=== PATIENT | female | born 1940 | race Caucasian/White ===

== ENCOUNTER 2017-03-05 14:01 | Emergency (ER) | payer MEDICARE, OTHER ==
[2017-03-05] MEDS ORDERED: KETOROLAC TROMETHAMINE 60 MG/2 ML VIAL IM ONE ×2 (14:25→14:33)
[2017-03-05 14:45] LABS: Hematocrit 36.8 % (37.0-47.0); Hemoglobin 12.1 gm/dL (12.5-16.0); Mean Cell Volume 92.9 fl (78-100); Mean Corpuscular Hemoglobin 30.6 pg (27-31); Mean Corpuscular Hgb Conc 32.9 g/dl (32-36); Mean Platelet Volume 10.5 fl (6.0-9.5); Neutrophil % 77.3 % (42-75.0); Platelet Count 223 K/mm3 (150-450); Red Blood Count 3.96 M/mm3 (4.2-5.4); Red Cell Distribution Width 14.1 % (11.5-14.0); White Blood Count 7.7 K/mm3 (4.0-10.5)
--- OUTSIDE RECORDS SUMMARY | 2017-03-05 14:58 | XMS REPORT | Continuity of Care Document ---
:1940 Author Organization [facility] ([facility]) Address [address] [place] [address] Phone [phone] Care Team Providers Name Role Phone Susie Mustafa Primary Care Provider [phone] Source Comments This disclosure is being made pursuant to the Care Everywhere program, applicable federal and state laws, and may not contain all informaitonavailable regarding this patient.[facility] ([facility]) Active Allergies and Adverse Reactions Allergen Noted Date Severity Reactions Comments Ciprofloxacin 05/24/2013 Rash Codeine 05/24/2013 Agitation Levofloxacin 05/24/2013 Rash Sulfa (Sulfonamide Antibiotics) 09/10/2010 Urticaria (Hives) Current Medications Prescription Sig. Disp. Refills Start Date End Date Status SERTraline (ZOLOFT) 50 mg Take 50 mg by Active tablet mouth daily. glimepiride (AMARYL) 4 mg Take 4 mg by mouth Active tablet Every morning. amLODIPine (NORVASC) 10 mg Take 10 mg by Active tablet mouth daily. enalapril (VASOTEC) 5 mg Take 5 mg by mouth Active tablet daily. metoPROLol (TOPROL XL) 50 Take 50 mg by Active mg XL tablet mouth daily. metFORMIN 1,000 mg tablet Take 1,000 mg by Active mouth 2 times daily with meals. BUSPIRONE HCL (BUSPAR PO) Take by mouth 2 Active times daily. Active Problems Problem Noted Date Nephrolithiasis 05/03/2013 HTN (hypertension) 05/03/2013 CAD (coronary artery disease) 05/03/2013 Overview: Reports IN in early 1999, angiogram was negative Diabetes mellitus 05/03/2013 Age related macular degeneration 09/10/2010 Overview: Formatting of this note may be different from the original. RIGHT EYE LEFT EYE Date Diagnosis Procedure Comments Diagnosis Procedure Comments 01/2010 CE CE Other Ocular Diagnoses: 1. 2. Ocular Procedures OD: 1. 2. Ocular Procedures OS: 1. 2. Non-Ocular Medical History: 1. DM 2. HTN Diabetes mellitus type II 09/10/2010 Social History Tobacco Use Types Packs/Day Years Used Date Never Smoker Smokeless Tobacco: Never Used Alcohol Use Drinks/Week oz/Week Comments No Last Filed Vital Signs Vital Sign Reading Time Taken Blood Pressure 147/104 07/19/2013 1:14 PM CDT Pulse 90 07/19/2013 1:14 PM CDT Temperature 36.4 C (97.5 F) 07/19/2013 1:14 PM CDT Respiratory Rate 16 07/19/2013 1:14 PM CDT Height 1.676 m (5' 5.98") 05/24/2013 2:27 PM CDT Weight 129.003 kg (284 lb 6.4 oz) 07/19/2013 1:14 PM CDT Body Mass Index 45.93 07/19/2013 1:14 PM CDT Oxygen Saturation - - Plan of Care Health Maintenance Due Date Last Done Comments Hepatitis B Vaccine (1 of 3 - Primary Series) 1940 Tdap Vaccine 1951 DIABETIC: Cholesterol 1958 Diabetic: Hdl 1958 DIABETIC: Hemoglobin A1C 1958 Diabetic: Ldl 1958 DIABETIC: Microalbumin 1958 DIABETIC: Triglycerides 1958 Td Vaccine 1958 Mammogram 1980 Colonoscopy 1990 Zoster Vaccine 2000 Osteoporosis Screening (DXA Bone Density) 2005 Pneumococcal Vaccine (1 of 2 - PCV13) 2005 DIABETIC: Foot Exam 03/03/2011 DIABETIC: Retinal Eye Exam 03/03/2011 Influenza Vaccine: Seasonal (#1) 04/20/2016 Results from Last 3 Months Not on file
[2017-03-05 15:00] LABS: Albumin * 3.2 gm/dl (3.4-5.0); Anion Gap 12.3 mmol/L (6.8-13.8); BUN/Creatinine Ratio 16.1 (9.0-21.6); Bilirubin, Total 0.3 mg/dL (0.0-1.1); Ca. Corrected For Albumin 8.4 mg/dL (8.4-10.2); Calcium * 8.1 mg/dL (7.9-10.9); Carbon Dioxide 28.2 mmol/L (24-32.6); Potassium 4.5 mmol/L (3.4-4.6); Total Protein 7.2 gm/dL (6.2-8.2)
[2017-03-05 16:27] LABS: Urine Appearance Slightly Cloudy; Urine Color Dark Yellow
[2017-03-05 16:28] LABS: Urine Bilirubin Negative (NEGATIVE); Urine Blood 250 /ul (NEGATIVE); Urine Ketone Negative (NEGATIVE); Urine Nitrite Negative (NEGATIVE); Urine Protein Negative (NEGATIVE); Urine Specific Gravity 1.025 SP.GR. (1.005-1.010); Urine Urobilinogen Normal (NORMAL)
[2017-03-05 16:29] LABS: Urine Bacteria 4+; Urine WBC >50 /hpf (0-5)
--- NOTE | 2017-03-05 16:46 | ERNOTE ---
Back Pain ER HPI Date of Service: 03/05/17 Presenting Symptoms: injury/pain to back Time Seen by Provider: 03/05/17 14:19 Source: patient Exam Limitations: no limitations Immunizations: IMMUNIZATION HX Immunizations Up to Date Yes History of Influenza Vaccine No Hx Pneumococcal Vaccination No Allergies/Adverse Reactions: Allergies red dye Allergy (Mild, Verified 03/05/17 14:07) Hives strawberry Allergy (Mild, Verified 03/05/17 14:07) Hives ciprofloxacin [From Cipro] Adverse Reaction (Mild, Verified 03/05/17 14:07) Hives codeine Adverse Reaction (Mild, Verified 03/05/17 14:07) anxious nitrofurantoin [From Macrobid] Adverse Reaction (Mild, Verified 03/05/17 14:07) Hives Sulfa (Sulfonamide Antibiotics) [Sulfa(Sulfonamide Antibiotics)] Adverse Reaction (Mild, Verified 03/05/17 14:07) Hives Home Medications: HOME MEDICATIONS Enalapril Maleate [Vasotec] 5 mg PO DAILY 08/03/12 [Last Taken Unknown] Metoprolol Tartrate 50 mg PO BID 08/03/12 [Last Taken Unknown] Calcium Carbonate/Vitamin D3 [Calcium 600 + Vit D 400 Tablet] 1 each PO BID [Last Taken Unknown] Glimepiride [Amaryl] 4 mg PO BID 06/06/13 [Last Taken Unknown] Beta-Carotene(A) W-C , E/Min [Ocuvite] 2 tab PO BID 10/06/14 [Last Taken Unknown ] Loratadine [Claritin] 10 mg PO DAILY 12/23/14 [Last Taken Unknown] Escitalopram Oxalate [Lexapro] 20 mg PO DAILY 09/09/15 [Last Taken Unknown] Nystatin [Mycostatin Powder] 1 appl TP BID #1 btl 09/11/15 [Last Taken Unknown] Cholestyramine (with Sugar) [Questran Powder] 4 gm PO DAILY 03/05/17 [Last Taken Unknown] Insulin Glargine,Hum.rec.anlog [Lantus Solostar] 34 unit SQ HS 03/05/17 [Last Taken Unknown] Sulfamethoxazole/Trimethoprim [Bactrim Ds] 1 tab PO BID #20 tab 03/05/17 [Last Taken Unknown] Tramadol HCl/Acetaminophen [Tramadol-Acetaminophn 37.5-325] 1 each PO TID #30 tablet 03/05/17 [Last Taken Unknown] metFORMIN HCL [Glumetza] 500 mg PO HS 03/05/17 [Last Taken Unknown] Narrative: patient has had back pain for last several days, no known injury,hx of arthritis Timing: Reports: getting worse Quality/Severity: Reports: moderate, aching, throbbing Location of pain: Reports: lower back Activities at Onset: Reports: activity Recent Injury?: Reports: no Modifying Factors - (Improves): Reports: nothing Modifying Factors - (Worsens): Reports: movement to right, movement to left, movement flexion Associated Symptoms: Reports: fever/chills Review of Systems - Narrative Narrative: painn hasa progressed to point of decresed ability to walk - Review of Systems Constitutional: Present: weakness, fatigue, malaise EYE: Present: no symptoms reported ENT: Present: no symptoms reported Respiratory: Present: no symptoms reported Cardiology: Present: no symptoms reported Gastrointestinal/Abdominal: Present: no symptoms reported Genitourinary: Present: frequency, pain, dysuria Musculoskeletal: Present: back pain, muscle pain, muscle stiffness, joint pain Skin: Present: no symptoms reported Neurological: Present: no symptoms reported Endocrine: Present: no symptoms reported Hematologic/Lymphatic: Present: no symptoms reported Psych: Present: no symptoms reported All Other Systems: All systems neg except as marked - Patient's Past Medical History Patient History - Medical: Diabetes Type 2, Kidney stone, Obesity, UTI'S Patient History - Cardiac/Respiratory: Hypertension Patient History - Cancer: No Hx of Cancer Patient History - Surgical Procedures: Appendectomy, Cholecystectomy, Colonoscopy Patient History - Other: None LMP (females 10-50): Menopausal - Family History Father Family History - Medical: , Renal Disease, Renal Failure, Other Family History - Cardiac/Respiratory: No pertinent hx Mother Family History - Medical: , Renal Disease, UTI'S Family History - Cardiac/Respiratory: Hypertension, Myocardial Infarction - Social History Living Situations: alone Abuse History: No History of abuse Psych History: No pertinent hx Smoking Status: Never smoker Have you smoked in the past 12 months: No Do you dip or chew tobacco: No Patient requests Smoking Cessation Consult: No Initiate information on Smoking Cessation: No Alcohol Use: none Drug Use: none - Immunizations Immunizations Up to Date: Yes Hx Pneumococcal Vaccination: No History of Influenza Vaccine: No Physical Exam - Physical Exam General Appearance: Present: alert, moderate distress, attentive for age Eye Exam: Normal inspection: bilateral, PERRL: bilateral, EOMI: bilateral Ears, Nose, Throat: Present: normal ENT inspection Neck: Present: normal inspection, nontender Respiratory: Present: no respiratory distress, normal breath sounds, no accessory muscle use, chest nontender, lungs clear Cardiovascular/Chest: Present: regular rate, rhythm, no murmur, normal peripheral pulses Peripheral Pulses: N=norm/S=strong/W=weak/B=bound/A=absent: Carotid (R): Normal , Carotid (L): Normal, Radial (R): Normal, Radial (L): Normal, Femoral (R): Normal, Femoral (L): Normal, Dorsalis-pedis (R): Normal, Dorsalis-pedis (L): Normal Gastrointestinal/Abdominal: Present: normal bowel sounds, nontender, nondistended, soft, no organomegaly Back Exam: Present: vertebral tenderness, decreased range of motion, muscle spasm Extremity Exam: Present: normal inspection, normal range of motion, no edema Neurological Exam: Present: alert, oriented, normal mood/affect, no motor/ sensory deficits DTR: N=norm/NB=norm/brisk/A=abs/DD=dull/dimin/HC=hyperactive: Bicep (R): Normal , Bicep (L): Normal, Tricep (R): Normal, Tricep (L): Normal, Knee (R): Normal, Knee (L): Normal, Ankle (R): Normal, Ankle (L): Normal Skin Exam: Present: normal color, warm/dry Lymphatic Exam: Present: no adenopathy ED Progress - Results and Orders Patient's Lab Results:: I have reviewed the patient's lab results. - Vital Signs Patient's Vital Signs:: I have reviewed the patient's vital signs. Vital Signs: Vital Signs 03/05/17 03/05/17 03/05/17 14:03 14:16 14:37 Temperature 36.5 C Pulse Rate 97 97 104 H Respiratory 18 16 16 Rate Blood Pressure 181/103 183/75 156/79 O2 Sat by Pulse 92 92 90 Oximetry 03/05/17 03/05/17 15:24 16:17 Temperature 37.1 C 36.5 C Pulse Rate 101 H 100 Respiratory 15 16 Rate Blood Pressure 192/102 159/73 O2 Sat by Pulse 92 92 Oximetry - X-Ray X-Ray #1 X-Ray: lumbosacral - report of degenerative joint disease Interpretation: Discd w/ radiologist - Progress/Reassessment Chief Complaint: Back Pain Progress:: Improved - Transfer of Care Expected Disposition: Discharge Departure Clinical Impression: UTI (urinary tract infection), Osteoarthritis - Departure Disposition: Home self-care Condition: Fair Instructions: Urinary Tract Infection, Adult, [id number], Osteoarthritis Prescriptions: Sulfamethoxazole/Trimethoprim [Bactrim Ds] 1 tab PO BID #20 tab Tramadol HCl/Acetaminophen [Tramadol-Acetaminophn 37.5-325] 1 each PO TID #30 tablet
[2017-03-05 16:57] VITALS: BP 160/74
== END 2017-03-05 17:04 | disposition home or self-care (01) ==
LOC: ER 14:01
DX: N39.0 Urinary tract infection, site not specified (principal); M19.90 Unspecified osteoarthritis, unspecified site; E11.9 Type 2 diabetes mellitus without complications; I10 Essential (primary) hypertension; Z87.440 Personal history of urinary (tract) infections; Z87.442 Personal history of urinary calculi

== ENCOUNTER 2017-03-10 13:36 | Inpatient (IN) | payer MEDICARE, OTHER ==
--- NOTE | 2017-03-10 15:07 | ERNOTE ---
Trauma/Assault HPI - General Stated Complaint: UNKNOWN Time Seen by Provider: 03/10/17 13:42 Source: patient Exam Limitations: no limitations - Immun/Allergies/Home Medications Immunizations: IMMUNIZATION HX Immunizations Up to Date Yes History of Influenza Vaccine Yes Hx Pneumococcal Vaccination Yes Allergies/Adverse Reactions: Allergies red dye Allergy (Mild, Verified 03/10/17 13:46) Hives strawberry Allergy (Mild, Verified 03/10/17 13:46) Hives ciprofloxacin [From Cipro] Adverse Reaction (Mild, Verified 03/10/17 13:46) Hives codeine Adverse Reaction (Mild, Verified 03/10/17 13:46) anxious nitrofurantoin [From Macrobid] Adverse Reaction (Mild, Verified 03/10/17 13:46) Hives Sulfa (Sulfonamide Antibiotics) [Sulfa(Sulfonamide Antibiotics)] Adverse Reaction (Mild, Verified 03/10/17 13:46) Hives Home Medications: HOME MEDICATIONS Enalapril Maleate [Vasotec] 5 mg PO DAILY 08/03/12 [Last Taken Unknown] Metoprolol Tartrate 50 mg PO BID 08/03/12 [Last Taken Unknown] Calcium Carbonate/Vitamin D3 [Calcium 600 + Vit D 400 Tablet] 1 each PO BID [Last Taken Unknown] Glimepiride [Amaryl] 4 mg PO BID 06/06/13 [Last Taken Unknown] Beta-Carotene(A) W-C , E/Min [Ocuvite] 2 tab PO BID 10/06/14 [Last Taken Unknown ] Loratadine [Claritin] 10 mg PO DAILY 12/23/14 [Last Taken Unknown] Escitalopram Oxalate [Lexapro] 20 mg PO DAILY 09/09/15 [Last Taken Unknown] Nystatin [Mycostatin Powder] 1 appl TP BID #1 btl 09/11/15 [Last Taken Unknown] Cholestyramine (with Sugar) [Questran Powder] 4 gm PO DAILY 03/05/17 [Last Taken Unknown] Insulin Glargine,Hum.rec.anlog [Lantus Solostar] 34 unit SQ HS 03/05/17 [Last Taken Unknown] Tramadol HCl/Acetaminophen [Tramadol-Acetaminophn 37.5-325] 1 each PO TID #30 tablet 03/05/17 [Last Taken Unknown] metFORMIN HCL [Glumetza] 500 mg PO HS 03/05/17 [Last Taken Unknown] - History of Present Illness Narrative: Patient presents after another fall. Patient has a long-standing history of left leg pain and frequent falls and she fell again this time her got caught on the edge of something at the house and she landed on her left hip and against the left side of her chest. Patient is chronically weak and struggles to get around and is prone to frequent falls. Location Occurred: Reports: home Pain Location: Reports: chest, pelvis Method of Injury: Reports: fall Severity: moderate Loss of Consciousness: Reports: no loss of consciousness Associated Symptoms - Trauma: Reports: denies symptoms Review of Systems - Review of Systems Constitutional: Present: See HPI EYE: Present: no symptoms reported ENT: Present: no symptoms reported Respiratory: Present: no symptoms reported Cardiology: Present: chest pain - chest wall Gastrointestinal/Abdominal: Present: no symptoms reported Genitourinary: Present: no symptoms reported Musculoskeletal: Present: See HPI Skin: Present: no symptoms reported Neurological: Present: no symptoms reported Endocrine: Present: no symptoms reported Hematologic/Lymphatic: Present: no symptoms reported Psych: Present: no symptoms reported - Patient's Past Medical History Patient History - Medical: Diabetes Type 2, Kidney stone, Obesity, UTI'S Patient History - Cardiac/Respiratory: Hypertension Patient History - Cancer: No Hx of Cancer Patient History - Surgical Procedures: Appendectomy, Cholecystectomy, Colonoscopy Patient History - Other: None LMP (females 10-50): Menopausal - Family History Father Family History - Medical: , Renal Disease, Renal Failure, Other Family History - Cardiac/Respiratory: No pertinent hx Mother Family History - Medical: , Renal Disease, UTI'S Family History - Cardiac/Respiratory: Hypertension, Myocardial Infarction - Social History Living Situations: home Abuse History: No History of abuse Psych History: No pertinent hx Smoking Status: Never smoker Alcohol Use: none Drug Use: none - Immunizations Immunizations Up to Date: Yes Hx Pneumococcal Vaccination: Yes History of Influenza Vaccine: Yes Physical Exam - Physical Exam General Appearance: Present: wd/wn, alert, moderate distress Eye Exam: Normal inspection: bilateral, PERRL: bilateral Ears, Nose, Throat: Present: normal ENT inspection, H, normal pharynx Neck: Present: normal inspection, nontender Respiratory: Present: no respiratory distress, normal breath sounds, no accessory muscle use, lungs clear, chest tenderness Cardiovascular/Chest: Present: regular rate, rhythm, no murmur, normal peripheral pulses Gastrointestinal/Abdominal: Present: normal bowel sounds, nontender, nondistended, soft, no organomegaly Rectal Exam: Present: deferred Back Exam: Present: normal inspection, normal range of motion Extremity Exam: Present: normal range of motion, no edema, bony tenderness - tenderness along the left IT Band Neurological Exam: Present: alert, oriented, normal mood/affect Skin Exam: Present: normal color, warm/dry Lymphatic Exam: Present: no adenopathy ED Progress - Results and Orders Patient's Lab Results:: I have reviewed the patient's lab results. - Vital Signs Patient's Vital Signs:: I have reviewed the patient's vital signs. Vital Signs: Vital Signs 03/10/17 03/10/17 03/10/17 13:39 14:09 14:45 Temperature 36.2 C L 36.4 C L 36.0 C L Pulse Rate 72 71 69 Respiratory 16 16 16 Rate Blood Pressure 139/62 151/70 148/72 O2 Sat by Pulse 92 92 93 Oximetry - X-Ray X-Ray #1 X-Ray: chest Interpretation: Reviewed by me X-Ray #2 X-Ray: ankle Interpretation: Reviewed by me - Progress/Reassessment Chief Complaint: Fall Progress:: Unchanged Plan - Plan Plan: Patient appears to be in a severely debilitated decompensated state. She is unable to bear weight on her left side due to severe pain along the left IT band , is unable at this point even to use her walker and today when she tried using her walker she fell. We are given have to bring the patient into the hospital for pain management, PT OT evaluation and further training on walker and being ambulatory. I discussed case with Dr. Bravo and he agrees to admit and assess her ability to function in the home setting if at all. Departure Clinical Impression: Falls frequently, Ambulatory dysfunction - Departure Disposition: [facility] Condition: Fair
[2017-03-10] MEDS ORDERED: MORPHINE SULFATE 4 MG/ML SYRG SC ONE (16:01)
[2017-03-10 16:22] LABS: Hematocrit 38.4 % (37.0-47.0); Hemoglobin 12.6 gm/dL (12.5-16.0); Mean Cell Volume 92.5 fl (78-100); Mean Corpuscular Hemoglobin 30.4 pg (27-31); Mean Corpuscular Hgb Conc 32.8 g/dl (32-36); Mean Platelet Volume 10.3 fl (6.0-9.5); Neutrophil # 8.9 K/mm3 (1.3-6.0); Platelet Count 290 K/mm3 (150-450); Red Blood Count 4.15 M/mm3 (4.2-5.4); Red Cell Distribution Width 14.5 % (11.5-14.0); White Blood Count 11.3 K/mm3 (4.0-10.5)
[2017-03-10] MEDS ORDERED: MORPHINE SULFATE 4 MG/ML SYRG ONE ×2 (16:25→16:29)
[2017-03-10 16:32] LABS: Albumin * 3.4 gm/dl (3.4-5.0); Anion Gap 11.8 mmol/L (6.8-13.8); BUN/Creatinine Ratio 29.2 (9.0-21.6); Bilirubin, Total 0.3 mg/dL (0.0-1.1); Ca. Corrected For Albumin 10.1 mg/dL (8.4-10.2); Calcium * 9.9 mg/dL (7.9-10.9); Carbon Dioxide 30.5 mmol/L (24-32.6); Magnesium 1.7 mg/dL (1.2-2.8); Potassium 4.3 mmol/L (3.4-4.6); Total Protein 7.6 gm/dL (6.2-8.2)
[2017-03-10 17:54] LABS: Urine Bilirubin Negative (NEGATIVE); Urine Blood 50 /ul (NEGATIVE); Urine Ketone Negative (NEGATIVE); Urine Nitrite Negative (NEGATIVE); Urine Protein 30 mg/dL (NEGATIVE); Urine Specific Gravity 1.025 SP.GR. (1.005-1.010); Urine Urobilinogen Normal (NORMAL); Urine pH 5.5 pH (5.0-7.0)
[2017-03-10 18:03] LABS: Urine Appearance Slightly Cloudy; Urine Color Yellow
[2017-03-10 18:04] LABS: Urine Amorphous Sediment Many - 3+ (NONE-FEW); Urine Bacteria 2+; Urine RBC 0-5 /hpf (0-5)
[2017-03-10] MEDS ORDERED: NORMAL SALINE 1,000 ML IV PRN (21:15)
--- NOTE | 2017-03-10 21:28 | HP ---
Chief Complaint - Chief Complaint Date of Service: 03/10/17 Time of Service: 21:17 Chief Complaint: weakness, UTI, unable to do ADLs at home History of Present Illness: Jessa is a 76 year old female patient of Dr. Bravo with a PMH of DM, recurrent UTIs, HTN, and HLD who presented to the ER after a fall at home. denies LOC. states she landed on left side, against left hip and left side of chest. c/o left shoulder pain with movement. history of frequent falls and weakness. patient states that weakness is getting progressively worse to the point she is unable to get around her home and take care of self or do ADLs at home. patient currently being treated outpatient with levaquin po. will admit for weakness, fall, UTI and case management consult for NH placement. - Patient's Past Medical History Patient History - Medical: Diabetes Type 2, Kidney stone, Obesity, UTI'S Patient History - Cardiac/Respiratory: Deep Vein Thrombosis, Hypertension, Myocardial Infarction, Home O2 Use Patient History - Cancer: No Hx of Cancer Patient History - Surgical Procedures: Appendectomy, Cholecystectomy, Colonoscopy, Hernia Repair Patient History - Other: None LMP (females 10-50): Menopausal - Family History Father Family History - Medical: , Renal Disease, Renal Failure, Other Family History - Cardiac/Respiratory: No pertinent hx Mother Family History - Medical: , Renal Disease, UTI'S Family History - Cardiac/Respiratory: Hypertension, Myocardial Infarction - Social History Living Situations: alone Abuse History: No History of abuse Psych History: No pertinent hx Smoking Status: Never smoker Have you smoked in the past 12 months: No Alcohol Use: none Drug Use: none - Immunizations Immunizations Up to Date: Yes Hx Pneumococcal Vaccination: Yes History of Influenza Vaccine: Yes Review Of Systems (GEN) - Review of Systems Generalized/Overall Review: Present: Fatigue, Weight loss. Absent: Chills, Fever EENTM: Present: No Symptoms Reported Respiratory: Present: No Symptoms Reported Cardiac: Present: No Symptoms Reported Abdominal: Present: No Symptoms Reported Genitourinary: Present: Frequency Musculoskeletal: Present: Back Pain, Muscle Pain, Other - left shoulder pain Neurological: Present: Weakness - generalized Skin: Present: No Symptoms Reported Endocrine: Present: No Symptoms Reported Misc: All systems neg except as marked Allergies/Adverse Reactions: Allergies Allergy/AdvReac Type Severity Reaction Status Date / Time red dye Allergy Mild Hives Verified 03/10/17 13:46 strawberry Allergy Mild Hives Verified 03/10/17 13:46 ciprofloxacin [From Cipro] AdvReac Mild Hives Verified 03/10/17 13:46 codeine AdvReac Mild anxious Verified 03/10/17 13:46 nitrofurantoin AdvReac Mild Hives Verified 03/10/17 13:46 [From Macrobid] Sulfa (Sulfonamide AdvReac Mild Hives Verified 03/10/17 13:46 Antibiotics) [Sulfa(Sulfonamide Antibiotics)] Home Medications: HOME MEDICATIONS Enalapril Maleate [Vasotec] 5 mg PO DAILY 08/03/12 [Last Taken Unknown] Metoprolol Tartrate 50 mg PO BID 08/03/12 [Last Taken Unknown] Calcium Carbonate/Vitamin D3 [Calcium 600 + Vit D 400 Tablet] 1 each PO BID [Last Taken Unknown] Glimepiride [Amaryl] 4 mg PO BID 06/06/13 [Last Taken Unknown] Beta-Carotene(A) W-C , E/Min [Ocuvite] 2 tab PO BID 10/06/14 [Last Taken Unknown ] Loratadine [Claritin] 10 mg PO DAILY 12/23/14 [Last Taken Unknown] Escitalopram Oxalate [Lexapro] 20 mg PO DAILY 09/09/15 [Last Taken Unknown] Cholestyramine (with Sugar) [Questran Powder] 4 gm PO DAILY 03/05/17 [Last Taken Unknown] Insulin Glargine,Hum.rec.anlog [Lantus Solostar] 34 unit SQ HS 03/05/17 [Last Taken Unknown] Tramadol HCl/Acetaminophen [Tramadol-Acetaminophn 37.5-325] 1 each PO TID #30 tablet 03/05/17 [Last Taken Unknown] metFORMIN HCL [Glumetza] 500 mg PO BID 03/05/17 [Last Taken Unknown] Levofloxacin [Levaquin] 500 mg PO DAILY 03/10/17 [Last Taken 03/05/17] Nystatin [Nystop] 1 appl TP BID 03/10/17 [Last Taken Unknown] Exam - Exam Vital Signs: Vital Signs - Last Taken Temp 36.8 C 03/10/17 18:35 Pulse 71 06/21/17 18:35 Resp 18 03/10/17 18:35 BP 151/75 03/10/17 18:35 Pulse Ox 90 03/10/17 18:35 Constitutional: Present: Alert, Cooperative, No distress, Elderly, Morbidly obese ENT Exam: Present: hearing grossly normal Eye Exam: bilateral eye: normal inspection Neck: Present: supple Back Exam: Present: no vertebral tenderness Breasts: Present: Exam deferred Respiratory: Present: lungs clear, normal breath sounds, no respiratory distress Cardiovascular/Chest: Present: regular rate, rhythm Peripheral Pulses: dorsalis-pedis (R): 2+, dorsalis-pedis (L): 2+, radial (R): 2 +, radial (L): 2+ Abdomen: Present: Normal bowel sounds, soft, nontender, nondistended, obese /Rectal: Present: Exam deferred Extremity: Present: no pedal edema, no calf tenderness, leg pain - left, other - diffuse left shoulder tenderness to palpation. Skin Exam: Present: warm/dry, no cyanosis, other - large bruise noticed on left lateral hip. Diagnostic Studies: Abnormal Lab Results 03/10/17 Range/Units 17:27 Urine Protein 30 H (NEGATIVE) mg/dL Urine Blood 50 H (NEGATIVE) /ul Ur Leukocyte Esterase 75 H (NEGATIVE) /ul Urine WBC 5-10 H (0-5) /hpf Ur Epithelial Cells 5-10 H (0-5) /hpf Amorphous Sediment Many - 3+ H (NONE-FEW) Urine Bacteria 2+ H (NONE) Laboratory Results WBC 11.3 K/mm3 (4.0-10.5) H 03/10/17 16:15 RBC 4.15 M/mm3 (4.2-5.4) L 03/10/17 16:15 Hgb 12.6 gm/dL (12.5-16.0) 03/10/17 16:15 Hct 38.4 % (37.0-47.0) 03/10/17 16:15 MCV 92.5 fl (78-100) 03/10/17 16:15 MCH 30.4 pg (27-31) 03/10/17 16:15 MCHC 32.8 g/dl (32-36) 03/10/17 16:15 RDW 14.5 % (11.5-14.0) H 03/10/17 16:15 Plt Count 290 K/mm3 (150-450) 03/10/17 16:15 MPV 10.3 fl (6.0-9.5) H 03/10/17 16:15 Immature Gran % (Auto) 0.40 % (0.001-0.429) 03/10/17 16:15 Immature Gran # (Auto) 0.05 K/mm3 (0.000-0.0310) H 03/10/17 16:15 Neutrophils % 79.0 % (42-75.0) H 03/10/17 16:15 Lymphocytes % 10.9 % (20-51) L 03/10/17 16:15 Monocytes % 8.0 % (0.0-9) 03/10/17 16:15 Eosinophils % 1.4 % (0.0-3.0) 03/10/17 16:15 Basophils % 0.3 % (0.0-1.0) 03/10/17 16:15 Nucleated RBC % 0.0 k/mm3 (0-1) 03/10/17 16:15 Neutrophils # 8.9 K/mm3 (1.3-6.0) H 03/10/17 16:15 Lymphocytes # 1.2 k/mm3 (1.5-3.5) L 03/10/17 16:15 Monocytes # 0.9 k/mm3 (0.0-1.0) 03/10/17 16:15 Eosinophils # 0.2 k/mm3 (0.0-0.7) 03/10/17 16:15 Absolute Basophils 0.0 k/mm3 (0.0-0.1) 03/10/17 16:15 Sodium 142 mmol/L (132-142) 03/10/17 16:15 Plasma Sodium 143 mmol/L (130-142) H 03/10/17 16:15 Potassium 4.3 mmol/L (3.4-4.6) 03/10/17 16:15 Chloride 104 mmol/L (97-106) 03/10/17 16:15 Carbon Dioxide 30.5 mmol/L (24-32.6) 03/10/17 16:15 Anion Gap 11.8 mmol/L (6.8-13.8) 03/10/17 16:15 BUN 31 mg/dL (3-23) H D 03/10/17 16:15 Creatinine 1.06 mg/dL (0.4-1.4) 03/10/17 16:15 Est GFR (Non-Af Amer) 54 mL/min (60-130) L 03/10/17 16:15 BUN/Creatinine Ratio 29.2 (9.0-21.6) H 03/10/17 16:15 Random Glucose 150 mg/dL (70-110) H 03/10/17 16:15 Calcium 9.9 mg/dL (7.9-10.9) 03/10/17 16:15 Calcium Adj for Albumin 10.1 mg/dL (8.4-10.2) 03/10/17 16:15 Magnesium 1.7 mg/dL (1.2-2.8) 03/10/17 16:15 Total Bilirubin 0.3 mg/dL (0.0-1.1) 03/10/17 16:15 AST 24 U/L (0-48) 03/10/17 16:15 ALT 34 U/L (19-67) 03/10/17 16:15 Alkaline Phosphatase 70 U/L (50-170) 03/10/17 16:15 Total Protein 7.6 gm/dL (6.2-8.2) 03/10/17 16:15 Albumin 3.4 gm/dl (3.4-5.0) 03/10/17 16:15 Urine Color Yellow 03/10/17 17:27 Urine Appearance Slightly cloudy 03/10/17 17:27 Urine pH 5.5 pH (5.0-7.0) 03/10/17 17:27 Ur Specific [place] 1.025 SP.GR. (1.005-1.010) 03/10/17 17:27 Urine Protein 30 mg/dL (NEGATIVE) H 03/10/17 17:27 Urine Glucose (UA) Negative mg/dL (NEGATIVE) 03/10/17 17:27 Urine Ketones Negative mg/dL (NEGATIVE) 03/10/17 17:27 Urine Blood 50 /ul (NEGATIVE) H 03/10/17 17:27 Urine Nitrate Negative (NEGATIVE) 03/10/17 17:27 Urine Bilirubin Negative mg/dl (NEGATIVE) 03/10/17 17:27 Prot Sulfosalicylic Acd 1+ mg/dL (0) 03/10/17 17:27 Urine Urobilinogen Normal EU/dl (NORMAL) 03/10/17 17:27 Ur Leukocyte Esterase 75 /ul (NEGATIVE) H 03/10/17 17:27 Urine RBC 0-5 /hpf (0-5) 03/10/17 17:27 Urine WBC 5-10 /hpf (0-5) H 03/10/17 17:27 Ur Epithelial Cells 5-10 /hpf (0-5) H 03/10/17 17:27 Amorphous Sediment Many - 3+ (NONE-FEW) H 03/10/17 17:27 Urine Bacteria 2+ (NONE) H 03/10/17 17:27 Urine Culture Comments Culture to follow 03/10/17 17:27 Assessment/Plan - Narrative Narrative: Sepsis - Source of Infection: UTI - Additional Criteria: - hypothermia - temp 36.0 - lactic acidosis - lactic acid 3.3 - failure of outpatient treatment (levaquin po) - Sepsis bolus started at 30 ml/kg - NS at 130 ml/hr x 4086 ml. - Antibiotic - Rocephin 1 gm iv daily - Day #1 - will need minimum stay of 3 midnights to await urine culture results before discharge given outpatient treatment failure and development of sepsis. - Blood cultures x2 pending - await urine culture generalized weakness - long-term deconditioned - consult PT/OT - will likely need NH placement - aggrevated greatly by UTI and sepsis Frequent Fall - see above plan UTI - start Rocephin 1 gm IV daily - Day #1 - await urine culture - see Sepsis plan of care. Left Shoulder Strain - c/o pain with movement - check xray given fall, pt states she landed on her left side. HTN - vital signs q 4 hours Code status: Full code VTE: lovenox GI Proph: protonix po. - Assessment/Plan (1) Generalized weakness Problem: Acute (2) Left shoulder strain Problem: Acute Qualifiers: Encounter type: initial encounter Qualified Code(s): S46.912A - Strain of unspecified muscle, fascia and tendon at shoulder and upper arm level, left arm , initial encounter (3) HTN (hypertension) Problem: Chronic Qualifiers: Hypertension type: essential hypertension Qualified Code(s): I10 - Essential (primary) hypertension (4) HLD (hyperlipidemia) Problem: Chronic Qualifiers: Hyperlipidemia type: unspecified Qualified Code(s): E78.5 - Hyperlipidemia , unspecified (5) Lactic acidosis Problem: Acute (6) Falls frequently Problem: Chronic (7) Discharge planning issues Problem: Acute (8) Low back pain Problem: Chronic Qualifiers: Chronicity: unspecified Back pain laterality: unspecified Sciatica presence: unspecified whether sciatica present Qualified Code(s): M54.5 - Low back pain (9) UTI (urinary tract infection) Problem: Acute Qualifiers: Urinary tract infection type: acute cystitis Hematuria presence: with hematuria Qualified Code(s): N30.01 - Acute cystitis with hematuria (10) Coronary artery disease Problem: Chronic Qualifiers: Coronary Disease-Associated Artery/Lesion type: [place] artery [place] vs. transplanted heart: [place] heart Associated angina: without angina Qualified Code(s): I25.10 - Atherosclerotic heart disease of [place] coronary artery without angina pectoris (11) Diabetes mellitus Problem: Chronic Qualifiers: Diabetes mellitus type: type 2 Diabetes mellitus complication status: without complication (12) Morbid obesity Problem: Chronic Qualifiers: Obesity type: due to excess calories Qualified Code(s): E66.01 - Morbid ( severe) obesity due to excess calories
[2017-03-10] MEDS: METOPROLOL TARTRATE 50 MG TABLET PO SCH (21:56)
[2017-03-10] MEDS: ENOXAPARIN SODIUM 40 MG/0.4 ML SYRG SC SCH (21:56)
[2017-03-10] MEDS: NYSTATIN 15 APPL BTL TP SCH (21:57)
[2017-03-10] MEDS ORDERED: INSULIN GLARGINE,HUM.REC.ANLOG 100 UNITS/ML VIAL SC ONE (22:07)
[2017-03-10] MEDS: INSULIN GLARGINE,HUM.REC.ANLOG 100 UNITS/ML VIAL SC SCH (22:08)
[2017-03-10] MEDS: NORMAL SALINE 1,000 ML IV PRN (22:13)
[2017-03-10] MEDS ORDERED: KETOROLAC TROMETHAMINE 15 MG/ML VIAL IV PRN (22:29)
[2017-03-10] MEDS: traMADol HCL 50 MG TABLET PO PRN (23:05)
[2017-03-11] MEDS: NORMAL SALINE 1,000 ML IV PRN ×3 (06:23→22:50)
[2017-03-11 06:53] LABS: Hematocrit 33.5 % (37.0-47.0); Hemoglobin 10.8 gm/dL (12.5-16.0); Mean Cell Volume 93.6 fl (78-100); Mean Corpuscular Hemoglobin 30.2 pg (27-31); Mean Corpuscular Hgb Conc 32.2 g/dl (32-36); Mean Platelet Volume 9.7 fl (6.0-9.5); Neutrophil # 5.3 K/mm3 (1.3-6.0); Neutrophil % 65.9 % (42-75.0); Platelet Count 216 K/mm3 (150-450); Red Blood Count 3.58 M/mm3 (4.2-5.4); Red Cell Distribution Width 14.6 % (11.5-14.0); White Blood Count 8.1 K/mm3 (4.0-10.5)
[2017-03-11 07:00] LABS: Anion Gap 11.9 mmol/L (6.8-13.8); BUN/Creatinine Ratio 25.5 (9.0-21.6); Calcium * 8.5 mg/dL (7.9-10.9); Carbon Dioxide 27.2 mmol/L (24-32.6); Estimated Creat Clear 42.2; Potassium 4.1 mmol/L (3.4-4.6)
[2017-03-11] MEDS ORDERED: METFORMIN HCL 500 MG PO SCH (07:00)
[2017-03-11] MEDS: INSULIN LISPRO 100 UNITS/ML VIAL SC SCH ×4 (07:09→20:14)
[2017-03-11] MEDS: traMADol HCL 50 MG TABLET PO PRN (07:27)
[2017-03-11] MEDS: GLIMEPIRIDE 4 MG TABLET PO SCH ×2 (07:27→17:22)
[2017-03-11] MEDS: CHOLESTYRAMINE/SUCROSE 4 GM PACKET PO SCH (08:57)
[2017-03-11] MEDS: PANTOPRAZOLE SODIUM 40 MG TABLET.EC PO SCH (08:57)
[2017-03-11] MEDS: NYSTATIN 15 APPL BTL TP SCH ×2 (08:58→20:09)
[2017-03-11] MEDS: ENALAPRIL MALEATE 5 MG TABLET PO SCH (08:58)
[2017-03-11] MEDS: ESCITALOPRAM OXALATE 10 MG TAB PO SCH (08:58)
[2017-03-11] MEDS: LORATADINE 10 MG TABLET PO SCH (08:58)
[2017-03-11] MEDS: BETA-CAROTENE(A) W-C , E/MIN 1 TAB TABLET PO SCH ×2 (08:58→20:08)
[2017-03-11] MEDS: METOPROLOL TARTRATE 50 MG TABLET PO SCH ×2 (08:58→20:10)
[2017-03-11] MEDS: CALCIUM CARBONATE/VITAMIN D3 1 TAB TABLET PO SCH ×2 (08:58→20:10)
[2017-03-11] MEDS: ACETAMINOPHEN 325 MG TABLET PO PRN (10:53)
[2017-03-11] MEDS: GABAPENTIN 300 MG CAPSULE PO SCH ×2 (15:02→23:39)
[2017-03-11] MEDS: INSULIN GLARGINE,HUM.REC.ANLOG 100 UNITS/ML VIAL SC SCH (20:14)
[2017-03-11] MEDS: ENOXAPARIN SODIUM 40 MG/0.4 ML SYRG SC SCH (20:19)
--- NOTE | 2017-03-11 23:51 | PN ---
Subjective - Date and Time Seen Date: 03/11/17 Time: 12:45 Subjective Narrative: Reports bilateral toe pain. Reports this is making it difficult to walk. Still has weakness. No n/v/f/c. Objective - Vitals Vitals: Last Vital Signs Temp 36.4 C L 03/11/17 21:00 Pulse 88 03/11/17 21:00 Resp 16 03/11/17 21:00 BP 151/89 03/11/17 21:00 Pulse Ox 91 03/11/17 21:00 - Exam Constitutional: Present: Alert, Oriented x3, Cooperative ENT Exam: Present: hearing grossly normal Respiratory: Present: lungs clear, normal breath sounds Cardiovascular/Chest: Present: regular rate, rhythm, no edema Abdomen: Present: Normal bowel sounds, soft, nontender, nondistended Skin Exam: Present: normal color, warm/dry, no cyanosis Assessment/Plan - Problems/Diagnosis (1) UTI (urinary tract infection) Problem: Acute Qualifiers: Urinary tract infection type: acute cystitis Hematuria presence: with hematuria Qualified Code(s): N30.01 - Acute cystitis with hematuria Narrative: Suspect weakness from UTI. Continue antibiotics. Strength and mentation appear improving. Difficulty walking due to toe pain. Suspect diabetic neuropathy. Started gabapentin, will monitor. (2) Diabetic neuropathy Problem: Acute (3) Frequent falls Problem: Acute (4) Generalized weakness Problem: Acute
[2017-03-12] MEDS: traMADol HCL 50 MG TABLET PO PRN ×2 (03:27→13:28)
[2017-03-12] MEDS: NORMAL SALINE 1,000 ML IV PRN (06:40)
[2017-03-12] MEDS: GABAPENTIN 300 MG CAPSULE PO SCH ×3 (06:47→22:08)
[2017-03-12] MEDS: GLIMEPIRIDE 4 MG TABLET PO SCH ×2 (06:49→16:27)
[2017-03-12] MEDS: PANTOPRAZOLE SODIUM 40 MG TABLET.EC PO SCH (06:49)
[2017-03-12] MEDS: INSULIN LISPRO 100 UNITS/ML VIAL SC SCH ×4 (06:52→20:48)
[2017-03-12] MEDS: METOPROLOL TARTRATE 50 MG TABLET PO SCH ×2 (08:46→20:49)
[2017-03-12] MEDS: ENALAPRIL MALEATE 5 MG TABLET PO SCH (08:47)
[2017-03-12] MEDS: ESCITALOPRAM OXALATE 10 MG TAB PO SCH (08:47)
[2017-03-12] MEDS: CALCIUM CARBONATE/VITAMIN D3 1 TAB TABLET PO SCH ×2 (08:47→20:48)
[2017-03-12] MEDS: LORATADINE 10 MG TABLET PO SCH (08:47)
[2017-03-12] MEDS: BETA-CAROTENE(A) W-C , E/MIN 1 TAB TABLET PO SCH ×2 (08:47→20:50)
[2017-03-12] MEDS: NYSTATIN 15 APPL BTL TP SCH ×2 (08:48→20:52)
[2017-03-12] MEDS: CHOLESTYRAMINE/SUCROSE 4 GM PACKET PO SCH (08:48)
[2017-03-12 10:17] LABS: Hematocrit 32.1 % (37.0-47.0); Hemoglobin 10.4 gm/dL (12.5-16.0); Mean Cell Volume 93.3 fl (78-100); Mean Corpuscular Hemoglobin 30.2 pg (27-31); Mean Corpuscular Hgb Conc 32.4 g/dl (32-36); Mean Platelet Volume 10.1 fl (6.0-9.5); Neutrophil % 65.7 % (42-75.0); Platelet Count 205 K/mm3 (150-450); Red Blood Count 3.44 M/mm3 (4.2-5.4); Red Cell Distribution Width 14.7 % (11.5-14.0); White Blood Count 7.6 K/mm3 (4.0-10.5)
[2017-03-12 10:28] LABS: Albumin * 2.8 gm/dl (3.4-5.0); Anion Gap 10.7 mmol/L (6.8-13.8); Bilirubin, Total 0.3 mg/dL (0.0-1.1); Ca. Corrected For Albumin 8.8 mg/dL (8.4-10.2); Calcium * 8.2 mg/dL (7.9-10.9); Carbon Dioxide 27.4 mmol/L (24-32.6); Potassium 4.1 mmol/L (3.4-4.6); Total Protein 6.5 gm/dL (6.2-8.2)
--- NOTE | 2017-03-12 13:59 | PN ---
Subjective - Date and Time Seen Date: 03/12/17 Time: 13:52 Subjective Narrative: Continues to have pain in right toes. Sharp, worse with walking. Strength improving. No fever, chills, n/v. Eating better. Objective - Vitals Vitals: Last Vital Signs Temp 36.6 C 03/12/17 09:52 Pulse 74 03/12/17 09:52 Resp 16 03/12/17 09:52 BP 143/60 03/12/17 09:52 Pulse Ox 93 03/12/17 09:52 - Abnormal Lab Findings Abnormal Lab Findings: Abnormal Lab Results 03/12/17 03/12/17 Range/Units 10:12 10:12 RBC 3.44 L (4.2-5.4) M/mm3 Hgb 10.4 L (12.5-16.0) gm/dL Hct 32.1 L (37.0-47.0) % RDW 14.7 H (11.5-14.0) % MPV 10.1 H (6.0-9.5) fl Immature Gran % (Auto) 0.50 H (0.001-0.429) % Immature Gran # (Auto) 0.04 H (0.000-0.0310) K/mm3 Lymphocytes % 19.7 L (20-51) % Monocytes % 11.2 H (0.0-9) % Random Glucose 170 H (70-110) mg/dL Albumin 2.8 L (3.4-5.0) gm/dl - Exam Constitutional: Present: Alert, Oriented x3, Cooperative ENT Exam: Present: hearing grossly normal Respiratory: Present: lungs clear, normal breath sounds Cardiovascular/Chest: Present: regular rate, rhythm, no murmur Abdomen: Present: Normal bowel sounds, soft, nontender, nondistended Skin Exam: Present: normal color, warm/dry, no cyanosis Assessment/Plan - Problems/Diagnosis (1) UTI (urinary tract infection) Problem: Acute Qualifiers: Urinary tract infection type: acute cystitis Hematuria presence: with hematuria Qualified Code(s): N30.01 - Acute cystitis with hematuria Narrative: Based on UA, increased weakness, and falls suspect failed outpatient treatment of UTI. Continue rocephin. Urine culture negative to date, however patient improving with treatment. Still weak. Continue to monitor culture. (2) Generalized weakness Problem: Acute Narrative: PT/OT continue. Suspect she will need skilled care. Will continue acute treatment, if unable to improve to a safety level that she can return home will plan to discharge to [facility] on Wednesday. (3) Falls frequently Problem: Chronic (4) Toe pain, right Problem: Acute Narrative: Suspect diabetic neuropathy. This is a big reason for her difficulty walking in addition to weakness. Will check uric acid. Started Gabapentin yesterday. This has not helped significantly yet. May consider increasing dose in the future.
[2017-03-12] MEDS: INSULIN GLARGINE,HUM.REC.ANLOG 100 UNITS/ML VIAL SC SCH (20:49)
[2017-03-12] MEDS: ENOXAPARIN SODIUM 40 MG/0.4 ML SYRG SC SCH (20:50)
[2017-03-13] MEDS: traMADol HCL 50 MG TABLET PO PRN ×3 (00:38→17:18)
[2017-03-13] MEDS: PANTOPRAZOLE SODIUM 40 MG TABLET.EC PO SCH (06:35)
[2017-03-13] MEDS: GLIMEPIRIDE 4 MG TABLET PO SCH ×2 (06:35→17:18)
[2017-03-13] MEDS: GABAPENTIN 300 MG CAPSULE PO SCH ×3 (06:35→22:34)
[2017-03-13] MEDS: INSULIN LISPRO 100 UNITS/ML VIAL SC SCH ×4 (06:37→20:13)
[2017-03-13] MEDS: predniSONE 20 MG TABLET PO SCH ×2 (08:02)
[2017-03-13] MEDS: CALCIUM CARBONATE/VITAMIN D3 1 TAB TABLET PO SCH ×2 (08:02→20:13)
[2017-03-13] MEDS: LORATADINE 10 MG TABLET PO SCH (08:03)
[2017-03-13] MEDS: BETA-CAROTENE(A) W-C , E/MIN 1 TAB TABLET PO SCH ×2 (08:03→20:17)
[2017-03-13] MEDS: NYSTATIN 15 APPL BTL TP SCH ×2 (08:03→20:16)
[2017-03-13] MEDS: CHOLESTYRAMINE/SUCROSE 4 GM PACKET PO SCH (08:04)
[2017-03-13] MEDS: ESCITALOPRAM OXALATE 10 MG TAB PO SCH (08:04)
[2017-03-13] MEDS: ENALAPRIL MALEATE 5 MG TABLET PO SCH (08:05)
[2017-03-13] MEDS: METOPROLOL TARTRATE 50 MG TABLET PO SCH ×2 (08:05→20:16)
[2017-03-13] MEDS: ACETAMINOPHEN 325 MG TABLET PO PRN ×2 (11:14→20:18)
--- NOTE | 2017-03-13 14:26 | PN ---
Subjective - Date and Time Seen Date: 03/13/17 Time: 14:23 Subjective Narrative: feels ' better', ambulating with walker. Feels occasionally unsteady. Objective - Review of Systems Generalized/Overall Review: Reports: Weakness. Denies: Chills, Fever Respiratory: Denies: Cough Cardiac: Denies: Chest Pain, Edema - Vitals Vitals: Vital Signs Temp 36.6 C 03/13/17 14:18 Pulse 68 03/13/17 14:18 Resp 16 03/13/17 14:18 BP 134/58 03/13/17 14:18 Pulse Ox 91 03/13/17 14:18 - Exam Constitutional: Present: Elderly - Morbidly obese, in NAD, ambulates with walker. ENT Exam: Present: hearing grossly normal, moist mucous membranes Respiratory: Present: lungs clear, normal breath sounds. Absent: no accessory muscle use Cardiovascular/Chest: Present: regular rate, rhythm. Absent: tachycardia Abdomen: Present: Normal bowel sounds, soft, nontender, obese Skin Exam: Present: warm/dry, pallor Neurologic: Present: alert, oriented x 3 - normal mood and affect. Assessment/Plan Plan Narrative: 1. Neuropathy: Check B12 level. 2. Morbid obesity with falls and weakness: BMI- 50.0. Continue PT/OT. No evidence of UTI. Consider vitamin D supplementation. 3. Chronic problems: HTN, T2 DM, OA, depression reviewed and stable.
[2017-03-13] MEDS: INSULIN GLARGINE,HUM.REC.ANLOG 100 UNITS/ML VIAL SC SCH (20:14)
[2017-03-13] MEDS: ENOXAPARIN SODIUM 40 MG/0.4 ML SYRG SC SCH (20:17)
[2017-03-14] MEDS: GABAPENTIN 300 MG CAPSULE PO SCH ×3 (06:56→22:29)
[2017-03-14] MEDS: PANTOPRAZOLE SODIUM 40 MG TABLET.EC PO SCH (06:56)
[2017-03-14] MEDS: GLIMEPIRIDE 4 MG TABLET PO SCH ×2 (06:56→16:58)
[2017-03-14] MEDS: traMADol HCL 50 MG TABLET PO PRN ×2 (07:01→17:00)
[2017-03-14] MEDS: INSULIN LISPRO 100 UNITS/ML VIAL SC SCH ×4 (07:28→20:23)
[2017-03-14] MEDS: METOPROLOL TARTRATE 50 MG TABLET PO SCH ×2 (10:06→20:13)
[2017-03-14] MEDS: CHOLESTYRAMINE/SUCROSE 4 GM PACKET PO SCH (10:07)
[2017-03-14] MEDS: ENALAPRIL MALEATE 5 MG TABLET PO SCH (10:07)
[2017-03-14] MEDS: CALCIUM CARBONATE/VITAMIN D3 1 TAB TABLET PO SCH ×2 (10:07→20:13)
[2017-03-14] MEDS: BETA-CAROTENE(A) W-C , E/MIN 1 TAB TABLET PO SCH ×2 (10:08→20:14)
[2017-03-14] MEDS: ESCITALOPRAM OXALATE 10 MG TAB PO SCH (10:08)
[2017-03-14] MEDS: predniSONE 20 MG TABLET PO SCH (10:09)
[2017-03-14] MEDS: LORATADINE 10 MG TABLET PO SCH (10:09)
[2017-03-14] MEDS: NYSTATIN 15 APPL BTL TP SCH ×2 (10:09→20:14)
--- NOTE | 2017-03-14 10:35 | PN ---
Subjective - Date and Time Seen Date: 03/14/17 Time: 10:34 Subjective Narrative: Overall condition unchanged, ambulating with walker.C/O weakness and tingling in feet. Objective - Review of Systems Generalized/Overall Review: Reports: Weakness Cardiac: Denies: Chest Pain, Edema Neurological: Reports: Numbness - Toes and feet., Tingling - Vitals Vitals: Vital Signs Temp 36.6 C 03/14/17 07:00 Pulse 66 03/14/17 10:07 Resp 18 03/14/17 07:00 BP 168/74 03/14/17 10:07 Pulse Ox 98 03/14/17 07:00 - Exam Constitutional: Present: Elderly, Morbidly obese - alert and oriented 3, NAD Neck: Present: normal inspection, trachea midline Breasts: Present: Exam deferred Respiratory: Present: lungs clear, no accessory muscle use Cardiovascular/Chest: Present: regular rate, rhythm. Absent: tachycardia Abdomen: Present: Normal bowel sounds, soft, nontender - morbidly obese Extremity: Present: normal inspection. Absent: lower extremity edema Assessment/Plan Plan Narrative: 1. Low B12 levels: B12 level at 212 pg/ mL. Start B12 1 mg PO daily. B12 deficiency explained to patient. 2. Generalized weakness with falls Continue with OT and PT. May consider vitamin D3 daily. No evidence of UTI. 3. Chronic conditions: Morbid obesity[BMI 50.0] HTN, T2DM, osteoarthritis, depression reviewed and stable.
[2017-03-14] MEDS: CYANOCOBALAMIN 1,000 MCG TABLET PO SCH (12:16)
[2017-03-14] MEDS: CHOLECALCIFEROL 5,000 UNIT TABLET PO SCH (12:16)
[2017-03-14] MEDS: ACETAMINOPHEN 325 MG TABLET PO PRN (19:47)
[2017-03-14] MEDS: ENOXAPARIN SODIUM 40 MG/0.4 ML SYRG SC SCH (20:14)
[2017-03-14] MEDS: INSULIN GLARGINE,HUM.REC.ANLOG 100 UNITS/ML VIAL SC SCH (20:22)
[2017-03-15] MEDS: traMADol HCL 50 MG TABLET PO PRN ×2 (00:13→07:07)
[2017-03-15] MEDS: GABAPENTIN 300 MG CAPSULE PO SCH (06:24)
[2017-03-15] MEDS: GLIMEPIRIDE 4 MG TABLET PO SCH (06:24)
[2017-03-15] MEDS: PANTOPRAZOLE SODIUM 40 MG TABLET.EC PO SCH (06:25)
[2017-03-15] MEDS: INSULIN LISPRO 100 UNITS/ML VIAL SC SCH ×2 (06:29→11:28)
[2017-03-15] MEDS: CALCIUM CARBONATE/VITAMIN D3 1 TAB TABLET PO SCH (08:01)
[2017-03-15] MEDS: LORATADINE 10 MG TABLET PO SCH (08:01)
[2017-03-15] MEDS: ESCITALOPRAM OXALATE 10 MG TAB PO SCH (08:01)
[2017-03-15] MEDS: BETA-CAROTENE(A) W-C , E/MIN 1 TAB TABLET PO SCH (08:02)
[2017-03-15] MEDS: NYSTATIN 15 APPL BTL TP SCH (08:02)
[2017-03-15] MEDS: METOPROLOL TARTRATE 50 MG TABLET PO SCH (08:02)
[2017-03-15] MEDS: CYANOCOBALAMIN 1,000 MCG TABLET PO SCH (08:03)
[2017-03-15] MEDS: ENALAPRIL MALEATE 5 MG TABLET PO SCH (08:03)
[2017-03-15] MEDS: predniSONE 20 MG TABLET PO SCH (08:08)
[2017-03-15] MEDS: CHOLESTYRAMINE/SUCROSE 4 GM PACKET PO SCH (08:08)
[2017-03-15 10:11] VITALS: BP 159/71
[2017-03-15] MEDS: CHOLECALCIFEROL 5,000 UNIT TABLET PO SCH (11:28)
--- NOTE | 2017-03-15 11:50 | DS ---
(1) UTI (urinary tract infection) Diagnosis(s): Jessa was admitted with worsening weakness, altered mentation, and urine that showed evidence of UTI. She had previously been treated for UTI as outpatient. With failed outpatient treatment she was admitted to acute inpatient status and placed on IV rocephin. Mentation improved and strength improved. She worked with PT. He strength was still too weak to discharge to home and she was set up for skilled care at nursing facility. She had difficulty walking due to toe pain suspected to be diabetic neuropathy. She was started on gabapentin and dose was increased at discharge as it had been ineffective at improving her pain. She will continue therapy at [facility]. Problem: Acute Qualifiers: Urinary tract infection type: acute cystitis Hematuria presence: with hematuria Qualified Code(s): N30.01 - Acute cystitis with hematuria (2) Generalized weakness Problem: Acute (3) Falls frequently Problem: Chronic (4) Toe pain, right Problem: Acute Procedures Performed: none Discharge Disposition: [facility] Disposition: [facility] Condition: Fair Discharge Activity: Activity as tolerated Discharge Diet: Consistent carbs Discharge Level of Care:: SNF - Snf Snf Therapy: Physicial Therapy, Occupation Therapy Referrals: Juan Francisco Bravo DO [Primary Care Provider] - Two Weeks Problem Oriented Discharge Instructions to Patient/Family: Urinary Tract Infection, Adult, [id number], Diabetic Neuropathy Additional Patient Instructions (free text): [facility] Skilled at discharge for PT and OT. Follow up with Dr. Bravo 03/29 at 2:00. Prescriptions (Any new or edited meds): Acetaminophen [Tylenol] 650 mg PO QID PRN #120 tablet PRN Reason: mild pain or fever Cyanocobalamin [Vitamin B-12] 1,000 mcg PO DAILY #30 tablet Gabapentin 600 mg PO TID #180 capsule traMADol HCL [Ultram] 50 mg PO Q6H PRN #120 tablet PRN Reason: Moderate Pain Complete Home Medications List: Complete Home Medication List: Enalapril Maleate [Vasotec] 5 mg PO DAILY 08/03/12 Metoprolol Tartrate 50 mg PO BID 08/03/12 Calcium Carbonate/Vitamin D3 [Calcium 600 + Vit D 400 Tablet] 1 each PO BID Glimepiride [Amaryl] 4 mg PO BID 06/06/13 Beta-Carotene(A) W-C , E/Min [Ocuvite] 2 tab PO BID 10/06/14 Loratadine [Claritin] 10 mg PO DAILY 12/23/14 Escitalopram Oxalate [Lexapro] 20 mg PO DAILY 09/09/15 Cholestyramine (with Sugar) [Questran Powder] 4 gm PO DAILY 03/05/17 Insulin Glargine,Hum.rec.anlog [Lantus Solostar] 34 unit SQ HS 03/05/17 Tramadol HCl/Acetaminophen [Tramadol-Acetaminophn 37.5-325] 1 each PO TID #30 tablet 03/05/17 metFORMIN HCL [Glumetza] 500 mg PO BID 03/05/17 Levofloxacin [Levaquin] 500 mg PO DAILY 03/10/17 Nystatin [Nystop] 1 appl TP BID 03/10/17 Acetaminophen [Tylenol] 650 mg PO QID PRN #120 tablet 03/15/17 Cyanocobalamin [Vitamin B-12] 1,000 mcg PO DAILY #30 tablet 03/15/17 Gabapentin 600 mg PO TID #180 capsule 03/15/17 traMADol HCL [Ultram] 50 mg PO Q6H PRN #120 tablet 03/15/17
== END 2017-03-15 14:30 | DRG 690 ==
LOC: ER 13:36 → MS 16:48 → UNDOADMOB 16:48 → OBSVTOIN 03-11 08:10
PROVIDERS: ADMIT Family Medicine; ATTEND Family Medicine
DX: N30.01 Acute cystitis with hematuria (principal); Z68.43 Body mass index [BMI] 50.0-59.9, adult; S46.912A Strain of unspecified muscle, fascia and tendon at shoulder and upper arm level, left arm, initial encounter; E11.40 Type 2 diabetes mellitus with diabetic neuropathy, unspecified; R53.1 Weakness; W01.0XXA Fall on same level from slipping, tripping and stumbling without subsequent striking against object, initial encounter; Y92.009 Unspecified place in unspecified non-institutional (private) residence as the place of occurrence of the external cause; I25.10 Atherosclerotic heart disease of native coronary artery without angina pectoris; E66.01 Morbid (severe) obesity due to excess calories; Z91.81 History of falling; I10 Essential (primary) hypertension; E78.5 Hyperlipidemia, unspecified; Z99.81 Dependence on supplemental oxygen; Z86.718 Personal history of other venous thrombosis and embolism; I25.2 Old myocardial infarction; Z79.4 Long term (current) use of insulin
CPT/HCPCS: 36415; 71010; 73030; 73502; 73610; 80048; 80053; 81001; 82607; 83605; 83735; 84145; 84443; 84550; 85025; 87040; 87086; 96372; 97110; 97116; 97162; 97165; 97530; 97533; 97535; 99284; G0378; G8978; G8979; G8980; G8987; G8988; G8989

== ENCOUNTER 2017-09-16 16:36 | Inpatient (IN) | payer MEDICARE, MEDICAID ==
--- NOTE | 2017-09-16 17:27 | ERNOTE ---
ER Female HPI Date of Service: 09/16/17 Stated Complaint: KIDNEY PAIN Presenting Symptoms: other - dysuria Time Seen by Provider: 09/16/17 17:20 Source: patient Immunizations: IMMUNIZATION HX Immunizations Up to Date Yes History of Influenza Vaccine Yes Hx Pneumococcal Vaccination Yes Allergies/Adverse Reactions: Allergies red dye Allergy (Mild, Verified 09/16/17 17:05) Hives ciprofloxacin [From Cipro] Adverse Reaction (Mild, Verified 09/16/17 17:05) Hives codeine Adverse Reaction (Mild, Verified 09/16/17 17:05) anxious nitrofurantoin [From Macrobid] Adverse Reaction (Mild, Verified 09/16/17 17:05) Hives Sulfa (Sulfonamide Antibiotics) [Sulfa(Sulfonamide Antibiotics)] Adverse Reaction (Mild, Verified 09/16/17 17:05) Hives Home Medications: HOME MEDICATIONS ALPRAZolam [Xanax] 0.5 mg PO BID PRN 09/16/17 [Last Taken Unknown] Beta-Carotene(A) W-C , E/Min [Ocuvite] 1 tab PO BID 09/16/17 [Last Taken Unknown ] Calcium Carbonate/Vitamin D3 [Calcium 600 + D3 Softgel] 1 each PO BID 09/16/17 [ Last Taken Unknown] Cholestyramine (with Sugar) [Questran Powder] 1 tbs PO DAILY 09/16/17 [Last Taken Unknown] Cyanocobalamin (Vitamin B-12) [Vitamin B12] 1,000 mcg PO DAILY 09/16/17 [Last Taken Unknown] Duloxetine HCl [Cymbalta] 60 mg PO DAILY 09/16/17 [Last Taken Unknown] Enalapril Maleate [Vasotec] 5 mg PO DAILY 09/16/17 [Last Taken Unknown] Glimepiride [Amaryl] 4 mg PO BID 09/16/17 [Last Taken Unknown] Loratadine [Claritin] 10 mg PO DAILY 09/16/17 [Last Taken Unknown] Metoprolol Tartrate [Lopressor] 50 mg PO BID 09/16/17 [Last Taken Unknown] Oxybutynin Chloride [Ditropan] 5 mg PO DAILY 09/16/17 [Last Taken Unknown] metFORMIN HCL [Metformin HCl ER] 500 mg PO BID 09/16/17 [Last Taken Unknown] - History of Present Illness Narrative: patient with flank pain on the left side, patient states onset is this afternoon Date (Duration): 09/16/17 Time (Timing): 16:00 Timing: Present: constant, getting worse Quality: Present: severe Onset Location: Present: left flank Radiation: Present: other - pain radiates anteriorly Activities at Onset: Present: rest Prior Abdominal Problems: Present: other - patient presented with 1 days history of diarrhea. Sexual [place] History: Present: not active Modifying Factors - (Improves): Present: other - known diabeteic with poor oral intake the prior 24 hrs Associated Symptoms: Present: diaphoresis, nausea, abdominal pain. Absent: fever/chills, vomiting Prior Treatment: Absent: recently hospitalized, currently on antibiotics Review of Systems - Narrative Narrative: abrupt onset of pain this pm - Review of Systems Constitutional: Absent: no symptoms reported EYE: Present: no symptoms reported ENT: Present: no symptoms reported Respiratory: Present: no symptoms reported Cardiology: Present: no symptoms reported Gastrointestinal/Abdominal: Present: nausea, diarrhea, eating less, drinking less Genitourinary: Present: dysuria, decreased urinary output Musculoskeletal: Present: back pain, joint pain Skin: Present: rash, dryness Neurological: Present: weakness, pre-existing deficit - 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 Absent: increased thirst, increased urine Hematologic/Lymphatic: Present: no symptoms reported Psych: Present: no symptoms reported All Other Systems: All systems neg except as marked - Narrative Narrative: Reviewed pmh, psh, sh, medications and allergies - Patient's Past Medical History Patient History - Medical: Diabetes Type 2, Kidney stone, Obesity, UTI'S Patient History - Cardiac/Respiratory: Deep Vein Thrombosis, Hypertension, Myocardial Infarction, Home O2 Use Patient History - Cancer: No Hx of Cancer Patient History - Surgical Procedures: Appendectomy, Cholecystectomy, Colonoscopy, Hernia Repair Patient History - Other: None - Family History Father Family History - Medical: , Renal Disease, Renal Failure, Other Family History - Cardiac/Respiratory: No pertinent hx Mother Family History - Medical: , Renal Disease, UTI'S Family History - Cardiac/Respiratory: Hypertension, Myocardial Infarction - Social History Abuse History: No History of abuse Psych History: No pertinent hx Smoking Status: Never smoker Have you smoked in the past 12 months: No Do you dip or chew tobacco: No Alcohol Use: none Drug Use: none - Immunizations Immunizations Up to Date: Yes Hx Pneumococcal Vaccination: Yes History of Influenza Vaccine: Yes Physical Exam - Physical Exam General Appearance: Present: wd/wn, alert, mild distress, obese Head Exam: Present: normal inspection, no evidence of injury Eye Exam: Normal inspection: bilateral, PERRL: bilateral, EOMI: bilateral Ears, Nose, Throat: Present: normal ENT inspection, dry mucous membranes Neck: Present: normal inspection, nontender Respiratory: Present: no respiratory distress, normal breath sounds, no accessory muscle use, chest nontender, lungs clear, stridor Cardiovascular/Chest: Present: regular rate, rhythm, no murmur Peripheral Pulses: N=norm/S=strong/W=weak/B=bound/A=absent: Carotid (R): Normal , Carotid (L): Normal, Radial (R): Normal, Radial (L): Normal, Dorsalis-pedis (R ): Normal Gastrointestinal/Abdominal: Present: normal bowel sounds Rectal Exam: Present: nontender, deferred Pelvic Exam: Absent: active bleeding, discharge, lesions Back Exam: Present: CVA tenderness (L) Extremity Exam: Present: normal inspection, non-tender, normal range of motion, no edema DTR: N=norm/NB=norm/brisk/A=abs/DD=dull/dimin/HC=hyperactive: Bicep (R): Normal , Bicep (L): Normal, Tricep (R): Normal, Tricep (L): Normal, Knee (R): Normal, Knee (L): Normal, Ankle (R): Normal, Ankle (L): Normal Skin Exam: Present: normal color, warm/dry ED Progress - Date and Time Seen: Date and Time: 09/16/17 1750, patient examined and treated with morphine 4mg IVfor pain control , orders for CAT of abdomen & pelvis - Results and Orders Patient's Lab Results:: I have reviewed the patient's lab results. - Vital Signs Patient's Vital Signs:: I have reviewed the patient's vital signs. Vital Signs: Vital Signs 09/16/17 17:01 Temperature 36.5 C Pulse Rate 68 Respiratory 16 Rate Blood Pressure 175/101 O2 Sat by Pulse 95 Oximetry - EKG EKG: NSR, atrial fibrillation, other - with no acute ischemia - CT/Ultrasound CT/Ultrasound Narrative: ct of abdomen and pelvis reviewed. [facility] PATIENT RADIOLOGY STUDY REPORT Patient Patient Name:KIRSTY NAVARRETE Date: 1940 Sex: F Order Number: [id number] Unique Exam ID: [id number] Exam Requested: [id number] - CT Abdomen/Pelvis W/O Date Scheduled: 09-16-2017 06:04 PM Study Priority: Requesting Service: Requesting Physician: Kim Ford Reason for Exam: renal stone protocol Radiological Report : [place] [address] NAME: KIRSTY NAVARRETE : 1940 MR #: [id number] CC: Kim Ford DO LOC: [facility] DATE: X-RAY REPORT [id number] CT/CT Abdomen/Pelvis W/O Exam Date: 09/16/2017 18:04 Ordering Physician: Kim Ford Indication: Left-sided flank pain for 2 to 3 hours. History of left -sided stones. Rule out stone. Technique: Contiguous axial noncontrast CT images through the abdomen and pelvis with coronal reformatted images utilizing the standard CT stone protocol. Individualized dose optimization technique was used for the performed procedure including automated exposure control, adjustment of the mA and/or kV according to patient size and/or the iterative reconstruction technique. Comparison: Prior CT scan dated November 22, 2015. Findings: There is moderate left hydronephrosis and proximal hydroureter. There is a 3 mm x 6 mm stone in the left proximal ureter/UPJ. There is perinephric stranding identified on the left. No right-sided nephrolithiasis. The right ureter is normal caliber and course. The bladder is well distended and grossly normal without contrast. No bladder calculi. The renal parenchyma cannot otherwise be evaluated without contrast. The liver is diffusely enlarged and mildly fatty infiltrated but otherwise cannot be adequately evaluated without contrast. The gallbladder is surgically absent. The spleen, pancreas and adrenal glands are normal size and shape and grossly normal given the limitations without contrast. The unopacified bowel loops are normal caliber without evidence for obstruction. Uterus and ovaries are normal. The aorta shows diffuse atherosclerosis but no aneurysm. The osseous structures show extensive degenerative changes spine, SI joints and bilateral hips. IMPRESSION: 1. ACUTE OBSTRUCTING LEFT UPJ/PROXIMAL URETERAL STONE MEASURING 3 MM X 6 MM. 2. FATTY HEPATOMEGALY. 3. CHOLECYSTECTOMY. 4. FATTY HEPATOMEGALY. 5. REMAINDER OF EXAM IS LIMITED WITHOUT CONTRAST. Electronically signed by Kristofer Wiseman D.O.. Kristofer Wiseman DO Dict: 09/16/171910 Typed: 09/16/171910/ 09/16/17191609/16/171920 Approved by: KRISTOFER WISEMAN Approval Date: 09-16-2017 Approval Time: 07:11 PM THIS REPORT WAS RECEIVED FROM THE [employer] SYSTEM - Progress/Reassessment Chief Complaint: Genitourinary Problem Progress:: Improved - Transfer of Care Pending Results: CT/MRI results Expected Disposition: Admit Plan - Plan Plan: patient results disscussed with hospitalist for admission, pateint accepted. see admission orders. Departure Clinical Impression: Renal calculus Urinary tract infection Qualifiers: Urinary tract infection type: acute cystitis Hematuria presence: with hematuria Qualified Code(s): N30.01 - Acute cystitis with hematuria - Departure Disposition: [facility] Condition: Good
[2017-09-16 17:46] LABS: Hemoglobin 12.8 gm/dL (12.5-16.0); Mean Cell Volume 91.8 fl (78-100); Mean Corpuscular Hemoglobin 30.1 pg (27-31); Mean Corpuscular Hgb Conc 32.8 g/dl (32-36); Mean Platelet Volume 10.3 fl (6.0-9.5); Neutrophil # 6.7 K/mm3 (1.3-6.0); Neutrophil % 76.9 % (42-75.0); Platelet Count 267 K/mm3 (150-450); Red Blood Count 4.25 M/mm3 (4.2-5.4); Red Cell Distribution Width 14.5 % (11.5-14.0); White Blood Count 8.7 K/mm3 (4.0-10.5)
[2017-09-16] MEDS ORDERED: MORPHINE SULFATE 4 MG/ML SYRG IV ONE ×3 (17:59→20:30)
[2017-09-16 18:00] LABS: Anion Gap 13.7 mmol/L (6.8-13.8); BUN/Creatinine Ratio 25.7 (9.0-21.6); Calcium * 8.8 mg/dL (7.9-10.9); Carbon Dioxide 26.8 mmol/L (24-32.6); Estimated Creat Clear 36.6; Potassium 4.5 mmol/L (3.4-4.6)
[2017-09-16] MEDS ORDERED: ONDANSETRON HCL/PF 2 MG/ML VIAL IV ONE (18:00)
[2017-09-16 18:19] LABS: Urine Bilirubin Negative (NEGATIVE); Urine Ketone Negative (NEGATIVE); Urine Nitrite Negative (NEGATIVE); Urine Protein 15 mg/dL (NEGATIVE); Urine Urobilinogen Normal (NORMAL); Urine pH 5.5 pH (5.0-7.0)
[2017-09-16] MEDS: NORMAL SALINE 1,000 ML IV PRN (18:24)
[2017-09-16] MEDS ORDERED: MORPHINE SULFATE 4 MG/ML SYRG ONE ×2 (18:26→20:17)
[2017-09-16] MEDS ORDERED: ONDANSETRON HCL/PF 2 MG/ML VIAL ONE (18:26)
[2017-09-16 18:33] LABS: Urine Appearance Slightly Cloudy; Urine Bacteria 3+; Urine Blood 5 /ul (NEGATIVE); Urine Color Yellow; Urine RBC TRACE /hpf (0-5)
[2017-09-16 18:34] LABS: Urine Amorphous Sediment Moderate - 2+ (NONE-FEW)
[2017-09-16] MEDS ORDERED: MORPHINE SULFATE 4 MG/ML SYRG IM ONE ×2 (20:05→20:28)
[2017-09-16] MEDS: NORMAL SALINE 1,000 ML IV ONE (20:26)
--- NOTE | 2017-09-16 21:52 | HP ---
Chief Complaint - Chief Complaint Date of Service: 09/16/17 Time of Service: 21:50 Chief Complaint: "Abdominal Pain, Back Pain'' History of Present Illness: Mrs. Swann is a 76-yr-old [place] pt of Dr. Juan Francisco Bravo with a PMH of: Chronic Respiratory Failure, Depression, DM II, HTN, HLD, Kidney Stones, Macular degeneration, Splenic Artery Aneurysm & Nocturnal Hypoxia. Pt states that this afternoon, she developed abdominal pain that was radiating to the LT lower back. She has had prior kidney stones and the symptoms were similar and therefore chose to come to the ED. She denies the associated symptoms of fevers , chills, nausea & vomiting. At the ED laboratory studies showed WBC -->8700 with a LT shift, BUN/CR-->29/1.13, Lactic acid--> 1.8, UA--> 3+ bacteria with WBC- 5-10. The abdominal CT revealed: moderate LT hydronephrosis and Acute obstructive stone measuring 3mm x 6mm on the Lt proximal ureter. Of-note, pt had LT UPJ stone in 04/2013 and she underwent cystoscopy with stent placement at the [facility] by Dr. Meraz. Pt will be admitted under observation status for: Nephrolithiasis, UTI and Urology will be consulted in a.m on her case. - Patient's Past Medical History Patient History - Medical: Diabetes Type 2, Kidney stone, Obesity, UTI'S, Other Patient History - Cardiac/Respiratory: Deep Vein Thrombosis, Hypertension, Hyperlipidemia - Macular degeneration. , Myocardial Infarction, Home O2 Use Patient History - Cancer: No Hx of Cancer Patient History - Surgical Procedures: Appendectomy, Cholecystectomy, Colonoscopy, Hernia Repair Patient History - Other: None - Family History Father Family History - Medical: , Renal Disease, Renal Failure, Other Family History - Cardiac/Respiratory: No pertinent hx Mother Family History - Medical: , Renal Disease, UTI'S Family History - Cardiac/Respiratory: Hypertension, Myocardial Infarction - Social History Abuse History: No History of abuse Psych History: No pertinent hx Smoking Status: Never smoker Have you smoked in the past 12 months: No Do you dip or chew tobacco: No Alcohol Use: none Drug Use: none - Immunizations Immunizations Up to Date: Yes Hx Pneumococcal Vaccination: Yes History of Influenza Vaccine: Yes Review Of Systems (GEN) - Review of Systems Generalized/Overall Review: Absent: Weakness, Chills, Fever, Malaise, Diaphoresis, Fatigue EENTM: Absent: Eye Pain, Blurred Vision, Nose Congestion Respiratory: Absent: Cough, Shortness of Breath, Orthopnea Cardiac: Absent: Chest Pain, Edema, Palpitations Abdominal: Absent: Nausea, Vomiting, Hematemesis Genitourinary: Absent: Burning, Itching, Urgency, Hesitancy, Hematuria Musculoskeletal: Absent: Joint Pain, Back Pain, Joint Swelling Neurological: Absent: Headache, Anxiety, Depressed, Emotional Problems, Weakness Skin: Absent: Dryness, Lesions, Lumps, Bruising Endocrine: Present: Intolerance to Heat Misc: All systems neg except as marked Immunizations: IMMUNIZATION HX Immunizations Up to Date Yes History of Influenza Vaccine Yes Hx Pneumococcal Vaccination Yes Allergies/Adverse Reactions: Allergies Allergy/AdvReac Type Severity Reaction Status Date / Time red dye Allergy Mild Hives Verified 09/16/17 17:05 ciprofloxacin [From Cipro] AdvReac Mild Hives Verified 09/16/17 17:05 codeine AdvReac Mild anxious Verified 09/16/17 17:05 nitrofurantoin AdvReac Mild Hives Verified 09/16/17 17:05 [From Macrobid] Sulfa (Sulfonamide AdvReac Mild Hives Verified 09/16/17 17:05 Antibiotics) [Sulfa(Sulfonamide Antibiotics)] Home Medications: HOME MEDICATIONS ALPRAZolam [Xanax] 0.5 mg PO BID PRN 09/16/17 [Last Taken Unknown] Beta-Carotene(A) W-C , E/Min [Ocuvite] 1 tab PO BID 09/16/17 [Last Taken Unknown ] Calcium Carbonate/Vitamin D3 [Calcium 600 + D3 Softgel] 1 each PO BID 09/16/17 [ Last Taken Unknown] Cholestyramine (with Sugar) [Questran Powder] 1 tbs PO DAILY 09/16/17 [Last Taken Unknown] Cyanocobalamin (Vitamin B-12) [Vitamin B12] 1,000 mcg PO DAILY 09/16/17 [Last Taken Unknown] Duloxetine HCl [Cymbalta] 30 mg PO HS 09/16/17 [Last Taken Unknown] Duloxetine HCl [Cymbalta] 60 mg PO DAILY 09/16/17 [Last Taken Unknown] Enalapril Maleate [Vasotec] 5 mg PO DAILY 09/16/17 [Last Taken Unknown] Glimepiride [Amaryl] 4 mg PO BID 09/16/17 [Last Taken Unknown] Insulin Glargine,Hum.rec.anlog [Lantus] 34 units SC HS 09/16/17 [Last Taken Unknown] Loratadine [Claritin] 10 mg PO DAILY 09/16/17 [Last Taken Unknown] Metoprolol Tartrate [Lopressor] 50 mg PO BID 09/16/17 [Last Taken Unknown] Nystatin 1 each MC BID 09/16/17 [Last Taken Unknown] Nystatin/Triamcin [Nystatin-Triamcinolone Cream] 100,000 gm TP BID 09/16/17 [ Last Taken Unknown] Oxybutynin Chloride [Ditropan] 5 mg PO DAILY 09/16/17 [Last Taken Unknown] metFORMIN HCL [Metformin HCl ER] 500 mg PO BID 09/16/17 [Last Taken Unknown] traMADol HCL [Tramadol HCl] 50 mg PO QID PRN 09/16/17 [Last Taken Unknown] Exam - Exam Vital Signs: Vital Signs - Last Taken Temp 37.0 C 09/16/17 20:30 Pulse 75 09/16/17 20:30 Resp 18 09/16/17 20:30 BP 147/68 09/16/17 20:30 Pulse Ox 94 09/16/17 20:30 Constitutional: Present: Alert, Oriented x3, Cooperative ENT Exam: Present: normal ENT inspection, hearing grossly normal Eye Exam: bilateral eye: normal inspection, PERRL Neck: Present: non-tender, full range of motion, supple Back Exam: Present: CVA tenderness (L) Respiratory: Present: chest non-tender, No rales, No wheezing Cardiovascular/Chest: Present: normal peripheral pulses, regular rate, rhythm, no chest tenderness, no edema Abdomen: Present: Normal bowel sounds, soft, nontender, obese /Rectal: Present: Exam deferred Extremity: Present: normal range of motion, non-tender, normal inspection Skin Exam: Present: warm/dry, no cyanosis Lymphatic: Present: no adenopathy Neurologic: Present: alert, normal mood/affect, oriented x 3 Appearance: Present: appropriate appearance, appropriate insight Eye contact: Present: cooperative, good eye contact, normal speech Thoughts: Present: normal thought pattern, no apparent hallucination Diagnostic Studies: Laboratory Results WBC 8.7 K/mm3 (4.0-10.5) 09/16/17 17:43 RBC 4.25 M/mm3 (4.2-5.4) 09/16/17 17:43 Hgb 12.8 gm/dL (12.5-16.0) 09/16/17 17:43 Hct 39.0 % (37.0-47.0) 09/16/17 17:43 MCV 91.8 fl (78-100) 09/16/17 17:43 MCH 30.1 pg (27-31) 09/16/17 17:43 MCHC 32.8 g/dl (32-36) 09/16/17 17:43 RDW 14.5 % (11.5-14.0) H 09/16/17 17:43 Plt Count 267 K/mm3 (150-450) 09/16/17 17:43 MPV 10.3 fl (6.0-9.5) H 09/16/17 17:43 Immature Gran % (Auto) 0.30 % (0.001-0.429) 09/16/17 17:43 Immature Gran # (Auto) 0.03 K/mm3 (0.000-0.0310) 09/16/17 17:43 Neutrophils % 76.9 % (42-75.0) H 09/16/17 17:43 Lymphocytes % 12.0 % (20-51) L 09/16/17 17:43 Monocytes % 8.4 % (0.0-9) 09/16/17 17:43 Eosinophils % 2.2 % (0.0-3.0) 09/16/17 17:43 Basophils % 0.2 % (0.0-1.0) 09/16/17 17:43 Nucleated RBC % 0.0 k/mm3 (0-1) 09/16/17 17:43 Neutrophils # 6.7 K/mm3 (1.3-6.0) H 09/16/17 17:43 Lymphocytes # 1.0 k/mm3 (1.5-3.5) L 09/16/17 17:43 Monocytes # 0.7 k/mm3 (0.0-1.0) 09/16/17 17:43 Eosinophils # 0.2 k/mm3 (0.0-0.7) 09/16/17 17:43 Absolute Basophils 0.0 k/mm3 (0.0-0.1) 09/16/17 17:43 Sodium 140 mmol/L (132-142) 09/16/17 17:43 Plasma Sodium 142 mmol/L (130-142) 09/16/17 17:43 Potassium 4.5 mmol/L (3.4-4.6) 09/16/17 17:43 Chloride 104 mmol/L (97-106) 09/16/17 17:43 Carbon Dioxide 26.8 mmol/L (24-32.6) 09/16/17 17:43 Anion Gap 13.7 mmol/L (6.8-13.8) 09/16/17 17:43 BUN 29 mg/dL (3-23) H 09/16/17 17:43 Creatinine 1.13 mg/dL (0.4-1.4) 09/16/17 17:43 Est GFR (Non-Af Amer) 50 mL/min (60-130) L D 09/16/17 17:43 BUN/Creatinine Ratio 25.7 (9.0-21.6) H 09/16/17 17:43 Random Glucose 195 mg/dL (70-110) H 09/16/17 17:43 Lactic Acid, Venous 1.8 mmol/L (0.4-1.9) 09/16/17 20:43 Calcium 8.8 mg/dL (7.9-10.9) 09/16/17 17:43 Urine Color Yellow 09/16/17 18:01 Urine Appearance Slightly cloudy 09/16/17 18:01 Urine pH 5.5 pH (5.0-7.0) 09/16/17 18:01 Ur Specific Diana 1.020 SP.GR. (1.005-1.010) 09/16/17 18:01 Urine Protein 15 mg/dL (NEGATIVE) H 09/16/17 18:01 Urine Glucose (UA) Negative mg/dL (NEGATIVE) 09/16/17 18:01 Urine Ketones Negative mg/dL (NEGATIVE) 09/16/17 18:01 Urine Blood 5 /ul (NEGATIVE) H 09/16/17 18:01 Urine Nitrate Negative (NEGATIVE) 09/16/17 18:01 Urine Bilirubin Negative mg/dl (NEGATIVE) 09/16/17 18:01 Prot Sulfosalicylic Acd 1+ mg/dL (0) 09/16/17 18:01 Urine Urobilinogen Normal EU/dl (NORMAL) 09/16/17 18:01 Ur Leukocyte Esterase 25 /ul (NEGATIVE) H 09/16/17 18:01 Urine RBC Trace /hpf (0-5) 09/16/17 18:01 Urine WBC 5-10 /hpf (0-5) H 09/16/17 18:01 Ur Epithelial Cells None seen /hpf (0-5) 09/16/17 18:01 Amorphous Sediment Moderate - 2+ (NONE-FEW) H 09/16/17 18:01 Urine Bacteria 3+ (NONE) H 09/16/17 18:01 Urine Culture Comments Culture to follow 09/16/17 18:01 Assessment/Plan - Assessment/Plan (1) Nephrolithiasis Assessment: Pt is a 76 yr female pt who presented with Acute onset of LT flank pain which begun this afternoon. The CT of the abdomen revealed: moderate LT hydronephrosis and Acute obstructive stone measuring 3mm x 6mm on the Lt proximal ureter. WBC in NR but there is LT shift, Lactic acid -->1.8. There is no RIAN associated with this. However she has a UTI. Will provide supportive cares with: Aggressive IVF hydration, IV antibiotics for UTI, Pain mgt, and antiemetics, Nursing will strain strain urine. Will start her on Flomax. Consult urology in am. Problem: Acute (2) UTI (urinary tract infection) Assessment: Received Rocephin at the ED, however at 2330, nursing reported acute urticaria. Do not suspect that rocephine is the causative agent as she had received treatment with this in the past, at least 3-4 hospitalizations. Therefore do not see the need to discontinue this antibiotic at this time. Will switch when urine culture results. Laboratory Tests 09/16/17 18:01 Ur Leukocyte Esterase 25 H Urine RBC Trace Urine WBC 5-10 H Urine Bacteria 3+ H Urine Culture Comments Culture to follow Problem: Acute (3) Acute urticaria Assessment: At approximately 2330, nursing reported confusion, rigors and urticaria prior to the administration of second dose of Morphine. Suspect the causative agents are likely Morphine or Zofran. Pt received Rocephin at the ED and but has been treated with this in the previous 3-4 hospitalizations for UTI and do not suspect its this drug. Will discontinue Morphine and Zofran. No signs of wheezing, cough and plumonary tract was intact. Given treatment with Loratadine, prednisone and Pepcid. Will continue with loratadine and Prednisone x 5 days. Benadryl avoided due to its anticholinergic effects on the elderly. Problem: Acute (4) HTN (hypertension) Assessment: Stable - Continue Problem: Chronic Qualifiers: Hypertension type: essential hypertension Qualified Code(s): I10 - Essential (primary) hypertension (5) Diabetes Assessment: Accu checks Q 6 hrs while NPO, Hold metformin, Lantus insulin and Amaryl while NPO. Problem: Chronic (6) Nocturnal hypoxemia Assessment: Chronically on Oxygen 4 LNC at night. Problem: Chronic (7) Macular degeneration Problem: Chronic
[2017-09-16] MEDS ORDERED: MORPHINE SULFATE 2 MG/ML DISP.SYRIN IV PRN (22:04)
[2017-09-16] MEDS ORDERED: ONDANSETRON HCL/PF 2 MG/ML VIAL IV PRN (22:05)
[2017-09-16] MEDS ORDERED: LORATADINE 10 MG TABLET PO SCH (23:45)
[2017-09-16] MEDS ORDERED: FAMOTIDINE 20 MG TABLET PO SCH (23:45)
[2017-09-16] MEDS ORDERED: predniSONE 20 MG TABLET PO ONE (23:49)
[2017-09-17] MEDS: TAMSULOSIN HCL 0.4 MG CAP.SR.24H PO SCH ×2 (00:11→17:03)
[2017-09-17] MEDS ORDERED: traMADol HCL 50 MG TABLET PO PRN (00:46)
[2017-09-17] MEDS: NORMAL SALINE 1,000 ML IV ONE (04:06)
[2017-09-17 06:08] LABS: Hematocrit 37.2 % (37.0-47.0); Mean Corpuscular Hgb Conc 32.3 g/dl (32-36); Mean Platelet Volume 10.7 fl (6.0-9.5); Platelet Count 232 K/mm3 (150-450); Red Cell Distribution Width 14.6 % (11.5-14.0); White Blood Count 21.7 K/mm3 (4.0-10.5)
[2017-09-17 06:10] LABS: Total Cells Counted 100
[2017-09-17 06:19] LABS: Anion Gap 13.4 mmol/L (6.8-13.8); BUN/Creatinine Ratio 18.8 (9.0-21.6); Calcium * 8.2 mg/dL (7.9-10.9); Carbon Dioxide 24.8 mmol/L (24-32.6); Potassium 4.2 mmol/L (3.4-4.6)
[2017-09-17 06:20] LABS: Band 16 % (0-2.0); Lymphocyte 3 % (20-51); Monocyte 5 % (0-9); Neutrophil 76 % (42-75); Neutrophil # 16.5 K/mm3 (1.3-6.0)
[2017-09-17 06:21] LABS: Dohle Bodies Trace
--- NOTE | 2017-09-17 06:44 | PN ---
Subjective - Date and Time Seen Date: 09/17/17 Time: 06:42 Subjective Narrative: Pt seen this am. She is in distress and restless. She is having generalized pain. Planning to consult Urology for possible Stent placement. The urticaria from reaction to likely morphine or Zofran is resolved. Voided 300 ml. WBC elevated this am along with worsening Kidney function. Objective - Vitals Vitals: Last Vital Signs Temp 37.0 C 09/17/17 02:00 Pulse 111 H 09/17/17 02:00 Resp 18 09/17/17 02:00 BP 123/63 09/17/17 02:00 Pulse Ox 93 09/17/17 02:00 - Abnormal Lab Findings Abnormal Lab Findings: Abnormal Lab Results 09/17/17 09/17/17 Range/Units 06:02 06:02 WBC 21.7 H D (4.0-10.5) K/mm3 RBC 4.00 L (4.2-5.4) M/mm3 Hgb 12.0 L (12.5-16.0) gm/dL RDW 14.6 H (11.5-14.0) % MPV 10.7 H (6.0-9.5) fl Neutrophils % (Manual) 76 H (42-75) % Band Neuts % (Manual) 16 H (0-2.0) % Lymphocytes % (Manual) 3 L (20-51) % Neutrophils # (Manual) 16.5 H (1.3-6.0) K/mm3 Lymphocytes # (Manual) 0.7 L (1.5-3.5) k/mm3 Monocytes # (Manual) 1.1 H (0.0-1.0) k/mm3 BUN 31 H (3-23) mg/dL Creatinine 1.65 H D (0.4-1.4) mg/dL Est GFR (Non-Af Amer) 32 L D (60-130) mL/min Random Glucose 245 H (70-110) mg/dL - Exam Constitutional: Present: Alert, Oriented x3, Cooperative ENT Exam: Present: normal ENT inspection. Absent: nasal drainage, pharyngeal erythema Neck: Present: full range of motion, supple, normal inspection Breasts: Present: Exam deferred Respiratory: Present: lungs clear, normal breath sounds Cardiovascular/Chest: Present: regular rate, rhythm, no chest tenderness, no edema Abdomen: Present: Normal bowel sounds, soft, nontender, obese /Rectal: Present: Exam deferred Extremity: Present: normal range of motion, non-tender Skin Exam: Present: warm/dry, no cyanosis Lymphatic: Present: no adenopathy Neurologic: Present: alert, depressed affect Appearance: Present: impaired insight Eye contact: Present: decreased rate of speech, compulsive, uncooperative Thoughts: Present: incoherent Cauti Physician Documentation - Urinary Catheter Management Straight Date of Insertion: 09/16/17 Time of Insertion: 18:15 Date of Removal: 09/16/17 Time of Removal: 18:16 Assessment/Plan - Problems/Diagnosis (1) Nephrolithiasis Problem: Acute Narrative: Pt is a 76 yr female pt who presented with Acute onset of LT flank pain which begun this afternoon. The CT of the abdomen revealed: moderate LT hydronephrosis and Acute obstructive stone measuring 3mm x 6mm on the Lt proximal ureter. WBC in NR but there is LT shift, Lactic acid -->1.8. There is no RIAN associated with this. However she has a UTI. Will provide supportive cares with: Aggressive IVF hydration, IV antibiotics for UTI, Pain mgt, and antiemetics, Nursing will strain strain urine. Will start her on Flomax. Consult urology in am. (2) UTI (urinary tract infection) Problem: Acute Narrative: Received Rocephin at the ED, however at 2330, nursing reported acute urticaria. Do not suspect that rocephine is the causative agent as she had received treatment with this in the past, at least 3-4 hospitalizations. Therefore do not see the need to discontinue this antibiotic at this time. Will switch when urine culture results. (3) Acute urticaria Problem: Acute Narrative: At approximately 2330, nursing reported confusion, rigors and urticaria prior to the administration of second dose of Morphine. Suspect the causative agents are likely Morphine or Zofran. Pt received Rocephin at the ED and but has been treated with this in the previous 3-4 hospitalizations for UTI and do not suspect its this drug. Will discontinue Morphine and Zofran. No signs of wheezing, cough and plumonary tract was intact. Given treatment with Loratadine, prednisone and Pepcid. Will continue with loratadine and Prednisone x 5 days. Benadryl avoided due to its anticholinergic effects on the elderly. 09/17- urticaria resolved. (4) HTN (hypertension) Problem: Chronic Qualifiers: Hypertension type: essential hypertension Qualified Code(s): I10 - Essential (primary) hypertension (5) Diabetes Problem: Chronic Narrative: Continue Amaryl, metformin and Lantus. Accuchecks achs, consist. carb diet. (6) Nocturnal hypoxemia Problem: Chronic Narrative: Chronically on Oxygen 4 LNC at night. (7) Macular degeneration Problem: Chronic
--- NOTE | 2017-09-17 08:19 | CONS ---
- Reason for consultation (1) UTI (urinary tract infection) Reason for Consultation:: left ureteral stone HPI - General Date of Service: 09/17/17 Source: patient Exam Limitations: other - patient is somewhat delirious from morphine - History of Present Illness Initial Comments: Patient presented yesterday to the ER with nonspecific abdominal pain. She had a CT scan of the abdomen obtained and I reviewed the report and images today. She has a proximal 6 mm left ureteral stone with obstruction. No other stones seen. She does have hx of previous stone treatment although I don't have details. She received a lot of morphine to control pain and apparently became somewhat delirious overnight. She had a WBC of 8.7 on presentation although urine did appear infected and is growing GNB on preliminary report. She received Rocephin. This morning her clinical condition has gotten worse. She is more confused. Complaining of pain in her R hip. WBC went up to 21 and Creat worsened to 1.65 from 1.1 on presentation. Severity: severe Allergies/Adverse Reactions: Allergies red dye Allergy (Mild, Verified 09/16/17 17:05) Hives ciprofloxacin [From Cipro] Adverse Reaction (Mild, Verified 09/16/17 17:05) Hives codeine Adverse Reaction (Mild, Verified 09/16/17 17:05) anxious nitrofurantoin [From Macrobid] Adverse Reaction (Mild, Verified 09/16/17 17:05) Hives Sulfa (Sulfonamide Antibiotics) [Sulfa(Sulfonamide Antibiotics)] Adverse Reaction (Mild, Verified 09/16/17 17:05) Hives Home Medications: Home Medications Medication Instructions Recorded Last Taken ALPRAZolam [Xanax] 0.5 mg PO BID PRN 09/16/17 Unknown Beta-Carotene(A) W-C , E/Min 1 tab PO BID 09/16/17 Unknown [Ocuvite] Calcium Carbonate/Vitamin D3 1 each PO BID 09/16/17 Unknown [Calcium 600 + D3 Softgel] Cholestyramine (with Sugar) 1 tbs PO DAILY 09/16/17 Unknown [Questran Powder] Cyanocobalamin (Vitamin B-12) 1,000 mcg PO DAILY 09/16/17 Unknown [Vitamin B12] Duloxetine HCl [Cymbalta] 30 mg PO HS 09/16/17 Unknown Duloxetine HCl [Cymbalta] 60 mg PO DAILY 09/16/17 Unknown Enalapril Maleate [Vasotec] 5 mg PO DAILY 09/16/17 Unknown Glimepiride [Amaryl] 4 mg PO BID 09/16/17 Unknown Insulin Glargine,Hum.rec.anlog 34 units SC HS 09/16/17 Unknown [Lantus] Loratadine [Claritin] 10 mg PO DAILY 09/16/17 Unknown Metoprolol Tartrate [Lopressor] 50 mg PO BID 09/16/17 Unknown Nystatin 1 each MC BID 09/16/17 Unknown Nystatin/Triamcin 100,000 gm TP BID 09/16/17 Unknown [Nystatin-Triamcinolone Cream] Oxybutynin Chloride [Ditropan] 5 mg PO DAILY 09/16/17 Unknown metFORMIN HCL [Metformin HCl ER] 500 mg PO BID 09/16/17 Unknown traMADol HCL [Tramadol HCl] 50 mg PO QID PRN 09/16/17 Unknown - Patient's Past Medical History Patient History - Medical: Diabetes Type 2, Kidney stone, Obesity, UTI'S, Other Patient History - Cardiac/Respiratory: Deep Vein Thrombosis, Hypertension, Hyperlipidemia - Macular degeneration. , Myocardial Infarction, Home O2 Use Patient History - Cancer: No Hx of Cancer Patient History - Surgical Procedures: Appendectomy, Cholecystectomy, Colonoscopy, Hernia Repair Patient History - Other: None - Family History Father Family History - Medical: , Renal Disease, Renal Failure, Other Family History - Cardiac/Respiratory: No pertinent hx Family History - Cancer: No pertinent family hx Mother Family History - Medical: , Renal Disease, UTI'S Family History - Cardiac/Respiratory: Hypertension, Myocardial Infarction - Social History Living Situations: alone Abuse History: No History of abuse Psych History: No pertinent hx Smoking Status: Never smoker Have you smoked in the past 12 months: No Do you dip or chew tobacco: No Alcohol Use: none Drug Use: none - Immunizations Immunizations Up to Date: Yes Hx Pneumococcal Vaccination: Yes History of Influenza Vaccine: Yes Procedures ARTERIAL BLD GAS MEASURE (10/06/14) CYSTOSCOPY NEC (06/07/13) ENDOSC POLYPECTOMY OF LG INTEST (06/30/10) REMOV URETERAL DRAIN (06/07/13) TU DESTRUC BLADD LES NEC (05/10/13) URETERAL CATHETERIZATION (08/21/13) Medications - Medications Current Medications: Current Medications Sodium Chloride (Sodium Chloride 0.9%) 1,000 mls @ 999 mls/hr IV .Q1H1M PRN PRN Reason: HYDRATION Stop: 10/16/17 18:02 Last Infusion: 09/16/17 19:29 Dose: Infused Tamsulosin HCl (Flomax) 0.4 mg PO DAILY@1800 BILL Stop: 10/16/17 23:46 Last Admin: 09/17/17 00:11 Dose: 0.4 mg Tramadol HCl (Ultram) 50 mg PO QID PRN PRN Reason: Pain Stop: 10/17/17 00:47 Last Admin: 09/17/17 03:42 Dose: 50 mg Review of Systems - Review of Systems Generalized/Overall Review: Present: Weakness EENTM: Present: No Symptoms Reported Respiratory: Present: Shortness of Breath Cardiac: Present: No Symptoms Reported Genitourinary: Present: Dysuria Musculoskeletal: Present: Joint Pain Neurological: Present: Weakness Skin: Present: No Symptoms Reported Endocrine: Present: Increased Thirst Physical Examination - Exam Vital Signs: Vital Signs - Last Taken Temp 98.2 F 09/17/17 06:59 Pulse 90 09/17/17 06:59 Resp 18 09/17/17 06:59 BP 108/64 09/17/17 06:59 Pulse Ox 93 09/17/17 06:59 O2 Oxygen Delivery Method Nasal Cannula Constitutional: Present: Somnolent, Obtunded ENT Exam: Present: hearing grossly normal, TMs normal Neck: Present: non-tender Breasts: Present: Exam deferred Respiratory: Present: chest non-tender, no accessory muscle use, No wheezing Cardiovascular/Chest: Present: normal peripheral pulses, regular rate, rhythm Abdomen: Present: soft, nontender, obese /Rectal: Present: External genitalia normal Extremity: Present: normal range of motion Skin Exam: Present: normal color, warm/dry Neurologic: Present: no motor/sensory deficits Appearance: Present: impaired recent memory Thoughts: Present: delusions - Results and Findings: Narrative: Patient has a 6 mm proximal ureteral stone with obstruction and UTI with culture pending. She has had worsening labs and mental condition. Need to arrange stenting of the left ureter today which is not elective. Will arrange. Treatment of kidney stone after culture is back and on appropriate antibiotics and clinical condition has improved. Lab/Microbiology results last 24 hrs: Abnormal/Pending Laboratory Last 24 HRS 09/17/17 09/17/17 06:02 06:02 WBC 21.7 H D RBC 4.00 L Hgb 12.0 L RDW 14.6 H MPV 10.7 H Neutrophils % (Manual) 76 H Band Neuts % (Manual) 16 H Lymphocytes % (Manual) 3 L Neutrophils # (Manual) 16.5 H Lymphocytes # (Manual) 0.7 L Monocytes # (Manual) 1.1 H BUN 31 H Creatinine 1.65 H D Est GFR (Non-Af Amer) 32 L D Random Glucose 245 H - Assessments/Findings (1) UTI (urinary tract infection) Problem: Acute Qualifiers: Urinary tract infection type: acute cystitis Hematuria presence: with hematuria Qualified Code(s): N30.01 - Acute cystitis with hematuria
--- NOTE | 2017-09-17 09:25 | PN ---
Nohemi Note - Interim Narrative: 09/17/17 09:22 I saw and examined this patient on 09/17/2017. I agree with the narrative and plan of EMIGDIO Henderson. She will go for cystosocpy and stent placement with Dr. Borja for UTI and Nephrolithiasis with worsening BUN/Cr/leukocytosis. Continue with IV antibiotics. She is complaining of left hip pain- likely trochanteric bursitis but will get a left hip xray. Hip involvement was reconfirmed with continuous pillowcase cutter.
[2017-09-17] MEDS: METOPROLOL TARTRATE 50 MG TABLET PO SCH ×2 (09:37→20:36)
[2017-09-17] MEDS: INSULIN LISPRO 100 UNITS/ML VIAL SC SCH ×3 (09:38→17:00)
[2017-09-17] MEDS: GLIMEPIRIDE 4 MG TABLET PO SCH ×2 (09:49→17:01)
[2017-09-17] MEDS: DULoxetine HCL 30 MG CAPSULE.SA PO SCH ×2 (09:50→20:36)
[2017-09-17] MEDS: LORATADINE 10 MG TABLET PO SCH (09:50)
[2017-09-17] MEDS: OXYBUTYNIN CHLORIDE 5 MG TABLET PO SCH (09:50)
[2017-09-17] MEDS: CHOLESTYRAMINE/ASPARTAME 4 GM PACKET PO SCH (09:50)
[2017-09-17] MEDS: CYANOCOBALAMIN 1,000 MCG TABLET PO SCH (09:51)
[2017-09-17] MEDS: ENALAPRIL MALEATE 5 MG TABLET PO SCH (09:51)
[2017-09-17] MEDS: NYSTATIN 15 APPL BTL TP SCH ×2 (10:00→20:37)
[2017-09-17] MEDS: NYSTATIN TP SCH ×2 (10:01→20:37)
[2017-09-17] MEDS: TRIAMCIN APPL TP SCH ×2 (10:01→20:37)
[2017-09-17] MEDS ORDERED: NORMAL SALINE 300 ML IV ONE (12:40)
[2017-09-17] MEDS ORDERED: RINGER'S SOLUTION,LACTATED 1,000 ML IV ONE (13:00)
[2017-09-17] MEDS ORDERED: LORazepam 2 MG/ML DISP.SYRIN IV PRN ×3 (14:38→20:59)
[2017-09-17] MEDS ORDERED: NORMAL SALINE 1,000 ML IV PRN (14:39)
[2017-09-17] MEDS ORDERED: LORazepam 2 MG/ML DISP.SYRIN IV SCH (14:45)
[2017-09-17] MEDS: NORMAL SALINE 1,000 ML IV PRN (14:51)
[2017-09-17] MEDS ORDERED: LORazepam 2 MG/ML DISP.SYRIN IV ONE ×3 (15:34→20:55)
[2017-09-17] MEDS: INSULIN GLARGINE,HUM.REC.ANLOG 100 UNITS/ML VIAL SC SCH (20:45)
[2017-09-18] MEDS: NORMAL SALINE 1,000 ML IV PRN ×2 (01:28→12:00)
[2017-09-18] MEDS: LORazepam 2 MG/ML DISP.SYRIN IV PRN ×7 (02:47→18:55)
[2017-09-18 06:23] LABS: Hematocrit 34.5 % (37.0-47.0); Mean Corpuscular Hgb Conc 31.9 g/dl (32-36); Mean Platelet Volume 10.5 fl (6.0-9.5); Neutrophil # 10.5 K/mm3 (1.3-6.0); Neutrophil % 82.4 % (42-75.0); Platelet Count 203 K/mm3 (150-450); Red Blood Count 3.67 M/mm3 (4.2-5.4); Red Cell Distribution Width 15.1 % (11.5-14.0); White Blood Count 12.8 K/mm3 (4.0-10.5)
[2017-09-18 06:32] LABS: Anion Gap 15.2 mmol/L (6.8-13.8); BUN/Creatinine Ratio 23.2 (9.0-21.6); Calcium * 7.7 mg/dL (7.9-10.9); Carbon Dioxide 22.7 mmol/L (24-32.6); Estimated Creat Clear 33.1; Potassium 3.9 mmol/L (3.4-4.6)
--- NOTE | 2017-09-18 06:37 | PN ---
Subjective - Date and Time Seen Date: 09/18/17 Time: 06:31 Subjective Narrative: Pt examined this morning. Is very restless and oriented to self only. Pt has been delirious since coming back from surgery. Became confused with morphine administration night before surgery also. Had LT stent placement by urology on 09/17 and is voiding normally. Nursing reports continued delirium through the night and prn Ativan would calm her for nearly 20 mins with each administration. Objective - Vitals Vitals: Last Vital Signs Temp 37.0 C 09/17/17 22:40 Pulse 74 09/18/17 01:33 Resp 20 09/18/17 01:33 BP 146/78 09/18/17 01:33 Pulse Ox 93 09/17/17 22:40 - Abnormal Lab Findings Abnormal Lab Findings: Abnormal Lab Results 09/18/17 Range/Units 06:22 WBC 12.8 H D (4.0-10.5) K/mm3 RBC 3.67 L (4.2-5.4) M/mm3 Hgb 11.0 L (12.5-16.0) gm/dL Hct 34.5 L (37.0-47.0) % MCHC 31.9 L (32-36) g/dl RDW 15.1 H (11.5-14.0) % MPV 10.5 H (6.0-9.5) fl Immature Gran % (Auto) 0.50 H (0.001-0.429) % Immature Gran # (Auto) 0.07 H (0.000-0.0310) K/mm3 Neutrophils % 82.4 H (42-75.0) % Lymphocytes % 6.5 L (20-51) % Monocytes % 10.3 H (0.0-9) % Neutrophils # 10.5 H (1.3-6.0) K/mm3 Lymphocytes # 0.8 L (1.5-3.5) k/mm3 Monocytes # 1.3 H (0.0-1.0) k/mm3 - Exam Constitutional: Present: Alert, Mild distress, Elderly, Obese ENT Exam: Present: hard of hearing, muffled/hoarse voice Neck: Present: non-tender, full range of motion, supple Breasts: Present: Exam deferred Respiratory: Present: lungs clear, no accessory muscle use, No wheezing Cardiovascular/Chest: Present: normal peripheral pulses, regular rate, rhythm Abdomen: Present: Normal bowel sounds, soft, nontender /Rectal: Present: Exam deferred Extremity: Present: normal range of motion, non-tender, normal inspection Skin Exam: Present: warm/dry, no cyanosis Neurologic: Present: alert, disoriented x 3 Appearance: Present: impaired insight Eye contact: Present: compulsive, uncooperative Thoughts: Present: incoherent, visual hallucinations Cauti Physician Documentation - Urinary Catheter Management Straight Date of Insertion: 09/16/17 Time of Insertion: 18:15 Date of Removal: 09/16/17 Time of Removal: 18:16 Assessment/Plan - Problems/Diagnosis (1) Nephrolithiasis Problem: Acute Narrative: Pt is a 76 yr female pt who presented with Acute onset of LT flank pain which begun this afternoon. The CT of the abdomen revealed: moderate LT hydronephrosis and Acute obstructive stone measuring 3mm x 6mm on the Lt proximal ureter. WBC in NR but there is LT shift, Lactic acid -->1.8. There is no RIAN associated with this. However she has a UTI. Will provide supportive cares with: Aggressive IVF hydration, IV antibiotics for UTI, Pain mgt, and antiemetics, Nursing will strain strain urine. Will start her on Flomax. 09/17/17- Had LT stent placement by urology. Will follow -up with them outpatient on discharge. (2) UTI (urinary tract infection) Problem: Acute Narrative: Urine culture prior to stent placement showed growth of Klebsiella oxytoca, and specimen obtained following stent placement showed gram negative bacili- both are sensitive to Rocephin and Bactrim. Will change to PO ax. (3) Acute urticaria Problem: Acute Narrative: 09/16-at approximately 2330, nursing reported confusion, rigors and urticaria prior to the administration of second dose of Morphine. Suspect the causative agents are likely Morphine or Zofran. Pt received Rocephin at the ED and but has been treated with this in the previous 3-4 hospitalizations for UTI and do not suspect its this drug. Will discontinue Morphine and Zofran. No signs of wheezing, cough and plumonary tract was intact. Given treatment with Loratadine, prednisone and Pepcid. Will continue with loratadine and Prednisone x 5 days. Benadryl avoided due to its anticholinergic effects on the elderly. 09/17- urticaria resolved. (4) HTN (hypertension) Problem: Chronic Qualifiers: Hypertension type: essential hypertension Qualified Code(s): I10 - Essential (primary) hypertension Narrative: Stable- On Enalapril. (5) Diabetes Problem: Chronic Narrative: Continue Amaryl, metformin and Lantus. Accuchecks achs, consist. carb diet. (6) Nocturnal hypoxemia Problem: Chronic Narrative: Chronically on 4 LNC at night. (7) Macular degeneration Problem: Chronic
[2017-09-18] MEDS: INSULIN LISPRO 100 UNITS/ML VIAL SC SCH ×3 (06:45→16:51)
[2017-09-18] MEDS ORDERED: HALOPERIDOL LACTATE 5 MG/ML VIAL IM ONE (10:34)
--- NOTE | 2017-09-18 11:23 | PN ---
Progess Note - Interim Narrative: 09/18/17 11:21 I saw and examined this patient. I agree with the narrative and plan of EMIGDIO Jovel. Will continue with IV antibiotics. Her UCS is growing gram negative bacilli. WBC is slightly down. She had cystoscopys and stent palcement yesterday but has been delirious, on and off, since then. Will give Haldol. Will give her IV Lopressor.
[2017-09-18] MEDS: GLIMEPIRIDE 4 MG TABLET PO SCH ×2 (14:02→16:55)
[2017-09-18] MEDS: LORATADINE 10 MG TABLET PO SCH (14:02)
[2017-09-18] MEDS: DULoxetine HCL 30 MG CAPSULE.SA PO SCH ×2 (14:02→21:08)
[2017-09-18] MEDS: TRIAMCIN APPL TP SCH ×2 (14:03→21:08)
[2017-09-18] MEDS: ENALAPRIL MALEATE 5 MG TABLET PO SCH (14:03)
[2017-09-18] MEDS: OXYBUTYNIN CHLORIDE 5 MG TABLET PO SCH (14:03)
[2017-09-18] MEDS: CHOLESTYRAMINE/ASPARTAME 4 GM PACKET PO SCH (14:03)
[2017-09-18] MEDS: METOPROLOL TARTRATE 50 MG TABLET PO SCH ×2 (14:03→21:08)
[2017-09-18] MEDS: NYSTATIN TP SCH ×2 (14:03→21:08)
[2017-09-18] MEDS: CYANOCOBALAMIN 1,000 MCG TABLET PO SCH (14:08)
[2017-09-18] MEDS: NYSTATIN 15 APPL BTL TP SCH ×2 (14:23→21:08)
[2017-09-18] MEDS: TAMSULOSIN HCL 0.4 MG CAP.SR.24H PO SCH (17:24)
[2017-09-18] MEDS: 0.5 NORMAL SALINE 1,000 ML IV PRN (17:25)
[2017-09-18] MEDS: METOPROLOL TARTRATE 1 MG/ML AMPUL IV SCH (17:40)
[2017-09-18] MEDS ORDERED: cefTRIAXone SODIUM 1,000 MG in DEXTROSE 5 % IN WATER 50 ML IV SCH ×2 (20:00)
[2017-09-18] MEDS: INSULIN GLARGINE,HUM.REC.ANLOG 100 UNITS/ML VIAL SC SCH (21:08)
[2017-09-19] MEDS: 0.5 NORMAL SALINE 1,000 ML IV PRN (01:14)
[2017-09-19] MEDS: LORazepam 2 MG/ML DISP.SYRIN IV PRN (01:44)
[2017-09-19] MEDS: METOPROLOL TARTRATE 1 MG/ML AMPUL IV SCH ×2 (02:56→09:35)
[2017-09-19] MEDS ORDERED: METOPROLOL TARTRATE 1 MG/ML AMPUL IV ONE ×3 (03:47→05:19)
[2017-09-19] MEDS ORDERED: HEPARIN SODIUM,PORCINE 5,000 UNITS/ML VIAL SC SCH (04:00)
[2017-09-19 04:31] LABS: Hematocrit 35.2 % (37.0-47.0); Hemoglobin 11.3 gm/dL (12.5-16.0); Mean Cell Volume 94.4 fl (78-100); Mean Corpuscular Hemoglobin 30.3 pg (27-31); Mean Corpuscular Hgb Conc 32.1 g/dl (32-36); Mean Platelet Volume 10.7 fl (6.0-9.5); Platelet Count 263 K/mm3 (150-450); Red Blood Count 3.73 M/mm3 (4.2-5.4); Red Cell Distribution Width 15.4 % (11.5-14.0); White Blood Count 14.8 K/mm3 (4.0-10.5)
[2017-09-19 04:38] LABS: Total Cells Counted 100
[2017-09-19 05:00] LABS: Band 4 % (0-2.0); Giant Platelets Trace; Lymphocyte 7 % (20-51); Monocyte 12 % (0-9); Neutrophil 77 % (42-75); Neutrophil # 11.4 K/mm3 (1.3-6.0); Platelet Estimate Normal (NORMAL)
[2017-09-19 05:01] LABS: Anion Gap 19.2 mmol/L (6.8-13.8); BUN/Creatinine Ratio 21.2 (9.0-21.6); Calcium * 7.6 mg/dL (7.9-10.9); Estimated Creat Clear 27.4; Magnesium 1.6 mg/dL (1.2-2.8); Potassium 4.2 mmol/L (3.4-4.6); RBC Morphology Normal (NORMAL); TSH * 0.403 uIU/mL (0.358-3.74)
[2017-09-19] MEDS ORDERED: DILTIAZEM HCL 5 MG/ML VIAL IV ONE ×4 (05:28→07:25)
[2017-09-19] MEDS ORDERED: HALOPERIDOL LACTATE 5 MG/ML VIAL IM PRN (06:39)
--- NOTE | 2017-09-19 06:59 | DS ---
Transfer Discharge Summary - Diagnosis(s)/Problems (1) Nephrolithiasis Problem: Acute (2) UTI (urinary tract infection) Problem: Acute (3) Acute urticaria Problem: Acute (4) HTN (hypertension) Problem: Chronic (5) Diabetes Problem: Chronic (6) Nocturnal hypoxemia Problem: Chronic (7) Macular degeneration Problem: Chronic - Course Description of Stay: Admission day: 09/16/17 Transfer date: 09/19/17 Admission HPI Mrs. Swann is a 76-yr-old W[place] pt of Dr. Juan Francisco Bravo with a PMH of: Chronic Respiratory Failure, Depression, DM II, HTN, HLD, Kidney Stones, Macular degeneration, Splenic Artery Aneurysm & Nocturnal Hypoxia (on 4 L Pt states that this afternoon, she developed abdominal pain that was radiating to the LT lower back. She has had prior kidney stones and the symptoms were similar and therefore chose to come to the ED. She denies the associated symptoms of fevers , chills, nausea & vomiting. At the ED laboratory studies showed WBC -->8700 with a LT shift, BUN/CR-->29/1.13, Lactic acid--> 1.8, UA--> 3+ bacteria with WBC- 5-10. The abdominal CT revealed: moderate LT hydronephrosis and Acute obstructive stone measuring 3mm x 6mm on the Lt proximal ureter. Of-note, pt had LT UPJ stone in 04/2013 and she underwent cystoscopy with stent placement at the [facility] by Dr. Meraz. Pt will be admitted under observation status for: Nephrolithiasis, UTI and Urology will be consulted in a.m on her case. Hospital course description Mrs. Swann was admitted on 09/16/17 and continued receiving IVF hydration and IV antibiotics with Rocephin for the UTI. She was on started on morphine prn for pain mgt & Zofran and after receiving second dose of morphine on the night of 09/16/17, she was noted to have increasing confusion, restlessness and developed Urticaria. She received anaphylactic treatments with Loratadine, Prednisone & Pepcid and the urticaria resolved. On 09/17/17, she underwent successful LT stent insertion by Dr. Ram. While under recovery at the PACU, she had restlessness, agitation and pulled at lines. The delirium continued requiring to be given Ativan and eventually Haldol was added to control the hyperactivity. On 09/18, at approximately 18.00, she went into A-fib with RVR rate in the 180s and received Metoprolol IVP 5 mg which controlled her rate to the low 110s. On 09/19 at 04.30, She went into A-fib with RVR in the 150-160s. She was given Metoprolol IVP 5 mg x 2 and the plan was to continue with Diltiazem gtt. However, she needed to be in a closed monitoring unit while on the drip and since we did not have the adequate staffing, arrangements were made for transfer to an outside facility with a cardiology on site. Hospitalist at the [facility] was to call whether pt would be accepted following review of faxed medical chart. Pt continued to sustain HR in the 140s and was given Diltiazem 20mg IVP which controlled her HR to the 120s. Troponin noted to be 0.404. B/P remained stable at 150/82 with laboured breathing & POX 95% on 4 lnc. Pt noted to be agitated and making attempts to crawl over the rails. Was given Haldol IM. Dr. Rubi, Hospitalist at [facility] called at 07.00 and he accepted pt for admission into the CCU. However at 0730, nursing called due to pts changing status. She had been noted to have desaturations to into the 70s, had laboured breathing, with thick frothy sputum in mouth. HR in the 160's-170s. BP 138/70. She was placed on NRB with 15 L. Pt able to arouse to sternum rub. Was given neb treatment, another Diltiazem 25 mg IVP. Given Lasix 80mg IVP. CXR obtained. ABGs showed metabolic acidosis with Respiratory alkalosis and she was placed on BIPAP with IPAP/EPAP 10/5 with 40% fio2. Her Pox level improved to the mid 90s however,with her agitation, she could not comply with the BIPAP. Due to continued laboured breathing,uncontrolled HR 160s, it became necessary to pursue invasive mechanical ventilation to alleviate respiratory distress. Hospitalist at the [facility] Dr. Elicia Sofia updated on pt status. He requested for the pt to be in stabilized state prior to transfer, along with a Central Line in place, and to call the oncoming hospitalist Dr. Fields prior to the transfer. Procedures Performed: none - Results and Findings Results and Findings: Laboratory Results - last 24 hr 09/19/17 09/19/17 09/19/17 04:25 04:25 04:25 WBC 14.8 H RBC 3.73 L Hgb 11.3 L Hct 35.2 L MCV 94.4 MCH 30.3 MCHC 32.1 RDW 15.4 H Plt Count 263 MPV 10.7 H Neutrophils % (Manual) 77 H Band Neuts % (Manual) 4 H Lymphocytes % (Manual) 7 L Monocytes % (Manual) 12 H Neutrophils # (Manual) 11.4 H Lymphocytes # (Manual) 1.0 L Monocytes # (Manual) 1.8 H Platelet Estimate Normal Giant Platelets Trace RBC Morphology Normal Sodium 146 H Plasma Sodium 149 H Potassium 4.2 Chloride 109 H Carbon Dioxide 22.0 L Anion Gap 19.2 H BUN 32 H Creatinine 1.51 H Est GFR (Non-Af Amer) 36 L BUN/Creatinine Ratio 21.2 Random Glucose 279 H D Calcium 7.6 L Magnesium 1.6 Troponin I 0.404 H* TSH 0.403 - Medications Medications: Active Medications Cholestyramine Resin (Questran Light Packet) 4 gm PO DAILY [facility] Stop: 10/17/17 09:01 Last Admin: 09/18/17 14:03 Dose: Not Given Cyanocobalamin (Vitamin B-12) 1,000 mcg PO DAILY [facility] Stop: 10/17/17 09:01 Last Admin: 09/18/17 14:08 Dose: Not Given Duloxetine HCl (Cymbalta) 30 mg PO HS [facility] Stop: 10/17/17 21:01 Last Admin: 09/18/17 21:08 Dose: Not Given Duloxetine HCl (Cymbalta) 60 mg PO DAILY BILL Stop: 10/17/17 09:01 Last Admin: 09/18/17 14:02 Dose: Not Given Enalapril Maleate (Vasotec) 5 mg PO DAILY [facility] Stop: 10/17/17 09:01 Last Admin: 09/18/17 14:03 Dose: Not Given Glimepiride (Amaryl) 4 mg PO BIDAC BILL Stop: 10/17/17 09:01 Last Admin: 09/18/17 16:55 Dose: Not Given Heparin Sodium (Porcine) (Heparin Sodium) 5,000 units SC Q12H [facility] Stop: 10/19/17 04:01 Last Admin: 09/19/17 04:32 Dose: 5,000 units Ceftriaxone Sodium 1,000 mg/ (Dextrose/Water) 50 mls @ 100 mls/hr IV Q24H [facility] PRN Reason: Protocol Stop: 10/18/17 20:01 Last Admin: 09/18/17 21:02 Dose: 100 mls/hr Insulin Glargine (Lantus) 34 units SC HS [facility] Stop: 10/17/17 21:01 Last Admin: 09/18/17 21:08 Dose: Not Given Insulin Human Lispro (Humalog) 0 - 21 units SC ACINS [facility] PRN Reason: Protocol Stop: 10/17/17 09:31 Last Admin: 09/18/17 16:51 Dose: 3 units Loratadine (Claritin) 10 mg PO DAILY [facility] Stop: 09/20/17 09:01 Last Admin: 09/18/17 14:02 Dose: Not Given Metformin HCl (Glucophage Xr) 500 mg PO BIDWM [facility] Stop: 10/17/17 09:01 Last Admin: 09/18/17 16:56 Dose: Not Given Metoprolol Tartrate (Lopressor) 50 mg PO BID [facility] Stop: 10/17/17 09:01 Last Admin: 09/18/17 21:08 Dose: Not Given Metoprolol Tartrate (Lopressor) 5 mg IV Q8H [facility] Stop: 09/19/17 10:01 Last Admin: 09/19/17 02:56 Dose: 5 mg Nystatin (Mycostatin Powder) 1 appl TP BID [facility] Stop: 10/17/17 09:01 Last Admin: 09/18/17 21:08 Dose: Not Given Nystatin/Triamcinolone Acetonide (Mycolog) 1 appl TP BID [facility] Stop: 10/17/17 09:01 Last Admin: 09/18/17 21:08 Dose: Not Given Oxybutynin Chloride (Ditropan) 5 mg PO DAILY [facility] Stop: 10/17/17 09:01 Last Admin: 09/18/17 14:03 Dose: Not Given Tamsulosin HCl (Flomax) 0.4 mg PO DAILY@1800 [facility] Stop: 10/16/17 23:46 Last Admin: 09/18/17 17:24 Dose: Not Given Tramadol HCl (Ultram) 50 mg PO QID PRN PRN Reason: Pain Stop: 10/17/17 00:47 Last Admin: 09/17/17 03:42 Dose: 50 mg Discontinued Medications Diltiazem HCl (Cardizem) 20 mg IV ONCE ONE Stop: 09/19/17 05:29 Last Admin: 09/19/17 05:44 Dose: 20 mg Glimepiride (Amaryl) 4 mg PO BIDWM BILL Stop: 10/17/17 09:01 Last Admin: 09/17/17 17:01 Dose: Not Given Haloperidol Lactate (Haldol) 5 mg IM ONCE ONE Stop: 09/18/17 10:35 Last Admin: 09/18/17 10:48 Dose: 5 mg Sodium Chloride (Sodium Chloride 0.9%) 1,000 mls @ 999 mls/hr IV .Q1H1M PRN PRN Reason: HYDRATION Stop: 10/16/17 18:02 Last Admin: 09/18/17 12:00 Dose: 100 mls/hr Sodium Chloride (Sodium Chloride 0.9%) 1,000 mls @ 150 mls/hr IV .Q6H40M ONE Stop: 09/17/17 02:46 Last Admin: 09/17/17 04:06 Dose: 125 mls/hr Ceftriaxone Sodium 1,000 mg/ (Dextrose/Water) 100 mls @ 200 mls/hr IV ONCE ONE PRN Reason: Protocol Stop: 09/16/17 20:43 Last Admin: 09/16/17 20:50 Dose: 200 mls/hr Ceftriaxone Sodium 1,000 mg/ (Dextrose/Water) 100 mls @ 200 mls/hr IV Q24H BILL PRN Reason: Protocol Stop: 10/17/17 20:01 Last Infusion: 09/17/17 19:50 Dose: Infused Sodium Chloride (Sodium Chloride 0.9%) 1,000 mls @ 100 mls/hr IV .Q10H PRN PRN Reason: HYDRATION Stop: 10/17/17 14:40 Last Admin: 09/18/17 01:28 Dose: 100 mls/hr Sodium Chloride (Sodium Chloride 0.45%) 1,000 mls @ 125 mls/hr IV .Q8H PRN PRN Reason: HYDRATION Stop: 10/18/17 16:58 Last Admin: 09/19/17 01:14 Dose: 125 mls/hr Loratadine (Claritin) 10 mg PO DAILY BILL Stop: 10/16/17 23:46 Last Admin: 09/17/17 00:10 Dose: 10 mg Lorazepam (Ativan) 1 mg IV Q6H PRN PRN Reason: Anxiety Stop: 10/17/17 14:46 Last Admin: 09/17/17 14:46 Dose: 1 mg Lorazepam (Ativan) 1 mg IV ONCE ONE Stop: 09/17/17 15:35 Last Admin: 09/17/17 15:42 Dose: 1 mg Lorazepam (Ativan) 1 mg IV Q4H PRN PRN Reason: Anxiety Stop: 10/17/17 18:16 Last Admin: 09/17/17 18:44 Dose: 1 mg Lorazepam (Ativan) 1 mg IV ONCE ONE Stop: 09/17/17 20:54 Last Admin: 09/17/17 21:08 Dose: 1 mg Lorazepam (Ativan) 1 mg IV ONCE ONE Stop: 09/17/17 20:56 Last Admin: 09/17/17 21:09 Dose: Not Given Lorazepam (Ativan) 1 mg IV Q4H PRN PRN Reason: Anxiety Stop: 10/17/17 21:01 Last Admin: 09/17/17 23:30 Dose: 1 mg Lorazepam (Ativan) 2 mg IV Q2H PRN PRN Reason: Anxiety Stop: 10/17/17 21:00 Last Admin: 09/19/17 01:44 Dose: 2 mg Metoprolol Tartrate (Lopressor) 5 mg IV ONCE ONE Stop: 09/19/17 03:48 Last Admin: 09/19/17 04:11 Dose: 5 mg Metoprolol Tartrate (Lopressor) 5 mg IV ONCE ONE Stop: 09/19/17 04:41 Last Admin: 09/19/17 04:51 Dose: 5 mg Metoprolol Tartrate (Lopressor) 5 mg IV ONCE ONE Stop: 09/19/17 05:20 Last Admin: 09/19/17 05:48 Dose: Not Given Morphine Sulfate (Morphine Sulfate) 4 mg IV ONCE ONE Stop: 09/16/17 18:00 Last Admin: 09/16/17 18:28 Dose: 4 mg Morphine Sulfate (Morphine Sulfate) 4 mg IV ONCE ONE Stop: 09/16/17 20:31 Last Admin: 09/16/17 20:33 Dose: 4 mg Morphine Sulfate (Morphine Sulfate) 2 mg IV Q2H PRN PRN Reason: Mild pain (pain scale 1-3) Stop: 10/16/17 22:05 Last Admin: 09/16/17 23:18 Dose: 2 mg Ondansetron HCl (Zofran) 4 mg IV ONCE ONE Stop: 09/16/17 18:01 Last Admin: 09/16/17 18:26 Dose: 4 mg Prednisone (Prednisone) 40 mg PO ONCE ONE Stop: 09/16/17 23:50 Last Admin: 09/17/17 00:11 Dose: 40 mg - Disposition Disposition: Home self-care Condition: Good
[2017-09-19] MEDS: INSULIN LISPRO 100 UNITS/ML VIAL SC SCH ×3 (07:03→17:04)
[2017-09-19] MEDS ORDERED: ALBUTEROL SULFATE 2.5 MG/0.5 ML VIAL.NEB IH ONE ×2 (07:12→07:17)
[2017-09-19] MEDS ORDERED: FUROSEMIDE 10 MG/ML VIAL ONE (07:15)
[2017-09-19 08:41] LABS: Prothrombin Time (Patient) 10.7 Seconds (9.0-11.0)
[2017-09-19 08:44] LABS: INR 1.07 INR (0.90-1.10)
[2017-09-19] MEDS: PROPOFOL 1,000 MG/100 ML PIGGYBACK IV PRN ×7 (09:06→22:32)
[2017-09-19] MEDS: DULoxetine HCL 30 MG CAPSULE.SA PO SCH ×2 (09:34→22:04)
[2017-09-19] MEDS: NYSTATIN TP SCH ×2 (09:34→22:05)
[2017-09-19] MEDS: METOPROLOL TARTRATE 50 MG TABLET PO SCH ×2 (09:34→22:04)
[2017-09-19] MEDS: CYANOCOBALAMIN 1,000 MCG TABLET PO SCH (09:34)
[2017-09-19] MEDS: LORATADINE 10 MG TABLET PO SCH (09:34)
[2017-09-19] MEDS: CHOLESTYRAMINE/ASPARTAME 4 GM PACKET PO SCH (09:34)
[2017-09-19] MEDS: NYSTATIN 15 APPL BTL TP SCH ×2 (09:34→22:05)
[2017-09-19] MEDS: OXYBUTYNIN CHLORIDE 5 MG TABLET PO SCH (09:34)
[2017-09-19] MEDS: TRIAMCIN APPL TP SCH ×2 (09:34→22:05)
[2017-09-19] MEDS: GLIMEPIRIDE 4 MG TABLET PO SCH ×2 (09:34→16:15)
[2017-09-19] MEDS: ENALAPRIL MALEATE 5 MG TABLET PO SCH (09:34)
[2017-09-19] MEDS: PIPERACILLIN SODIUM/TAZOBACTAM 3.375 GM in NORMAL SALINE 100 ML IV SCH ×2 (09:35→18:15)
--- NOTE | 2017-09-19 09:35 | OR ---
Anesthesia Procedure Note - Anesthesia Procedure Note Date of Service: 09/19/17 Narrative: Vital Signs - Last Taken Temp 36.8 C 09/19/17 04:25 Pulse 137 H 09/19/17 08:08 Resp 22 H 09/19/17 07:59 BP 111/61 09/19/17 08:08 Pulse Ox 95 09/19/17 08:08 O2 Oxygen Delivery Method Bi-pap 09/19/17 09:34 ANESTHESIA PROCEDURE NOTE Date of Procedure: 09/19/2017. Time of procedure: 919. Performed by: Adriano Aviles CRNA Planning Management It Specialist: None. Preprocedure diagnosis: Respiratory failure. Post procedure diagnosis: Same. Procedure: radial ultrasound guided arterial line. Indications: This is a 76-year-old female who is been intubated in SCU is in need of a right radial arterial line for blood pressure monitoring. Findings: See below. Details of the procedure: Under direct ultrasound visualization the radial artery was identified. The skin over the intended target site was prepped with ChloraPrep. The skin was anesthetized with 1% lidocaine. The artery was then cannulated with a 22-gauge IV catheter and ultrasound visualization. Bright red blood was noted from the cannula. A sterile dressing was applied over the radial arterial line. The line was then flushed with sterile heparinized saline solution. EBL: Minimal. Fluids: N/A. Specimen: N/A. Post procedure condition: The patient tolerated the procedure well. No complications were noted. Thank you for this consultation. Adriano Aviles CRNA
--- NOTE | 2017-09-19 09:37 | OR ---
Anesthesia Procedure Note - Anesthesia Procedure Note Date of Service: 09/19/17 Narrative: Vital Signs - Last Taken Temp 36.8 C 09/19/17 04:25 Pulse 137 H 09/19/17 08:08 Resp 22 H 09/19/17 07:59 BP 111/61 09/19/17 08:08 Pulse Ox 95 09/19/17 08:08 O2 Oxygen Delivery Method Bi-pap 09/19/17 09:35 ANESTHESIA PROCEDURE NOTE Date of Procedure: 09/19/2017. Time of procedure: 0900. Performed by: Adriano Aviles CRNA Realtime Reporter: None. Preprocedure diagnosis: Respiratory failure. Post procedure diagnosis: Same. Procedure: Tracheal intubation. Indications: This is a 76-year-old female on BiPAP who is in need of intubation. Findings: See below. Details of the procedure: Propofol 100 mg in 6C choline 140 mg was administered IV. Pt was intubated with a #7 ETT, using a Laura 3 blade. Tube secured at 18 cm at lips. Bilateral equal breath sounds noted. Positive ETCO2 noted. Chest X ray ordered. EBL: Minimal. Fluids: N/A. Specimen: N/A. Post procedure condition: The patient tolerated the procedure well. No complications were noted. Thank you for this consultation. Adriano Aviles CRNA
--- NOTE | 2017-09-19 09:57 | OR ---
Anesthesia Procedure Note - Anesthesia Procedure Note Date of Service: 09/19/17 Narrative: Vital Signs - Last Taken Temp 36.8 C 09/19/17 04:25 Pulse 125 H 09/19/17 09:35 Resp 22 H 09/19/17 07:59 BP 75/34 09/19/17 09:35 Pulse Ox 95 09/19/17 08:08 O2 Oxygen Delivery Method Bi-pap 09/19/17 09:56 ANESTHESIA PROCEDURE NOTE Date of Procedure: 09/19/2017. Time of procedure: 929. Performed by: Adriano Aviles CRNA Ndt Inspector: None. Preprocedure diagnosis: Difficult IV access. Post procedure diagnosis: Same. Procedure: Peripheral vein IV insertion. Indications: This 76-year-old female in respiratory failure in need of a peripheral IV. Findings: See below. Details of the procedure: Skin over the intended target site was cleansed with alcohol. A 22-gauge IV catheter was inserted into a right hand vein. A sterile dressing was applied over the insertion site. The line was then flushed with sterile saline solution. EBL: Minimal. Fluids: N/A. Specimen: N/A. Post procedure condition: The patient tolerated the procedure well. No complications were noted. Thank you for this consultation. Adriano Aviles CRNA
[2017-09-19] MEDS: NOREPINEPHRINE BITARTRATE 4 MG in DEXTROSE 5 % IN WATER 496 ML IV PRN ×4 (10:20→23:52)
[2017-09-19 10:38] LABS: Urine Appearance Cloudy; Urine Bilirubin Negative (NEGATIVE); Urine Blood 250 /ul (NEGATIVE); Urine Color Yellow; Urine Ketone Negative (NEGATIVE); Urine Specific Gravity 1.015 SP.GR. (1.005-1.010); Urine pH 5.5 pH (5.0-7.0)
[2017-09-19 10:39] LABS: Urine Nitrite Negative (NEGATIVE); Urine Protein Negative (NEGATIVE); Urine Urobilinogen Normal (NORMAL)
[2017-09-19 10:41] LABS: Urine Bacteria 1+; Urine WBC 25-50 /hpf (0-5)
[2017-09-19 10:43] LABS: Urine Amorphous Sediment Moderate - 2+ (NONE-FEW); Urine Hyaline Cast 0-5 /LPF
[2017-09-19] MEDS ORDERED: NORMAL SALINE 1,000 ML IV ONE (10:52)
[2017-09-19] MEDS ORDERED: AMIODARONE HCL 150 MG in DEXTROSE 5 % IN WATER 100 ML IV ONE ×2 (10:58)
--- NOTE | 2017-09-19 11:39 | OR ---
Operative Report - Dictated Report Narrative: Date: 09/19/2017 Preop diagnosis: Respiratory failure, hypotension Postop diagnosis: same Procedure: Placement of left subclavian 3-lumen central venous catheter Staff surgeon: Dillon Ramos MD Anesthesia: local EBL: < 5 cc Description: After obtaining informed consent and using SLIP sterile protocol the left infraclavicular area and neck were prepped and draped in a sterile fashion. An infraclavicular block was performed. Access was gained to the left subclavian vein on the first pass and guidewire passed easily. A linh was made in the skin and dilator was applied. A 3-lumen catheter was advanced over the guidewire to 16cm at the skin. The guidewire was removed. Catheter was secured to the skin with silk. A sterile dressing was applied. All ports withdrew and flushed easily. CXR is pending at the time of this report.
[2017-09-19] MEDS ORDERED: AMIODARONE HCL 900 MG in DEXTROSE 5 % IN WATER 500 ML IV SCH ×2 (12:33)
--- NOTE | 2017-09-19 12:42 | PN ---
Progess Note - Interim Narrative: 09/19/17 12:23 I saw and examined this patient on 09/19/2017. Per sign out, the patient went into AFib with RVR. She was given IV boluses of Lopressor and then Cardizem by the hospitalist. Her HR went into the 130's from 160's. Cardizem drip was contemplated but the nursing staff did not have a SCU nurse. Plans for transfer was done. [facility] was accepting the patient. The patient desaturated and Bipap was started but because of confusion and delirium ( drug induced?, per family - she always gets confused when she gets UTI) her airway support could not be maintained. Her CXR showed pulmonary congestion but infection or aspiration could not be ruled out. Her troponin bumped up to 0.4 likely rate related with concomintant increased demand ischemia. Her EKG showed AFib with lateral ischemic [place] [address]. IV lasix 80 mg x 1 was given. Her WBC was in the 14's. Her IV rocephin for klebsiella oxytoca UTI was changed to IV Zosyn. She was intubated. Her BP dropped down to 60's-70-s likely due to to IV boluses of Lopressor and Cardizem/AFib and Intubation. Her follow up troponin was 0.3. Levophed drip ordered. Discussed case with Dr. Fields and Dr Ramiro Rubio. Recommended to give her IVF bolus and start amiodarone bolus and drip, heparin drip after CTS . Surgery was able to put a central line. Anesthesia put in arterial line. CTS showed hypodensity in the left temporal lobe and left cerebellum likely artifacts but cannot entirely rule out acute infarct, correlate clinically (Dr. Campuzano). (The patient was flailing her arms and legs earlier) . The drips are running and BP is 114/65, HR 1 teens. She got 1.5 L of IV bolus. Her follow up ABG shows a 7.35/30.9/78.7/16.8/ 95.3 % with Vent setting at Vt of 500/RR 20/FiO2 40 %/ PEEP 5. She is stable to be transferred . I called Dr. Fields and he is going to assign the patient to a hospitalist but is accepting the patient..
[2017-09-19] MEDS ORDERED: HEPARIN SODIUM,PORCINE/D5W 25,000 UNITS/500 ML BAG IV PRN (12:53)
[2017-09-19] MEDS ORDERED: HEPARIN SODIUM,PORCINE 10,000 UNITS/ML VIAL IV ONE (13:09)
[2017-09-19] MEDS ORDERED: HEPARIN SODIUM,PORCINE 5,000 UNITS/ML VIAL IV ONE (13:30)
[2017-09-19] MEDS: TAMSULOSIN HCL 0.4 MG CAP.SR.24H PO SCH (16:59)
[2017-09-19] MEDS ORDERED: NORMAL SALINE 1,000 ML IV PRN (21:42)
[2017-09-19] MEDS: INSULIN GLARGINE,HUM.REC.ANLOG 100 UNITS/ML VIAL SC SCH (22:28)
[2017-09-19 23:22] VITALS: BP 139/56
[2017-09-20] MEDS: PROPOFOL 1,000 MG/100 ML PIGGYBACK IV PRN (00:18)
== END 2017-09-20 00:48 | disposition short-term general hospital (02) | DRG 694 ==
LOC: ER 16:36 → MS 20:05 → OBSVTOIN 09-17 09:11 → SCU 09-19 07:30
PROVIDERS: ADMIT Nurse Practitioner; ATTEND Internal Medicine
PROC: 0T778DZ Dilation of Left Ureter with Intraluminal Device, Via Natural or Artificial Opening Endoscopic (ICD-10-PCS; principal; 2017-09-17)
PROC: 3E1K88X Irrigation of Genitourinary Tract using Irrigating Substance, Via Natural or Artificial Opening Endoscopic, Diagnostic (ICD-10-PCS; 2017-09-17)
PROC: 5A1935Z Respiratory Ventilation, Less than 24 Consecutive Hours (ICD-10-PCS; 2017-09-19)
PROC: 0BH17EZ Insertion of Endotracheal Airway into Trachea, Via Natural or Artificial Opening (ICD-10-PCS; 2017-09-19)
PROC: 05H633Z Insertion of Infusion Device into Left Subclavian Vein, Percutaneous Approach (ICD-10-PCS; 2017-09-19)
PROC: 03HC33Z Insertion of Infusion Device into Left Radial Artery, Percutaneous Approach (ICD-10-PCS; 2017-09-19)
PROC: 4A033R1 Measurement of Arterial Saturation, Peripheral, Percutaneous Approach (ICD-10-PCS; 2017-09-19)
DX: N20.1 Calculus of ureter; E87.4 Mixed disorder of acid-base balance; G47.36 Sleep related hypoventilation in conditions classified elsewhere; N13.6 Pyonephrosis; L50.0 Allergic urticaria; R06.03 Acute respiratory distress; E11.9 Type 2 diabetes mellitus without complications; I10 Essential (primary) hypertension; F05 Delirium due to known physiological condition; Y92.239 Unspecified place in hospital as the place of occurrence of the external cause; T40.2X5A Adverse effect of other opioids, initial encounter; Z87.442 Personal history of urinary calculi
CPT/HCPCS: 36415; 36600; 51700; 52332; 70450; 71010; 73502; 74176; 74420; 76000; 80048; 81001; 82009; 82803; 83605; 83735; 83880; 84443; 84484; 85007; 85025; 85610; 85730; 87040; 87077; 87086; 87186; 93005; 94660; 96365; 96375; 99285; G0378; J2405

== ENCOUNTER 2018-05-29 03:59 | Inpatient (IN) | payer MEDICAID, MEDICARE ==
--- NOTE | 2018-05-29 04:39 | ERNOTE ---
Neuro HPI ER Record Date of Service: 05/29/18 Presenting Symptoms: confusion Time Seen by Provider: 05/29/18 04:17 Source: patient, RN/MD Exam Limitations: clinical condition Immunizations: IMMUNIZATION HX Immunizations Up to Date Yes History of Influenza Vaccine Yes Hx Pneumococcal Vaccination Yes Allergies/Adverse Reactions: Allergies Allergy/AdvReac Type Severity Reaction Status Date / Time morphine Allergy Mild Hives Verified 05/29/18 04:23 ondansetron Allergy Mild Hives Verified 05/29/18 04:23 red dye Allergy Mild Hives Verified 05/29/18 04:23 ciprofloxacin [From Cipro] AdvReac Mild Hives Verified 05/29/18 04:23 codeine AdvReac Mild anxious Verified 05/29/18 04:23 nitrofurantoin AdvReac Mild Hives Verified 05/29/18 04:23 [From Macrobid] Sulfa (Sulfonamide AdvReac Mild Hives Verified 05/29/18 04:23 Antibiotics) [Sulfa(Sulfonamide Antibiotics)] Home Medications: HOME MEDICATIONS Loratadine [Claritin] 10 mg PO DAILY 09/16/17 [Last Taken Unknown] amlodipine 10 mg tablet 5 mg PO DAILY 04/08/18 [Last Taken Unknown] aspirin 81 mg tablet,delayed release 81 mg PO DAILY 04/08/18 [Last Taken Unknown ] atorvastatin 20 mg tablet 20 mg PO DAILY 04/08/18 [Last Taken Unknown] carvedilol 12.5 mg tablet 12.5 mg PO BID #60 tab 04/18/18 [Last Taken Unknown] gabapentin 300 mg capsule 300 mg PO TID #90 cap 04/18/18 [Last Taken Unknown] ALPRAZolam [Xanax] 0.25 mg PO TID PRN 05/08/18 [Last Taken Unknown] ALPRAZolam [Xanax] 0.5 mg PO HS PRN 05/08/18 [Last Taken Unknown] Albuterol Sulfate [Ventolin Hfa] 18 gm IH QID PRN 05/08/18 [Last Taken Unknown] Fluticasone/Vilanterol [Breo Ellipta 100-25 Mcg INH] 1 inh INH DAILY 05/08/18 [ Last Taken Unknown] Ibuprofen [Ibu] 600 mg PO TID 05/08/18 [Last Taken Unknown] Sennosides/Docusate Sodium [Docusate Sodium-Sennosides Tab] 1 each PO DAILY PRN 05/08/18 [Last Taken Unknown] guaiFENesin [Mucinex] 1,200 mg PO BID 05/08/18 [Last Taken Unknown] l Gasseri/B Bifidum/B Longum [Valdovinos' Colon Health Capsule] 1 each PO DAILY [Last Taken Unknown] traMADol HCL [Tramadol HCl] 25 mg PO QID PRN 05/08/18 [Last Taken Unknown] Nystatin [Mycostatin Powder] 1 appl TP BID btl 05/29/18 [Last Taken Unknown] Fluconazole [Diflucan] 200 mg PO DAILY #6 tab 05/31/18 [Last Taken Unknown] Insulin Detemir [Levemir] 34 units SC HS 05/31/18 [Last Taken Unknown] - History of Present Illness Narrative: This patient is a 77-year-old female who arrived by ambulance. She apparently lives in an apartment and was calling for help. Neighbors called the police and they called the ambulance. She had similar symptoms recently and had a UTI. The patient knows where she is but cannot tell me the date. She cannot give me a history of why she is here. She denies fever, headache, chest pain, coughing, shortness breath, abdominal pain, nausea, vomiting, diarrhea, and urinary symptoms. She has a PICC line in the left arm. It looks like she went home but that after her recent UTI. She has disuse of the right arm. Review of Systems - Narrative Narrative: Unreliable due to her mental status but essentially negative. Medical History (Last Reviewed 05/29/18 @ 04:36 by Geoffrey Paige MD) Sepsis Depression Onset Date: ~06/29/14 Difficulty in walking Onset Date: ~05/29/14 Obstructive lung disease Onset Date: ~11/10/17 Hand pain, left Onset Date: ~04/2013 Hx of colonic polyps Onset Date: ~06/30/10 Infection of kidney Splenic artery aneurysm Onset Date: ~2008 Surgical History: Surgical History (Last Reviewed 05/29/18 @ 04:36 by Geoffrey Paige MD) History of laryngoscopy Onset Date: ~01/15/18 H/O cystoscopy Onset Date: ~09/20/17 H/O lithotripsy History of appendectomy History of arthroscopic knee surgery History of bronchoscopy Onset Date: ~01/17/18 History of cholecystectomy Hx of cardiac cath S/P ureteral stent placement insertion of subclavian catheter Onset Date: ~09/19/17 H/O colonoscopy Onset Date: ~06/30/10 Family History: Family History (Last Updated 04/08/18 @ 10:48 by Berhane Still) Father No problems noted. Mother No problems noted. Social History: Preferred Language Kyrgyz Do you have any rastafarian or No cultural preference? Smoking Status Never smoker Have you smoked in the past 12 No months Do you dip or chew tobacco No Abuse History No History of abuse Psych History No pertinent hx Alcohol Use none Drug Use none Physical Exam - Physical Exam General Appearance: Present: alert, no apparent distress, obese Head Exam: Present: normal inspection, no evidence of injury Eye Exam: Normal inspection: bilateral Ears, Nose, Throat: Present: normal ENT inspection, normal pharynx Neck: Present: supple. Absent: lymphadenopathy (R), lymphadenopathy (L) Respiratory: Present: no respiratory distress, normal breath sounds, lungs clear Cardiovascular/Chest: Present: regular rate, rhythm, no murmur Gastrointestinal/Abdominal: Present: normal bowel sounds, nontender, soft, no organomegaly Extremity Exam: Present: normal inspection, non-tender, no edema Neurological Exam: Present: alert, disoriented to time, other - Decreased movement of the right upper extremity. She needed help to sit up. Skin Exam: Present: normal color, warm/dry. Absent: skin rash ED Progress - Date and Time Seen: Date and Time: 05/29/18 06:[address] Goetz and she agrees to admit the patient. - Results and Orders Patient's Lab Results:: I have reviewed the patient's lab results. - Vital Signs Patient's Vital Signs:: I have reviewed the patient's vital signs. Vital Signs: Vital Signs 05/29/18 04:01 Temperature 37.2 C Pulse Rate 93 Respiratory Rate 16 Blood Pressure 154/83 H O2 Sat by Pulse Oximetry 95 - X-Ray X-Ray #1 X-Ray: chest - nothing acute Interpretation: Interp. by sc - CT/Ultrasound CT/Ultrasound Narrative: Head CT without contrast: Impression: 1. No acute intracranial abnormality. 2. Microvascular gliosis. - Progress/Reassessment Chief Complaint: Altered Mental Status Departure Clinical Impression: Confusion UTI (urinary tract infection) Qualifiers: Urinary tract infection type: acute cystitis Hematuria presence: without hematuria Qualified Code(s): N30.00 - Acute cystitis without hematuria - Departure Disposition: Still a patient Condition: Fair
[2018-05-29 04:50] LABS: Hematocrit 35.5 % (37.0-47.0); Hemoglobin 11.6 gm/dL (12.5-16.0); Mean Cell Volume 87.2 fl (78-100); Mean Corpuscular Hemoglobin 28.5 pg (27-31); Mean Corpuscular Hgb Conc 32.7 g/dl (32-36); Mean Platelet Volume 10.1 fl (8-12.5); Neutrophil # 6.8 K/mm3 (1.3-6.0); Neutrophil % 70.2 % (42-75.0); Platelet Count 275 K/mm3 (150-450); Red Blood Count 4.07 M/mm3 (4.2-5.4); Red Cell Distribution Width 14.3 % (11.5-14.0); White Blood Count 9.7 K/mm3 (4.0-10.5)
[2018-05-29 04:51] LABS: Urine Bilirubin Negative (NEGATIVE); Urine Blood 25 /ul (NEGATIVE); Urine Ketone Negative (NEGATIVE); Urine Nitrite Negative (NEGATIVE); Urine Protein 30 mg/dL (NEGATIVE); Urine Urobilinogen Normal (NORMAL)
[2018-05-29 04:59] LABS: Urine Appearance Slightly Cloudy (CLEAR); Urine Bacteria 2+; Urine Color Yellow; Urine RBC 0-5 /hpf (0-5)
[2018-05-29 05:07] LABS: Albumin * 3.7 gm/dl (3.4-5.0); Anion Gap 12.8 mmol/L (6.8-13.8); BUN/Creatinine Ratio 19.6 (9.0-21.6); Bilirubin, Total 0.4 mg/dL (0.0-1.1); CRP 1.4 mg/dL (0.0-0.9); Calcium * 9.1 mg/dL (7.9-10.9); Carbon Dioxide 27.3 mmol/L (24-32.6); Potassium 4.1 mmol/L (3.4-4.6); Total Protein 8.1 gm/dL (6.2-8.2)
[2018-05-29] MEDS ORDERED: NORMAL SALINE 1,000 ML IV ONE ×4 (05:37→18:30)
[2018-05-29] MEDS: NYSTATIN 15 APPL BTL TP SCH ×2 (09:02→20:04)
[2018-05-29] MEDS ORDERED: ALPRAZolam 0.25 MG TABLET PO PRN (11:29)
[2018-05-29] MEDS ORDERED: SENNOSIDES/DOCUSATE SODIUM 1 TAB TABLET PO PRN (11:29)
[2018-05-29] MEDS ORDERED: ALBUTEROL SULFATE 2.5 MG/0.5 ML VIAL.NEB IH PRN (11:29)
[2018-05-29] MEDS ORDERED: OXYBUTYNIN CHLORIDE 5 MG TABLET PO SCH (11:45)
[2018-05-29] MEDS: CARVEDILOL 12.5 MG TABLET PO SCH ×2 (12:16→20:06)
[2018-05-29] MEDS: GABAPENTIN 300 MG CAPSULE PO SCH ×2 (12:16→17:04)
[2018-05-29] MEDS: DULoxetine HCL 30 MG CAPSULE.SA PO SCH (12:20)
[2018-05-29] MEDS: FLUTICASONE/SALMETEROL 14 PUFF DISK.W.DEV IH SCH ×2 (12:22→20:06)
[2018-05-29] MEDS: FLUCONAZOLE 200 MG TABLET PO SCH (12:22)
--- NOTE | 2018-05-29 13:17 | HP ---
Chief Complaint - Chief Complaint Date of Service: 05/29/18 Time of Service: 12:35 Chief Complaint: confusion History of Present Illness: Patient was brought to the ED after her neighbors heard her calling for help. She is confused and unable to provide history. Chart review shows she was just recently discharged home after treatment for a UTI. She has a PICC line in her left forearm. Her WBC is not elevated at 9.7. She initially had an elevated lactate of 2.4, which has improved to 2.0 after fluids. She has been afebrile. Medical History (Last Reviewed 05/29/18 @ 08:36 by Whit Schrader RN) Sepsis Depression Onset Date: ~06/29/14 Difficulty in walking Onset Date: ~05/29/14 Obstructive lung disease Onset Date: ~11/10/17 Hand pain, left Onset Date: ~04/2013 Hx of colonic polyps Onset Date: ~06/30/10 Infection of kidney Splenic artery aneurysm Onset Date: ~2008 Surgical History: Surgical History (Last Reviewed 05/29/18 @ 08:36 by Whit Schrader RN) History of laryngoscopy Onset Date: ~01/15/18 H/O cystoscopy Onset Date: ~09/20/17 H/O lithotripsy History of appendectomy History of arthroscopic knee surgery History of bronchoscopy Onset Date: ~01/17/18 History of cholecystectomy Hx of cardiac cath S/P ureteral stent placement insertion of subclavian catheter Onset Date: ~09/19/17 H/O colonoscopy Onset Date: ~06/30/10 Family History: Family History (Last Updated 04/08/18 @ 10:48 by Berhane Still) Father No problems noted. Mother No problems noted. Social History: Patient Lives/Resources Home Utilized Occupation retired Preferred Language Italian Do you have any synagogue or No cultural preference? Smoking Status Never smoker Have you smoked in the past 12 No months Do you dip or chew tobacco No Abuse History No History of abuse Psych History No pertinent hx Alcohol Use none Drug Use none Review Of Systems (GEN) - Review of Systems Generalized/Overall Review: Absent: Fever Respiratory: Absent: Cough, Shortness of Breath Cardiac: Absent: Chest Pain, Edema Abdominal: Absent: Vomiting, Diarrhea Skin: Present: Rash - Erythema of the skin folds under her breasts and pannus Additional Comments: Patient declines any symptoms, but her answers may not be reliable given her confusion Immunizations: IMMUNIZATION HX Immunizations Up to Date Yes History of Influenza Vaccine Yes Hx Pneumococcal Vaccination Yes Allergies/Adverse Reactions: Allergies Allergy/AdvReac Type Severity Reaction Status Date / Time morphine Allergy Mild Hives Verified 05/29/18 04:23 ondansetron Allergy Mild Hives Verified 05/29/18 04:23 red dye Allergy Mild Hives Verified 05/29/18 04:23 ciprofloxacin [From Cipro] AdvReac Mild Hives Verified 05/29/18 04:23 codeine AdvReac Mild anxious Verified 05/29/18 04:23 nitrofurantoin AdvReac Mild Hives Verified 05/29/18 04:23 [From Macrobid] Sulfa (Sulfonamide AdvReac Mild Hives Verified 05/29/18 04:23 Antibiotics) [Sulfa(Sulfonamide Antibiotics)] Home Medications: HOME MEDICATIONS Duloxetine HCl [Cymbalta] 60 mg PO DAILY 09/16/17 [Last Taken Unknown] Insulin Glargine,Hum.rec.anlog [Lantus] 34 units SC HS 09/16/17 [Last Taken Unknown] Loratadine [Claritin] 10 mg PO DAILY 09/16/17 [Last Taken Unknown] Oxybutynin Chloride [Ditropan] 8 mg PO BID 09/16/17 [Last Taken Unknown] amlodipine 10 mg tablet 5 mg PO DAILY 04/08/18 [Last Taken Unknown] aspirin 81 mg tablet,delayed release 81 mg PO DAILY 04/08/18 [Last Taken Unknown ] atorvastatin 20 mg tablet 20 mg PO DAILY 04/08/18 [Last Taken Unknown] carvedilol 12.5 mg tablet 12.5 mg PO BID #60 tab 04/18/18 [Last Taken Unknown] gabapentin 300 mg capsule 300 mg PO TID #90 cap 04/18/18 [Last Taken Unknown] ALPRAZolam [Xanax] 0.25 mg PO TID PRN 05/08/18 [Last Taken Unknown] ALPRAZolam [Xanax] 0.5 mg PO HS PRN 05/08/18 [Last Taken Unknown] Albuterol Sulfate [Ventolin Hfa] 18 gm IH QID PRN 05/08/18 [Last Taken Unknown] Fluticasone/Vilanterol [Breo Ellipta 100-25 Mcg INH] 1 inh INH DAILY 05/08/18 [ Last Taken Unknown] Ibuprofen [Ibu] 600 mg PO TID 05/08/18 [Last Taken Unknown] Sennosides/Docusate Sodium [Docusate Sodium-Sennosides Tab] 1 each PO DAILY PRN 05/08/18 [Last Taken Unknown] guaiFENesin [Mucinex] 1,200 mg PO BID 05/08/18 [Last Taken Unknown] l Gasseri/B Bifidum/B Longum [[facility] Capsule] 1 each PO DAILY [Last Taken Unknown] traMADol HCL [Tramadol HCl] 25 mg PO QID PRN 05/08/18 [Last Taken Unknown] Exam - Exam Vital Signs: Vital Signs - Last Taken Temp 36.1 C 05/29/18 10:26 Pulse 98 05/29/18 12:16 Resp 16 05/29/18 10:26 BP 145/53 05/29/18 12:16 Pulse Ox 94 05/29/18 10:26 Constitutional: Present: Alert, Mild distress, Obese Neck: Absent: lymphadenopathy (R), lymphadenopathy (L) Respiratory: Present: lungs clear, no accessory muscle use, No wheezing. Absent : crackles, rhonchi Cardiovascular/Chest: Present: regular rate, rhythm Abdomen: Present: Normal bowel sounds - distant bowel sounds secondary to body habitus, soft, nontender, nondistended Extremity: Present: other - right arm flaccid Skin Exam: Present: skin rash - Skin folds under breasts and abdominal pannus Neurologic: Absent: oriented x 3 Eye contact: Absent: good eye contact Diagnostic Studies: Abnormal Lab Results 05/29/18 05/29/18 05/29/18 Range/Units 04:50 04:50 04:50 RBC 4.07 L (4.2-5.4) M/mm3 Hgb 11.6 L (12.5-16.0) gm/dL Hct 35.5 L (37.0-47.0) % RDW 14.3 H (11.5-14.0) % Immature Gran # (Auto) 0.04 H (0.000-0.0310) K/mm3 Lymphocytes % 15.0 L (20-51) % Monocytes % 10.7 H (0.0-9) % Eosinophils % 3.5 H (0.0-3.0) % Neutrophils # 6.8 H (1.3-6.0) K/mm3 Lymphocytes # 1.45 L (1.5-3.5) k/mm3 Est GFR (Non-Af Amer) 53 L (60-130) mL/min Random Glucose 354 H (70-110) mg/dL Lactic Acid, Venous 2.4 H* (0.4-2.0) mmol/L ALT 15 L (19-67) U/L C-Reactive Prot, Quant 1.4 H (0.0-0.9) mg/dL Urine Protein (NEGATIVE) mg/dL Urine Glucose (UA) (NEGATIVE) mg/dL Urine Blood (NEGATIVE) /ul Urine WBC (0-5) /hpf Urine Bacteria (NONE) 05/29/18 Range/Units 04:50 RBC (4.2-5.4) M/mm3 Hgb (12.5-16.0) gm/dL Hct (37.0-47.0) % RDW (11.5-14.0) % Immature Gran # (Auto) (0.000-0.0310) K/mm3 Lymphocytes % (20-51) % Monocytes % (0.0-9) % Eosinophils % (0.0-3.0) % Neutrophils # (1.3-6.0) K/mm3 Lymphocytes # (1.5-3.5) k/mm3 Est GFR (Non-Af Amer) (60-130) mL/min Random Glucose (70-110) mg/dL Lactic Acid, Venous (0.4-2.0) mmol/L ALT (19-67) U/L C-Reactive Prot, Quant (0.0-0.9) mg/dL Urine Protein 30 H (NEGATIVE) mg/dL Urine Glucose (UA) >=1000 H (NEGATIVE) mg/dL Urine Blood 25 H (NEGATIVE) /ul Urine WBC 10-25 H (0-5) /hpf Urine Bacteria 2+ H (NONE) Laboratory Results WBC 9.7 K/mm3 (4.0-10.5) 05/29/18 04:50 RBC 4.07 M/mm3 (4.2-5.4) L 05/29/18 04:50 Hgb 11.6 gm/dL (12.5-16.0) L 05/29/18 04:50 Hct 35.5 % (37.0-47.0) L 05/29/18 04:50 MCV 87.2 fl (78-100) 05/29/18 04:50 MCH 28.5 pg (27-31) 05/29/18 04:50 MCHC 32.7 g/dl (32-36) 05/29/18 04:50 RDW 14.3 % (11.5-14.0) H 05/29/18 04:50 Plt Count 275 K/mm3 (150-450) 05/29/18 04:50 MPV 10.1 fl (8-12.5) 05/29/18 04:50 Immature Gran % (Auto) 0.40 % (0.001-0.429) 05/29/18 04:50 Immature Gran # (Auto) 0.04 K/mm3 (0.000-0.0310) H 05/29/18 04:50 Neutrophils % 70.2 % (42-75.0) 05/29/18 04:50 Lymphocytes % 15.0 % (20-51) L 05/29/18 04:50 Monocytes % 10.7 % (0.0-9) H 05/29/18 04:50 Eosinophils % 3.5 % (0.0-3.0) H 05/29/18 04:50 Basophils % 0.2 % (0.0-1.0) 05/29/18 04:50 Nucleated RBC % 0.0 k/mm3 (0-1) 05/29/18 04:50 Neutrophils # 6.8 K/mm3 (1.3-6.0) H 05/29/18 04:50 Lymphocytes # 1.45 k/mm3 (1.5-3.5) L 05/29/18 04:50 Monocytes # 1.0 k/mm3 (0.0-1.0) 05/29/18 04:50 Eosinophils # 0.3 k/mm3 (0.0-0.7) 05/29/18 04:50 Absolute Basophils 0.0 k/mm3 (0.0-0.1) 05/29/18 04:50 Sodium 134 mmol/L (132-142) 05/29/18 04:50 Plasma Sodium 138 mmol/L (130-142) 05/29/18 04:50 Potassium 4.1 mmol/L (3.4-4.6) D 05/29/18 04:50 Chloride 98 mmol/L (97-106) 05/29/18 04:50 Carbon Dioxide 27.3 mmol/L (24-32.6) 05/29/18 04:50 Anion Gap 12.8 mmol/L (6.8-13.8) 05/29/18 04:50 BUN 21 mg/dL (3-23) 05/29/18 04:50 Creatinine 1.07 mg/dL (0.4-1.4) 05/29/18 04:50 Est GFR (Non-Af Amer) 53 mL/min (60-130) L 05/29/18 04:50 BUN/Creatinine Ratio 19.6 (9.0-21.6) 05/29/18 04:50 Random Glucose 354 mg/dL (70-110) H 05/29/18 04:50 Lactic Acid, Venous 2.0 mmol/L (0.4-2.0) 05/29/18 07:41 Calcium 9.1 mg/dL (7.9-10.9) 05/29/18 04:50 Calcium Adj for Albumin 9.0 mg/dL (8.4-10.2) 05/29/18 04:50 Total Bilirubin 0.4 mg/dL (0.0-1.1) 05/29/18 04:50 AST 8 U/L (0-48) 05/29/18 04:50 ALT 15 U/L (19-67) L 05/29/18 04:50 Alkaline Phosphatase 112 U/L (50-170) 05/29/18 04:50 C-Reactive Prot, Quant 1.4 mg/dL (0.0-0.9) H 05/29/18 04:50 Total Protein 8.1 gm/dL (6.2-8.2) 05/29/18 04:50 Albumin 3.7 gm/dl (3.4-5.0) 05/29/18 04:50 Urine Color Yellow 05/29/18 04:50 Urine Appearance Slightly cloudy (CLEAR) 05/29/18 04:50 Urine pH 6.0 pH (5.0-7.0) 05/29/18 04:50 Ur Specific Harvey 1.020 SP.GR. (1.005-1.010) 05/29/18 04:50 Urine Protein 30 mg/dL (NEGATIVE) H 05/29/18 04:50 Urine Glucose (UA) >=1000 mg/dL (NEGATIVE) H 05/29/18 04:50 Urine Ketones Negative mg/dL (NEGATIVE) 05/29/18 04:50 Urine Blood 25 /ul (NEGATIVE) H 05/29/18 04:50 Urine Nitrate Negative (NEGATIVE) 05/29/18 04:50 Urine Bilirubin Negative mg/dl (NEGATIVE) 05/29/18 04:50 Prot Sulfosalicylic Acd 1+ mg/dL (0) 05/29/18 04:50 Urine Urobilinogen Normal EU/dl (NORMAL) 05/29/18 04:50 Ur Leukocyte Esterase Negative /ul (NEGATIVE) 05/29/18 04:50 Urine RBC 0-5 /hpf (0-5) 05/29/18 04:50 Urine WBC 10-25 /hpf (0-5) H 05/29/18 04:50 Ur Epithelial Cells None seen /hpf (0-5) 05/29/18 04:50 Urine Bacteria 2+ (NONE) H 05/29/18 04:50 Urine Culture Comments Culture to follow 05/29/18 04:50 Assessment/Plan - Assessment/Plan (1) Confusion Assessment: Ddx includes UTI, hypoxia, electrolyte abnormality, medication side effect. Treatment for UTI has been initiated. She has not been hypoxic since admission , and no significant electrolyte abnormality. Ammonia level pending. No acute findings on CT head this morning. She reportedly lives alone. With her repeated UTIs and hospitalizations, she does not appear safe to be alone, and would recommend placement in a facility after discharge. Problem: Acute (2) UTI (urinary tract infection) Assessment: Urine culture from 05/26 grew >100,000 CFU yeast, and diflucan has been started. Afebrile and WBC not elevated. Repeat culture pending. She had been getting treatment for UTI prior to admission, but that antibiotic is unclear. She has several allergies. Received Rocephin in the ED. Will continue rocephin daily during hospitalization, pending culture results. She was prescribed oxybutynin on admission, and will discontinue as it may be contributing to her recurrent UTIs. Problem: Acute Qualifiers: (3) Diabetes mellitus Assessment: Will continue home 32 U lantus, and add moderate dose SSI. Will continue maintenance rate NS until she is able to maintain po hydration. Problem: Chronic (4) Yeast dermatitis Assessment: Present in skin folds beneath breasts and abdominal pannus. Continue nystatin powder. Problem: Acute
[2018-05-29] MEDS: ALPRAZolam 0.25 MG TABLET PO PRN (14:34)
[2018-05-29] MEDS: INSULIN ASPART 100 UNITS/ML VIAL SC SCH ×2 (17:05→20:13)
[2018-05-29] MEDS ORDERED: FOSFOMYCIN TROMETHAMINE 3 GM PACKET PO ONE (18:44)
--- NOTE | 2018-05-29 18:44 | PN ---
Nohemi Note - Interim Date: 05/29/18 Time: 18:40 Narrative: 05/29/18 18:40 Spoke with Karen, charge nurse, who had obtained information from [facility]. Ms. Swann had been receiving Rocephin from [facility], so will not continue Rocephin going forward. Will continue diflucan and await urine culture results. She has multiple antibiotic allergies, including cipro and bactrim. Will administer 3 g fosfomycin tonight, and give another dose in 48 hours pending culture results. She has remained afebrile, and was oriented to location, which is an improvement from earlier today. 05/29/18 18:43
[2018-05-29] MEDS: INSULIN GLARGINE,HUM.REC.ANLOG 100 UNITS/ML VIAL SC SCH (20:15)
[2018-05-29] MEDS ORDERED: traMADol HCL 50 MG TABLET PO PRN (21:20)
[2018-05-29] MEDS: IBUPROFEN 600 MG TABLET PO SCH (21:38)
[2018-05-30] MEDS ORDERED: HEPARIN SOD.,PORCINE 100 UNITS/ML ONE ×2 (06:08→20:05)
[2018-05-30] MEDS: INSULIN ASPART 100 UNITS/ML VIAL SC SCH ×4 (07:02→21:37)
[2018-05-30] MEDS: FLUTICASONE/SALMETEROL 14 PUFF DISK.W.DEV IH SCH ×2 (08:14→21:29)
[2018-05-30] MEDS: DULoxetine HCL 30 MG CAPSULE.SA PO SCH (08:15)
[2018-05-30] MEDS: CARVEDILOL 12.5 MG TABLET PO SCH ×2 (08:15→21:39)
[2018-05-30] MEDS: FLUCONAZOLE 200 MG TABLET PO SCH (08:15)
[2018-05-30] MEDS: NYSTATIN 15 APPL BTL TP SCH ×2 (08:16→21:40)
[2018-05-30] MEDS: GABAPENTIN 300 MG CAPSULE PO SCH ×3 (08:16→16:44)
[2018-05-30] MEDS: amLODIPine BESYLATE 5 MG TABLET PO SCH (08:16)
[2018-05-30] MEDS: IBUPROFEN 600 MG TABLET PO SCH ×3 (08:17→16:44)
--- NOTE | 2018-05-30 08:19 | PN ---
Subjective - Date and Time Seen Date: 05/30/18 Time: 08:10 Subjective Narrative: Patient evaluated while sitting up eating breakfast. She is more lucid than yesterday and answers questions appropriately, but is not fully oriented. States the season is winter. Objective - Review of Systems Generalized/Overall Review: Denies: Fever Respiratory: Denies: Cough Cardiac: Denies: Chest Pain, Edema Abdominal: Denies: Vomiting Genitourinary Symptoms: Denies: Urgency, Frequency, Dysuria Skin: Reports: Rash - rash in skin folds under breasts and abdominal pannus - Vitals Vitals: Last Vital Signs Temp 37 C 05/30/18 06:29 Pulse 89 05/30/18 06:29 Resp 20 05/30/18 06:29 BP 131/59 05/30/18 06:29 Pulse Ox 96 05/30/18 06:29 - Exam Constitutional: Present: Cooperative, No distress, Morbidly obese Respiratory: Present: lungs clear, no accessory muscle use Cardiovascular/Chest: Present: regular rate, rhythm - distant lung sounds secondary to body habitus Abdomen: Present: soft, nontender Extremity: Absent: lower extremity edema Neurologic: Present: normal mood/affect Eye contact: Present: cooperative Assessment/Plan - Problems/Diagnosis (1) UTI (urinary tract infection) Problem: Acute Qualifiers: Narrative: Urine culture from last week was positive for yeast, and diflucan was started yesterday. She denies current symptoms. She was being treated with IV Rocephin for UTI prior to admission. Given her worsening status while on the Rocephin, this will be discontinued, and keep diflucan only. Her mentation is improving. Will have PT evaluate her to see if she would meet criteria for NH placement. With her several recent admissions, she may benefit from a short rehab stay. (2) Confusion Problem: Acute Narrative: Much better, but still not oriented to time. States the month is May, but the season is winter. Her daughter stated yesterday that at baseline, she is lucid. (3) Diabetes mellitus Problem: Chronic (4) Yeast dermatitis Problem: Acute Narrative: continue nystatin powder, and will continue this after discharge.
[2018-05-30] MEDS: ASPIRIN 81 MG TABLET.DR PO SCH (08:21)
[2018-05-30] MEDS ORDERED: FOSFOMYCIN TROMETHAMINE 3 GM PACKET PO ONE (09:00)
[2018-05-30] MEDS ORDERED: FUROSEMIDE 10 MG/ML VIAL IV ONE (19:28)
[2018-05-30] MEDS: INSULIN GLARGINE,HUM.REC.ANLOG 100 UNITS/ML VIAL SC SCH (21:38)
[2018-05-31] MEDS: ALPRAZolam 0.25 MG TABLET PO PRN (07:13)
[2018-05-31] MEDS: INSULIN ASPART 100 UNITS/ML VIAL SC SCH ×2 (07:14→11:46)
[2018-05-31] MEDS: FLUTICASONE/SALMETEROL 14 PUFF DISK.W.DEV IH SCH (08:49)
[2018-05-31] MEDS: DULoxetine HCL 30 MG CAPSULE.SA PO SCH (08:50)
[2018-05-31] MEDS: ASPIRIN 81 MG TABLET.DR PO SCH (08:50)
[2018-05-31] MEDS: IBUPROFEN 600 MG TABLET PO SCH ×2 (08:50→12:03)
[2018-05-31] MEDS: FLUCONAZOLE 200 MG TABLET PO SCH (08:50)
[2018-05-31] MEDS: CARVEDILOL 12.5 MG TABLET PO SCH (08:50)
[2018-05-31] MEDS: GABAPENTIN 300 MG CAPSULE PO SCH ×2 (08:51→12:03)
[2018-05-31] MEDS: NYSTATIN 15 APPL BTL TP SCH (08:51)
[2018-05-31] MEDS: amLODIPine BESYLATE 5 MG TABLET PO SCH (08:51)
[2018-05-31] MEDS ORDERED: HEPARIN SOD.,PORCINE 100 UNITS/ML ONE (09:06)
--- NOTE | 2018-05-31 09:08 | DS ---
(1) UTI (urinary tract infection) Problem: Acute Qualifiers: Hematuria presence: without hematuria (2) Confusion Problem: Resolved (3) Diabetes mellitus Problem: Chronic Qualifiers: Diabetes mellitus type: type 2 Diabetes mellitus terminal superintendent insulin use: with terminal superintendent use Diabetes mellitus complication status: with ophthalmic complications (4) Yeast dermatitis Problem: Acute Description of Stay: Patient was brought by EMS after calling out for help at home, and neighbors hearing her and calling 911. She was afebrile, but confused. Urine culture from 2 days prior to admission showed fungal UTI, and she was started on diflucan. WBC not elevated. She had a PICC line in place because she was being given daily Rocephin by home health. Her mentation improved. PT cuauhtemoc showed she would benefit from SNF placement, but she refused. Extensive discussions were had with her regarding her safety at home, and she continued to decline placement. She displayed a logical thought process, and has decision making capacity. She felt like she would do better overall if someone else lived with her, which will be up to her family. Will discharge with a total 7 day course diflucan and expand her home health services. Procedures Performed: none Results and Findings: Pending Mircobiology Results 05/29/18 05:00 Blood Blood Culture - Preliminary NO GROWTH AFTER 48 HOURS 05/29/18 04:50 Blood Blood Culture - Preliminary NO GROWTH AFTER 48 HOURS 05/29/18 05:00 Urine,Catheterized Urine Culture - Preliminary No Growth Lab Pending Results 05/29/18 04:50: WBC 9.7, RBC 4.07 L, Hgb 11.6 L, Hct 35.5 L, MCV 87.2, MCH 28.5 , MCHC 32.7, RDW 14.3 H, Plt Count 275, MPV 10.1, Immature Gran % (Auto) 0.40, Immature Gran # (Auto) 0.04 H, Neutrophils % 70.2, Lymphocytes % 15.0 L, Monocytes % 10.7 H, Eosinophils % 3.5 H, Basophils % 0.2, Nucleated RBC % 0.0, Neutrophils # 6.8 H, Lymphocytes # 1.45 L, Monocytes # 1.0, Eosinophils # 0.3, Absolute Basophils 0.0 05/29/18 04:50: Sodium 134, Plasma Sodium 138, Potassium 4.1 D, Chloride 98, Carbon Dioxide 27.3, Anion Gap 12.8, BUN 21, Creatinine 1.07, Est GFR (Non-Af Amer) 53 L, BUN/Creatinine Ratio 19.6, Random Glucose 354 H, Calcium 9.1, Calcium Adj for Albumin 9.0, Total Bilirubin 0.4, AST 8, ALT 15 L, Alkaline Phosphatase 112, C-Reactive Prot, Quant 1.4 H, Total Protein 8.1, Albumin 3.7 05/29/18 04:50: Lactic Acid, Venous 2.4 H* 05/29/18 04:50: Urine Color Yellow, Urine Appearance Slightly cloudy, Urine pH 6.0, Ur Specific Maurice 1.020, Urine Protein 30 H, Urine Glucose (UA) >=1000 H , Urine Ketones Negative, Urine Blood 25 H, Urine Nitrate Negative, Urine Bilirubin Negative, Prot Sulfosalicylic Acd 1+, Urine Urobilinogen Normal, Ur Leukocyte Esterase Negative, Urine RBC 0-5, Urine WBC 10-25 H, Ur Epithelial Cells None seen, Urine Bacteria 2+ H, Urine Culture Comments Culture to follow 05/29/18 07:41: Lactic Acid, Venous 2.0 05/29/18 13:13: Ammonia Less than 17.0 Discharge Location: Home Disposition: Home Health Service Home Health Agency: [facility] Condition: Fair Discharge Activity: Activity as tolerated Discharge Diet: Consistent carbs Referrals: Peggy Antonio, ONLINE MEDIA DIRECTOR [Primary Care Provider] - Additional Patient Instructions (free text): -Please make TCM appointment unless skilled nursing discharge. Thank you! Lilia @ [phone].Resume services with [facility] at discharge. Nursing, bath aide, Pt/OT. Prescriptions (Any new or edited meds): Fluconazole [Diflucan] 200 mg PO DAILY #6 tab Complete Home Medications List: Complete Home Medication List: Duloxetine HCl [Cymbalta] 60 mg PO DAILY 09/16/17 Insulin Glargine,Hum.rec.anlog [Lantus] 34 units SC 09/16/17 Loratadine [Claritin] 10 mg PO DAILY 09/16/17 Oxybutynin Chloride [Ditropan] 8 mg PO BID 09/16/17 amlodipine 10 mg tablet 5 mg PO DAILY 04/08/18 aspirin 81 mg tablet,delayed release 81 mg PO DAILY 04/08/18 atorvastatin 20 mg tablet 20 mg PO DAILY 04/08/18 carvedilol 12.5 mg tablet 12.5 mg PO BID #60 tab 04/18/18 gabapentin 300 mg capsule 300 mg PO TID #90 cap 04/18/18 ALPRAZolam [Xanax] 0.25 mg PO TID PRN 05/08/18 ALPRAZolam [Xanax] 0.5 mg PO HS PRN 05/08/18 Albuterol Sulfate [Ventolin Hfa] 18 gm IH QID PRN 05/08/18 Fluticasone/Vilanterol [Breo Ellipta 100-25 Mcg INH] 1 inh INH DAILY 05/08/18 Ibuprofen [Ibu] 600 mg PO TID 05/08/18 Sennosides/Docusate Sodium [Docusate Sodium-Sennosides Tab] 1 each PO DAILY PRN 05/08/18 guaiFENesin [Mucinex] 1,200 mg PO BID 05/08/18 l Gasseri/B Bifidum/B Longum [[facility] Capsule] 1 each PO DAILY traMADol HCL [Tramadol HCl] 25 mg PO QID PRN 05/08/18 Fluconazole [Diflucan] 200 mg PO DAILY #6 tab 05/31/18
[2018-05-31 15:45] VITALS: BP 134/69
== END 2018-05-31 16:49 | disposition home health service (06) | DRG 758 ==
LOC: ER 03:59 → MS 06:14
PROVIDERS: ADMIT Family Medicine; ATTEND Family Medicine
DX: R41.0 Disorientation, unspecified; F32.9 Major depressive disorder, single episode, unspecified; Z86.79 Personal history of other diseases of the circulatory system; Z79.51 Long term (current) use of inhaled steroids; Z88.5 Allergy status to narcotic agent; Z87.440 Personal history of urinary (tract) infections; B37.2 Candidiasis of skin and nail; Z79.82 Long term (current) use of aspirin; E65 Localized adiposity; Z88.8 Allergy status to other drugs, medicaments and biological substances; Z68.42 Body mass index [BMI] 45.0-49.9, adult; B37.49 Other urogenital candidiasis; Z79.4 Long term (current) use of insulin; Z88.1 Allergy status to other antibiotic agents; E11.39 Type 2 diabetes mellitus with other diabetic ophthalmic complication; Z86.010 Personal history of colon polyps; Z88.2 Allergy status to sulfonamides; J44.9 Chronic obstructive pulmonary disease, unspecified; E66.01 Morbid (severe) obesity due to excess calories
CPT/HCPCS: 36415; 70450; 71010; 71020; 71045; 71046; 80053; 80061; 81001; 82140; 83036; 83605; 85025; 86140; 87040; 87086; 87106; 96361; 96365; 97110; 97116; 97162; 99285

== ENCOUNTER 2018-12-17 17:06 | Inpatient (IN) ==
[2018-12-17] MEDS ORDERED: NORMAL SALINE 1,000 ML IV ONE (17:16)
[2018-12-17] MEDS ORDERED: ACETAMINOPHEN 500 MG TABLET PO ONE ×2 (17:16→21:01)
--- NOTE | 2018-12-17 17:28 | ERNOTE ---
Neuro HPI ER Record Date of Service: 12/17/18 Presenting Symptoms: confusion, other Time Seen by Provider: 12/17/18 17:14 Source: patient - Fever, EMS notes reviewed Immunizations: IMMUNIZATION HX Immunizations Up to Date Yes History of Influenza Vaccine Yes Hx Pneumococcal Vaccination Yes Allergies/Adverse Reactions: Allergies Allergy/AdvReac Type Severity Reaction Status Date / Time morphine Allergy Mild Hives Verified 12/02/18 09:01 ondansetron Allergy Mild Hives Verified 12/02/18 09:01 red dye Allergy Mild Hives Verified 12/02/18 09:01 ciprofloxacin [From Cipro] AdvReac Mild Hives Verified 12/02/18 09:01 codeine AdvReac Mild anxious Verified 12/02/18 09:01 haloperidol [From Haldol] AdvReac Mild Other Verified 12/17/18 20:23 lorazepam [From Ativan] AdvReac Mild Other Verified 12/17/18 20:23 nitrofurantoin AdvReac Mild Hives Verified 12/02/18 09:01 [From Macrobid] Sulfa (Sulfonamide AdvReac Mild Hives Verified 12/02/18 09:01 Antibiotics) [Sulfa(Sulfonamide Antibiotics)] Home Medications: HOME MEDICATIONS amlodipine 10 mg tablet 2.5 mg PO DAILY 04/08/18 [Last Taken Unknown] aspirin 81 mg tablet,delayed release 81 mg PO DAILY 04/08/18 [Last Taken Unknown] atorvastatin 20 mg tablet 20 mg PO HS 04/08/18 [Last Taken Unknown] carvedilol 12.5 mg tablet 12.5 mg PO BID #60 tab 04/18/18 [Last Taken Unknown] gabapentin 300 mg capsule 300 mg PO TID #90 cap 04/18/18 [Last Taken Unknown] RX: ALPRAZolam [Xanax] 0.25 mg PO HS 05/08/18 [Last Taken Unknown] RX: Albuterol Sulfate [Ventolin Hfa] 1 - 2 puff INHALATION Q4H PRN 05/08/18 [Last Taken Unknown] RX: Fluticasone/Vilanterol [Breo Ellipta 100-25 Mcg INH] 1 inh INH DAILY 05/08/18 [Last Taken Unknown] RX: Ibuprofen [Ibu] 600 mg PO TID 05/08/18 [Last Taken Unknown] RX: Sennosides/Docusate Sodium [Docusate Sodium-Sennosides Tab] 1 ea PO DAILY PRN 05/08/18 [Last Taken Unknown] RX: guaiFENesin [Mucinex] 1,200 mg PO BID 05/08/18 [Last Taken Unknown] RX: l Gasseri/B Bifidum/B Longum [[employer] Capsule] 1 ea PO DAILY 05/08/18 [Last Taken Unknown] insulin detemir (U- 100) 100 unit/mL subcutaneous solution 34 unit SUB-Q HS ml 06/22/18 [Last Taken Unknown] Calcium Carbonate [Tums] 2 tab PO QID PRN 12/17/18 [Last Taken Unknown] Cholestyramine/Aspartame [Cholestyramine Light Packet] 4 gm PO TID 12/17/18 [Last Taken Unknown] Cod Liver Oil/Zinc Oxide [Desitin] 1 appl TOPICAL 10XD PRN 12/17/18 [Last Taken Unknown] Duloxetine HCl [Cymbalta] 60 mg PO QAM 12/17/18 [Last Taken Unknown] Fluticasone/Vilanterol [Breo Ellipta 100-25 Mcg INH] 1 inh INH DAILY 12/17/18 [Last Taken Unknown] Insulin Aspart [Novolog] 10 units SQ TID 12/17/18 [Last Taken Unknown] Menthol [Biofreeze] 1 appl TOPICAL QID PRN 12/17/18 [Last Taken Unknown] RX: Acetaminophen 650 mg PO QDIPM PRN 12/17/18 [Last Taken Unknown] RX: Acetaminophen 650 mg PO TID 12/17/18 [Last Taken Unknown] RX: Cetirizine HCl 10 mg PO HS 12/17/18 [Last Taken Unknown] - History of Present Illness Narrative: This is a 78-year-old female with morbid obesity and multiple medical problems who comes from an [facility] living in [facility]. It was reported that the patient had a ground-level fall earlier today. No injuries afterwards. This afternoon the patient has become increasingly confused and has developed a fever. She has been noted to have a rare cough. The patient is able to get a little bit of information but for the most part she simply closes her eyes and moans. There is been no vomiting or diarrhea that the staff at the facility is aware of. No other information is available Review of Systems - Narrative Narrative: Due to the patient's condition remainder of the review of systems cannot be obtained - Review of Systems Genitourinary: Present: other - When I asked the patient if she was having pain when she urinated she did say yes Medical History (Last Updated 12/17/18 @ 20:19 by Miranda Darden RN) Atrial fibrillation (Chronic) Diarrhea (Chronic) Macular degeneration of both eyes bradioprexopathy Sepsis Depression Onset Date: ~06/29/14 Difficulty in walking Onset Date: ~05/29/14 Obstructive lung disease Onset Date: ~11/10/17 Hand pain, left Onset Date: ~04/2013 metacarpal fracture Hx of colonic polyps Onset Date: ~06/30/10 Infection of kidney Splenic artery aneurysm Onset Date: ~2008 patient states this was reviewed by her previous pcp dr suarez and was told it was small and did not need any further testing at that time. Surgical History: Surgical History (Last Reviewed 12/17/18 @ 20:20 by Miranda Darden RN) History of laryngoscopy Onset Date: ~01/15/18 using laser, flexible fiberoptic. [facility] Dr David Patel H/O cystoscopy Onset Date: ~09/20/17 stent removal H/O lithotripsy History of appendectomy History of arthroscopic knee surgery History of bronchoscopy Onset Date: ~01/17/18 History of cholecystectomy Hx of cardiac cath S/P ureteral stent placement Dr. Meraz insertion of subclavian catheter Onset Date: ~09/19/17 tommeraasen-left H/O colonoscopy Onset Date: ~06/30/10 w/ snare polypectomy- polyps x2 scattered small diverticular disease Dr. Ramos. Family History: Family History (Last Reviewed 12/02/18 @ 09:02 by Alexus Tamayo LPN) Father , MVA age 80 No problems noted. Mother , old age- age 89 No problems noted. Social History: Preferred Language Bermudian Do you have any episcopal or No cultural preference? Smoking Status Former smoker Abuse History No History of abuse Psych History No pertinent hx Alcohol Use none Drug Use none (Last Updated 12/06/18 @ 20:20 by Jere Garduno DO) No Social History Section defined Physical Exam - Physical Exam General Appearance: Present: wd/wn, other - Patient is laying on a bed with her eyes closed. Moaning occasionally. She will open her eyes with required repeated questioning. Head Exam: Present: normal inspection, no evidence of injury Eye Exam: Normal inspection: bilateral, PERRL: bilateral, EOMI: bilateral Ears, Nose, Throat: Present: normal ENT inspection, other - Mucous membranes appear normal Neck: Present: normal inspection, nontender, supple, other - No nuchal rigidity Respiratory: Present: no respiratory distress, normal breath sounds, lungs clear Cardiovascular/Chest: Present: no murmur, other - Tachycardic around 120 but regular Gastrointestinal/Abdominal: Present: normal bowel sounds, nontender, nondistended, soft, no organomegaly Back Exam: Present: normal inspection, no CVA tenderness Extremity Exam: Present: normal inspection, normal range of motion, no edema Neurological Exam: Present: other Skin Exam: Present: normal color - Patient is confused. Is noted to move all extremities. Generally decreased strength throughout but no specific body parts, warm/dry Lymphatic Exam: Present: no adenopathy Progress - Vital Signs Vital Signs: Vital Signs 12/17/18 17:08 Temperature 38.7 C H Pulse Rate 116 H Respiratory Rate 24 H Blood Pressure 91/63 - Progress/Reassessment Chief Complaint: Altered Mental Status Departure Clinical Impression: Sepsis - Departure Disposition: Still a patient Condition: Fair
[2018-12-17 17:40] LABS: Hematocrit 34.6 % (37.0-47.0); Hemoglobin 10.8 gm/dL (12.5-16.0); Mean Cell Volume 93.8 fl (78-100); Mean Corpuscular Hemoglobin 29.3 pg (27-31); Mean Corpuscular Hgb Conc 31.2 g/dl (32-36); Mean Platelet Volume 9.6 fl (8-12.5); Neutrophil % 80.5 % (42-75.0); Platelet Count 196 K/mm3 (150-450); Red Blood Count 3.69 M/mm3 (4.2-5.4); Red Cell Distribution Width 15.3 % (11.5-14.0); White Blood Count 9.9 K/mm3 (4.0-10.5)
[2018-12-17 17:51] LABS: Albumin * 3.5 gm/dl (3.4-5.0); Anion Gap 14.6 mmol/L (6.8-13.8); Bilirubin, Total 0.5 mg/dL (0.0-1.1); Ca. Corrected For Albumin 8.9 mg/dL (8.4-10.2); Calcium * 8.8 mg/dL (7.9-10.9); Carbon Dioxide 25.3 mmol/L (24-32.6); Potassium 3.9 mmol/L (3.4-4.6); Total Protein 7.7 gm/dL (6.2-8.2)
[2018-12-17 18:51] LABS: Urine Bilirubin Negative (NEGATIVE); Urine Blood 50 /ul (NEGATIVE); Urine Ketone Negative (NEGATIVE); Urine Nitrite Negative (NEGATIVE); Urine Protein 100 mg/dL (NEGATIVE); Urine Specific Gravity >=1.030 SP.GR. (1.005-1.010); Urine Urobilinogen Normal (NORMAL)
[2018-12-17 19:01] LABS: Urine Appearance Cloudy (CLEAR); Urine Bacteria 2+; Urine Color Yellow
[2018-12-17] MEDS ORDERED: DEXTROSE 5 % IN WATER 100 ML BAG IV ONE (19:33)
[2018-12-17] MEDS ORDERED: diphenhydrAMINE HCL 50 MG/ML VIAL IV ONE (22:01)
[2018-12-17] MEDS ORDERED: ALBUTEROL SULFATE 60 PUFF INHALER IH PRN (23:21)
[2018-12-17] MEDS ORDERED: COD LIVER OIL/ZINC OXIDE 113 APPL TUBE TP PRN (23:28)
[2018-12-17] MEDS ORDERED: SENNOSIDES/DOCUSATE SODIUM 1 TAB TABLET PO PRN (23:28)
--- NOTE | 2018-12-18 | HP ---
Chief Complaint - Chief Complaint Date of Service: 12/17/18 Time of Service: 17:30 Chief Complaint: fever, weakness, urosepsis History of Present Illness: Jessa Swann is a 78 yo wh. female resident of [facility] and presented with weakness, altered mentqal status, a recent fall without imnjury, and UTi. oN EVALUATION IN THE er SHE IS SEPTIC. She has tachypnea, tachycardia, fever, leukocytosis, and elevated lactic acid meeting criteria for SIRS and severe sepsis. She is admitted for treatment of same. Medical History (Last Updated 12/17/18 @ 20:19 by Miranda Darden, MUNDO) Atrial fibrillation (Chronic) Diarrhea (Chronic) Macular degeneration of both eyes bradioprexopathy Sepsis Depression Onset Date: ~06/29/14 Difficulty in walking Onset Date: ~05/29/14 Obstructive lung disease Onset Date: ~11/10/17 Hand pain, left Onset Date: ~04/2013 metacarpal fracture Hx of colonic polyps Onset Date: ~06/30/10 Infection of kidney Splenic artery aneurysm Onset Date: ~2008 patient states this was reviewed by her previous pcp dr suarez and was told it was small and did not need any further testing at that time. Surgical History: Surgical History (Last Reviewed 12/17/18 @ 20:20 by Miranda Darden RN) History of laryngoscopy Onset Date: ~01/15/18 using laser, flexible fiberoptic. [facility] Dr David Patel H/O cystoscopy Onset Date: ~09/20/17 stent removal H/O lithotripsy History of appendectomy History of arthroscopic knee surgery History of bronchoscopy Onset Date: ~01/17/18 History of cholecystectomy Hx of cardiac cath S/P ureteral stent placement Dr. Meraz insertion of subclavian catheter Onset Date: ~09/19/17 tommeraasen-left H/O colonoscopy Onset Date: ~06/30/10 w/ snare polypectomy- polyps x2 scattered small diverticular disease Dr. Ramos. Family History: Family History (Last Reviewed 12/02/18 @ 09:02 by Alexus Tamayo LPN) Father , MVA age 80 No problems noted. Mother , old age- age 89 No problems noted. Social History: Patient Lives/Resources [employer] [facility] Utilized Occupation retired Preferred Language Belizean Do you have any scientology or Yes: Zoroastrian cultural preference? Smoking Status Never smoker Have you smoked in the past 12 No months Abuse History No History of abuse Psych History No pertinent hx Alcohol Use none Drug Use none (Last Updated 12/06/18 @ 20:20 by Jere Garduno DO) No Social History Section defined Review Of Systems (GEN) - Review of Systems Generalized/Overall Review: Present: Weakness, Chills, Fever EENTM: Present: No Symptoms Reported Respiratory: Present: No Symptoms Reported Cardiac: Present: No Symptoms Reported Abdominal: Present: No Symptoms Reported Genitourinary: Present: Frequency, Incontinent, Oliguria Musculoskeletal: Present: No Symptoms Reported Neurological: Present: No Symptoms Reported Skin: Present: No Symptoms Reported Endocrine: Present: No Symptoms Reported Immunizations: IMMUNIZATION HX Immunizations Up to Date Yes History of Influenza Vaccine Yes Hx Pneumococcal Vaccination Yes Allergies/Adverse Reactions: Allergies Allergy/AdvReac Type Severity Reaction Status Date / Time morphine Allergy Mild Hives Verified 12/02/18 09:01 ondansetron Allergy Mild Hives Verified 12/02/18 09:01 red dye Allergy Mild Hives Verified 12/02/18 09:01 ciprofloxacin [From Cipro] AdvReac Mild Hives Verified 12/02/18 09:01 codeine AdvReac Mild anxious Verified 12/02/18 09:01 haloperidol [From Haldol] AdvReac Mild Other Verified 12/17/18 20:23 lorazepam [From Ativan] AdvReac Mild Other Verified 12/17/18 20:23 nitrofurantoin AdvReac Mild Hives Verified 12/02/18 09:01 [From Macrobid] Sulfa (Sulfonamide AdvReac Mild Hives Verified 12/02/18 09:01 Antibiotics) [Sulfa(Sulfonamide Antibiotics)] Home Medications: HOME MEDICATIONS amlodipine 10 mg tablet 2.5 mg PO DAILY 04/08/18 [Last Taken Unknown] aspirin 81 mg tablet,delayed release 81 mg PO DAILY 04/08/18 [Last Taken Unknown] atorvastatin 20 mg tablet 20 mg PO HS 04/08/18 [Last Taken Unknown] carvedilol 12.5 mg tablet 12.5 mg PO BID #60 tab 04/18/18 [Last Taken Unknown] gabapentin 300 mg capsule 300 mg PO TID #90 cap 04/18/18 [Last Taken Unknown] ALPRAZolam [Xanax] 0.25 mg PO HS 05/08/18 [Last Taken Unknown] Albuterol Sulfate [Ventolin Hfa] 1 - 2 puff INHALATION Q4H PRN 05/08/18 [Last Taken Unknown] Fluticasone/Vilanterol [Breo Ellipta 100-25 Mcg INH] 1 inh INH DAILY 05/08/18 [Last Taken Unknown] Ibuprofen [Ibu] 600 mg PO TID 05/08/18 [Last Taken Unknown] Sennosides/Docusate Sodium [Docusate Sodium-Sennosides Tab] 1 ea PO DAILY PRN 05/08/18 [Last Taken Unknown] guaiFENesin [Mucinex] 1,200 mg PO BID 05/08/18 [Last Taken Unknown] l Gasseri/B Bifidum/B Longum [[email or web address] Capsule] 1 ea PO DAILY 05/08/18 [Last Taken Unknown] insulin detemir (U- 100) 100 unit/mL subcutaneous solution 34 unit SUB-Q HS ml 06/22/18 [Last Taken Unknown] Acetaminophen 650 mg PO QDIPM PRN 12/17/18 [Last Taken Unknown] Acetaminophen 650 mg PO TID 12/17/18 [Last Taken Unknown] Calcium Carbonate [Tums] 2 tab PO QID PRN 12/17/18 [Last Taken Unknown] Cetirizine HCl 10 mg PO HS 12/17/18 [Last Taken Unknown] Cholestyramine/Aspartame [Cholestyramine Light Packet] 4 gm PO TID 12/17/18 [Last Taken Unknown] Cod Liver Oil/Zinc Oxide [Desitin] 1 appl TOPICAL 10XD PRN 12/17/18 [Last Taken Unknown] Duloxetine HCl [Cymbalta] 60 mg PO QAM 12/17/18 [Last Taken Unknown] Fluticasone/Vilanterol [Breo Ellipta 100-25 Mcg INH] 1 inh INH DAILY 12/17/18 [Last Taken Unknown] Insulin Aspart [Novolog] 10 units SQ TID 12/17/18 [Last Taken Unknown] Menthol [Biofreeze] 1 appl TOPICAL QID PRN 12/17/18 [Last Taken Unknown] Exam - Exam Vital Signs: Vital Signs - Last Taken Temp 39.1 C H 12/17/18 20:26 Pulse 112 H 12/17/18 20:26 Resp 20 12/17/18 20:26 BP 158/93 H 12/17/18 20:26 Pulse Ox 96 12/17/18 20:26 Constitutional: Present: Moderate distress, Lethargic, Somnolent, Elderly, Obese ENT Exam: Present: normal ENT inspection, hearing grossly normal, pharynx normal, TMs normal Eye Exam: bilateral eye: normal inspection, PERRL, EOMI Neck: Present: supple, normal inspection, limited range of motion Back Exam: Present: normal inspection, no CVA tenderness, no vertebral tenderness Breasts: Present: Exam deferred Respiratory: Present: chest non-tender, lungs clear, normal breath sounds, no respiratory distress, no accessory muscle use Cardiovascular/Chest: Present: normal peripheral pulses, tachycardia, extra beats Peripheral Pulses: carotid (R): 2+, carotid (L): 2+, radial (R): 2+, radial (L): 2+ Abdomen: Present: Normal bowel sounds, soft, nontender, nondistended, no rebound tenderness, no hepatospenomegaly, no masses /Rectal: Present: Exam deferred Extremity: Present: non-tender, normal inspection, no pedal edema, no calf tenderness, normal capillary refill Skin Exam: Present: warm/dry, pallor Lymphatic: Present: no adenopathy 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 Appearance: Present: appropriate appearance, appropriate insight, neat, impaired insight, impaired recent memory Eye contact: Present: cooperative, normal speech Thoughts: Present: normal thought pattern, no apparent hallucination Diagnostic Studies: Abnormal Lab Results 12/17/18 12/17/18 12/17/18 Range/Units 17:30 17:33 17:33 RBC 3.69 L (4.2-5.4) M/mm3 Hgb 10.8 L (12.5-16.0) gm/dL Hct 34.6 L (37.0-47.0) % MCHC 31.2 L (32-36) g/dl RDW 15.3 H (11.5-14.0) % Immature Gran # (Auto) 0.04 H (0.000-0.0310) K/mm3 Neutrophils % 80.5 H (42-75.0) % Lymphocytes % 4.5 L (20-51) % Monocytes % 14.5 H (0.0-9) % Neutrophils # 8.0 H (1.3-6.0) K/mm3 Lymphocytes # 0.44 L (1.5-3.5) k/mm3 Monocytes # 1.4 H (0.0-1.0) k/mm3 Anion Gap 14.6 H (6.8-13.8) mmol/L Est GFR (Non-Af Amer) 57 L (60-130) mL/min Random Glucose 169 H (70-110) mg/dL ALT 18 L (19-67) U/L Urine Protein 100 H (NEGATIVE) mg/dL Urine Blood 50 H (NEGATIVE) /ul Prot Sulfosalicylic Acd 2+ H (0) mg/dL Ur Leukocyte Esterase 75 H (NEGATIVE) /ul Urine RBC 10-25 H (0-5) /hpf Urine WBC 10-25 H (0-5) /hpf Urine Bacteria 2+ H (NONE) Laboratory Results WBC 9.9 K/mm3 (4.0-10.5) 12/17/18 17:33 RBC 3.69 M/mm3 (4.2-5.4) L 12/17/18 17:33 Hgb 10.8 gm/dL (12.5-16.0) L 12/17/18 17:33 Hct 34.6 % (37.0-47.0) L 12/17/18 17:33 MCV 93.8 fl (78-100) 12/17/18 17:33 MCH 29.3 pg (27-31) 12/17/18 17:33 MCHC 31.2 g/dl (32-36) L 12/17/18 17:33 RDW 15.3 % (11.5-14.0) H 12/17/18 17:33 Plt Count 196 K/mm3 (150-450) 12/17/18 17:33 MPV 9.6 fl (8-12.5) 12/17/18 17:33 Immature Gran % (Auto) 0.40 % (0.001-0.429) 12/17/18 17:33 Immature Gran # (Auto) 0.04 K/mm3 (0.000-0.0310) H 12/17/18 17:33 Neutrophils % 80.5 % (42-75.0) H 12/17/18 17:33 Lymphocytes % 4.5 % (20-51) L 12/17/18 17:33 Monocytes % 14.5 % (0.0-9) H 12/17/18 17:33 Eosinophils % 0.0 % (0.0-3.0) 12/17/18 17:33 Basophils % 0.1 % (0.0-1.0) 12/17/18 17:33 Nucleated RBC % 0.0 k/mm3 (0-1) 12/17/18 17:33 Neutrophils # 8.0 K/mm3 (1.3-6.0) H 12/17/18 17:33 Lymphocytes # 0.44 k/mm3 (1.5-3.5) L 12/17/18 17:33 Monocytes # 1.4 k/mm3 (0.0-1.0) H 12/17/18 17:33 Eosinophils # 0.0 k/mm3 (0.0-0.7) 12/17/18 17:33 Absolute Basophils 0.0 k/mm3 (0.0-0.1) 12/17/18 17:33 Sodium 140 mmol/L (132-142) 12/17/18 17:33 Plasma Sodium 141 mmol/L (130-142) 12/17/18 17:33 Potassium 3.9 mmol/L (3.4-4.6) 12/17/18 17:33 Chloride 104 mmol/L (97-106) 12/17/18 17:33 Carbon Dioxide 25.3 mmol/L (24-32.6) 12/17/18 17:33 Anion Gap 14.6 mmol/L (6.8-13.8) H 12/17/18 17:33 BUN 13 mg/dL (3-23) 12/17/18 17:33 Creatinine 1.00 mg/dL (0.4-1.4) 12/17/18 17:33 Est GFR (Non-Af Amer) 57 mL/min (60-130) L 12/17/18 17:33 BUN/Creatinine Ratio 13.0 (9.0-21.6) 12/17/18 17:33 Random Glucose 169 mg/dL (70-110) H 12/17/18 17:33 Lactic Acid, Venous 1.1 mmol/L (0.4-2.0) 12/17/18 17:33 Calcium 8.8 mg/dL (7.9-10.9) 12/17/18 17:33 Calcium Adj for Albumin 8.9 mg/dL (8.4-10.2) 12/17/18 17:33 Total Bilirubin 0.5 mg/dL (0.0-1.1) 12/17/18 17:33 AST 14 U/L (0-48) 12/17/18 17:33 ALT 18 U/L (19-67) L 12/17/18 17:33 Alkaline Phosphatase 97 U/L (50-170) 12/17/18 17:33 Total Protein 7.7 gm/dL (6.2-8.2) 12/17/18 17:33 Albumin 3.5 gm/dl (3.4-5.0) 12/17/18 17:33 Urine Color Yellow 12/17/18 17:30 Urine Appearance Cloudy (CLEAR) 12/17/18 17:30 Urine pH 6.0 pH (5.0-7.0) 12/17/18 17:30 Ur Specific [place] >=1.030 SP.GR. (1.005-1.010) 12/17/18 17:30 Urine Protein 100 mg/dL (NEGATIVE) H 12/17/18 17:30 Urine Glucose (UA) Negative mg/dL (NEGATIVE) 12/17/18 17:30 Urine Ketones Negative mg/dL (NEGATIVE) 12/17/18 17:30 Urine Blood 50 /ul (NEGATIVE) H 12/17/18 17:30 Urine Nitrate Negative (NEGATIVE) 12/17/18 17:30 Urine Bilirubin Negative mg/dl (NEGATIVE) 12/17/18 17:30 Prot Sulfosalicylic Acd 2+ mg/dL (0) H 12/17/18 17:30 Urine Urobilinogen Normal EU/dl (NORMAL) 12/17/18 17:30 Ur Leukocyte Esterase 75 /ul (NEGATIVE) H 12/17/18 17:30 Urine RBC 10-25 /hpf (0-5) H 12/17/18 17:30 Urine WBC 10-25 /hpf (0-5) H 12/17/18 17:30 Ur Epithelial Cells 0-5 /hpf (0-5) 12/17/18 17:30 Urine Bacteria 2+ (NONE) H 12/17/18 17:30 Urine Culture Comments Culture to follow 12/17/18 17:30 Influenza Type A Ag Negative (NEGATIVE) 12/17/18 17:36 Influenza Type B Ag Negative (NEGATIVE) 12/17/18 17:36 Assessment/Plan - Narrative Narrative: Continue IV rehydreation 2. Continue IV Rocephin 3. winslow cath to DD do to skin breakdown and needing to stay dry. 4. progress activiity tomorrow as tolerated 5. repecristopherat raul lab. - Assessment/Plan (1) Diabetes mellitus Problem: Chronic (2) Weakness Problem: Acute (3) UTI (urinary tract infection) Problem: Acute (4) Sepsis Problem: Acute
[2018-12-18] MEDS ORDERED: METOPROLOL SUCCINATE 50 MG TABLET.SA PO ONE (03:20)
[2018-12-18] MEDS ORDERED: IBUPROFEN 600 MG TABLET ONE (03:26)
[2018-12-18] MEDS ORDERED: METOPROLOL TARTRATE 50 MG TABLET ONE (03:27)
[2018-12-18] MEDS ORDERED: METOPROLOL TARTRATE 50 MG TABLET PO ONE (03:36)
[2018-12-18] MEDS: IBUPROFEN 600 MG TABLET PO SCH ×4 (03:41→16:57)
[2018-12-18 06:22] LABS: Hematocrit 33.6 % (37.0-47.0); Hemoglobin 10.5 gm/dL (12.5-16.0); Mean Cell Volume 94.6 fl (78-100); Mean Corpuscular Hemoglobin 29.6 pg (27-31); Mean Corpuscular Hgb Conc 31.3 g/dl (32-36); Mean Platelet Volume 10.4 fl (8-12.5); Neutrophil # 8.5 K/mm3 (1.3-6.0); Neutrophil % 78.6 % (42-75.0); Platelet Count 185 K/mm3 (150-450); Red Blood Count 3.55 M/mm3 (4.2-5.4); Red Cell Distribution Width 15.6 % (11.5-14.0); White Blood Count 10.8 K/mm3 (4.0-10.5)
[2018-12-18 06:28] LABS: Total Cells Counted 100
[2018-12-18 06:57] LABS: Lymphocyte 4 % (20-51); Monocyte 7 % (0-9); Neutrophil 89 % (42-75); Neutrophil # 9.6 K/mm3 (1.3-6.0); Platelet Estimate Normal (NORMAL)
[2018-12-18 06:58] LABS: RBC Morphology Normal (NORMAL)
[2018-12-18 07:04] LABS: Albumin * 3.2 gm/dl (3.4-5.0); Anion Gap 13.8 mmol/L (6.8-13.8); BUN/Creatinine Ratio 14.7 (9.0-21.6); Bilirubin, Total 0.5 mg/dL (0.0-1.1); Ca. Corrected For Albumin 8.7 mg/dL (8.4-10.2); Calcium * 8.4 mg/dL (7.9-10.9); Carbon Dioxide 26.9 mmol/L (24-32.6); Potassium 3.7 mmol/L (3.4-4.6); Total Protein 7.4 gm/dL (6.2-8.2)
[2018-12-18] MEDS ORDERED: ALBUTEROL SULFATE 2.5 MG/0.5 ML VIAL.NEB IH PRN (07:15)
[2018-12-18] MEDS: INSULIN ASPART 100 UNITS/ML VIAL SC SCH ×3 (07:47→16:59)
[2018-12-18] MEDS: ASPIRIN 81 MG TABLET.DR PO SCH (08:53)
[2018-12-18] MEDS: CARVEDILOL 12.5 MG TABLET PO SCH ×2 (08:53→20:55)
[2018-12-18] MEDS: FLUTICASONE PROPION/SALMETEROL 14 PUFF DISK.W.DEV IH SCH ×2 (08:53→20:55)
[2018-12-18] MEDS: DULoxetine HCL 30 MG CAPSULE.SA PO SCH (08:53)
[2018-12-18] MEDS: amLODIPine BESYLATE 5 MG TABLET PO SCH (08:54)
[2018-12-18] MEDS: CHOLESTYRAMINE/ASPARTAME 4 GM PACKET PO SCH ×3 (08:54→16:57)
[2018-12-18] MEDS: GABAPENTIN 300 MG CAPSULE PO SCH ×3 (08:54→16:57)
[2018-12-18] MEDS: ACETAMINOPHEN 325 MG TABLET PO SCH ×3 (08:54→16:57)
[2018-12-18] MEDS ORDERED: NON-FORMULARY 1 DOSE DOSE (Fluticasone/Vilanterol [Breo Ellipta 100-25 Mcg Inh] 1 INH) INH SCH (09:00)
--- NOTE | 2018-12-18 11:49 | PN ---
Subjective - Date and Time Seen Date: 12/18/18 Time: 10:20 Subjective Narrative: Jessa seems to be improving clinically and she's had an uneventful night. She seems to be very uncomfortable as morning in bed however. Nursing is going to get her up into a chair this morning. She received a liter of fluid in the emergency room rest yesterday and had her IV saline lock since then to avoid volume overload and CHF which she tends to develop easily. She continues to r eceive Rocephin IV 1 g daily. Her white count this morning is 10,800. Her lactic acid had returned to 1.1 (normal) on December 17 2 days ago. Objective - Review of Systems Generalized/Overall Review: Reports: Weakness, Fatigue EENTM: Reports: No Symptoms Reported Respiratory: Reports: No Symptoms Reported Cardiac: Reports: No Symptoms Reported Abdominal: Reports: No Symptoms Reported Genitourinary Symptoms: Reports: No Symptoms Reported, Other - Being treated for urinary tract infection and urosepsis. Musculoskeletal Complaints: Reports: No Symptoms Reported Neurological: Reports: No Symptoms Reported, Weakness Skin: Reports: No Symptoms Reported Endocrine: Reports: No Symptoms Reported - Vitals Vitals: Last Vital Signs Temp 37.8 C 12/18/18 10:23 Pulse 108 H 12/18/18 10:23 Resp 20 12/18/18 10:23 BP 140/85 12/18/18 10:23 Pulse Ox 92 L 12/18/18 10:23 - Abnormal Lab Findings Abnormal Lab Findings: Abnormal Lab Results 12/17/18 12/17/18 12/17/18 Range/Units 17:30 17:33 17:33 WBC (4.0-10.5) K/mm3 RBC 3.69 L (4.2-5.4) M/mm3 Hgb 10.8 L (12.5-16.0) gm/dL Hct 34.6 L (37.0-47.0) % MCHC 31.2 L (32-36) g/dl RDW 15.3 H (11.5-14.0) % Immature Gran % (Auto) (0.001-0.429) % Immature Gran # (Auto) 0.04 H (0.000-0.0310) K/mm3 Neutrophils % 80.5 H (42-75.0) % Neutrophils % (Manual) (42-75) % Lymphocytes % 4.5 L (20-51) % Lymphocytes % (Manual) (20-51) % Monocytes % 14.5 H (0.0-9) % Neutrophils # 8.0 H (1.3-6.0) K/mm3 Neutrophils # (Manual) (1.3-6.0) K/mm3 Lymphocytes # 0.44 L (1.5-3.5) k/mm3 Lymphocytes # (Manual) (1.5-3.5) k/mm3 Monocytes # 1.4 H (0.0-1.0) k/mm3 Plasma Sodium (130-142) mmol/L Anion Gap 14.6 H (6.8-13.8) mmol/L Est GFR (Non-Af Amer) 57 L (60-130) mL/min Random Glucose 169 H (70-110) mg/dL ALT 18 L (19-67) U/L Albumin (3.4-5.0) gm/dl Urine Protein 100 H (NEGATIVE) mg/dL Urine Blood 50 H (NEGATIVE) /ul Prot Sulfosalicylic Acd 2+ H (0) mg/dL Ur Leukocyte Esterase 75 H (NEGATIVE) /ul Urine RBC 10-25 H (0-5) /hpf Urine WBC 10-25 H (0-5) /hpf Urine Bacteria 2+ H (NONE) 12/18/18 12/18/18 Range/Units 06:05 06:05 WBC 10.8 H (4.0-10.5) K/mm3 RBC 3.55 L (4.2-5.4) M/mm3 Hgb 10.5 L (12.5-16.0) gm/dL Hct 33.6 L (37.0-47.0) % MCHC 31.3 L (32-36) g/dl RDW 15.6 H (11.5-14.0) % Immature Gran % (Auto) 0.60 H (0.001-0.429) % Immature Gran # (Auto) 0.06 H (0.000-0.0310) K/mm3 Neutrophils % 78.6 H (42-75.0) % Neutrophils % (Manual) 89 H (42-75) % Lymphocytes % 4.5 L (20-51) % Lymphocytes % (Manual) 4 L (20-51) % Monocytes % 16.2 H (0.0-9) % Neutrophils # 8.5 H (1.3-6.0) K/mm3 Neutrophils # (Manual) 9.6 H (1.3-6.0) K/mm3 Lymphocytes # 0.48 L (1.5-3.5) k/mm3 Lymphocytes # (Manual) 0.4 L (1.5-3.5) k/mm3 Monocytes # 1.8 H (0.0-1.0) k/mm3 Plasma Sodium 143 H (130-142) mmol/L Anion Gap (6.8-13.8) mmol/L Est GFR (Non-Af Amer) 52 L (60-130) mL/min Random Glucose 264 H D (70-110) mg/dL ALT 14 L (19-67) U/L Albumin 3.2 L (3.4-5.0) gm/dl Urine Protein (NEGATIVE) mg/dL Urine Blood (NEGATIVE) /ul Prot Sulfosalicylic Acd (0) mg/dL Ur Leukocyte Esterase (NEGATIVE) /ul Urine RBC (0-5) /hpf Urine WBC (0-5) /hpf Urine Bacteria (NONE) - Exam Constitutional: Present: Alert, Oriented x3, Cooperative, Well developed, Well n ourished, Elderly, Morbidly obese ENT Exam: Present: normal ENT inspection, hearing grossly normal, pharynx normal, TMs normal, hard of hearing Neck: Present: non-tender, full range of motion, supple, normal inspection, trachea midline Respiratory: Present: chest non-tender, lungs clear, normal breath sounds, no respiratory distress, no accessory muscle use, respiratory distress, decreased breath sounds Cardiovascular/Chest: Present: normal peripheral pulses, regular rate, rhythm, no chest tenderness, no edema, no gallop, no JVD, no murmur, no rub Abdomen: Present: Normal bowel sounds, soft, nontender, nondistended /Rectal: Present: Exam deferred, External genitalia normal, discharge, hemorrhoids Extremity: Present: normal range of motion, non-tender, normal inspection, no pedal edema, no calf tenderness, normal capillary refill, pelvis stable Skin Exam: Present: normal color, warm/dry, no cyanosis Lymphatic: Present: no adenopathy, axilla node tender (R) 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
[2018-12-18] MEDS ORDERED: LORATADINE 10 MG TABLET PO SCH (21:00)
[2018-12-18] MEDS ORDERED: ALPRAZolam 0.25 MG TABLET PO SCH (21:00)
[2018-12-18] MEDS ORDERED: INSULIN DETEMIR 100 UNITS/ML VIAL SC SCH (21:00)
[2018-12-19] MEDS: HYDROcodone/ACETAMINOPHEN 1 EACH TABLET PO PRN ×2 (02:28→08:29)
[2018-12-19] MEDS: INSULIN ASPART 100 UNITS/ML VIAL SC SCH ×2 (06:29→12:02)
[2018-12-19] MEDS: ASPIRIN 81 MG TABLET.DR PO SCH (08:29)
[2018-12-19] MEDS: amLODIPine BESYLATE 5 MG TABLET PO SCH (08:30)
[2018-12-19] MEDS: IBUPROFEN 600 MG TABLET PO SCH ×2 (08:30→12:43)
[2018-12-19] MEDS: ACETAMINOPHEN 325 MG TABLET PO SCH ×2 (08:30→12:44)
[2018-12-19] MEDS: CARVEDILOL 12.5 MG TABLET PO SCH (08:30)
[2018-12-19] MEDS: GABAPENTIN 300 MG CAPSULE PO SCH ×2 (08:31→12:44)
[2018-12-19] MEDS: DULoxetine HCL 30 MG CAPSULE.SA PO SCH (08:31)
[2018-12-19] MEDS: FLUTICASONE PROPION/SALMETEROL 14 PUFF DISK.W.DEV IH SCH (08:38)
[2018-12-19] MEDS: CHOLESTYRAMINE/ASPARTAME 4 GM PACKET PO SCH ×2 (08:41→12:51)
--- NOTE | 2018-12-19 11:41 | DS ---
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 Her evaluation revealed severe urinary tract infection and probable pyelonephritis. She met SIRS criteria but I wasn't sure whether she would have sepsis criteria met or not as at the time there was no organ failure. She has responded nicely to therapy and never developed any organ failure so the concern for sepsis is resolved with the diagnosis of SIRS remains. She had a couple of superficial wounds on her buttocks and they were having trouble keeping her dry and she has constant bladder incontinence leakage. I placed a Whatley catheter to keep her dry and these have healed quickly. Yesterday she didn't look at all comfortable but today she is much more comfortable and is appropriate and conversant. Her disposition is improved. Prognosis is fair. She'll be returned to [facility] an ICF and we will continue her antibiotics there. Procedures Performed: none Results and Findings: Pending Mircobiology Results 12/17/18 17:58 Blood Blood Culture - Preliminary NO GROWTH 24 HOURS 12/17/18 17:33 Blood Blood Culture - Preliminary NO GROWTH 24 HOURS Lab Pending Results 12/17/18 17:30: Urine Color Yellow, Urine Appearance Cloudy, Urine pH 6.0, Ur Specific Fisher >=1.030, Urine Protein 100 H, Urine Glucose (UA) Negative, Urine Ketones Negative, Urine Blood 50 H, Urine Nitrate Negative, Urine Bilirubin Negative, Prot Sulfosalicylic Acd 2+ H, Urine Urobilinogen Normal, Ur Leukocyte Esterase 75 H, Urine RBC 10-25 H, Urine WBC 10-25 H, Ur Epithelial Cells 0-5, Urine Bacteria 2+ H, Urine Culture Comments Culture to follow 12/17/18 17:33: WBC 9.9, RBC 3.69 L, Hgb 10.8 L, Hct 34.6 L, MCV 93.8, MCH 29.3, MCHC 31.2 L, RDW 15.3 H, Plt Count 196, MPV 9.6, Immature Gran % (Auto) 0.40, Immature Gran # (Auto) 0.04 H, Neutrophils % 80.5 H, Lymphocytes % 4.5 L, Monoc ytes % 14.5 H, Eosinophils % 0.0, Basophils % 0.1, Nucleated RBC % 0.0, Neutrophils # 8.0 H, Lymphocytes # 0.44 L, Monocytes # 1.4 H, Eosinophils # 0.0, Absolute Basophils 0.0 12/17/18 17:33: Sodium 140, Plasma Sodium 141, Potassium 3.9, Chloride 104, Carbon Dioxide 25.3, Anion Gap 14.6 H, BUN 13, Creatinine 1.00, Est GFR (Non-Af Amer) 57 L, BUN/Creatinine Ratio 13.0, Random Glucose 169 H, Calcium 8.8, Calcium Adj for Albumin 8.9, Total Bilirubin 0.5, AST 14, ALT 18 L, Alkaline Phosphatase 97, Total Protein 7.7, Albumin 3.5 12/17/18 17:33: Lactic Acid, Venous 1.1 12/17/18 17:36: Influenza Type A Ag Negative, Influenza Type B Ag Negative 12/18/18 06:05: WBC 10.8 H, RBC 3.55 L, Hgb 10.5 L, Hct 33.6 L, MCV 94.6, MCH 29.6, MCHC 31.3 L, RDW 15.6 H, Plt Count 185, MPV 10.4, Immature Gran % (Auto) 0.60 H, Immature Gran # (Auto) 0.06 H, Neutrophils % 78.6 H, Neutrophils % (Manual) 89 H, Lymphocytes % 4.5 L, Lymphocytes % (Manual) 4 L, Monocytes % 16.2 H, Monocytes % (Manual) 7, Eosinophils % 0.0, Basophils % 0.1, Nucleated RBC % 0.0, Neutrophils # 8.5 H, Neutrophils # (Manual) 9.6 H, Lymphocytes # 0.48 L, Lymphocytes # (Manual) 0.4 L, Monocytes # 1.8 H, Monocytes # (Manual) 0.8, Eosinophils # 0.0, Absolute Basophils 0.0, Platelet Estimate Normal, RBC Morphology Normal 12/18/18 06:05: Sodium 140, Plasma Sodium 143 H, Potassium 3.7, Chloride 103, Carbon Dioxide 26.9, Anion Gap 13.8, BUN 16, Creatinine 1.09, Est GFR (Non-Af Amer) 52 L, BUN/Creatinine Ratio 14.7, Random Glucose 264 H D, Calcium 8.4, Calcium Adj for Albumin 8.7, Total Bilirubin 0.5, AST 13, ALT 14 L, Alkaline Phosphatase 87, Total Protein 7.4, Albumin 3.2 L Discharge Location: [facility] Disposition: Intermediate Care Facility ICF Condition: Fair Level of Care: ICF Discharge Activity: Activity as tolerated Discharge Diet: Consistent carbs Fpc Therapy: Physicial Therapy, Occupation Therapy Referrals: Jere Gadruno DO [Primary Care Provider] - Additional Patient Instructions (free text): PT/OT to eval and treat under Part B. Prescriptions (Any new or edited meds): Cefuroxime Axetil [Ceftin] 500 mg PO BID #20 tab HYDROcodone/ACETAMINOPHEN [[place] 5-325] 1 ea PO Q6H PRN #30 tab PRN Reason: Pain Mag Carb/Aluminum Hydrox/Algin [Gaviscon Liquid] 30 ml PO QID PRN #1 btl PRN Reason: Indigestion Complete Home Medications List: Complete Home Medication List: amlodipine 10 mg tablet 2.5 mg PO DAILY 04/08/18 aspirin 81 mg tablet,delayed release 81 mg PO DAILY 04/08/18 atorvastatin 20 mg tablet 20 mg PO HS 04/08/18 carvedilol 12.5 mg tablet 12.5 mg PO BID #60 tab 04/18/18 gabapentin 300 mg capsule 300 mg PO TID #90 cap 04/18/18 ALPRAZolam [Xanax] 0.25 mg PO HS 05/08/18 Albuterol Sulfate [Ventolin Hfa] 1 - 2 puff INHALATION Q4H PRN 05/08/18 Fluticasone/Vilanterol [Breo Ellipta 100-25 Mcg INH] 1 inh INH DAILY 05/08/18 Ibuprofen [Ibu] 600 mg PO TID 05/08/18 Sennosides/Docusate Sodium [Docusate Sodium-Sennosides Tab] 1 ea PO DAILY PRN 05/08/18 guaiFENesin [Mucinex] 1,200 mg PO BID 05/08/18 l [place]/B Bifidum/B Longum [[facility] Capsule] 1 ea PO DAILY 05/08/18 insulin detemir (U- 100) 100 unit/mL subcutaneous solution 34 unit SUB-Q HS ml 06/22/18 Acetaminophen 650 mg PO QDIPM PRN 12/17/18 Acetaminophen 650 mg PO TID 12/17/18 Calcium Carbonate [Tums] 2 tab PO QID PRN 12/17/18 Cetirizine HCl 10 mg PO HS 12/17/18 Cholestyramine/Aspartame [Cholestyramine Light Packet] 4 gm PO TID 12/17/18 Cod Liver Oil/Zinc Oxide [Desitin] 1 appl TOPICAL 10XD PRN 12/17/18 Duloxetine HCl [Cymbalta] 60 mg PO QAM 12/17/18 Fluticasone/Vilanterol [Breo Ellipta 100-25 Mcg INH] 1 inh INH DAILY 12/17/18 Insulin Aspart [Novolog] 10 units SQ TID 12/17/18 Menthol [Biofreeze] 1 appl TOPICAL QID PRN 12/17/18 Cefuroxime Axetil [Ceftin] 500 mg PO BID #20 tab 12/19/18 HYDROcodone/ACETAMINOPHEN [[place] 5-325] 1 ea PO Q6H PRN #30 tab 12/19/18 Mag Carb/Aluminum Hydrox/Algin [Gaviscon Liquid] 30 ml PO QID PRN #1 btl 12/19/18
[2018-12-19] MEDS ORDERED: MAG CARB PO SCH (13:00)
[2018-12-19] MEDS ORDERED: ALUMINUM HYDROX PO SCH (13:00)
[2018-12-19] MEDS ORDERED: ALGIN PO SCH (13:00)
[2018-12-19 14:19] VITALS: BP 104/66
== END 2018-12-19 14:47 | DRG 690 ==
LOC: ER 17:06 → MS 18:15
PROVIDERS: ADMIT Family Medicine; ATTEND Family Medicine
CPT/HCPCS: 36415; 70450; 71010; 71045; 80053; 81001; 83605; 85007; 85025; 87040; 87081; 87086; 87400; 87449; 93005; 94762; 96360; 99284

== ENCOUNTER 2019-01-22 22:45 | Inpatient (IN) ==
--- NOTE | 2019-01-22 22:59 | ERNOTE ---
Medical Problem HPI - Narrative Date of Service: 01/22/19 - General Time Seen by Provider: 01/22/19 22:52 Source: patient Exam Limitations: no limitations - Immun/Allergies/Home Medications Immunizations: IMMUNIZATION HX Immunizations Up to Date Yes History of Influenza Vaccine Yes Hx Pneumococcal Vaccination Yes Allergies/Adverse Reactions: Allergies morphine Allergy (Mild, Verified 01/06/19 09:31) Hives ondansetron Allergy (Mild, Verified 01/06/19 09:31) Hives red dye Allergy (Mild, Verified 01/06/19 09:31) Hives ciprofloxacin [From Cipro] Adverse Reaction (Mild, Verified 01/06/19 09:31) Hives codeine Adverse Reaction (Mild, Verified 01/06/19 09:31) anxious haloperidol [From Haldol] Adverse Reaction (Mild, Verified 01/06/19 09:31) Other increased confusion lorazepam [From Ativan] Adverse Reaction (Mild, Verified 01/06/19 09:31) Other increased confusion nitrofurantoin [From Macrobid] Adverse Reaction (Mild, Verified 01/06/19 09:31) Hives Sulfa (Sulfonamide Antibiotics) [Sulfa(Sulfonamide Antibiotics)] Adverse Reaction (Mild, Verified 01/06/19 09:31) Hives Home Medications: HOME MEDICATIONS aspirin 81 mg tablet,delayed release 81 mg PO DAILY 04/08/18 [Last Taken Unknown] atorvastatin 20 mg tablet 20 mg PO HS 04/08/18 [Last Taken Unknown] carvedilol 12.5 mg tablet 12.5 mg PO BID #60 tab 04/18/18 [Last Taken Unknown] gabapentin 300 mg capsule 300 mg PO TID #90 cap 04/18/18 [Last Taken Unknown] Albuterol Sulfate [Ventolin Hfa] 1 - 2 puff INHALATION Q4H PRN 05/08/18 [Last Taken Unknown] Ibuprofen [Ibu] 600 mg PO TID 05/08/18 [Last Taken Unknown] Sennosides/Docusate Sodium [Docusate Sodium-Sennosides Tab] 1 ea PO DAILY PRN 05/08/18 [Last Taken Unknown] guaiFENesin [Mucinex] 1,200 mg PO BID 05/08/18 [Last Taken Unknown] l Gasseri/B Bifidum/B Longum [[facility] Capsule] 1 ea PO DAILY 05/08/18 [Last Taken Unknown] insulin detemir (U-100) 100 unit/mL subcutaneous solution 34 unit SUB-Q HS ml 06/22/18 [Last Taken Unknown] Acetaminophen 650 mg PO QDIPM PRN 12/17/18 [Last Taken Unknown] Acetaminophen 650 mg PO TID 12/17/18 [Last Taken Unknown] Calcium Carbonate [Tums] 2 tab PO QID PRN 12/17/18 [Last Taken Unknown] Cetirizine HCl 10 mg PO HS 12/17/18 [Last Taken Unknown] Cholestyramine/Aspartame [Cholestyramine Light Packet] 4 gm PO TID 12/17/18 [Last Taken Unknown] Cod Liver Oil/Zinc Oxide [Desitin] 1 appl TOPICAL 10XD PRN 12/17/18 [Last Taken Unknown] Duloxetine HCl [Cymbalta] 60 mg PO QAM 12/17/18 [Last Taken Unknown] Fluticasone/Vilanterol [Breo Ellipta 100-25 Mcg INH] 1 inh INH DAILY 12/17/18 [Last Taken Unknown] Insulin Aspart [Novolog] 10 units SQ TID 12/17/18 [Last Taken Unknown] Menthol [Biofreeze] 1 appl TOPICAL QID PRN 12/17/18 [Last Taken Unknown] Cefuroxime Axetil [Ceftin] 500 mg PO BID #20 tab 12/19/18 [Last Taken Unknown] HYDROcodone/ACETAMINOPHEN [[place] 5-325] 1 ea PO Q6H PRN #30 tab 12/19/18 [Last Taken Unknown] Mag Carb/Aluminum Hydrox/Algin [Gaviscon Liquid] 30 ml PO QID PRN #1 btl 12/19/18 [Last Taken Unknown] alprazolam 0.5 mg tablet 0.5 mg PO HS #30 tab 01/03/19 [Last Taken Unknown] cefuroxime axetil 500 mg tablet 500 mg PO BID 10 Days #20 tab 01/20/19 [Last Taken Unknown] amLODIPine BESYLATE [Norvasc] 2.5 mg PO DAILY 01/23/19 [Last Taken Unknown] - History of Present History Narrative: 78-year-old female sent from a half-way for evaluation of pain along her nausea shortness of breath she is being treated for UTI was on Keflex to start to have a reaction so they placed her on Rocephin patient also complained of feeling mildly short of breath and is scratchy throat heart rate was noted to be A. fib greater than 100 bpm saturation was in the low 90s patient states she feels tired and weak Date (Duration): 01/22/19 Time (Timing): 22:55 Timing: constant Severity: moderate Review of Systems - Review of Systems Constitutional: Present: weakness, fatigue, decreased activity level EYE: Present: vision changes ENT: Present: sore throat Respiratory: Present: shortness of breath Cardiology: Present: palpitations Gastrointestinal/Abdominal: Present: no symptoms reported Genitourinary: Present: frequency, dysuria Musculoskeletal: Present: back pain Skin: Present: rash Neurological: Present: emotional problems Hematologic/Lymphatic: Present: no symptoms reported All Other Systems: All systems neg except as marked Medical History (Updated 01/23/19 @ 01:38 by Ed Guerin MD) Atrial fibrillation (Chronic) Diarrhea (Chronic) Bilateral lower extremity edema Diabetes mellitus, type II Dry skin Hammer toes, bilateral Macular degeneration of both eyes Onychomycosis Sepsis Thinning of skin Toe pain, bilateral Walker as ambulation aid bradioprexopathy Depression Onset Date: ~06/29/14 Difficulty in walking Onset Date: ~05/29/14 Obstructive lung disease Onset Date: ~11/10/17 Hand pain, left Onset Date: ~04/2013 metacarpal fracture Hx of colonic polyps Onset Date: ~06/30/10 Infection of kidney Splenic artery aneurysm Onset Date: ~2008 patient states this was reviewed by her previous pcp dr suarez and was told it was small and did not need any further testing at that time. Surgical History: Surgical History (Updated 12/19/18 @ 13:25 by Jere Garduno DO) History of laryngoscopy Onset Date: ~01/15/18 using laser, flexible fiberoptic. [facility] Dr David Patel H/O cystoscopy Onset Date: ~09/20/17 stent removal H/O lithotripsy History of appendectomy History of arthroscopic knee surgery History of bronchoscopy Onset Date: ~01/17/18 History of cholecystectomy Hx of cardiac cath S/P ureteral stent placement Dr. Meraz insertion of subclavian catheter Onset Date: ~09/19/17 tommeraasen-left H/O colonoscopy Onset Date: ~06/30/10 w/ snare polypectomy- polyps x2 scattered small diverticular disease Dr. Ramos. Family History: Family History (Last Reviewed 01/06/19 @ 09:32 by Karen Mott CMA) Father , MVA age 80 No problems noted. Mother , old age- age 89 No problems noted. Social History: Preferred Language Thai Smoking Status Never smoker Abuse History No History of abuse Psych History No pertinent hx (Last Updated 01/10/19 @ 19:22 by Jere Garduno DO) No Social History Section defined Physical Exam - Physical Exam General Appearance: Present: other - Morbid obesity Head Exam: Present: normal inspection Eye Exam: Normal inspection: bilateral, Other: right - Macular degeneration Ears, Nose, Throat: Present: normal ENT inspection Neck: Present: normal inspection Respiratory: Present: no accessory muscle use, chest nontender, decreased breath sounds Cardiovascular/Chest: Present: irregularly irregular Peripheral Pulses: N=norm/S=strong/W=weak/B=bound/A=absent: Carotid (R): Normal, Carotid (L): Normal Gastrointestinal/Abdominal: Present: normal bowel sounds, nontender, soft Rectal Exam: Present: black stool Back Exam: Present: normal inspection Extremity Exam: Present: normal inspection, pedal edema Neurological Exam: Present: alert, oriented, normal mood/affect, no motor/sensory deficits DTR: N=norm/NB=norm/brisk/A=abs/DD=dull/dimin/HC=hyperactive: Bicep (R): Normal, Bicep (L): Normal, Tricep (R): Normal, Tricep (L): Normal Skin Exam: Present: warm/dry, intertrigo Progress - Results and Orders Patient's Lab Results:: I have reviewed the patient's lab results. Results and Orders: Over the last 2 months to 8.3 also noted there is been a dramatic elevation in her BUN with a creatinine remaining normal it could possibly explain the drop in hemoglobin after her blood in the intestines - Vital Signs Patient's Vital Signs:: I have reviewed the patient's vital signs. - EKG EKG #1 EKG read: Interp. by me EKG Comments: Sinus tachycardia with occasional supraventricular premature complexes with possible ST T wave abnormality in the lateral leads - X-Ray X-Ray #1 X-Ray: chest Interpretation: Interp. by me X-ray Comments: No acute changes - CT/Ultrasound CT/Ultrasound Narrative: CAT scan abdomen pelvis with contrast shows no acute issues - Progress/Reassessment Progress:: Improved Plan - Plan Plan: Patient continues to complain of abdominal pain we will do a CT of the abdomen and pelvis with contrast patient will be admitted to Dr. Juan Francisco Bravo also ordered famatodine Departure Clinical Impression: Diabetes mellitus, GI bleeding, UTI (urinary tract infection), Melena - Departure Disposition: Short Term Hospital Inpatient Condition: Stable Referrals: Jere Garduno DO [Primary Care Provider] -
[2019-01-22] MEDS ORDERED: NORMAL SALINE 1,000 ML IV ONE (23:04)
[2019-01-22 23:31] LABS: Hematocrit 26.3 % (37.0-47.0); Hemoglobin 8.2 gm/dL (12.5-16.0); Mean Cell Volume 95.3 fl (78-100); Mean Corpuscular Hemoglobin 29.7 pg (27-31); Mean Corpuscular Hgb Conc 31.2 g/dl (32-36); Neutrophil # 6.3 K/mm3 (1.3-6.0); Neutrophil % 67.8 % (42-75.0); Platelet Count 245 K/mm3 (150-450); Red Blood Count 2.76 M/mm3 (4.2-5.4); Red Cell Distribution Width 16.3 % (11.5-14.0); White Blood Count 9.3 K/mm3 (4.0-10.5)
[2019-01-22] MEDS ORDERED: ALBUTEROL SULFATE/IPRATROPIUM 3 ML NEBU IH ONE ×2 (23:32)
[2019-01-22 23:49] LABS: Urine Bilirubin Negative (NEGATIVE); Urine Blood Negative /ul (NEGATIVE); Urine Ketone Negative (NEGATIVE); Urine Nitrite Negative (NEGATIVE); Urine Protein Negative (NEGATIVE); Urine Urobilinogen Normal (NORMAL); Urine pH 5.5 pH (5.0-7.0)
[2019-01-22 23:50] LABS: ALT 19 U/L (19-67); AST 15 U/L (0-48); Albumin * 2.9 gm/dl (3.4-5.0); Alkaline Phosphatase * 86 U/L (50-170); Anion Gap 12.3 mmol/L (6.8-13.8); BNP * 300 pg/mL (5-550); BUN/Creatinine Ratio 55.2 (9.0-21.6); Bilirubin, Total 0.3 mg/dL (0.0-1.1); Blood Urea Nitrogen 58 mg/dL (3-23); Calcium * 8.4 mg/dL (7.9-10.9); Carbon Dioxide 24.6 mmol/L (24-32.6); Chloride 102 mmol/L (97-106); Glucose * 286 mg/dL (70-110); Prothrombin Time (Patient) 12.6 Seconds (9.1-10.7); Sodium 134 mmol/L (132-142); Total Protein 6.9 gm/dL (6.2-8.2); Troponin I Less than 0.017 ng/mL (0.00-0.10)
[2019-01-22 23:54] LABS: INR 1.29 INR (0.92-1.08); Partial Thrombolplastin Time 17.2 Seconds (24-32)
[2019-01-23 00:15] LABS: Urine Appearance Slightly Cloudy (CLEAR); Urine Bacteria 1+; Urine Color Yellow; Urine RBC None Seen /hpf (0-5)
[2019-01-23 00:16] LABS: Potassium 4.9 mmol/L (3.4-4.6)
[2019-01-23] MEDS ORDERED: PANTOPRAZOLE SODIUM 40 MG/100 ML PIGGYBACK IV ONE (01:24)
[2019-01-23] MEDS ORDERED: FAMOTIDINE 20 MG in DEXTROSE 5 % IN WATER 100 ML IV SCH ×2 (01:30)
[2019-01-23] MEDS ORDERED: DIATRIZOATE MEGLUMINE, SODIUM 30 ML BTL PO ONE (01:53)
[2019-01-23 01:59] LABS: Hematocrit 25.2 % (37.0-47.0)
[2019-01-23 02:01] LABS: Hemoglobin 7.9 gm/dL (12.5-16.0)
[2019-01-23] MEDS ORDERED: FUROSEMIDE 10 MG/ML VIAL IV ONE ×2 (02:07→15:00)
[2019-01-23] MEDS ORDERED: NORMAL SALINE 1,000 ML IV PRN (02:07)
[2019-01-23 04:45] LABS: Hematocrit 24.4 % (37.0-47.0)
[2019-01-23 04:51] LABS: Hemoglobin 7.8 gm/dL (12.5-16.0)
--- NOTE | 2019-01-23 13:40 | HP ---
Chief Complaint - Chief Complaint Date of Service: 01/23/19 Time of Service: 08:30 Chief Complaint: Shortness of breath, dizziness, lightheaded History of Present Illness: Jessa is a 78 yo female, a resident at [facility]. She was recently diagnosed with a UTI and treated with Cefuroxime. However, after she started this antibiotic she became dizzy and lightheaded. The cefuroxime was discontinued and changed to Rocephin IM, but she continued to have symptoms and was sent to the [facility] ER. In the ER she was noted to have a large black tarry stool that was hemocult positive. She denies seeing black stools, but admits t hat she does not often check her bowel movements. She denies nausea or vomiting. She denies abdominal pain. Medical History (Updated 01/23/19 @ 01:38 by Ed Guerin MD) Atrial fibrillation (Chronic) Diarrhea (Chronic) Bilateral lower extremity edema Diabetes mellitus, type II Dry skin Hammer toes, bilateral Macular degeneration of both eyes Onychomycosis Sepsis Thinning of skin Toe pain, bilateral Walker as ambulation aid bradioprexopathy Depression Onset Date: ~06/29/14 Difficulty in walking Onset Date: ~05/29/14 Obstructive lung disease Onset Date: ~11/10/17 Hand pain, left Onset Date: ~04/2013 metacarpal fracture Hx of colonic polyps Onset Date: ~06/30/10 Infection of kidney Splenic artery aneurysm Onset Date: ~2008 patient states this was reviewed by her previous pcp dr suarez and was told it was small and did not need any further testing at that time. Surgical History: Surgical History (Updated 12/19/18 @ 13:25 by Jere Garduno DO) History of laryngoscopy Onset Date: ~01/15/18 using laser, flexible fiberoptic. [facility] Dr David Patel H/O cystoscopy Onset Date: ~09/20/17 stent removal H/O lithotripsy History of appendectomy History of arthroscopic knee surgery History of bronchoscopy Onset Date: ~01/17/18 History of cholecystectomy Hx of cardiac cath S/P ureteral stent placement Dr. Meraz insertion of subclavian catheter Onset Date: ~09/19/17 tommeraasen-left H/O colonoscopy Onset Date: ~06/30/10 w/ snare polypectomy- polyps x2 scattered small diverticular disease Dr. Ramos. Family History: Family History (Last Reviewed 01/06/19 @ 09:32 by Karen Mott CMA) Father , MVA age 80 No problems noted. Mother , old age- age 89 No problems noted. Social History: Patient Lives/Resources [facility] Utilized Preferred Language Setswana Do you have any congregation or Yes: zoroastrian cultural preference? Smoking Status Never smoker Have you smoked in the past 12 No months Abuse History No History of abuse Psych History No pertinent hx Alcohol Use none Drug Use none (Last Updated 01/10/19 @ 19:22 by Jere Garduno DO) No Social History Section defined Review Of Systems (GEN) - Review of Systems Generalized/Overall Review: Present: Weakness, Fatigue. Absent: Chills, Fever EENTM: Present: No Symptoms Reported Respiratory: Present: Shortness of Breath. Absent: Cough Cardiac: Absent: Chest Pain, Edema, Palpitations, Syncope Abdominal: Present: Melena. Absent: Nausea, Vomiting, Hematemesis, Abdominal Pain, Constipation, Diarrhea, Bright blood from rectum Genitourinary: Present: No Symptoms Reported Musculoskeletal: Present: No Symptoms Reported Neurological: Present: No Symptoms Reported Skin: Present: No Symptoms Reported Endocrine: Present: No Symptoms Reported Immunizations: IMMUNIZATION HX Immunizations Up to Date Yes History of Influenza Vaccine Yes Hx Pneumococcal Vaccination Yes Allergies/Adverse Reactions: Allergies Allergy/AdvReac Type Severity Reaction Status Date / Time morphine Allergy Mild Hives Verified 01/06/19 09:31 ondansetron Allergy Mild Hives Verified 01/06/19 09:31 red dye Allergy Mild Hives Verified 01/06/19 09:31 ciprofloxacin [From Cipro] AdvReac Mild Hives Verified 01/06/19 09:31 codeine AdvReac Mild anxious Verified 01/06/19 09:31 haloperidol [From Haldol] AdvReac Mild Other Verified 01/06/19 09:31 lorazepam [From Ativan] AdvReac Mild Other Verified 01/06/19 09:31 nitrofurantoin AdvReac Mild Hives Verified 01/06/19 09:31 [From Macrobid] Sulfa (Sulfonamide AdvReac Mild Hives Verified 01/06/19 09:31 Antibiotics) [Sulfa(Sulfonamide Antibiotics)] Home Medications: HOME MEDICATIONS aspirin 81 mg tablet,delayed release 81 mg PO DAILY 04/08/18 [Last Taken Unknown] atorvastatin 20 mg tablet 20 mg PO HS 04/08/18 [Last Taken Unknown] carvedilol 12.5 mg tablet 12.5 mg PO BID #60 tab 04/18/18 [Last Taken Unknown] gabapentin 300 mg capsule 300 mg PO TID #90 cap 04/18/18 [Last Taken Unknown] Albuterol Sulfate [Ventolin Hfa] 1 - 2 puff INHALATION Q4H PRN 05/08/18 [Last Taken Unknown] Ibuprofen [Ibu] 600 mg PO TID 05/08/18 [Last Taken Unknown] Sennosides/Docusate Sodium [Docusate Sodium-Sennosides Tab] 1 ea PO DAILY PRN 05/08/18 [Last Taken Unknown] guaiFENesin [Mucinex] 1,200 mg PO BID 05/08/18 [Last Taken Unknown] l Gass[place]/B Bifidum/B Longum [[employer] Capsule] 1 ea PO DAILY 05/08/18 [Last Taken Unknown] insulin detemir (U-100) 100 unit/mL subcutaneous solution 34 unit SUB-Q HS ml 06/22/18 [Last Taken Unknown] Acetaminophen 650 mg PO QDIPM PRN 12/17/18 [Last Taken Unknown] Acetaminophen 650 mg PO TID 12/17/18 [Last Taken Unknown] Calcium Carbonate [Tums] 2 tab PO QID PRN 12/17/18 [Last Taken Unknown] Cetirizine HCl 10 mg PO HS 12/17/18 [Last Taken Unknown] Cod Liver Oil/Zinc Oxide [Desitin] 1 appl TOPICAL 10XD PRN 12/17/18 [Last Taken Unknown] Duloxetine HCl [Cymbalta] 60 mg PO QAM 12/17/18 [Last Taken Unknown] Fluticasone/Vilanterol [Breo Ellipta 100-25 Mcg INH] 1 inh INH DAILY 12/17/18 [Last Taken Unknown] Insulin Aspart [Novolog] 10 units SQ TID 12/17/18 [Last Taken Unknown] Menthol [Biofreeze] 1 appl TOPICAL QID PRN 12/17/18 [Last Taken Unknown] HYDROcodone/ACETAMINOPHEN [[place] 5-325] 1 ea PO Q6H PRN #30 tab 12/19/18 [Last Taken Unknown] Mag Carb/Aluminum Hydrox/Algin [Gaviscon Liquid] 30 ml PO QID PRN #1 btl 12/19/18 [Last Taken Unknown] alprazolam 0.5 mg tablet 0.5 mg PO HS #30 tab 01/03/19 [Last Taken Unknown] Ipratropium [place] 0.2 mg INHALATION BID 01/23/19 [Last Taken Unknown] Sodium Chloride For Inhalation [Hyper-Ed] 4 ml INHALATION BID 01/23/19 [Last Taken Unknown] amLODIPine BESYLATE [Norvasc] 2.5 mg PO DAILY 01/23/19 [Last Taken Unknown] Exam - Exam Vital Signs: Vital Signs - Last Taken Temp 36.5 C 01/23/19 10:52 Pulse 79 01/23/19 10:52 Resp 14 01/23/19 10:52 BP 154/73 H 01/23/19 10:52 Pulse Ox 94 01/23/19 10:52 Constitutional: Present: Alert, Oriented x3, Cooperative, Morbidly obese ENT Exam: Present: hearing grossly normal Eye Exam: bilateral eye: normal inspection Respiratory: Present: lungs clear, normal breath sounds, no respiratory distress Cardiovascular/Chest: Present: regular rate, rhythm, no murmur Abdomen: Present: Normal bowel sounds, soft, nontender, nondistended, no rebound tenderness, no hepatospenomegaly Skin Exam: Present: normal color, warm/dry, no cyanosis Lymphatic: Present: no adenopathy Neurologic: Present: normal mood/affect, oriented x 3 Appearance: Present: appropriate appearance, appropriate insight Eye contact: Present: cooperative, good eye contact, normal speech Thoughts: Present: normal thought pattern, no apparent hallucination Diagnostic Studies: Abnormal Lab Results 01/22/19 01/22/19 01/22/19 Range/Units 23:29 23:29 23:29 RBC 2.76 L (4.2-5.4) M/mm3 Hgb 8.2 L (12.5-16.0) gm/dL Hct 26.3 L (37.0-47.0) % MCHC 31.2 L (32-36) g/dl RDW 16.3 H (11.5-14.0) % Immature Gran % (Auto) 0.90 H (0.001-0.429) % Immature Gran # (Auto) 0.08 H (0.000-0.0310) K/mm3 Lymphocytes % 17.6 L (20-51) % Monocytes % 10.8 H (0.0-9) % Neutrophils # 6.3 H (1.3-6.0) K/mm3 PT 12.6 H (9.1-10.7) Seconds INR (Anticoag Therapy) 1.29 H (0.92-1.08) INR PTT ([place]) 17.2 L (24-32) Seconds Potassium 4.9 H D (3.4-4.6) mmol/L BUN 58 H D (3-23) mg/dL Est GFR (Non-Af Amer) 54 L (60-130) mL/min BUN/Creatinine Ratio 55.2 H (9.0-21.6) Random Glucose 286 H (70-110) mg/dL Albumin 2.9 L (3.4-5.0) gm/dl Ur Leukocyte Esterase (NEGATIVE) /ul Urine WBC (0-5) /hpf Urine Bacteria (NONE) Stool Occult Blood Crossmatch 01/22/19 01/23/19 01/23/19 Range/Units 23:45 00:30 01:30 RBC (4.2-5.4) M/mm3 Hgb 7.9 L* (12.5-16.0) gm/dL Hct 25.2 L (37.0-47.0) % MCHC (32-36) g/dl RDW (11.5-14.0) % Immature Gran % (Auto) (0.001-0.429) % Immature Gran # (Auto) (0.000-0.0310) K/mm3 Lymphocytes % (20-51) % Monocytes % (0.0-9) % Neutrophils # (1.3-6.0) K/mm3 PT (9.1-10.7) Seconds INR (Anticoag Therapy) (0.92-1.08) INR PTT ([place]) (24-32) Seconds Potassium (3.4-4.6) mmol/L BUN (3-23) mg/dL Est GFR (Non-Af Amer) (60-130) mL/min BUN/Creatinine Ratio (9.0-21.6) Random Glucose (70-110) mg/dL Albumin (3.4-5.0) gm/dl Ur Leukocyte Esterase 75 H (NEGATIVE) /ul Urine WBC 10-25 H (0-5) /hpf Urine Bacteria 1+ H (NONE) Stool Occult Blood Positive H Crossmatch 01/23/19 01/23/19 Range/Units 02:06 04:30 RBC (4.2-5.4) M/mm3 Hgb 7.8 L* (12.5-16.0) gm/dL Hct 24.4 L (37.0-47.0) % MCHC (32-36) g/dl RDW (11.5-14.0) % Immature Gran % (Auto) (0.001-0.429) % Immature Gran # (Auto) (0.000-0.0310) K/mm3 Lymphocytes % (20-51) % Monocytes % (0.0-9) % Neutrophils # (1.3-6.0) K/mm3 PT (9.1-10.7) Seconds INR (Anticoag Therapy) (0.92-1.08) INR PTT ([place]) (24-32) Seconds Potassium (3.4-4.6) mmol/L BUN (3-23) mg/dL Est GFR (Non-Af Amer) (60-130) mL/min BUN/Creatinine Ratio (9.0-21.6) Random Glucose (70-110) mg/dL Albumin (3.4-5.0) gm/dl Ur Leukocyte Esterase (NEGATIVE) /ul Urine WBC (0-5) /hpf Urine Bacteria (NONE) Stool Occult Blood Crossmatch See Detail Laboratory Results WBC 9.3 K/mm3 (4.0-10.5) 01/22/19 23:29 RBC 2.76 M/mm3 (4.2-5.4) L 01/22/19 23:29 Hgb 7.8 gm/dL (12.5-16.0) L* 01/23/19 04:30 Hct 24.4 % (37.0-47.0) L 01/23/19 04:30 MCV 95.3 fl (78-100) 01/22/19 23:29 MCH 29.7 pg (27-31) 01/22/19 23:29 MCHC 31.2 g/dl (32-36) L 01/22/19 23:29 RDW 16.3 % (11.5-14.0) H 01/22/19 23: Plt Count 245 K/mm3 (150-450) 01/22/19 23: MPV 10.0 fl (8-12.5) 01/22/19 23: Immature Gran % (Auto) 0.90 % (0.001-0.429) H 01/22/19 23: Immature Gran # (Auto) 0.08 K/mm3 (0.000-0.0310) H 01/22/19 23: 67.8 % (42-75.0) 01/22/19 23: 17.6 % (20-51) L 01/22/19 23: 10.8 % (0.0-9) H 01/22/19 23: 2.7 % (0.0-3.0) 01/22/19 23: 0.2 % (0.0-1.0) 01/22/19: Nucleated RBC % 0.0 k/mm3 (0-1) 01/22/19 23: 6.3 K/mm3 (1.3-6.0) H 01/22/19 23: 1.64 k/mm3 (1.5-3.5) 01/22/19 23: 1.0 k/mm3 (0.0-1.0) 01/22/19 23: 0.3 k/mm3 (0.0-0.7) 01/22/19: Absolute Basophils 0.0 k/mm3 (0.0-0.1) 01/22/19 23: PT 12.6 Seconds (9.1-10.7) H 01/22/19 23: INR (Anticoag Therapy) 1.29 INR (0.92-1.08) H 01/22/19:29 PTT ([place]) 17.2 Seconds (24-32) L 01/22/19 23: 0.34 ug/mL (0.19-0.49) D 01/22/19 23: Sodium 134 mmol/L (132-142) 01/22/19 23: 137 mmol/L (130-142) 01/22/19 23: Potassium 4.9 mmol/L (3.4-4.6) H D 01/22/19 23:29 Chloride 102 mmol/L (97-106) 01/22/19 23:29 Carbon Dioxide 24.6 mmol/L (24-32.6) 01/22/19 23: 12.3 mmol/L (6.8-13.8) 01/22/19 23:29 BUN 58 mg/dL (3-23) H D 01/22/19 23: 1.05 mg/dL (0.4-1.4) 01/22/19 23:29 Est GFR (Non-Af Amer) 54 mL/min (60-130) L 01/22/19 23: 55.2 (9.0-21.6) H 01/22/19 23: 286 mg/dL (70-110) H 01/22/19 23: 1.6 mmol/L (0.4-2.0) 01/22/19: Calcium 8.4 mg/dL (7.9-10.9) 01/22/19: Calcium Adj for Albumin 9.0 mg/dL (8.4-10.2) 01/22/19 23: 0.3 mg/dL (0.0-1.1) 01/22/19 23: AST 15 U/L (0-48) 01/22/19: ALT 19 U/L (19-67) 01/22/19: 86 U/L (50-170) 01/22/19: Less than 0.017 ng/mL (0.00-0.10) 01/22/19 23: B-Natriuretic Peptide 300 pg/mL (5-550) 01/22/19 23:29 6.9 gm/dL (6.2-8.2) 01/22/19 23:29 2.9 gm/dl (3.4-5.0) L 01/22/19 23: Amylase 47 U/L (25-115) 01/23/19 01:30 Yellow 01/22/19 23:45 Slightly cloudy (CLEAR) 01/22/19 23:45 5.5 pH (5.0-7.0) 01/22/19 23:45 Ur Specific [place] 1.020 SP.GR. (1.005-1.010) 01/22/19 23:45 Negative mg/dL (NEGATIVE) 01/22/19 23:45 Negative mg/dL (NEGATIVE) 01/22/19 23:45 Negative mg/dL (NEGATIVE) 01/22/19 23:45 Negative /ul (NEGATIVE) 01/22/19 23:45 Negative (NEGATIVE) 01/22/19 23:45 Negative mg/dl (NEGATIVE) 01/22/19 23:45 Normal EU/dl (NORMAL) 01/22/19 23:45 Ur Leukocyte Esterase 75 /ul (NEGATIVE) H 01/22/19 23:45 None seen /hpf (0-5) 01/22/19 23:45 10-25 /hpf (0-5) H 01/22/19 23:45 Ur Epithelial Cells None seen /hpf (0-5) 01/22/19 23:45 1+ (NONE) H 01/22/19 23:45 Culture to follow 01/22/19 23:45 Positive H 01/23/19 00:30 Ethyl Alcohol Less than 3.0 mg/dL (0.0-10.0) 01/22/19 23:29 Blood Type A Positive 01/23/19 02:06 Antibody Screen Negative 01/23/19 02:06 Crossmatch See Detail 01/23/19 02:06 Assessment/Plan - Narrative Narrative: Jessa is a 78 yo female with UTI and GI bleed, likely upper. Her hemoglobin is 7.9 and has been trending down compared to her last hgb. Because of intolerances to most oral antibiotics I will treat her UTI with Rocephin for a total of 3 days. Her hemoglobin will be monitored and she will get an NG tube and will consult general surgery for EGD. I believe she is medically stable to undergo EGD. She will be NPO until after EGD. Will admit to observation and expect 1 midnight stay unless she worsens clinically. - Assessment/Plan (1) GI bleeding Problem: Acute Qualifiers: GI bleed type/associated pathology: unspecified gastrointestinal hemorrhage type Qualified Code(s): K92.2 - Gastrointestinal hemorrhage, unspecified (2) UTI (urinary tract infection) Problem: Acute Qualifiers: Urinary tract infection type: acute cystitis (3) Morbid obesity Problem: Chronic
--- NOTE | 2019-01-23 13:59 | CONS ---
[facility] - General Date of Service: 01/23/19 Narrative: GI bleed, likely upper Source: patient, other - Dr. Bravo Exam Limitations: no limitations - History of Present Illness Initial Comments: Jessa is a pleasant 78 year old female, who was recently diagnosed with a UTI. Her antibiotic was changed and she was sent to the [facility] ER for dizziness. She had a large black tarry stool in the ER that was heme positive. She does not check her own bowel movements, so she does not know when this started. She denies nausea or emesis. Denies abdominal pain. States she is hungry and would like to eat. She has an NG which has had little output. She takes ASA and ibuprofen. Timing/Duration: 24 hours Severity: moderate Associated Symptoms: malaise Allergies/Adverse Reactions: Allergies morphine Allergy (Mild, Verified 01/06/19 09:31) Hives ondansetron Allergy (Mild, Verified 01/06/19 09:31) Hives red dye Allergy (Mild, Verified 01/06/19 09:31) Hives ciprofloxacin [From Cipro] Adverse Reaction (Mild, Verified 01/06/19 09:31) Hives codeine Adverse Reaction (Mild, Verified 01/06/19 09:31) anxious haloperidol [From Haldol] Adverse Reaction (Mild, Verified 01/06/19 09:31) Other increased confusion lorazepam [From Ativan] Adverse Reaction (Mild, Verified 01/06/19 09:31) Other increased confusion nitrofurantoin [From Macrobid] Adverse Reaction (Mild, Verified 01/06/19 09:31) Hives Sulfa (Sulfonamide Antibiotics) [Sulfa(Sulfonamide Antibiotics)] Adverse Reaction (Mild, Verified 01/06/19 09:31) Hives Home Medications: Home Medications Medication Instructions Recorded Last Taken aspirin 81 mg tablet,delayed 81 mg PO DAILY 04/08/18 Unknown release atorvastatin 20 mg tablet 20 mg PO HS 04/08/18 Unknown carvedilol 12.5 mg tablet 12.5 mg PO BID #60 tab 04/18/18 Unknown gabapentin 300 mg capsule 300 mg PO TID #90 cap 04/18/18 Unknown Albuterol Sulfate [Ventolin Hfa] 1 - 2 puff INHALATION Q4H PRN 05/08/18 Unknown Ibuprofen [Ibu] 600 mg PO TID 05/08/18 Unknown Sennosides/Docusate Sodium 1 ea PO DAILY PRN 05/08/18 Unknown [Docusate Sodium-Sennosides Tab] guaiFENesin [Mucinex] 1,200 mg PO BID 05/08/18 Unknown l Gasseri/B Bifidum/B Longum 1 ea PO DAILY 05/08/18 Unknown [[employer] Capsule] insulin detemir (U-100) 100 34 unit SUB-Q HS ml 06/22/18 Unknown unit/mL subcutaneous solution Acetaminophen 650 mg PO QDIPM PRN 12/17/18 Unknown Acetaminophen 650 mg PO TID 12/17/18 Unknown Calcium Carbonate [Tums] 2 tab PO QID PRN 12/17/18 Unknown Cetirizine HCl 10 mg PO HS 12/17/18 Unknown Cod Liver Oil/Zinc Oxide [Desitin] 1 appl TOPICAL 10XD PRN 12/17/18 Unknown Duloxetine HCl [Cymbalta] 60 mg PO QAM 12/17/18 Unknown Fluticasone/Vilanterol [Breo 1 inh INH DAILY 12/17/18 Unknown Ellipta 100-25 Mcg INH] Insulin Aspart [Novolog] 10 units SQ TID 12/17/18 Unknown Menthol [Biofreeze] 1 appl TOPICAL QID PRN 12/17/18 Unknown HYDROcodone/ACETAMINOPHEN [[place] 1 ea PO Q6H PRN #30 tab 12/19/18 Unknown 5-325] Mag Carb/Aluminum Hydrox/Algin 30 ml PO QID PRN #1 btl 12/19/18 Unknown [Gaviscon Liquid] alprazolam 0.5 mg tablet 0.5 mg PO HS #30 tab 01/03/19 Unknown Ipratropium [place] 0.2 mg INHALATION BID 01/23/19 Unknown Sodium Chloride For Inhalation 4 ml INHALATION BID 01/23/19 Unknown [Hyper-Ed] amLODIPine BESYLATE [Norvasc] 2.5 mg PO DAILY 01/23/19 Unknown Procedures Endoscopic polypectomy of large intestine (06/30/10) Measurement of systemic arterial blood gases (10/06/14) Other cystoscopy (06/07/13) Other transurethral excision or destruction of lesion or tissue of bladder (05/10/13) Removal of ureterostomy tube and ureteral catheter (06/07/13) Ureteral catheterization (05/10/13) Medications - Medications Current Medications: Current Medications Ceftriaxone Sodium 1,000 mg/ (Dextrose/Water) 100 mls @ 200 mls/hr IV Q24H [facility]; Protocol Stop: 02/22/19 09:16 Last Admin: 01/23/19 10:51 Dose: 200 mls/hr Documented by: Review of Systems - Review of Systems Generalized/Overall Review: Present: Weakness. Absent: Weight loss EENTM: Present: No Symptoms Reported Respiratory: Present: No Symptoms Reported Cardiac: Present: No Symptoms Reported, Other - dizziness Abdominal: Present: Other - dark tarry stools. Absent: Nausea, Vomiting Genitourinary: Present: No Symptoms Reported Musculoskeletal: Present: No Symptoms Reported Neurological: Present: No Symptoms Reported Skin: Present: No Symptoms Reported Endocrine: Present: No Symptoms Reported Physical Examination - Exam Vital Signs: Vital Signs - Last Taken Temp 36.5 C 01/23/19 10:52 Pulse 79 01/23/19 10:52 Resp 14 01/23/19 10:52 BP 154/73 H 01/23/19 10:52 Pulse Ox 94 01/23/19 10:52 O2 Oxygen Delivery Method Room Air Constitutional: Present: Alert, Oriented x3, Cooperative ENT Exam: Present: hearing grossly normal Neck: Present: non-tender, trachea midline Respiratory: Present: chest non-tender, lungs clear Cardiovascular/Chest: Present: normal peripheral pulses, regular rate, rhythm Abdomen: Present: Normal bowel sounds, soft, obese /Rectal: Present: Exam deferred Extremity: Present: normal range of motion Skin Exam: Present: normal color Neurologic: Present: mounter automatic II-XII nml as tested Appearance: Present: appropriate appearance Eye contact: Present: cooperative, good eye contact Thoughts: Present: normal thought pattern - Results and Findings: Lab/Microbiology results last 24 hrs: Abnormal/Pending Laboratory Last 24 HRS 01/23/19 01/23/19 01/23/19 04:30 02:06 01:30 RBC Hgb 7.8 L* 7.9 L* Hct 24.4 L 25.2 L MCHC RDW Immature Gran % (Auto) Immature Gran # (Auto) Lymphocytes % Monocytes % Neutrophils # PT INR (Anticoag Therapy) PTT ([place]) Potassium BUN Est GFR (Non-Af Amer) BUN/Creatinine Ratio Random Glucose Albumin Ur Leukocyte Esterase Urine WBC Urine Bacteria Stool Occult Blood Crossmatch See Detail 01/23/19 01/22/19 01/22/19 00:30 23:45 23:29 RBC Hgb Hct MCHC RDW Immature Gran % (Auto) Immature Gran # (Auto) Lymphocytes % Monocytes % Neutrophils # PT 12.6 H INR (Anticoag Therapy) 1.29 H PTT ([place]) 17.2 L Potassium BUN Est GFR (Non-Af Amer) BUN/Creatinine Ratio Random Glucose Albumin Ur Leukocyte Esterase 75 H Urine WBC 10-25 H Urine Bacteria 1+ H Stool Occult Blood Positive H Crossmatch 01/22/19 01/22/19 23:29 23:29 RBC 2.76 L Hgb 8.2 L Hct 26.3 L MCHC 31.2 L RDW 16.3 H Immature Gran % (Auto) 0.90 H Immature Gran # (Auto) 0.08 H Lymphocytes % 17.6 L Monocytes % 10.8 H Neutrophils # 6.3 H PT INR (Anticoag Therapy) PTT ([place]) Potassium 4.9 H D BUN 58 H D Est GFR (Non-Af Amer) 54 L BUN/Creatinine Ratio 55.2 H Random Glucose 286 H Albumin 2.9 L Ur Leukocyte Esterase Urine WBC Urine Bacteria Stool Occult Blood Crossmatch - Assessments/Findings (1) GI bleeding Problem: Acute Qualifiers: GI bleed type/associated pathology: unspecified gastrointestinal hemorrhage type Qualified Code(s): K92.2 - Gastrointestinal hemorrhage, unspecified (2) Melena Problem: Acute (3) UTI (urinary tract infection) Problem: Acute (4) Diabetes Problem: Chronic Qualifiers: (5) UTI (urinary tract infection) Problem: Acute Qualifiers: Urinary tract infection type: acute cystitis (6) Morbid obesity Problem: Chronic Plan - Plan Plan: Her INR is 1.2. She is not on any blood thinners other than ASA and ibuprofen. This is likely an upper GI bleed. Will plan to do an EGD to evaluate. Gettting transfused currently. Risks and benefits of the procedure were discussed with the patient and she is in agreement. Patient was discussed with Dr. Bravo. Thank you Dr. Bravo for allowing me to participate in the care of your patient.
[2019-01-23] MEDS ORDERED: RINGER'S SOLUTION,LACTATED 1,000 ML IV PRN (14:15)
--- NOTE | 2019-01-23 14:15 | ANES ---
Anesthesia Pre Procedure Eval Vitals/Labs: Last Vital Signs Temp 37.0 C 01/23/19 14:01 Pulse 89 01/23/19 14:01 Resp 16 01/23/19 14:01 BP 167/80 H 01/23/19 14:01 Pulse Ox 95 01/23/19 14:01 HOME MEDICATIONS aspirin 81 mg tablet,delayed release 81 mg PO DAILY 04/08/18 [Last Taken Unknown] atorvastatin 20 mg tablet 20 mg PO HS 04/08/18 [Last Taken Unknown] carvedilol 12.5 mg tablet 12.5 mg PO BID #60 tab 04/18/18 [Last Taken Unknown] gabapentin 300 mg capsule 300 mg PO TID #90 cap 04/18/18 [Last Taken Unknown] Albuterol Sulfate [Ventolin Hfa] 1 - 2 puff INHALATION Q4H PRN 05/08/18 [Last Taken Unknown] Ibuprofen [Ibu] 600 mg PO TID 05/08/18 [Last Taken Unknown] Sennosides/Docusate Sodium [Docusate Sodium-Sennosides Tab] 1 ea PO DAILY PRN 05/08/18 [Last Taken Unknown] guaiFENesin [Mucinex] 1,200 mg PO BID 05/08/18 [Last Taken Unknown] l Gasseri/B Bifidum/B Longum [biNu Health Capsule] 1 ea PO DAILY 05/08/18 [Last Taken Unknown] insulin detemir (U-100) 100 unit/mL subcutaneous solution 34 unit SUB-Q HS ml 06/22/18 [Last Taken Unknown] Acetaminophen 650 mg PO QDIPM PRN 12/17/18 [Last Taken Unknown] Acetaminophen 650 mg PO TID 12/17/18 [Last Taken Unknown] Calcium Carbonate [Tums] 2 tab PO QID PRN 12/17/18 [Last Taken Unknown] Cetirizine HCl 10 mg PO HS 12/17/18 [Last Taken Unknown] Cod Liver Oil/Zinc Oxide [Desitin] 1 appl TOPICAL 10XD PRN 12/17/18 [Last Taken Unknown] Duloxetine HCl [Cymbalta] 60 mg PO QAM 12/17/18 [Last Taken Unknown] Fluticasone/Vilanterol [Breo Ellipta 100-25 Mcg INH] 1 inh INH DAILY 12/17/18 [Last Taken Unknown] Insulin Aspart [Novolog] 10 units SQ TID 12/17/18 [Last Taken Unknown] Menthol [Biofreeze] 1 appl TOPICAL QID PRN 12/17/18 [Last Taken Unknown] HYDROcodone/ACETAMINOPHEN [Wheeler 5-325] 1 ea PO Q6H PRN #30 tab 12/19/18 [Last Taken Unknown] Mag Carb/Aluminum Hydrox/Algin [Gaviscon Liquid] 30 ml PO QID PRN #1 btl 12/19/18 [Last Taken Unknown] alprazolam 0.5 mg tablet 0.5 mg PO HS #30 tab 01/03/19 [Last Taken Unknown] Ipratropium Emery 0.2 mg INHALATION BID 01/23/19 [Last Taken Unknown] Sodium Chloride For Inhalation [Hyper-Ed] 4 ml INHALATION BID 01/23/19 [Last Taken Unknown] amLODIPine BESYLATE [Norvasc] 2.5 mg PO DAILY 01/23/19 [Last Taken Unknown] Allergies/Adverse Reactions: Allergies Allergy/AdvReac Type Severity Reaction Status Date / Time morphine Allergy Mild Hives Verified 01/06/19 09:31 ondansetron Allergy Mild Hives Verified 01/06/19 09:31 red dye Allergy Mild Hives Verified 01/06/19 09:31 ciprofloxacin [From Cipro] AdvReac Mild Hives Verified 01/06/19 09:31 codeine AdvReac Mild anxious Verified 01/06/19 09:31 haloperidol [From Haldol] AdvReac Mild Other Verified 01/06/19 09:31 lorazepam [From Ativan] AdvReac Mild Other Verified 01/06/19 09:31 nitrofurantoin AdvReac Mild Hives Verified 01/06/19 09:31 [From Macrobid] Sulfa (Sulfonamide AdvReac Mild Hives Verified 01/06/19 09:31 Antibiotics) [Sulfa(Sulfonamide Antibiotics)] - Planned Procedure Planned Procedure: gi bleed Medication List Reviewed:: Yes Allergies Verified: Yes Medical History (Updated 01/23/19 @ 13:40 by Juan Francisco Bravo DO) Atrial fibrillation (Chronic) Diarrhea (Chronic) Bilateral lower extremity edema Diabetes mellitus, type II Dry skin Hammer toes, bilateral Macular degeneration of both eyes Onychomycosis Sepsis Thinning of skin Toe pain, bilateral Walker as ambulation aid bradioprexopathy Depression Onset Date: ~06/29/14 Difficulty in walking Onset Date: ~05/29/14 Obstructive lung disease Onset Date: ~11/10/17 Hand pain, left Onset Date: ~04/2013 metacarpal fracture Hx of colonic polyps Onset Date: ~06/30/10 Infection of kidney Splenic artery aneurysm Onset Date: ~2008 patient states this was reviewed by her previous pcp dr suarez and was told it was small and did not need any further testing at that time. Surgical History (Updated 12/19/18 @ 13:25 by Jere Garduno DO) History of laryngoscopy Onset Date: ~01/15/18 using laser, flexible fiberoptic. [facility] Dr David Patel H/O cystoscopy Onset Date: ~09/20/17 stent removal H/O lithotripsy History of appendectomy History of arthroscopic knee surgery History of bronchoscopy Onset Date: ~01/17/18 History of cholecystectomy Hx of cardiac cath S/P ureteral stent placement Dr. Meraz insertion of subclavian catheter Onset Date: ~09/19/17 tommeraasen-left H/O colonoscopy Onset Date: ~06/30/10 w/ snare polypectomy- polyps x2 scattered small diverticular disease Dr. Ramos. Family History (Last Reviewed 01/06/19 @ 09:32 by Karen Mott CMA) Father , MVA age 80 No problems noted. Mother , old age- age 89 No problems noted. - Family Anesthesia History Family History:: no untoward family reactions to anesthesia - Airway/Neck/Teeth Denture Type: None Neck Exam: limited range of motion Mallampatti Score: 3 Thyromental (T-M) distance: > 6 cm Mandibulo Hyoid distance: > 3 cm - Respiratory Respiratory Physical: lungs clear, decreased breath sounds Smoking Status: Never smoker Sleep Apnea currently treated: No Sleep Apnea by current assessment: No - Cardiovascular Cardiac History: arrhythmia, hypertension Tolerate Activity: Poor Heart Sounds: Irregular - Anesthesia Assessment and Plan ASA Class: PS, III, E Anesthesia Type Plan: MAC Planned difficult intubation/equipment available: No
[2019-01-23] MEDS: NYSTATIN 15 APPL BTL TP SCH ×2 (14:59→21:26)
[2019-01-23] MEDS: FAMOTIDINE 20 MG in DEXTROSE 5 % IN WATER 100 ML IV SCH ×4 (14:59→15:14)
--- NOTE | 2019-01-23 15:01 | ANES ---
Post Anesthesia Assessment - Vital Signs Vitals: Last Vital Signs Temp 37.0 C 01/23/19 14:01 Pulse 89 01/23/19 14:01 Resp 16 01/23/19 14:01 BP 167/80 H 01/23/19 14:01 Pulse Ox 95 01/23/19 14:01 Airway Patency: Normal - Mental Status Level Of Consciousness: Drowsy - Pain Level Pain Score: 0 - N/V Assessment Nausea/Vomiting Presence: None Dehydration:: No
--- NOTE | 2019-01-23 15:01 | ANES ---
Post Anesthesia Discharge - Transfer of Care Transfer of Care handoff given to nurse: Yes - Anesthesia Post Op Note Anesthesia Post Op Note: Care transferred to office associate
--- NOTE | 2019-01-23 16:09 | OR ---
Operative Report - Dictated Report Narrative: Date of Service: 01/23/19 Procedure: EGD with clipping of bleeding ulcer Pre-procedure diagnosis: GI bleed Post-procedure diagnosis: duodenal ulcer and bleeding duodenal ulcer Surgeon: Dr. Petra Borja Anesthesia: MAC Indication for procedure: Jessa is a pleasant 78 yo female with a GI bleed. Description of procedure: After appropriate informed consent was obtained, patient was taken to the endoscopy suite placed in the left lateral decubitus position. Monitors were applied, appropriate sedation was achieved. A lubricated gastroscope was inserted and advanced into the second portion of the duodenum. In the duodenal bulb there was a large ulcer with no visible vessel. Across from this there was an actively bleeding duodenal ulcer. One clip was placed and the bleeding slowed down. An additional clip was placed and the bleeding stopped. The second portion of the duodenum appeared normal. The scope was withdrawn to the antrum. The scope was retroflexed, the stomach appeared normal, except for a small hiatal hernia. The body of the stomach also appeared normal. Scope was slowly withdrawn to the GE junction, the Z line appeared normal. The excess air was suctioned and the scope was slowly removed. The NG tube was left in place. Complications: none Specimens to pathology: none Estimated blood loss: minimal Disposition: start protonix drip, order h pylori Ab, monitor h/h, discussed with Dr. Bravo
[2019-01-23] MEDS: SUCRALFATE 1 G TABLET PO SCH ×2 (16:36→21:26)
[2019-01-23] MEDS: PANTOPRAZOLE SODIUM 40 MG in NORMAL SALINE 100 ML IV SCH ×2 (16:36→21:25)
[2019-01-23 17:05] LABS: Hematocrit 28.2 % (37.0-47.0); Hemoglobin 8.7 gm/dL (12.5-16.0); Mean Corpuscular Hgb Conc 30.9 g/dl (32-36); Mean Platelet Volume 10.3 fl (8-12.5); Neutrophil # 7.6 K/mm3 (1.3-6.0); Neutrophil % 73.8 % (42-75.0); Platelet Count 268 K/mm3 (150-450); Red Cell Distribution Width 16.9 % (11.5-14.0); White Blood Count 10.2 K/mm3 (4.0-10.5)
[2019-01-23 17:15] LABS: Prothrombin Time (Patient) 10.5 Seconds (9.1-10.7)
[2019-01-23 17:17] LABS: INR 1.06 INR (0.92-1.08); Partial Thrombolplastin Time 21.4 Seconds (24-32)
[2019-01-23 17:28] LABS: Anion Gap 17.9 mmol/L (6.8-13.8); BUN/Creatinine Ratio 39.8 (9.0-21.6); Calcium * 8.4 mg/dL (7.9-10.9); Carbon Dioxide 21.7 mmol/L (24-32.6); Estimated Creat Clear 39.1; Potassium 4.6 mmol/L (3.4-4.6)
[2019-01-23] MEDS: NORMAL SALINE 1,000 ML IV PRN (18:00)
[2019-01-24] MEDS: PANTOPRAZOLE SODIUM 40 MG in NORMAL SALINE 100 ML IV SCH ×3 (02:07→12:07)
[2019-01-24] MEDS: SUCRALFATE 1 G TABLET PO SCH ×4 (06:59→20:27)
[2019-01-24] MEDS: NYSTATIN 15 APPL BTL TP SCH ×2 (08:44→20:28)
[2019-01-24 09:01] LABS: Hemoglobin 8.4 gm/dL (12.5-16.0); Mean Cell Volume 94.7 fl (78-100); Mean Corpuscular Hemoglobin 29.5 pg (27-31); Mean Corpuscular Hgb Conc 31.1 g/dl (32-36); Mean Platelet Volume 9.6 fl (8-12.5); Neutrophil % 72.6 % (42-75.0); Platelet Count 229 K/mm3 (150-450); Red Blood Count 2.85 M/mm3 (4.2-5.4); Red Cell Distribution Width 17.1 % (11.5-14.0); White Blood Count 8.3 K/mm3 (4.0-10.5)
[2019-01-24 09:11] LABS: Albumin * 3.3 gm/dl (3.4-5.0); Anion Gap 15.5 mmol/L (6.8-13.8); BUN/Creatinine Ratio 28.4 (9.0-21.6); Bilirubin, Total 0.4 mg/dL (0.0-1.1); Ca. Corrected For Albumin 8.6 mg/dL (8.4-10.2); Calcium * 8.4 mg/dL (7.9-10.9); Carbon Dioxide 24.4 mmol/L (24-32.6); Potassium 3.9 mmol/L (3.4-4.6); Total Protein 7.1 gm/dL (6.2-8.2)
--- NOTE | 2019-01-24 10:12 | PN ---
Dictated Progress Note - Date and Time Seen: Date: 01/24/19 Time: 10:12 - Progress Note Narrative: Pt denies abd pain. No N/v. No NG output. RRR CTAB obese, soft, non tender NG no output Vital Signs - Last Taken Temp 36.8 C 01/24/19 06:22 Pulse 98 01/24/19 06:22 Resp 18 01/24/19 06:22 BP 128/74 01/24/19 06:22 Pulse Ox 100 01/24/19 06:22 Abnormal/Pending Laboratory Last 24 HRS 01/24/19 01/24/19 01/23/19 08:41 08:27 20:03 RBC 2.85 L Hgb 8.4 L Hct 27.0 L MCHC 31.1 L RDW 17.1 H Immature Gran % (Auto) 0.70 H Immature Gran # (Auto) 0.06 H Lymphocytes % 14.5 L Monocytes % 9.5 H Neutrophils # Lymphocytes # 1.21 L PTT (Maryjane) Plasma Sodium 143 H Carbon Dioxide Anion Gap 15.5 H BUN 27 H Est GFR (Non-Af Amer) BUN/Creatinine Ratio 28.4 H Random Glucose 229 H ALT 18 L Albumin 3.3 L Stool Occult Blood Positive H Crossmatch 01/23/19 01/23/19 01/23/19 17:00 17:00 17:00 RBC 3.00 L Hgb 8.7 L Hct 28.2 L MCHC 30.9 L RDW 16.9 H Immature Gran % (Auto) 0.70 H Immature Gran # (Auto) 0.07 H Lymphocytes % 13.4 L Monocytes % 10.2 H Neutrophils # 7.6 H Lymphocytes # 1.37 L PTT (Maryjane) 21.4 L D Plasma Sodium Carbon Dioxide 21.7 L Anion Gap 17.9 H BUN 39 H Est GFR (Non-Af Amer) 58 L BUN/Creatinine Ratio 39.8 H Random Glucose 219 H ALT Albumin Stool Occult Blood Crossmatch 01/23/19 01/23/19 15:10 02:06 RBC Hgb Hct MCHC RDW Immature Gran % (Auto) Immature Gran # (Auto) Lymphocytes % Monocytes % Neutrophils # Lymphocytes # PTT (Claiborne) Plasma Sodium Carbon Dioxide Anion Gap BUN Est GFR (Non-Af Amer) BUN/Creatinine Ratio Random Glucose ALT Albumin Stool Occult Blood Positive H Crossmatch See Detail Culture 01/23/19 08:21 - Final Nares MRSA Negative 01/22/19 23:37 Urine Culture - Preliminary Urine,Catheterized No Growth Imp: GI bleed, upper duodenal ulcer x2, one actively bleeding PPD#1 clipping anemia morbid obesity Plan: dc NG tube ice chips slow with diet so clips don't fall off of duodnal ulcer protonix gtt avoid NSAIDS
[2019-01-24] MEDS: ALPRAZolam 0.5 MG TABLET PO PRN ×2 (13:45→17:36)
--- NOTE | 2019-01-24 17:55 | PN ---
Subjective - Date and Time Seen Date: 01/24/19 Time: 17:55 Subjective Narrative: Jessa reports appetite and wishes to eat. She was feeling well this morning and there was minimal collection from NG tube. NG was removed and she felt better. No vomiting or nausea after NG removed. Objective - Vitals Vitals: Last Vital Signs Temp 37.0 C 01/24/19 16:06 Pulse 101 H 01/24/19 16:06 Resp 18 01/24/19 16:06 BP 129/69 01/24/19 16:06 Pulse Ox 98 01/24/19 16:06 - Abnormal Lab Findings Abnormal Lab Findings: Abnormal Lab Results 01/23/19 01/24/19 01/24/19 Range/Units 20:03 08:27 08:41 RBC 2.85 L (4.2-5.4) M/mm3 Hgb 8.4 L (12.5-16.0) gm/dL Hct 27.0 L (37.0-47.0) % MCHC 31.1 L (32-36) g/dl RDW 17.1 H (11.5-14.0) % Immature Gran % (Auto) 0.70 H (0.001-0.429) % Immature Gran # (Auto) 0.06 H (0.000-0.0310) K/mm3 Lymphocytes % 14.5 L (20-51) % Monocytes % 9.5 H (0.0-9) % Lymphocytes # 1.21 L (1.5-3.5) k/mm3 Plasma Sodium 143 H (130-142) mmol/L Anion Gap 15.5 H (6.8-13.8) mmol/L BUN 27 H (3-23) mg/dL BUN/Creatinine Ratio 28.4 H (9.0-21.6) Random Glucose 229 H (70-110) mg/dL ALT 18 L (19-67) U/L Albumin 3.3 L (3.4-5.0) gm/dl Stool Occult Blood Positive H - Exam Constitutional: Present: Alert, Oriented x3, Cooperative, No distress ENT Exam: Present: hearing grossly normal Respiratory: Present: lungs clear, normal breath sounds, no respiratory distress Cardiovascular/Chest: Present: regular rate, rhythm, no edema Abdomen: Present: Normal bowel sounds, soft, nontender, nondistended, no rebound tenderness Skin Exam: Present: normal color, warm/dry, no cyanosis Assessment/Plan Plan Narrative: Jessa is overall doing well today. Hemoglobin relatively stable. NG removed and she tolerated this well. Will repeat hgb in AM and if stable will advance diet to clears tomorrow morning. - Problems/Diagnosis (1) GI bleeding Problem: Acute Qualifiers: GI bleed type/associated pathology: duodenal ulcer Qualified Code(s): K26.4 - Chronic or unspecified duodenal ulcer with hemorrhage (2) UTI (urinary tract infection) Problem: Acute Qualifiers: Urinary tract infection type: acute cystitis (3) Morbid obesity Problem: Chronic
[2019-01-24] MEDS: amLODIPine BESYLATE 5 MG TABLET PO SCH (18:46)
[2019-01-24] MEDS: GABAPENTIN 300 MG CAPSULE PO SCH (18:46)
[2019-01-24] MEDS: IPRATROPIUM BROMIDE 0.5 MG/2.5 ML VIAL.NEB IH SCH (18:47)
[2019-01-24] MEDS ORDERED: PROCHLORPERAZINE EDISYLATE 5 MG/ML VIAL IV PRN (20:03)
[2019-01-24] MEDS: ROSUVASTATIN CALCIUM 10 MG TABLET PO SCH (20:27)
[2019-01-24] MEDS: LORATADINE 10 MG TABLET PO SCH (20:27)
[2019-01-24] MEDS: ACETAMINOPHEN 325 MG TABLET PO PRN (20:27)
[2019-01-24] MEDS: ALPRAZolam 0.5 MG TABLET PO SCH (20:28)
[2019-01-24] MEDS ORDERED: CARVEDILOL 25 MG TABLET ONE (20:36)
[2019-01-24] MEDS: CARVEDILOL 12.5 MG TABLET PO SCH (20:38)
[2019-01-25] MEDS: NORMAL SALINE 1,000 ML IV PRN (03:06)
[2019-01-25 06:36] LABS: Hematocrit 28.3 % (37.0-47.0); Hemoglobin 8.4 gm/dL (12.5-16.0); Mean Cell Volume 98.3 fl (78-100); Mean Corpuscular Hemoglobin 29.2 pg (27-31); Mean Corpuscular Hgb Conc 29.7 g/dl (32-36); Mean Platelet Volume 10.2 fl (8-12.5); Neutrophil # 4.3 K/mm3 (1.3-6.0); Neutrophil % 62.3 % (42-75.0); Platelet Count 226 K/mm3 (150-450); Red Blood Count 2.88 M/mm3 (4.2-5.4); Red Cell Distribution Width 17.2 % (11.5-14.0); White Blood Count 6.9 K/mm3 (4.0-10.5)
[2019-01-25] MEDS: IPRATROPIUM BROMIDE 0.5 MG/2.5 ML VIAL.NEB IH SCH ×2 (06:50→19:00)
[2019-01-25 06:58] LABS: Albumin * 3.2 gm/dl (3.4-5.0); Anion Gap 14.6 mmol/L (6.8-13.8); BUN/Creatinine Ratio 23.5 (9.0-21.6); Bilirubin, Total 0.4 mg/dL (0.0-1.1); Ca. Corrected For Albumin 8.8 mg/dL (8.4-10.2); Calcium * 8.5 mg/dL (7.9-10.9); Carbon Dioxide 23.9 mmol/L (24-32.6); Potassium 3.5 mmol/L (3.4-4.6); Total Protein 6.9 gm/dL (6.2-8.2)
[2019-01-25] MEDS: SUCRALFATE 1 G TABLET PO SCH ×4 (07:25→20:59)
[2019-01-25] MEDS ORDERED: FLUTICASONE PROPION/SALMETEROL 14 PUFF DISK.W.DEV IH SCH (09:00)
[2019-01-25] MEDS: DULoxetine HCL 30 MG CAPSULE.SA PO SCH (10:10)
[2019-01-25] MEDS: CARVEDILOL 12.5 MG TABLET PO SCH ×2 (10:10→21:00)
[2019-01-25] MEDS: GABAPENTIN 300 MG CAPSULE PO SCH ×3 (10:11→16:03)
[2019-01-25] MEDS: amLODIPine BESYLATE 5 MG TABLET PO SCH (10:12)
[2019-01-25] MEDS: NYSTATIN 15 APPL BTL TP SCH ×2 (10:26→21:02)
[2019-01-25] MEDS: ACETAMINOPHEN 325 MG TABLET PO PRN (10:29)
[2019-01-25] MEDS: FLUTICASONE PROPION/SALMETEROL 14 PUFF DISK.W.DEV IH SCH (20:59)
[2019-01-25] MEDS: LORATADINE 10 MG TABLET PO SCH (21:01)
[2019-01-25] MEDS: ROSUVASTATIN CALCIUM 10 MG TABLET PO SCH (21:01)
[2019-01-25] MEDS: ALPRAZolam 0.5 MG TABLET PO SCH (21:10)
[2019-01-25] MEDS: VANCOMYCIN HCL 50 MG/ML BTL PO SCH (21:13)
--- NOTE | 2019-01-25 22:52 | PN ---
Subjective - Date and Time Seen Date: 01/25/19 Time: 10:30 Subjective Narrative: Jessa reports tolerating clears for breakfast. Hemoglobin was stable at 8.4 today. She denies nausea or vomiting. She has a good appetite. Objective - Vitals Vitals: Last Vital Signs Temp 36.4 C 01/25/19 18:55 Pulse 81 01/25/19 21:00 Resp 18 01/25/19 19:00 BP 156/71 H 01/25/19 21:00 Pulse Ox 95 01/25/19 18:55 - Abnormal Lab Findings Abnormal Lab Findings: Abnormal Lab Results 01/25/19 01/25/19 01/25/19 Range/Units 06:30 06:30 15:30 RBC 2.88 L (4.2-5.4) M/mm3 Hgb 8.4 L (12.5-16.0) gm/dL Hct 28.3 L (37.0-47.0) % MCHC 29.7 L (32-36) g/dl RDW 17.2 H (11.5-14.0) % Immature Gran % (Auto) 0.60 H (0.001-0.429) % Immature Gran # (Auto) 0.04 H (0.000-0.0310) K/mm3 Monocytes % 13.0 H (0.0-9) % Eosinophils % 3.3 H (0.0-3.0) % Lymphocytes # 1.43 L (1.5-3.5) k/mm3 Plasma Sodium 143 H (130-142) mmol/L Carbon Dioxide 23.9 L (24-32.6) mmol/L Anion Gap 14.6 H (6.8-13.8) mmol/L BUN/Creatinine Ratio 23.5 H (9.0-21.6) Random Glucose 215 H (70-110) mg/dL Albumin 3.2 L (3.4-5.0) gm/dl Stl C.difficile Tox A&B Positive H (Negative) - Exam Constitutional: Present: Alert, Oriented x3, Cooperative Respiratory: Present: lungs clear, normal breath sounds Cardiovascular/Chest: Present: regular rate, rhythm, no murmur Abdomen: Present: Normal bowel sounds, soft, nontender, nondistended Skin Exam: Present: normal color, warm/dry, no cyanosis Assessment/Plan Plan Narrative: Hemoglobin is stable. Advanced to clears today and tolerating well. Will plan to advance to consistent carb tomorrow if continues to do well. Completed rocephin for UTI. - Problems/Diagnosis (1) GI bleeding Problem: Acute Qualifiers: GI bleed type/associated pathology: duodenal ulcer Qualified Code(s): K26.4 - Chronic or unspecified duodenal ulcer with hemorrhage (2) UTI (urinary tract infection) Problem: Acute Qualifiers: Urinary tract infection type: acute cystitis (3) Morbid obesity Problem: Chronic
[2019-01-25] MEDS: SACCHAROMYCES BOULARDII 250 MG CAPSULE PO SCH (23:49)
[2019-01-25] MEDS: PANTOPRAZOLE SODIUM 40 MG in NORMAL SALINE 100 ML IV SCH (23:50)
[2019-01-26] MEDS: ACETAMINOPHEN 325 MG TABLET PO PRN ×2 (05:20→13:38)
[2019-01-26 05:55] LABS: Hematocrit 25.6 % (37.0-47.0); Mean Cell Volume 95.9 fl (78-100); Mean Corpuscular Hemoglobin 29.2 pg (27-31); Mean Corpuscular Hgb Conc 30.5 g/dl (32-36); Mean Platelet Volume 9.8 fl (8-12.5); Neutrophil # 4.1 K/mm3 (1.3-6.0); Neutrophil % 64.3 % (42-75.0); Platelet Count 217 K/mm3 (150-450); Red Blood Count 2.67 M/mm3 (4.2-5.4); Red Cell Distribution Width 16.8 % (11.5-14.0); White Blood Count 6.3 K/mm3 (4.0-10.5)
[2019-01-26 06:05] LABS: Albumin * 3.1 gm/dl (3.4-5.0); Anion Gap 16.3 mmol/L (6.8-13.8); Bilirubin, Total 0.4 mg/dL (0.0-1.1); Ca. Corrected For Albumin 8.5 mg/dL (8.4-10.2); Calcium * 8.1 mg/dL (7.9-10.9); Potassium 3.3 mmol/L (3.4-4.6); Total Protein 6.8 gm/dL (6.2-8.2)
[2019-01-26] MEDS: IPRATROPIUM BROMIDE 0.5 MG/2.5 ML VIAL.NEB IH SCH ×2 (06:33→18:12)
[2019-01-26 07:01] LABS: Hemoglobin 7.8 gm/dL (12.5-16.0)
[2019-01-26] MEDS: SUCRALFATE 1 G TABLET PO SCH ×4 (07:15→21:11)
[2019-01-26] MEDS: ALPRAZolam 0.5 MG TABLET PO PRN (08:52)
[2019-01-26] MEDS: CARVEDILOL 12.5 MG TABLET PO SCH ×2 (08:53→21:11)
[2019-01-26] MEDS: SACCHAROMYCES BOULARDII 250 MG CAPSULE PO SCH ×2 (08:53→21:12)
[2019-01-26] MEDS: DULoxetine HCL 30 MG CAPSULE.SA PO SCH (08:53)
[2019-01-26] MEDS: GABAPENTIN 300 MG CAPSULE PO SCH ×3 (08:53→17:18)
[2019-01-26] MEDS: amLODIPine BESYLATE 5 MG TABLET PO SCH (08:53)
[2019-01-26] MEDS: VANCOMYCIN HCL 50 MG/ML BTL PO SCH ×4 (08:56→21:24)
[2019-01-26] MEDS: FLUTICASONE PROPION/SALMETEROL 14 PUFF DISK.W.DEV IH SCH ×2 (08:58→21:10)
[2019-01-26] MEDS: NYSTATIN 15 APPL BTL TP SCH ×2 (09:09→21:12)
[2019-01-26] MEDS: PANTOPRAZOLE SODIUM 40 MG in NORMAL SALINE 100 ML IV SCH ×2 (11:36→23:48)
--- NOTE | 2019-01-26 20:54 | PN ---
Subjective - Date and Time Seen Date: 01/26/19 Time: 07:45 Subjective Narrative: On service note: Jessa Swann is a 78-year-old female well known to me who was admitted through the emergency room to acute care due to anemia and GI bleeding. She has undergone upper endoscopy which found a bleeding duodenal ulcer. Dr. Dunbar performed a scope and put a clip across the bleeding artery. Her hemoglobin yesterday was 8.4 g and today is 7.8 g. She is stable. She is pale but she is not dyspneic. She is alert and conversational and appropriate. She does not appear to be in any acute distress at this time. She continues to be tender in the midepigastrium and right hypochondrium on palpation. Objective - Review of Systems Generalized/Overall Review: Reports: Weakness, Fatigue EENTM: Reports: No Symptoms Reported Respiratory: Reports: Shortness of Breath Cardiac: Reports: No Symptoms Reported Abdominal: Reports: Hematemesis, Abdominal Pain Genitourinary Symptoms: Reports: No Symptoms Reported Musculoskeletal Complaints: Reports: No Symptoms Reported Neurological: Reports: No Symptoms Reported Skin: Reports: No Symptoms Reported Endocrine: Reports: No Symptoms Reported - Vitals Vitals: Last Vital Signs Temp 36.8 C 01/26/19 19:33 Pulse 75 01/26/19 19:33 Resp 18 01/26/19 19:33 BP 149/65 01/26/19 19:33 Pulse Ox 95 01/26/19 19:33 - Abnormal Lab Findings Abnormal Lab Findings: Abnormal Lab Results 01/26/19 01/26/19 Range/Units 05:45 05:45 RBC 2.67 L (4.2-5.4) M/mm3 Hgb 7.8 L* (12.5-16.0) gm/dL Hct 25.6 L (37.0-47.0) % MCHC 30.5 L (32-36) g/dl RDW 16.8 H (11.5-14.0) % Immature Gran % (Auto) 0.80 H (0.001-0.429) % Immature Gran # (Auto) 0.05 H (0.000-0.0310) K/mm3 Monocytes % 9.5 H (0.0-9) % Eosinophils % 3.3 H (0.0-3.0) % Lymphocytes # 1.39 L (1.5-3.5) k/mm3 Plasma Sodium 143 H (130-142) mmol/L Potassium 3.3 L (3.4-4.6) mmol/L Anion Gap 16.3 H (6.8-13.8) mmol/L Random Glucose 204 H (70-110) mg/dL Albumin 3.1 L (3.4-5.0) gm/dl - EKG/Xray Findings EKG: NSR EKG read: Reviewed by me - Exam Constitutional: Present: Alert, Oriented x3, Cooperative, Well developed, Well nourished, No distress ENT Exam: Present: normal ENT inspection, hearing grossly normal, pharynx normal, TMs normal Neck: Present: non-tender, full range of motion, supple, normal inspection Breasts: Present: Exam deferred Respiratory: Present: chest non-tender, lungs clear, normal breath sounds, no respiratory distress, no accessory muscle use Cardiovascular/Chest: Present: normal peripheral pulses, regular rate, rhythm, no chest tenderness, no edema, no gallop, no JVD, no murmur, no rub Abdomen: Present: Normal bowel sounds, soft, nontender, nondistended, no rebound tenderness, tender - In the midepigastrium and right hypochondrium /Rectal: Present: Exam deferred Extremity: Present: normal range of motion, non-tender, normal inspection, no pedal edema, no calf tenderness, normal capillary refill Skin Exam: Present: pallor Neurologic: Present: 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 Repeat CBC tomorrow morning. If patient becomes symptomatic or hemoglobin drops below 7 g then she will be transfused. 2. Continue current therapy. I'll speak with Dr. Borja tomorrow. - Problems/Diagnosis (1) GI bleeding Problem: Acute Qualifiers: GI bleed type/associated pathology: duodenal ulcer Qualified Code(s): K26.4 - Chronic or unspecified duodenal ulcer with hemorrhage (2) Melena Problem: Acute (3) Hypoxia Problem: Acute (4) Weakness Problem: Acute
[2019-01-26] MEDS: ROSUVASTATIN CALCIUM 10 MG TABLET PO SCH (21:11)
[2019-01-26] MEDS: LORATADINE 10 MG TABLET PO SCH (21:11)
[2019-01-26] MEDS: ALPRAZolam 0.5 MG TABLET PO SCH (21:24)
[2019-01-26] MEDS: ENOXAPARIN SODIUM 40 MG/0.4 ML SYRG SC SCH (21:35)
[2019-01-27] MEDS: ACETAMINOPHEN 325 MG TABLET PO PRN ×2 (01:24→09:13)
[2019-01-27] MEDS: IPRATROPIUM BROMIDE 0.5 MG/2.5 ML VIAL.NEB IH SCH ×2 (06:16→18:07)
[2019-01-27 06:22] LABS: Hematocrit 25.1 % (37.0-47.0); Mean Cell Volume 96.2 fl (78-100); Mean Corpuscular Hemoglobin 29.5 pg (27-31); Mean Corpuscular Hgb Conc 30.7 g/dl (32-36); Mean Platelet Volume 10.4 fl (8-12.5); Neutrophil % 61.8 % (42-75.0); Platelet Count 239 K/mm3 (150-450); Red Blood Count 2.61 M/mm3 (4.2-5.4); Red Cell Distribution Width 16.8 % (11.5-14.0); White Blood Count 6.5 K/mm3 (4.0-10.5)
[2019-01-27 06:34] LABS: Anion Gap 12.5 mmol/L (6.8-13.8); BUN/Creatinine Ratio 9.9 (9.0-21.6); Bilirubin, Total 0.4 mg/dL (0.0-1.1); Ca. Corrected For Albumin 8.2 mg/dL (8.4-10.2); Calcium * 7.7 mg/dL (7.9-10.9); Carbon Dioxide 25.8 mmol/L (24-32.6); Potassium 3.3 mmol/L (3.4-4.6); Total Protein 6.6 gm/dL (6.2-8.2)
[2019-01-27] MEDS: SUCRALFATE 1 G TABLET PO SCH ×4 (07:01→21:05)
[2019-01-27] MEDS: ALPRAZolam 0.5 MG TABLET PO PRN (07:01)
[2019-01-27 07:25] LABS: Hemoglobin 7.7 gm/dL (12.5-16.0)
[2019-01-27] MEDS: CARVEDILOL 12.5 MG TABLET PO SCH ×2 (09:14→21:05)
[2019-01-27] MEDS: SACCHAROMYCES BOULARDII 250 MG CAPSULE PO SCH ×2 (09:14→21:05)
[2019-01-27] MEDS: DULoxetine HCL 30 MG CAPSULE.SA PO SCH (09:15)
[2019-01-27] MEDS: amLODIPine BESYLATE 5 MG TABLET PO SCH (09:15)
[2019-01-27] MEDS: GABAPENTIN 300 MG CAPSULE PO SCH ×3 (09:20→17:23)
[2019-01-27] MEDS: VANCOMYCIN HCL 50 MG/ML BTL PO SCH ×4 (09:25→21:12)
[2019-01-27] MEDS: NYSTATIN 15 APPL BTL TP SCH ×2 (09:28→21:06)
[2019-01-27] MEDS: FLUTICASONE PROPION/SALMETEROL 14 PUFF DISK.W.DEV IH SCH ×2 (09:29→21:04)
[2019-01-27] MEDS: PANTOPRAZOLE SODIUM 40 MG in NORMAL SALINE 100 ML IV SCH (12:10)
--- NOTE | 2019-01-27 17:55 | PN ---
Subjective - Date and Time Seen Date: 01/27/19 Time: 07:30 Subjective Narrative: Jessa Swann has had an uneventful night and is feeling about the same today as she did yesterday. She has no complaints or requests. She is in no distress. She denies any shortness of breath or lightheadedness from her anemia. She still has some dyspepsia and discomfort in the midepigastrium. There's been no more bleeding. She is on Carafate and on pantoprazole IV. Objective - Review of Systems Generalized/Overall Review: Reports: Weakness EENTM: Reports: No Symptoms Reported Respiratory: Reports: No Symptoms Reported Cardiac: Reports: Other Abdominal: Reports: Hematemesis - None since admission, Abdominal Pain - Midepigastrium Genitourinary Symptoms: Reports: No Symptoms Reported Musculoskeletal Complaints: Reports: No Symptoms Reported Neurological: Reports: No Symptoms Reported Skin: Reports: No Symptoms Reported Endocrine: Reports: No Symptoms Reported - Vitals Vitals: Last Vital Signs Temp 36.7 C 01/27/19 14:39 Pulse 72 01/27/19 14:39 Resp 16 01/27/19 14:39 BP 146/72 01/27/19 14:39 Pulse Ox 95 01/27/19 14:39 - Abnormal Lab Findings Abnormal Lab Findings: Abnormal Lab Results 01/27/19 01/27/19 Range/Units 06:18 06:18 RBC 2.61 L (4.2-5.4) M/mm3 Hgb 7.7 L* (12.5-16.0) gm/dL Hct 25.1 L (37.0-47.0) % MCHC 30.7 L (32-36) g/dl RDW 16.8 H (11.5-14.0) % Immature Gran % (Auto) 0.90 H (0.001-0.429) % Immature Gran # (Auto) 0.06 H (0.000-0.0310) K/mm3 Monocytes % 10.5 H (0.0-9) % Eosinophils % 3.4 H (0.0-3.0) % Potassium 3.3 L (3.4-4.6) mmol/L Random Glucose 184 H (70-110) mg/dL Calcium 7.7 L (7.9-10.9) mg/dL Calcium Adj for Albumin 8.2 L (8.4-10.2) mg/dL Albumin 3.0 L (3.4-5.0) gm/dl - EKG/Xray Findings EKG: NSR - Exam Constitutional: Present: Alert, Oriented x3, Cooperative, Well developed, Well nourished, No distress ENT Exam: Present: normal ENT inspection, hearing grossly normal, pharynx normal, TMs normal Neck: Present: non-tender, full range of motion, supple, normal inspection Breasts: Present: Exam deferred Respiratory: Present: chest non-tender, lungs clear, normal breath sounds Cardiovascular/Chest: Present: normal peripheral pulses, regular rate, rhythm, no chest tenderness Abdomen: Present: Normal bowel sounds, soft, nontender, nondistended, tender - Mid epigastrium /Rectal: Present: Exam deferred Extremity: Present: normal range of motion Skin Exam: Present: normal color, warm/dry, no cyanosis - For age Lymphatic: Present: no adenopathy Neurologic: Present: chief minister II-XII nml as tested, normal cerebellar test. Absent: dizzy/light-headedness Appearance: Present: appropriate appearance, appropriate insight, neat Eye contact: Present: cooperative, good eye contact, normal speech Thoughts: Present: normal thought pattern, no apparent hallucination Assessment/Plan Plan Narrative: 1. Anticipate discharge tomorrow. Rohith is agreed to take her back tomorrow morning. 2. Check hemoglobin and hematocrit in the morning. 3. Discharge plan filled out and hopefully will be an asset to Dr. Morgan who will see her tomorrow morning. - Problems/Diagnosis (1) GI bleeding Problem: Resolved Qualifiers: GI bleed type/associated pathology: duodenal ulcer Qualified Code(s): K26.4 - Chronic or unspecified duodenal ulcer with hemorrhage (2) Melena Problem: Resolved (3) Hypoxia Problem: Resolved (4) Weakness Problem: Acute (5) Acute post-hemorrhagic anemia Problem: Acute
[2019-01-27] MEDS: FERROUS SULFATE 325 MG TABLET PO SCH (21:04)
[2019-01-27] MEDS: LORATADINE 10 MG TABLET PO SCH (21:05)
[2019-01-27] MEDS: ROSUVASTATIN CALCIUM 10 MG TABLET PO SCH (21:05)
[2019-01-27] MEDS: ENOXAPARIN SODIUM 40 MG/0.4 ML SYRG SC SCH (21:05)
[2019-01-27] MEDS: ALPRAZolam 0.5 MG TABLET PO SCH (21:07)
[2019-01-28] MEDS: PANTOPRAZOLE SODIUM 40 MG in NORMAL SALINE 100 ML IV SCH ×2 (00:16→11:48)
[2019-01-28 06:12] LABS: Hematocrit 27.3 % (37.0-47.0); Hemoglobin 8.5 gm/dL (12.5-16.0); Mean Cell Volume 94.8 fl (78-100); Mean Corpuscular Hemoglobin 29.5 pg (27-31); Mean Corpuscular Hgb Conc 31.1 g/dl (32-36); Neutrophil % 66.3 % (42-75.0); Platelet Count 264 K/mm3 (150-450); Red Blood Count 2.88 M/mm3 (4.2-5.4); Red Cell Distribution Width 16.4 % (11.5-14.0); White Blood Count 7.5 K/mm3 (4.0-10.5)
[2019-01-28] MEDS: IPRATROPIUM BROMIDE 0.5 MG/2.5 ML VIAL.NEB IH SCH (06:20)
[2019-01-28 06:32] LABS: Albumin * 3.4 gm/dl (3.4-5.0); Anion Gap 15.4 mmol/L (6.8-13.8); BUN/Creatinine Ratio 5.7 (9.0-21.6); Bilirubin, Total 0.4 mg/dL (0.0-1.1); Ca. Corrected For Albumin 8.5 mg/dL (8.4-10.2); Calcium * 8.3 mg/dL (7.9-10.9); Carbon Dioxide 24.7 mmol/L (24-32.6); Potassium 3.1 mmol/L (3.4-4.6); Total Protein 7.4 gm/dL (6.2-8.2)
[2019-01-28] MEDS: SUCRALFATE 1 G TABLET PO SCH ×2 (07:27→10:02)
[2019-01-28] MEDS: SACCHAROMYCES BOULARDII 250 MG CAPSULE PO SCH (09:54)
[2019-01-28] MEDS: amLODIPine BESYLATE 5 MG TABLET PO SCH (09:54)
[2019-01-28] MEDS: FLUTICASONE PROPION/SALMETEROL 14 PUFF DISK.W.DEV IH SCH (09:54)
[2019-01-28] MEDS: DULoxetine HCL 30 MG CAPSULE.SA PO SCH (09:55)
[2019-01-28] MEDS: GABAPENTIN 300 MG CAPSULE PO SCH ×2 (09:55→12:44)
[2019-01-28] MEDS: CARVEDILOL 12.5 MG TABLET PO SCH (09:55)
[2019-01-28] MEDS: VANCOMYCIN HCL 50 MG/ML BTL PO SCH ×2 (09:57→12:46)
[2019-01-28] MEDS: NYSTATIN 15 APPL BTL TP SCH (09:57)
[2019-01-28] MEDS: FERROUS SULFATE 325 MG TABLET PO SCH (09:58)
--- NOTE | 2019-01-28 11:12 | DS ---
Description of Stay: 78-year-old female admitted for GI bleeding with melena was evaluated at bedside and was found to be afebrile and in no acute distress. Patient has not had any recurrence of lower GI bleeding or melena. She tolerated liquid diet without any issues although she complains of not liking the broth that is served to her. Patient underwent a EGD with clipping of a duodenal ulcer that was bleeding without any issues. Her hemoglobin was found to be below her baseline as a result of the bleeding, so oral ferrous sulfate was started. This morning labs demonstrate an improvement in her hemoglobin. Therefore given his clinical presentation decision to discharge patient back to [facility] where her diet will be progressed as taken. Patient will be discharged with a prescription for oral ferrous sulfate to continue taking while she is at the [facility]. The case was discussed with Dr. Garduno who is the attending on this case and in agreement with her discharge. Procedures Performed: see notes below List Procedures: EGD with duodenal ulcer clipping. Results and Findings: Lab Pending Results 01/22/19 23:29: WBC 9.3, RBC 2.76 L, Hgb 8.2 L, Hct 26.3 L, MCV 95.3, MCH 29.7, MCHC 31.2 L, RDW 16.3 H, Plt Count 245, MPV 10.0, Immature Gran % (Auto) 0.90 H, Immature Gran # (Auto) 0.08 H, Neutrophils % 67.8, Lymphocytes % 17.6 L, Monocytes % 10.8 H, Eosinophils % 2.7, Basophils % 0.2, Nucleated RBC % 0.0, Neutrophils # 6.3 H, Lymphocytes # 1.64, Monocytes # 1.0, Eosinophils # 0.3, Absolute Basophils 0.0 01/22/19 23:29: Sodium 134, Plasma Sodium 137, Potassium 4.9 H D, Chloride 102, Carbon Dioxide 24.6, Anion Gap 12.3, BUN 58 H D, Creatinine 1.05, Est GFR (Non- Af Amer) 54 L, BUN/Creatinine Ratio 55.2 H, Random Glucose 286 H, Calcium 8.4, Calcium Adj for Albumin 9.0, Total Bilirubin 0.3, AST 15, ALT 19, Alkaline Phosphatase 86, Troponin I Less than 0.017, B-Natriuretic Peptide 300, Total Protein 6.9, Albumin 2.9 L, Ethyl Alcohol Less than 3.0 01/22/19 23:29: D-Dimer 0.34 D 01/22/19 23:29: PT 12.6 H, INR (Anticoag Therapy) 1.29 H, PTT (Maryjane) 17.2 L 01/22/19 23:29: Lactic Acid, Venous 1.6 01/22/19 23:45: Urine Color Yellow, Urine Appearance Slightly cloudy, Urine pH 5.5, Ur Specific [place] 1.020, Urine Protein Negative, Urine Glucose (UA) Negative, Urine Ketones Negative, Urine Blood Negative, Urine Nitrate Negative, Urine Bilirubin Negative, Urine Urobilinogen Normal, Ur Leukocyte Esterase 75 H, Urine RBC None seen, Urine WBC 10-25 H, Ur Epithelial Cells None seen, Urine Bacteria 1+ H, Urine Culture Comments Culture to follow 01/23/19 00:30: Stool Occult Blood Positive H 01/23/19 01:30: Hgb 7.9 L*, Hct 25.2 L 01/23/19 01:30: Amylase 47 01/23/19 02:06: Blood Type A Positive, Antibody Screen Negative, Crossmatch See Detail 01/23/19 04:30: Hgb 7.8 L*, Hct 24.4 L 01/23/19 15:10: Stool Occult Blood Positive H 01/23/19 17:00: PT 10.5, INR (Anticoag Therapy) 1.06, PTT ([place]) 21.4 L D 01/23/19 17:00: Sodium 140, Plasma Sodium 142, Potassium 4.6, Chloride 105, Carbon Dioxide 21.7 L, Anion Gap 17.9 H, BUN 39 H, Creatinine 0.98, Est GFR (Non-Af Amer) 58 L, BUN/Creatinine Ratio 39.8 H, Random Glucose 219 H, Calcium 8.4, Amylase 66 01/23/19 17:00: WBC 10.2, RBC 3.00 L, Hgb 8.7 L, Hct 28.2 L, MCV 94.0, MCH 29.0, MCHC 30.9 L, RDW 16.9 H, Plt Count 268, MPV 10.3, Immature Gran % (Auto) 0.70 H, Immature Gran # (Auto) 0.07 H, Neutrophils % 73.8, Lymphocytes % 13.4 L, Monocytes % 10.2 H, Eosinophils % 1.7, Basophils % 0.2, Nucleated RBC % 0.0, Neutrophils # 7.6 H, Lymphocytes # 1.37 L, Monocytes # 1.0, Eosinophils # 0.2, Absolute Basophils 0.0 01/23/19 20:02: H. pylori Interpret See note 01/23/19 20:03: Stool Occult Blood Positive H 01/24/19 08:27: WBC 8.3, RBC 2.85 L, Hgb 8.4 L, Hct 27.0 L, MCV 94.7, MCH 29.5, MCHC 31.1 L, RDW 17.1 H, Plt Count 229, MPV 9.6, Immature Gran % (Auto) 0.70 H, Immature Gran # (Auto) 0.06 H, Neutrophils % 72.6, Lymphocytes % 14.5 L, Monocytes % 9.5 H, Eosinophils % 2.5, Basophils % 0.2, Nucleated RBC % 0.0, Neutrophils # 6.0, Lymphocytes # 1.21 L, Monocytes # 0.8, Eosinophils # 0.2, Absolute Basophils 0.0 01/24/19 08:41: Sodium 141, Plasma Sodium 143 H, Potassium 3.9, Chloride 105, Carbon Dioxide 24.4, Anion Gap 15.5 H, BUN 27 H, Creatinine 0.95, Est GFR (Non- Af Amer) 60, BUN/Creatinine Ratio 28.4 H, Random Glucose 229 H, Calcium 8.4, Calcium Adj for Albumin 8.6, Total Bilirubin 0.4, AST 14, ALT 18 L, Alkaline Phosphatase 90, Total Protein 7.1, Albumin 3.3 L 01/25/19 06:30: WBC 6.9, RBC 2.88 L, Hgb 8.4 L, Hct 28.3 L, MCV 98.3, MCH 29.2, MCHC 29.7 L, RDW 17.2 H, Plt Count 226, MPV 10.2, Immature Gran % (Auto) 0.60 H, Immature Gran # (Auto) 0.04 H, Neutrophils % 62.3, Lymphocytes % 20.7, Monocytes % 13.0 H, Eosinophils % 3.3 H, Basophils % 0.1, Nucleated RBC % 0.0, Neutrophils # 4.3, Lymphocytes # 1.43 L, Monocytes # 0.9, Eosinophils # 0.2, Absolute Basophils 0.0 01/25/19 06:30: Sodium 141, Plasma Sodium 143 H, Potassium 3.5, Chloride 106, Carbon Dioxide 23.9 L, Anion Gap 14.6 H, BUN 20, Creatinine 0.85, Est GFR (Non- Af Amer) 69, BUN/Creatinine Ratio 23.5 H, Random Glucose 215 H, Calcium 8.5, Calcium Adj for Albumin 8.8, Total Bilirubin 0.4, AST 22, ALT 19, Alkaline Phosphatase 86, Total Protein 6.9, Albumin 3.2 L 01/25/19 15:30: Stl C.difficile Tox A&B Positive H 01/26/19 05:45: WBC 6.3, RBC 2.67 L, Hgb 7.8 L*, Hct 25.6 L, MCV 95.9, MCH 29.2, MCHC 30.5 L, RDW 16.8 H, Plt Count 217, MPV 9.8, Immature Gran % (Auto) 0.80 H, Immature Gran # (Auto) 0.05 H, Neutrophils % 64.3, Lymphocytes % 21.9, Monocytes % 9.5 H, Eosinophils % 3.3 H, Basophils % 0.2, Nucleated RBC % 0.0, Neutrophils # 4.1, Lymphocytes # 1.39 L, Monocytes # 0.6, Eosinophils # 0.2, Absolute Basophils 0.0 01/26/19 05:45: Sodium 141, Plasma Sodium 143 H, Potassium 3.3 L, Chloride 103, Carbon Dioxide 25.0, Anion Gap 16.3 H, BUN 12, Creatinine 0.86, Est GFR (Non-Af Amer) 68, BUN/Creatinine Ratio 14.0, Random Glucose 204 H, Calcium 8.1, Calcium Adj for Albumin 8.5, Total Bilirubin 0.4, AST 26, ALT 22, Alkaline Phosphatase 84, Total Protein 6.8, Albumin 3.1 L 01/27/19 06:18: WBC 6.5, RBC 2.61 L, Hgb 7.7 L*, Hct 25.1 L, MCV 96.2, MCH 29.5, MCHC 30.7 L, RDW 16.8 H, Plt Count 239, MPV 10.4, Immature Gran % (Auto) 0.90 H, Immature Gran # (Auto) 0.06 H, Neutrophils % 61.8, Lymphocytes % 23.2, Monocytes % 10.5 H, Eosinophils % 3.4 H, Basophils % 0.2, Nucleated RBC % 0.0, Neutrophils # 4.0, Lymphocytes # 1.50, Monocytes # 0.7, Eosinophils # 0.2, Absolute Basophils 0.0 01/27/19 06:18: Sodium 141, Plasma Sodium 142, Potassium 3.3 L, Chloride 106, Carbon Dioxide 25.8, Anion Gap 12.5, BUN 8, Creatinine 0.81, Est GFR (Non-Af Yolanda r) 73, BUN/Creatinine Ratio 9.9, Random Glucose 184 H, Calcium 7.7 L, Calcium Adj for Albumin 8.2 L, Total Bilirubin 0.4, AST 23, ALT 21, Alkaline Phosphatase 84, Total Protein 6.6, Albumin 3.0 L 01/28/19 05:30: Sodium 141, Plasma Sodium 142, Potassium 3.1 L, Chloride 104, Carbon Dioxide 24.7, Anion Gap 15.4 H, BUN 5, Creatinine 0.88, Est GFR (Non-Af Amer) 66, BUN/Creatinine Ratio 5.7 L, Random Glucose 179 H, Calcium 8.3, Calcium Adj for Albumin 8.5, Total Bilirubin 0.4, AST 17, ALT 21, Alkaline Phosphatase 94, Total Protein 7.4, Albumin 3.4 01/28/19 06:00: WBC 7.5, RBC 2.88 L, Hgb 8.5 L, Hct 27.3 L, MCV 94.8, MCH 29.5, MCHC 31.1 L, RDW 16.4 H, Plt Count 264, MPV 10.0, Immature Gran % (Auto) 1.20 H, Immature Gran # (Auto) 0.09 H, Neutrophils % 66.3, Lymphocytes % 20.3, Monocytes % 9.7 H, Eosinophils % 2.4, Basophils % 0.1, Nucleated RBC % 0.0, Neutrophils # 5.0, Lymphocytes # 1.53, Monocytes # 0.7, Eosinophils # 0.2, Absolute Basophils 0.0 Discharge Location: [facility] Disposition: [facility] Condition: Fair Face to Face Encounter completed per CMS Guidelines: No Level of Care: SNF Discharge Activity: Activity as tolerated Discharge Diet: Full Liquids Referrals: Jere Garduno DO [Primary Care Provider] - Prescriptions (Any new or edited meds): Sucralfate [Carafate] 1 gm PO ACHS #14 oral.susp Ferrous Sulfate [Iron] 325 mg PO TID 30 Days #90 tab Famotidine [Pepcid] 20 mg PO BID #90 tab Complete Home Medications List: Complete Home Medication List: aspirin 81 mg tablet,delayed release 81 mg PO DAILY 04/08/18 atorvastatin 20 mg tablet 20 mg PO HS 04/08/18 carvedilol 12.5 mg tablet 12.5 mg PO BID #60 tab 04/18/18 gabapentin 300 mg capsule 300 mg PO TID #90 cap 04/18/18 Albuterol Sulfate [Ventolin Hfa] 1 - 2 puff INHALATION Q4H PRN 05/08/18 Sennosides/Docusate Sodium [Docusate Sodium-Sennosides Tab] 1 ea PO DAILY PRN 05/08/18 guaiFENesin [Mucinex] 1,200 mg PO BID 05/08/18 l [place]/B Bifidum/B Longum [Valdov[facility] Capsule] 1 ea PO DAILY 05/08/18 insulin detemir (U-100) 100 unit/mL subcutaneous solution 34 unit SUB-Q HS ml 06/22/18 Acetaminophen 650 mg PO QDIPM PRN 12/17/18 Calcium Carbonate [Tums] 2 tab PO QID PRN 12/17/18 Cetirizine HCl 10 mg PO HS 12/17/18 Cod Liver Oil/Zinc Oxide [Desitin] 1 appl TOPICAL 10XD PRN 12/17/18 Duloxetine HCl [Cymbalta] 60 mg PO QAM 12/17/18 Fluticasone/Vilanterol [Breo Ellipta 100-25 Mcg INH] 1 inh INH DAILY 12/17/18 Insulin Aspart [Novolog] 10 units SQ TID 12/17/18 Menthol [Biofreeze] 1 appl TOPICAL QID PRN 12/17/18 HYDROcodone/ACETAMINOPHEN [[place] 5-325] 1 ea PO Q6H PRN #30 tab 12/19/18 Mag Carb/Aluminum Hydrox/Algin [Gaviscon Liquid] 30 ml PO QID PRN #1 btl 12/19/18 alprazolam 0.5 mg tablet 0.5 mg PO HS #30 tab 01/03/19 Ipratropium [place] 0.2 mg INHALATION BID 01/23/19 Sodium Chloride For Inhalation [Hyper-Ed] 4 ml INHALATION BID 01/23/19 amLODIPine BESYLATE [Norvasc] 2.5 mg PO DAILY 01/23/19 Famotidine [Pepcid] 20 mg PO BID #90 tab 01/27/19 Nystatin [Mycostatin Powder] 1 appl TOPICAL BID btl 01/27/19 Sucralfate [Carafate] 1 gm PO ACHS #14 oral.susp 01/27/19 Ferrous Sulfate 325 mg PO DAILY tab 01/28/19 Ferrous Sulfate [Iron] 325 mg PO TID 30 Days #90 tab 01/28/19 Amb Orders for Discharge: CBC Time Frame: 1 Week, Location: Laboratory
[2019-01-28 16:31] VITALS: BP 144/76
== END 2019-01-28 16:15 | DRG 378 ==
LOC: ER 22:45 → MS 01-23 07:04 → INTOOBSV 01-23 07:04 → MS 01-23 07:20
PROVIDERS: ADMIT Family Medicine; ATTEND Family Medicine
DX: N30.00 Acute cystitis without hematuria; I48.2 Chronic atrial fibrillation; K26.0 Acute duodenal ulcer with hemorrhage; D62 Acute posthemorrhagic anemia; R53.1 Weakness; R09.02 Hypoxemia; I48.91 Unspecified atrial fibrillation; E11.9 Type 2 diabetes mellitus without complications; E66.01 Morbid (severe) obesity due to excess calories; R19.5 Other fecal abnormalities; Z68.43 Body mass index [BMI] 50.0-59.9, adult
CPT/HCPCS: 36415; 36430; 71010; 71045; 74177; 80048; 80053; 80320; 81001; 82150; 82272; 83519; 83605; 83880; 84484; 85014; 85018; 85025; 85379; 85610; 85730; 86850; 87081; 87086; 87338; 87493; 93005; 94640; 94664; 96360; 99285; G0378; G0481; P9016; Q9967

== ENCOUNTER 2019-02-09 10:50 | Observation (INO) ==
--- NOTE | 2019-02-09 11:32 | ERNOTE ---
Abdominal HPI - Narrative Date of Service: 02/09/19 - General Chief Complaint: Abdominal Pain Time Seen by Provider: 02/09/19 11:35 Source: patient, family - Immun/Allergies/Home Medications Immunizatons: IMMUNIZATION HX Immunizations Up to Date Yes History of Influenza Vaccine Yes Hx Pneumococcal Vaccination Yes Allergies/Adverse Reactions: Allergies morphine Allergy (Mild, Verified 02/09/19 16:32) Hives ondansetron Allergy (Mild, Verified 02/09/19 16:32) Hives red dye Allergy (Mild, Verified 02/09/19 16:32) Hives ciprofloxacin [From Cipro] Adverse Reaction (Mild, Verified 02/09/19 16:32) Hives codeine Adverse Reaction (Mild, Verified 02/09/19 16:32) anxious haloperidol [From Haldol] Adverse Reaction (Mild, Verified 02/09/19 16:32) Other increased confusion lorazepam [From Ativan] Adverse Reaction (Mild, Verified 02/09/19 16:32) Other increased confusion nitrofurantoin [From Macrobid] Adverse Reaction (Mild, Verified 02/09/19 16:32) Hives Sulfa (Sulfonamide Antibiotics) [Sulfa(Sulfonamide Antibiotics)] Adverse Reaction (Mild, Verified 02/09/19 16:32) Hives Home Medications: HOME MEDICATIONS aspirin 81 mg tablet,delayed release 81 mg PO DAILY 04/08/18 [Last Taken Unknown] atorvastatin 20 mg tablet 20 mg PO HS 04/08/18 [Last Taken Unknown] carvedilol 12.5 mg tablet 12.5 mg PO BID #60 tab 04/18/18 [Last Taken Unknown] gabapentin 300 mg capsule 300 mg PO TID #90 cap 04/18/18 [Last Taken Unknown] Albuterol Sulfate [Ventolin Hfa] 1 - 2 puff INHALATION Q4H PRN 05/08/18 [Last Taken Unknown] Sennosides/Docusate Sodium [Docusate Sodium-Sennosides Tab] 1 ea PO DAILY PRN 05/08/18 [Last Taken Unknown] guaiFENesin [Mucinex] 1,200 mg PO BID 05/08/18 [Last Taken Unknown] l Gasseri/B Bifidum/B Longum [[facility] Capsule] 1 ea PO DAILY 05/08/18 [Last Taken Unknown] insulin detemir (U-100) 100 unit/mL subcutaneous solution 34 unit SUB-Q HS ml 06/22/18 [Last Taken Unknown] Acetaminophen 650 mg PO QDIPM PRN 12/17/18 [Last Taken Unknown] Calcium Carbonate [Tums] 2 tab PO QID PRN 12/17/18 [Last Taken Unknown] Cetirizine HCl 10 mg PO HS 12/17/18 [Last Taken Unknown] Cod Liver Oil/Zinc Oxide [Desitin] 1 appl TOPICAL 10XD PRN 12/17/18 [Last Taken Unknown] Duloxetine HCl [Cymbalta] 60 mg PO QAM 12/17/18 [Last Taken Unknown] Fluticasone/Vilanterol [Breo Ellipta 100-25 Mcg INH] 1 inh INH DAILY 12/17/18 [Last Taken Unknown] Insulin Aspart [Novolog] 10 units SQ TID 12/17/18 [Last Taken Unknown] Menthol [Biofreeze] 1 appl TOPICAL QID PRN 12/17/18 [Last Taken Unknown] HYDROcodone/ACETAMINOPHEN [[place] 5-325] 1 ea PO Q6H PRN #30 tab 12/19/18 [Last Taken Unknown] Mag Carb/Aluminum Hydrox/Algin [Gaviscon Liquid] 30 ml PO QID PRN #1 btl 12/19/18 [Last Taken Unknown] alprazolam 0.5 mg tablet 0.5 mg PO HS #30 tab 01/03/19 [Last Taken Unknown] Ipratropium [place] 0.2 mg INHALATION BID 01/23/19 [Last Taken Unknown] Sodium Chloride For Inhalation [Hyper-Ed] 4 ml INHALATION BID 01/23/19 [Last Taken Unknown] amLODIPine BESYLATE [Norvasc] 2.5 mg PO DAILY 01/23/19 [Last Taken Unknown] Famotidine [Pepcid] 20 mg PO BID #90 tab 01/27/19 [Last Taken Unknown] Nystatin [Mycostatin Powder] 1 appl TOPICAL BID btl 01/27/19 [Last Taken Unknown] Sucralfate [Carafate] 1 gm PO ACHS #14 oral.susp 01/27/19 [Last Taken Unknown] Ferrous Sulfate 325 mg PO DAILY tab 01/28/19 [Last Taken Unknown] Ferrous Sulfate [Iron] 325 mg PO TID 30 Days #90 tab 01/28/19 [Last Taken Unknown] Potassium Chloride [K-Dur] 20 meq PO DAILY #30 tab 01/28/19 [Last Taken Unknown] - History of Present Illness Narrative: Patient is a 78-year-old lady who lives in the local long term who was brought into the emergency room because of symptomatic anemia. Patient has been increasingly dizzy and presyncopal for the past day or 2. She was brought here by her daughter who reports she looks pale. She feels that her hemoglobin may have dropped. She recently tested positive for Hemoccult blood in the stool. Patient was seen 2 weeks ago at the ER complaining of symptomatic anemia. Patient recently underwent a gastric clipping of bleeding ulcers [address] Dunbar. He denies any chest pain, syncopal episode. Associated Symptoms: Present: fatigue, weakness. Absent: headache, back pain, chest pain, neck pain, diaphoresis, diarrhea-gross blood, diarrhea-mucous, fever/chills, heartburn, nausea, vomiting, loss of appetite, shortness of breath, swelling/mass in abdomen, syncope Prior Treatment: Present: recently seen, treated by physician, recently hospitalized Review of Systems - Review of Systems Constitutional: Present: weakness, fatigue. Absent: recent illness, fever, chills, diaphoresis, malaise, weight loss, fussy, decreased activity level Respiratory: Present: See HPI Cardiology: Present: See HPI Gastrointestinal/Abdominal: Present: abdominal pain. Absent: nausea, vomiting, diarrhea, constipation, eating less, drinking less Genitourinary: Present: See HPI Musculoskeletal: Present: See HPI Skin: Present: See HPI Neurological: Present: See HPI Endocrine: Present: See HPI Hematologic/Lymphatic: Present: See HPI Psych: Present: See HPI Medical History (Updated 02/09/19 @ 19:26 by Jere Garduno DO) Atrial fibrillation (Chronic) Diarrhea (Chronic) Aortic aneurysm Walker as ambulation aid bradioprexopathy Bilateral lower extremity edema Depression Onset Date: ~06/29/14 Diabetes mellitus, type II Difficulty in walking Onset Date: ~05/29/14 Dry skin Hammer toes, bilateral Macular degeneration of both eyes Obstructive lung disease Onset Date: ~11/10/17 Onychomycosis Thinning of skin Toe pain, bilateral Hand pain, left Onset Date: ~04/2013 metacarpal fracture Hx of colonic polyps Onset Date: ~06/30/10 Infection of kidney Sepsis Splenic artery aneurysm Onset Date: ~2008 patient states this was reviewed by her previous pcp dr suarez and was told it was small and did not need any further testing at that time. Surgical History: Surgical History (Updated 02/09/19 @ 09:54 by Fallon Gordon RN) History of esophagogastroduodenoscopy (EGD) Onset Date: 01/23/19 01/23/19 Jonh-w/clipping of bleeding ulcer. H/O colonoscopy Onset Date: 06/30/10 06/30/10 Tinguely-tubular adenoma x2, scattered diverticular disease. Incomplete prep. Recheck 6mo. H/O cystoscopy Onset Date: 09/20/17 stent removal H/O lithotripsy Onset Date: Unknown History of appendectomy Onset Date: Unknown History of arthroscopic knee surgery Onset Date: Unknown History of bronchoscopy Onset Date: 01/17/18 History of cholecystectomy Onset Date: Unknown History of laryngoscopy Onset Date: 01/15/18 using laser, flexible fiberoptic. [facility] Dr David Patel Hx of cardiac cath Onset Date: Unknown S/P ureteral stent placement Onset Date: Unknown Dr. Meraz insertion of subclavian catheter Onset Date: 09/19/17 Tommeraasen-left Family History: Family History (Last Reviewed 02/03/19 @ 15:25 by Alexus Tamayo LPN) Father , MVA age 80 No problems noted. Mother , old age- age 89 No problems noted. Social History: Preferred Language Armenian Smoking Status Never smoker Abuse History No History of abuse Psych History No pertinent hx Alcohol Use none (Last Reviewed 02/03/19 @ 15:25 by Alexus Tamayo LPN) No Social History Section defined Physical Exam - Physical Exam General Appearance: Present: wd/wn, alert, no apparent distress Head Exam: Present: normal inspection, no evidence of injury Eye Exam: Normal inspection: bilateral, PERRL: bilateral, EOMI: bilateral Neck: Present: normal inspection, nontender, supple Respiratory: Present: no respiratory distress, normal breath sounds Cardiovascular/Chest: Present: regular rate, rhythm, no murmur, normal peripheral pulses Gastrointestinal/Abdominal: Present: nondistended, soft, tenderness, other - Appears to demonstrate some generalized tenderness Extremity Exam: Present: normal inspection, normal except - Neurological Exam: Present: alert, oriented, normal mood/affect Skin Exam: Present: pallor Lymphatic Exam: Present: no adenopathy Progress - Results and Orders Patient's Lab Results:: I have reviewed the patient's lab results. - Vital Signs Patient's Vital Signs:: I have reviewed the patient's vital signs. Vital Signs: Vital Signs 02/09/19 11:04 Temperature 36.7 C Pulse Rate 78 Respiratory Rate 16 Blood Pressure 119/65 O2 Sat by Pulse Oximetry 95 - CT/Ultrasound CT/Ultrasound Narrative: Exam Date: 02/09/2019 11:41 Ordering Physician: Sherly Espana MD Indication: Abdominal pain for 2 days. Low hemoglobin Technique: After the administration of enteric contrast material, early post IV contrast imaging through the abdomen, and delayed post contrast imaging through the abdomen and pelvis. Coronal reformatted images were performed. Individualized dose optimization technique was used for the performed procedure including automated exposure control, adjustment of the mA and/or kV according to patient size and/or the iterative reconstruction technique. Comparison: Previous CT scan dated January 23, 2019 Findings: Exam is limited by patient body habitus causing significant enynzp-ca-kebaq ratio. There is also extensive artifact from the patient's abdominal wall touching the CT gantry. Abdomen: The lung bases show chronic scarring but otherwise are clear. The liver is diffusely enlarged and fatty infiltrated but is without mass or ductal dilation. The gallbladder is surgically absent. The spleen, pancreas and adrenal glands are normal. The kidneys demonstrate normal contrast-enhancement and excretion and are without solid mass, nephrolithiasis or hydronephrosis. The stomach and small bowel loops are well-opacified and normal. No mesenteric or retroperitoneal lymphadenopathy. The appendix is surgically absent. Pelvis: The bladder is well distended and normal. No free pelvic fluid. No inguinal or pelvic lymphadenopathy. There is diffuse atherosclerosis of the abdominal aorta and major branches. No aneurysmal dilation. There is extensive degenerative change of the spine, SI joints and bilateral hips. IMPRESSION: 1. NO ACUTE INTRA-ABDOMINAL OR PELVIC PROCESS. 2. POSTSURGICAL CHANGES DESCRIBED ABOVE. 3. STABLE FATTY HEPATOMEGALY. 4. ADDITIONAL COMMENTS AND DETAILS ABOVE. - Progress/Reassessment Chief Complaint: Abdominal Pain Progress Note-Subjective: 02/09/19 14:15 Patient presents to the emergency room with shortness of breath and presyncopal episode. She has a history of GI bleeding and tested positive fecal occult blood 2 days ago. Vitals are stable upon arrival to the emergency room. On exam she does look pale with a tender generalized abdominal pain. Blood work done is consistent with a hemoglobin of 8.0. CT scan done did not show any acute pathology. Given her history of diabetes and coronary artery disease as attested by her daughter I do think type crossing and transfusing her her may be best. Notify her primary care physician and plan for admission Departure Clinical Impression: Symptomatic anemia - Departure Disposition: Still a patient Condition: Stable
[2019-02-09 11:35] LABS: Hematocrit 27.5 % (37.0-47.0); Mean Cell Volume 96.8 fl (78-100); Mean Corpuscular Hemoglobin 28.2 pg (27-31); Mean Corpuscular Hgb Conc 29.1 g/dl (32-36); Mean Platelet Volume 9.9 fl (8-12.5); Neutrophil # 5.1 K/mm3 (1.3-6.0); Neutrophil % 66.9 % (42-75.0); Platelet Count 207 K/mm3 (150-450); Red Blood Count 2.84 M/mm3 (4.2-5.4); Red Cell Distribution Width 15.9 % (11.5-14.0); White Blood Count 7.6 K/mm3 (4.0-10.5)
[2019-02-09 11:47] LABS: Albumin * 3.4 gm/dl (3.4-5.0); Anion Gap 13.8 mmol/L (6.8-13.8); BUN/Creatinine Ratio 14.7 (9.0-21.6); Bilirubin, Total 0.4 mg/dL (0.0-1.1); Ca. Corrected For Albumin 8.9 mg/dL (8.4-10.2); Calcium * 8.7 mg/dL (7.9-10.9); Carbon Dioxide 28.9 mmol/L (24-32.6); Potassium 4.7 mmol/L (3.4-4.6); Total Protein 7.6 gm/dL (6.2-8.2)
[2019-02-09] MEDS ORDERED: DIATRIZOATE MEGLUMINE, SODIUM 30 ML BTL ONE (12:07)
--- NOTE | 2019-02-09 19:26 | HP ---
Chief Complaint - Chief Complaint Date of Service: 02/09/19 Time of Service: 15:00 Chief Complaint: gi bleed, anemia, dyspnea, lightheadedness History of Present Illness: Jessa Swann is a 78-year-old female resident at the [facility]. She had had a GI bleed about 2 weeks ago and was admitted. She was taken to endoscopy by Dr. Borja and she had a bleeding duodenal ulcer. She put clips across the bleeders. She went back to the senior care and her hemoglobin improved from 7.6-8.5 g. She started having some black stools with a little reddish tent day before yesterday and I ordered a CBC. The hemoglobin dropped back to 7.6 g but she was still asymptomatic with it. Today she became lightheaded, dyspneic, weak, and less alert. I instructed her to be transported to the hospital where she was evaluated. Her hemoglobin was 8 g here but with her symptoms she was transfused 1 unit of red cells and ER and admitted to general medical floor. She will get 1 more unit of packed red blood cells. CONTACT Dr. Borja to consult about her upper GI bleeding. Medical History (Updated 02/09/19 @ 16:31 by Caroline Borja RN) Atrial fibrillation (Chronic) Diarrhea (Chronic) Aortic aneurysm Walker as ambulation aid bradioprexopathy Bilateral lower extremity edema Depression Onset Date: ~06/29/14 Diabetes mellitus, type II Difficulty in walking Onset Date: ~05/29/14 Dry skin Hammer toes, bilateral Macular degeneration of both eyes Obstructive lung disease Onset Date: ~11/10/17 Onychomycosis Thinning of skin Toe pain, bilateral Hand pain, left Onset Date: ~04/2013 metacarpal fracture Hx of colonic polyps Onset Date: ~06/30/10 Infection of kidney Sepsis Splenic artery aneurysm Onset Date: ~2008 patient states this was reviewed by her previous pcp dr suarze and was told it was small and did not need any further testing at that time. Surgical History: Surgical History (Updated 02/09/19 @ 09:54 by Fallon Gordon RN) History of esophagogastroduodenoscopy (EGD) Onset Date: 01/23/19 01/23/19 Jonh-w/clipping of bleeding ulcer. H/O colonoscopy Onset Date: 06/30/10 06/30/10 Tinguely-tubular adenoma x2, scattered diverticular disease. Incomplete prep. Recheck 6mo. H/O cystoscopy Onset Date: 09/20/17 stent removal H/O lithotripsy Onset Date: Unknown History of appendectomy Onset Date: Unknown History of arthroscopic knee surgery Onset Date: Unknown History of bronchoscopy Onset Date: 01/17/18 History of cholecystectomy Onset Date: Unknown History of laryngoscopy Onset Date: 01/15/18 using laser, flexible fiberoptic. [facility] Dr David Patel Hx of cardiac cath Onset Date: Unknown S/P ureteral stent placement Onset Date: Unknown Dr. Meraz insertion of subclavian catheter Onset Date: 09/19/17 Tommeraasen-left Family History: Family History (Last Reviewed 02/03/19 @ 15:25 by Alexus Tamayo LPN) Father , MVA age 80 No problems noted. Mother , old age- age 89 No problems noted. Social History: Patient Lives/Resources [facility] Utilized Occupation retired Preferred Language Persian Do you have any gnosticism or Yes: Muslim cultural preference? Smoking Status Never smoker Have you smoked in the past 12 No months Abuse History No History of abuse Psych History No pertinent hx Alcohol Use none (Last Reviewed 02/03/19 @ 15:25 by Alexus Tamayo LPN) No Social History Section defined Review Of Systems (GEN) - Review of Systems Generalized/Overall Review: Present: Weakness, Malaise, Fatigue EENTM: Present: No Symptoms Reported Respiratory: Present: Shortness of Breath Cardiac: Present: Palpitations, Other - Lightheadedness Abdominal: Present: Abdominal Pain, Diarrhea - Has a recent history of Clostridium difficile which has been treated with vancomycin by mouth. She still having loose stools that are greenish in color and malodorous., Melena Genitourinary: Present: No Symptoms Reported Musculoskeletal: Present: No Symptoms Reported Neurological: Present: No Symptoms Reported Skin: Present: Change in Color Endocrine: Present: No Symptoms Reported Misc: All systems neg except as marked Immunizations: IMMUNIZATION HX Immunizations Up to Date Yes History of Influenza Vaccine Yes Hx Pneumococcal Vaccination Yes Allergies/Adverse Reactions: Allergies Allergy/AdvReac Type Severity Reaction Status Date / Time morphine Allergy Mild Hives Verified 02/09/19 16:32 ondansetron Allergy Mild Hives Verified 02/09/19 16:32 red dye Allergy Mild Hives Verified 02/09/19 16:32 ciprofloxacin [From Cipro] AdvReac Mild Hives Verified 02/09/19 16:32 codeine AdvReac Mild anxious Verified 02/09/19 16:32 haloperidol [From Haldol] AdvReac Mild Other Verified 02/09/19 16:32 lorazepam [From Ativan] AdvReac Mild Other Verified 02/09/19 16:32 nitrofurantoin AdvReac Mild Hives Verified 02/09/19 16:32 [From Macrobid] Sulfa (Sulfonamide AdvReac Mild Hives Verified 02/09/19 16:32 Antibiotics) [Sulfa(Sulfonamide Antibiotics)] Home Medications: HOME MEDICATIONS aspirin 81 mg tablet,delayed release 81 mg PO DAILY 04/08/18 [Last Taken Unknown] atorvastatin 20 mg tablet 20 mg PO HS 04/08/18 [Last Taken Unknown] carvedilol 12.5 mg tablet 12.5 mg PO BID #60 tab 04/18/18 [Last Taken Unknown] gabapentin 300 mg capsule 300 mg PO TID #90 cap 04/18/18 [Last Taken Unknown] Albuterol Sulfate [Ventolin Hfa] 1 - 2 puff INHALATION Q4H PRN 05/08/18 [Last Taken Unknown] Sennosides/Docusate Sodium [Docusate Sodium-Sennosides Tab] 1 ea PO DAILY PRN 05/08/18 [Last Taken Unknown] guaiFENesin [Mucinex] 1,200 mg PO BID 05/08/18 [Last Taken Unknown] l Gasseri/B Bifidum/B Longum [Valdovinos [facility] Capsule] 1 ea PO DAILY 05/08/18 [Last Taken Unknown] insulin detemir (U-100) 100 unit/mL subcutaneous solution 34 unit SUB-Q HS ml 06/22/18 [Last Taken Unknown] Acetaminophen 650 mg PO QDIPM PRN 12/17/18 [Last Taken Unknown] Calcium Carbonate [Tums] 2 tab PO QID PRN 12/17/18 [Last Taken Unknown] Cetirizine HCl 10 mg PO HS 12/17/18 [Last Taken Unknown] Cod Liver Oil/Zinc Oxide [Desitin] 1 appl TOPICAL 10XD PRN 12/17/18 [Last Taken Unknown] Duloxetine HCl [Cymbalta] 60 mg PO QAM 12/17/18 [Last Taken Unknown] Fluticasone/Vilanterol [Breo Ellipta 100-25 Mcg INH] 1 inh INH DAILY 12/17/18 [Last Taken Unknown] Insulin Aspart [Novolog] 10 units SQ TID 12/17/18 [Last Taken Unknown] Menthol [Biofreeze] 1 appl TOPICAL QID PRN 12/17/18 [Last Taken Unknown] HYDROcodone/ACETAMINOPHEN [Mobile 5-325] 1 ea PO Q6H PRN #30 tab 12/19/18 [Last Taken Unknown] Mag Carb/Aluminum Hydrox/Algin [Gaviscon Liquid] 30 ml PO QID PRN #1 btl 12/19/18 [Last Taken Unknown] alprazolam 0.5 mg tablet 0.5 mg PO HS #30 tab 01/03/19 [Last Taken Unknown] Ipratropium [place] 0.2 mg INHALATION BID 01/23/19 [Last Taken Unknown] Sodium Chloride For Inhalation [Hyper-Ed] 4 ml INHALATION BID 01/23/19 [Last Taken Unknown] amLODIPine BESYLATE [Norvasc] 2.5 mg PO DAILY 01/23/19 [Last Taken Unknown] Famotidine [Pepcid] 20 mg PO BID #90 tab 01/27/19 [Last Taken Unknown] Nystatin [Mycostatin Powder] 1 appl TOPICAL BID btl 01/27/19 [Last Taken Unkno wn] Sucralfate [Carafate] 1 gm PO ACHS #14 oral.susp 01/27/19 [Last Taken Unknown] Ferrous Sulfate 325 mg PO DAILY tab 01/28/19 [Last Taken Unknown] Ferrous Sulfate [Iron] 325 mg PO TID 30 Days #90 tab 01/28/19 [Last Taken Unknown] Potassium Chloride [K-Dur] 20 meq PO DAILY #30 tab 01/28/19 [Last Taken Unknown] Exam - Exam Vital Signs: Vital Signs - Last Taken Temp 36.4 C 02/09/19 18:58 Pulse 90 02/09/19 18:58 Resp 16 02/09/19 18:58 BP 153/70 H 02/09/19 18:58 Pulse Ox 94 02/09/19 18:58 Constitutional: Present: Alert, Oriented x3, Cooperative, Well developed, Well nourished, No distress ENT Exam: Present: normal ENT inspection Eye Exam: bilateral eye: normal inspection, PERRL, EOMI Neck: Present: non-tender, full range of motion Back Exam: Present: normal inspection, no CVA tenderness Breasts: Present: Exam deferred Respiratory: Present: chest non-tender Cardiovascular/Chest: Present: normal peripheral pulses, regular rate, rhythm, no chest tenderness Peripheral Pulses: carotid (R): 2+, carotid (L): 2+, radial (R): 2+, radial (L): 2+ Abdomen: Present: Normal bowel sounds, soft, nondistended, no rebound tenderness, no hepatospenomegaly, no masses, tender /Rectal: Present: Exam deferred, External genitalia normal Extremity: Present: normal range of motion, non-tender, normal inspection, no pedal edema, no calf tenderness, normal capillary refill Skin Exam: Present: normal color Neurologic: Present: plant puller II-XII nml as tested, alert, normal mood/affect Appearance: Present: appropriate appearance, appropriate insight, neat Eye contact: Present: cooperative, good eye contact, normal speech Thoughts: Present: normal thought pattern, no apparent hallucination Diagnostic Studies: Abnormal Lab Results 02/09/19 02/09/19 02/09/19 Range/Units 11:26 11:26 11:26 RBC 2.84 L (4.2-5.4) M/mm3 Hgb 8.0 L (12.5-16.0) gm/dL Hct 27.5 L (37.0-47.0) % MCHC 29.1 L (32-36) g/dl RDW 15.9 H (11.5-14.0) % Immature Gran % (Auto) 1.00 H (0.001-0.429) % Immature Gran # (Auto) 0.08 H (0.000-0.0310) K/mm3 Lymphocytes % 15.4 L (20-51) % Monocytes % 12.2 H (0.0-9) % Eosinophils % 4.2 H (0.0-3.0) % Lymphocytes # 1.18 L (1.5-3.5) k/mm3 Potassium 4.7 H D (3.4-4.6) mmol/L Est GFR (Non-Af Amer) 52 L D (60-130) mL/min Random Glucose 201 H (70-110) mg/dL Crossmatch See Detail Laboratory Results WBC 7.6 K/mm3 (4.0-10.5) 02/09/19 11:26 RBC 2.84 M/mm3 (4.2-5.4) L 02/09/19 11:26 Hgb 8.0 gm/dL (12.5-16.0) L 02/09/19 11:26 Hct 27.5 % (37.0-47.0) L 02/09/19 11:26 MCV 96.8 fl (78-100) 02/09/19 11:26 MCH 28.2 pg (27-31) 02/09/19 11:26 MCHC 29.1 g/dl (32-36) L 02/09/19 11:26 RDW 15.9 % (11.5-14.0) H 02/09/19 11:26 Plt Count 207 K/mm3 (150-450) 02/09/19 11:26 MPV 9.9 fl (8-12.5) 02/09/19 11:26 Immature Gran % (Auto) 1.00 % (0.001-0.429) H 02/09/19 11:26 Immature Gran # (Auto) 0.08 K/mm3 (0.000-0.0310) H 02/09/19 11:26 66.9 % (42-75.0) 02/09/19 11:26 15.4 % (20-51) L 02/09/19 11:26 12.2 % (0.0-9) H 02/09/19 11:26 4.2 % (0.0-3.0) H 02/09/19 11:26 0.3 % (0.0-1.0) 02/09/19 11:26 Nucleated RBC % 0.0 k/mm3 (0-1) 02/09/19 11:26 5.1 K/mm3 (1.3-6.0) 02/09/19 11:26 1.18 k/mm3 (1.5-3.5) L 02/09/19 11:26 0.9 k/mm3 (0.0-1.0) 02/09/19 11:26 0.3 k/mm3 (0.0-0.7) 02/09/19 11:26 Absolute Basophils 0.0 k/mm3 (0.0-0.1) 02/09/19 11:26 Sodium 139 mmol/L (132-142) 02/09/19 11:26 141 mmol/L (130-142) 02/09/19 11:26 Potassium 4.7 mmol/L (3.4-4.6) H D 02/09/19 11:26 Chloride 101 mmol/L (97-106) 02/09/19 11:26 Carbon Dioxide 28.9 mmol/L (24-32.6) 02/09/19 11:26 13.8 mmol/L (6.8-13.8) 02/09/19 11:26 BUN 16 mg/dL (3-23) D 02/09/19 11:26 1.09 mg/dL (0.4-1.4) 02/09/19 11:26 Est GFR (Non-Af Amer) 52 mL/min (60-130) L D 02/09/19 11:26 14.7 (9.0-21.6) 02/09/19 11:26 201 mg/dL (70-110) H 02/09/19 11:26 Calcium 8.7 mg/dL (7.9-10.9) 02/09/19 11:26 Calcium Adj for Albumin 8.9 mg/dL (8.4-10.2) 02/09/19 11:26 0.4 mg/dL (0.0-1.1) 02/09/19 11:26 AST 22 U/L (0-48) 02/09/19 11:26 ALT 23 U/L (19-67) 02/09/19 11:26 107 U/L (50-170) 02/09/19 11:26 7.6 gm/dL (6.2-8.2) 02/09/19 11:26 3.4 gm/dl (3.4-5.0) 02/09/19 11:26 Blood Type A Positive 02/09/19 11:26 Antibody Screen Negative 02/09/19 11:26 Crossmatch See Detail 02/09/19 11:26 Assessment/Plan - Narrative Narrative: 1. Transfuse 2 units packed red cells one of which has completed 2. Recheck CBC and BMP tomorrow morning and check H&H tonight 3. Oxygen 2 L nasal cannula which she uses chronically 4. Dr. Borja to consult. - Assessment/Plan (1) Acute post-hemorrhagic anemia Problem: Acute (2) GI bleeding Problem: Resolved Qualifiers: (3) Melena Problem: Resolved (4) Orthostatic hypotension Problem: Acute (5) Generalized weakness Problem: Chronic (6) Clostridium difficile colitis Problem: Acute
[2019-02-09] MEDS ORDERED: ACETAMINOPHEN 500 MG TABLET PO PRN (20:45)
[2019-02-09 21:08] LABS: Hematocrit 28.1 % (37.0-47.0); Hemoglobin 8.4 gm/dL (12.5-16.0)
[2019-02-09] MEDS ORDERED: LORATADINE 10 MG TABLET PO SCH (23:45)
[2019-02-09] MEDS ORDERED: ALPRAZolam 0.5 MG TABLET PO SCH (23:45)
[2019-02-09] MEDS ORDERED: INSULIN DETEMIR 100 UNITS/ML VIAL SC SCH (23:45)
[2019-02-10] MEDS ORDERED: FERROUS SULFATE 325 MG TABLET PO SCH
[2019-02-10] MEDS ORDERED: FUROSEMIDE 10 MG/ML VIAL ONE (01:55)
[2019-02-10] MEDS ORDERED: FUROSEMIDE 10 MG/ML VIAL IV ONE (03:00)
[2019-02-10 05:35] LABS: Hematocrit 31.7 % (37.0-47.0); Hemoglobin 9.5 gm/dL (12.5-16.0); Mean Cell Volume 92.7 fl (78-100); Mean Corpuscular Hemoglobin 27.8 pg (27-31); Mean Platelet Volume 10.2 fl (8-12.5); Neutrophil # 4.3 K/mm3 (1.3-6.0); Neutrophil % 58.8 % (42-75.0); Platelet Count 222 K/mm3 (150-450); Red Blood Count 3.42 M/mm3 (4.2-5.4); Red Cell Distribution Width 17.7 % (11.5-14.0); White Blood Count 7.3 K/mm3 (4.0-10.5)
[2019-02-10 05:52] LABS: Anion Gap 16.1 mmol/L (6.8-13.8); BUN/Creatinine Ratio 14.1 (9.0-21.6); Calcium * 8.9 mg/dL (7.9-10.9); Estimated Creat Clear 38.7; Potassium 4.1 mmol/L (3.4-4.6)
[2019-02-10] MEDS ORDERED: INSULIN ASPART 100 UNITS/ML VIAL SC SCH (07:00)
[2019-02-10] MEDS ORDERED: SENNOSIDES/DOCUSATE SODIUM 1 TAB TABLET PO PRN (08:23)
[2019-02-10] MEDS ORDERED: NON-FORMULARY 1 DOSE DOSE (Menthol [Biofreeze] 1 APPL) topical PRN (08:23)
[2019-02-10] MEDS ORDERED: ALUMINUM HYDROX PO PRN (08:23)
[2019-02-10] MEDS ORDERED: ALGIN PO PRN (08:23)
[2019-02-10] MEDS ORDERED: ACETAMINOPHEN 325 MG TABLET PO PRN (08:23)
[2019-02-10] MEDS ORDERED: MAG CARB PO PRN (08:23)
--- NOTE | 2019-02-10 08:58 | DS ---
(1) Acute post-hemorrhagic anemia Problem: Acute (2) GI bleeding Problem: Suspected Qualifiers: GI bleed type/associated pathology: duodenal ulcer Qualified Code(s): K26.4 - Chronic or unspecified duodenal ulcer with hemorrhage (3) Melena Problem: Acute (4) Orthostatic hypotension Problem: Resolved (5) Generalized weakness Problem: Chronic (6) Clostridium difficile colitis Problem: Chronic (7) CHF (congestive heart failure) Problem: Acute Qualifiers: Heart failure type: high output Qualified Code(s): I50.83 - High output heart failure Description of Stay: Jessa Swann is a 78 yo. wh. fe. who was recently admitted for an uper GI bleed. She was taken to endoscopy where a bleeding duodenal ulcer was found and clips applied to the bleeders. She was not symptomatic from the anemia so she ws not transfused. Her Hg, hct stabilized and she was sent back to the custodial on Sucralfate, Zantac, and Ferrous sulfate. Her hb. increased from 7.6 g to 8.5 g. Then a week ago she had some loose stools that were black but red tinged and hemoccult was positive. Yesterday she became dyspneic, lightheaded, and had some mild tachycardia. She was brought to the hospital ER and her Hb was back down to 7.6g. Clinical exam and CXR revealed copd with hyperinflation but no pulmonary edema. She has known pulmonary hypertension. Also she has had c.diff colitis for the past month and has been on oral Vancomycin for that. She has had malodorous diarrhea stools since being here this time. A repeat C.diff screen is pending. Her nasal MRSA screen is positive so she was placed in isolation for these two issues. She has been transfused with 2 units of P-RBCs. She is feeling much better. Her orthostasis and dyspnea are gone. Hb. this morning is 9.5g. It was 8.4 grams after the first unit of blood. The ER doctor admitted her to a regular admission due to being in CHF and presumptive active bleeding and symptomatic anemia. She has recovered quicker than anticipated and so her adm. status was changed back to obs this morning per Code 44. She will be returned to [facility] today to SNF status. Her ulcer treatment will be restarted. Procedures Performed: see notes below List Procedures: transfused 2 unites of P-RBCs Results and Findings: Lab Pending Results 02/09/19 11:26: WBC 7.6, RBC 2.84 L, Hgb 8.0 L, Hct 27.5 L, MCV 96.8, MCH 28.2, MCHC 29.1 L, RDW 15.9 H, Plt Count 207, MPV 9.9, Immature Gran % (Auto) 1.00 H, Immature Gran # (Auto) 0.08 H, Neutrophils % 66.9, Lymphocytes % 15.4 L, Monocytes % 12.2 H, Eosinophils % 4.2 H, Basophils % 0.3, Nucleated RBC % 0.0, Neutrophils # 5.1, Lymphocytes # 1.18 L, Monocytes # 0.9, Eosinophils # 0.3, Absolute Basophils 0.0 02/09/19 11:26: Sodium 139, Plasma Sodium 141, Potassium 4.7 H D, Chloride 101, Carbon Dioxide 28.9, Anion Gap 13.8, BUN 16 D, Creatinine 1.09, Est GFR (Non-Af Amer) 52 L D, BUN/Creatinine Ratio 14.7, Random Glucose 201 H, Calcium 8.7, Calcium Adj for Albumin 8.9, Total Bilirubin 0.4, AST 22, ALT 23, Alkaline Phosphatase 107, Total Protein 7.6, Albumin 3.4 02/09/19 11:26: Blood Type A Positive, Antibody Screen Negative, Crossmatch See Detail 02/09/19 21:00: Hgb 8.4 L, Hct 28.1 L 02/10/19 05:25: WBC 7.3, RBC 3.42 L, Hgb 9.5 L, Hct 31.7 L, MCV 92.7, MCH 27.8, MCHC 30.0 L, RDW 17.7 H, Plt Count 222, MPV 10.2, Immature Gran % (Auto) 0.80 H, Immature Gran # (Auto) 0.06 H, Neutrophils % 58.8, Lymphocytes % 22.6, Monocytes % 12.7 H, Eosinophils % 5.0 H, Basophils % 0.1, Nucleated RBC % 0.0, Neutrophils # 4.3, Lymphocytes # 1.64, Monocytes # 0.9, Eosinophils # 0.4, Absolute Basophils 0.0 02/10/19 05:25: Sodium 141, Plasma Sodium 142, Potassium 4.1, Chloride 103, Carbon Dioxide 26.0, Anion Gap 16.1 H, BUN 14, Creatinine 0.99, Est GFR (Non-Af Amer) 58 L, BUN/Creatinine Ratio 14.1, Random Glucose 169 H, Calcium 8.9 Discharge Location: [facility] Disposition: [facility] Condition: Stable Level of Care: SNF Discharge Activity: Activity as tolerated Discharge Diet: Consistent carbs Long Term Therapy: Physicial Therapy, Occupation Therapy Referrals: Jere Garduno DO [Primary Care Provider] - Complete Home Medications List: Complete Home Medication List: aspirin 81 mg tablet,delayed release 81 mg PO DAILY 04/08/18 atorvastatin 20 mg tablet 20 mg PO HS 04/08/18 carvedilol 12.5 mg tablet 12.5 mg PO BID #60 tab 04/18/18 gabapentin 300 mg capsule 300 mg PO TID #90 cap 04/18/18 Sennosides/Docusate Sodium [Docusate Sodium-Sennosides Tab] 1 ea PO DAILY PRN 05/08/18 guaiFENesin [Mucinex] 1,200 mg PO BID 05/08/18 l Gasseri/B Bifidum/B Longum [Valdovinos [facility] Capsule] 1 ea PO DAILY 05/08/18 insulin detemir (U-100) 100 unit/mL subcutaneous solution 34 unit SUB-Q HS ml 06/22/18 Acetaminophen 650 mg PO QDIPM PRN 12/17/18 Cetirizine HCl 10 mg PO HS 12/17/18 Duloxetine HCl [Cymbalta] 60 mg PO QAM 12/17/18 Insulin Aspart [Novolog] 10 units SQ TID 12/17/18 Menthol [Biofreeze] 1 appl TOPICAL QID PRN 12/17/18 Mag Carb/Aluminum Hydrox/Algin [Gaviscon Liquid] 30 ml PO QID PRN #1 btl 12/19/18 alprazolam 0.5 mg tablet 0.5 mg PO HS #30 tab 01/03/19 amLODIPine BESYLATE [Norvasc] 2.5 mg PO DAILY 01/23/19 Famotidine [Pepcid] 20 mg PO BID #90 tab 01/27/19 Nystatin [Mycostatin Powder] 1 appl TOPICAL BID btl 01/27/19 Sucralfate [Carafate] 1 gm PO ACHS #14 oral.susp 01/27/19 Potassium Chloride [K-Dur] 20 meq PO DAILY #30 tab 01/28/19 Ferrous Sulfate 325 mg PO TID 02/09/19 Acetaminophen [Tylenol] 500 mg PO Q4H PRN tab 02/10/19
[2019-02-10] MEDS ORDERED: BIFIDOBACTERIUM LONGUM PO SCH (09:00)
[2019-02-10] MEDS ORDERED: GABAPENTIN 300 MG CAPSULE PO SCH ×2 (09:00)
[2019-02-10] MEDS ORDERED: DULoxetine HCL 30 MG CAPSULE.SA PO SCH (09:00)
[2019-02-10] MEDS ORDERED: FAMOTIDINE 20 MG TABLET PO SCH ×2 (09:00)
[2019-02-10] MEDS ORDERED: ASPIRIN 81 MG TABLET.DR PO SCH (09:00)
[2019-02-10] MEDS ORDERED: NYSTATIN 15 APPL BTL TP SCH (09:00)
[2019-02-10] MEDS ORDERED: CARVEDILOL 12.5 MG TABLET PO SCH (09:00)
[2019-02-10] MEDS ORDERED: [UNRECOGNIZED DRUG - OTHER] PO SCH (09:00)
[2019-02-10] MEDS ORDERED: amLODIPine BESYLATE 5 MG TABLET PO SCH (09:00)
[2019-02-10] MEDS ORDERED: POTASSIUM CHLORIDE 20 MEQ TABLET.SA PO SCH (09:00)
[2019-02-10] MEDS: FERROUS SULFATE 325 MG TABLET PO SCH ×2 (09:34→12:21)
[2019-02-10] MEDS: INSULIN ASPART 100 UNITS/ML VIAL SC SCH ×2 (09:35→12:21)
[2019-02-10] MEDS ORDERED: SUCRALFATE 1 G/10 ML UDC PO SCH (11:00)
[2019-02-10 13:49] VITALS: BP 152/61
[2019-02-10] MEDS ORDERED: LORATADINE 10 MG TABLET PO SCH ×2 (21:00)
[2019-02-10] MEDS ORDERED: INSULIN DETEMIR 100 UNITS/ML VIAL SC SCH (21:00)
[2019-02-10] MEDS ORDERED: ROSUVASTATIN CALCIUM 10 MG TABLET PO SCH (21:00)
[2019-02-10] MEDS ORDERED: ALPRAZolam 0.5 MG TABLET PO SCH (21:00)
== END 2019-02-10 13:45 ==
LOC: ER 10:50 → INTOOBSV 14:35 → MS 14:35
PROVIDERS: ADMIT Family Medicine; ATTEND Family Medicine
CPT/HCPCS: 36415; 36430; 71020; 71046; 74177; 80048; 80053; 85014; 85018; 85025; 86850; 87081; 87493; 96372; 96375; 99285; G0378; P9016; Q9963; Q9967

== ENCOUNTER 2019-04-07 10:53 | Inpatient (IN) ==
[2019-04-07] MEDS ORDERED: DILTIAZEM HCL 5 MG/ML VIAL IV ONE ×3 (11:19→14:40)
--- NOTE | 2019-04-07 11:25 | ERNOTE ---
Chest Pain/Cardiac HPI Chief Complaint: Palpitations Time Seen by Provider: 04/07/19 11:04 Source: patient Exam Limitations: no limitations Immunizations: IMMUNIZATION HX Immunizations Up to Date Yes History of Influenza Vaccine Yes Hx Pneumococcal Vaccination Yes Allergies/Adverse Reactions: Allergies morphine Allergy (Mild, Verified 04/07/19 17:43) Hives ondansetron Allergy (Mild, Verified 04/07/19 17:43) Hives red dye Allergy (Mild, Verified 04/07/19 17:43) Hives ciprofloxacin [From Cipro] Adverse Reaction (Mild, Verified 04/07/19 17:43) Hives codeine Adverse Reaction (Mild, Verified 04/07/19 17:43) anxious haloperidol [From Haldol] Adverse Reaction (Mild, Verified 04/07/19 17:43) Other increased confusion lorazepam [From Ativan] Adverse Reaction (Mild, Verified 04/07/19 17:43) Other increased confusion nitrofurantoin [From Macrobid] Adverse Reaction (Mild, Verified 04/07/19 17:43) Hives Sulfa (Sulfonamide Antibiotics) [Sulfa(Sulfonamide Antibiotics)] Adverse Reaction (Mild, Verified 04/07/19 17:43) Hives Home Medications: HOME MEDICATIONS aspirin 81 mg tablet,delayed release 81 mg PO DAILY 04/08/18 [Last Taken 03/01/19] atorvastatin 20 mg tablet 20 mg PO HS 04/08/18 [Last Taken 03/01/19] carvedilol 12.5 mg tablet 12.5 mg PO BID #60 tab 04/18/18 [Last Taken 03/01/19] gabapentin 300 mg capsule 300 mg PO TID #90 cap 04/18/18 [Last Taken 03/01/19] Sennosides/Docusate Sodium [Docusate Sodium-Sennosides Tab] 1 ea PO DAILY PRN 0 05/08/18 [Last Taken 03/01/19] l Gasseri/B Bifidum/B Longum [[facility] Health Capsule] 1 ea PO DAILY 05/08/18 [Last Taken 03/01/19] insulin detemir (U-100) 100 unit/mL subcutaneous solution 34 unit SUB-Q HS ml 06/22/18 [Last Taken 03/01/19] Cetirizine HCl 10 mg PO HS 12/17/18 [Last Taken 03/01/19] Duloxetine HCl [Cymbalta] 60 mg PO QAM 12/17/18 [Last Taken 03/01/19] Insulin Aspart [Novolog] 10 units SQ TID 12/17/18 [Last Taken 03/01/19] Menthol [Biofreeze] 1 appl TOPICAL QID PRN 12/17/18 [Last Taken 03/01/19] Mag Carb/Aluminum Hydrox/Algin [Gaviscon Liquid] 30 ml PO QID PRN #1 btl [Last Taken 03/01/19] alprazolam 0.5 mg tablet 0.5 mg PO HS #30 tab 01/03/19 [Last Taken 03/01/19] amLODIPine BESYLATE [Norvasc] 2.5 mg PO DAILY 01/23/19 [Last Taken 03/01/19] Nystatin [Mycostatin Powder] 1 appl TOPICAL BID btl 01/27/19 [Last Taken 03/01/19] Sucralfate [Carafate] 1 gm PO ACHS #14 oral.susp 01/27/19 [Last Taken 03/01/19] Potassium Chloride [K-Dur] 20 meq PO DAILY #30 tab 01/28/19 [Last Taken 03/01/19] Ferrous Sulfate 325 mg PO TID 02/09/19 [Last Taken 03/01/19] Acetaminophen [Tylenol] 500 mg PO Q4H PRN tab 02/10/19 [Last Taken Unknown] famotidine 20 mg tablet 20 mg PO BID 02/15/19 [Last Taken 03/01/19] Lactobacillus Acidophilus [Acidophilus] 2 ea PO DAILY 02/20/19 [Last Taken 03/01/19] guaiFENesin [Mucinex] 1,200 mg PO BID 02/20/19 [Last Taken 03/01/19] hydrocodone 5 mg-acetaminophen 325 mg tablet 1 tab PO Q6H PRN #60 tab 02/27/19 [Last Taken 03/01/19] Sertraline HCl 25 mg PO DAILY 04/07/19 [Last Taken Unknown] Narrative: Patient started to have palpitation yesterday morning. she mentioned it to Dr Garduno during halfway rounds this morning and was found to have an elevated HR and send to the ER. Patient complains of slight chest pressure, denies shortness of breath Severity/Quality: mild, pressure Location: central Chest Pain Radiation: no radiation Nitro Today/Relief: no nitro taken today Aspirin Treatment Today: no aspirin today Associated Symptoms: Absent: shortness of breath, nausea, vomiting Prior Chest Pain/Cardiac Workup: Denies: prior chest pain Review of Systems - Narrative Narrative: limited by patient's memory - Review of Systems Respiratory: Absent: shortness of breath Cardiology: Present: See HPI, chest pain, palpitations Gastrointestinal/Abdominal: Absent: nausea, vomiting Medical History (Updated 02/20/19 @ 12:43 by Diana Wyatt NP) Duodenal bulb ulcer (Acute) Atrial fibrillation (Chronic) Diarrhea (Chronic) Aortic aneurysm Walker as ambulation aid bradioprexopathy Bilateral lower extremity edema Depression Onset Date: ~06/29/14 Diabetes mellitus, type II Difficulty in walking Onset Date: ~05/29/14 Dry skin Hammer toes, bilateral Macular degeneration of both eyes Obstructive lung disease Onset Date: ~11/10/17 Onychomycosis Thinning of skin Toe pain, bilateral Hand pain, left Onset Date: ~04/2013 metacarpal fracture Hx of colonic polyps Onset Date: ~06/30/10 Infection of kidney Sepsis Splenic artery aneurysm Onset Date: ~2008 patient states this was reviewed by her previous pcp dr suarez and was told it was small and did not need any further testing at that time. Surgical History: Surgical History (Updated 04/07/19 @ 13:59 by Jere Garduno DO) H/O colonoscopy Onset Date: 03/02/19 06/30/10 Tinguely-tubular adenoma x2, scattered diverticular disease. Incomplete prep. Recheck 6mo. 03/02/19 Jonh-serrated adenoma. Diverticulosis. Recheck 3 yrs. H/O cystoscopy Onset Date: 09/20/17 stent removal H/O lithotripsy Onset Date: Unknown History of appendectomy Onset Date: Unknown History of arthroscopic knee surgery Onset Date: Unknown History of bronchoscopy Onset Date: 01/17/18 History of cholecystectomy Onset Date: Unknown History of esophagogastroduodenoscopy (EGD) Onset Date: 03/02/19 01/23/19 Jonh-w/clipping of bleeding ulcer. 03/02/19 Jonh-negative. History of laryngoscopy Onset Date: 01/15/18 using laser, flexible fiberoptic. [facility] Dr David Patel Hx of cardiac cath Onset Date: Unknown S/P ureteral stent placement Onset Date: Unknown Dr. Meraz insertion of subclavian catheter Onset Date: 09/19/17 Tommeraasen-left Family History: Family History (Last Reviewed 04/07/19 @ 12:05 by Alexus Tamayo LPN) Father , MVA age 80 No problems noted. Mother , old age- age 89 No problems noted. Social History: (Last Reviewed 04/07/19 @ 17:43 by Nida Pond RN) Social History: halfway: Yes Marital status: lives independently: Yes number of children: 5 Service: No Tobacco: Smoking Status: Never smoker Alcohol: alcohol intake: never Substance Use: substance use type: does not use Dietary Habits: caffeine: Yes Physical Exam - Physical Exam General Appearance: Present: wd/wn, alert, no apparent distress, obese - morbidly Head Exam: Present: normal inspection Eye Exam: Normal inspection: bilateral Respiratory: Present: no respiratory distress, normal breath sounds, lungs clear Cardiovascular/Chest: Present: tachycardia Gastrointestinal/Abdominal: Present: normal bowel sounds, nondistended, soft Extremity Exam: Present: no edema Neurological Exam: Present: alert, oriented, normal mood/affect Skin Exam: Present: normal color, warm/dry Progress - Results and Orders Patient's Lab Results:: I have reviewed the patient's lab results. - Vital Signs Patient's Vital Signs:: I have reviewed the patient's vital signs. Vital Signs: Vital Signs 04/07/19 11:03 Temperature 36.4 C Pulse Rate 154 H Respiratory Rate 21 H Blood Pressure 129/70 O2 Sat by Pulse Oximetry 96 - EKG EKG #1 EKG: atrial fibrillation - HR 145 EKG read: Interp. by me - X-Ray X-Ray #1 X-Ray: chest - hyperinflation with scattered fibrotic changes Interpretation: Reviewed by me - Progress/Reassessment Chief Complaint: Palpitations Progress Note-Subjective: 04/07/19 11:42 after cardizem HR in 70's 04/07/19 12:20 discussed with eri Tapia to admit for observation, give one more dose of IV cardizem, will start po on the floor HR currently 115-120 07/19/19 12:58 will not give additional dose of cardizem as BP 94/54 Departure Clinical Impression: Atrial fibrillation with RVR - Departure Disposition: Still a patient Condition: Stable
[2019-04-07 11:41] LABS: Hemoglobin 11.7 gm/dL (12.5-16.0); Mean Cell Volume 88.1 fl (78-100); Mean Corpuscular Hemoglobin 27.9 pg (27-31); Mean Corpuscular Hgb Conc 31.6 g/dl (32-36); Mean Platelet Volume 10.2 fl (8-12.5); Neutrophil # 6.9 K/mm3 (1.3-6.0); Neutrophil % 72.1 % (42-75.0); Platelet Count 276 K/mm3 (150-450); Red Cell Distribution Width 15.9 % (11.5-14.0); White Blood Count 9.5 K/mm3 (4.0-10.5)
[2019-04-07 11:57] LABS: Troponin I Less than 0.017 ng/mL (0.00-0.10)
[2019-04-07 12:04] LABS: ALT 12 U/L (19-67); AST 12 U/L (0-48); Albumin * 3.3 gm/dl (3.4-5.0); Alkaline Phosphatase * 119 U/L (50-170); Anion Gap 16.4 mmol/L (6.8-13.8); BNP * 377 pg/mL (5-550); BUN/Creatinine Ratio 19.7 (9.0-21.6); Bilirubin, Total 0.4 mg/dL (0.0-1.1); Blood Urea Nitrogen 24 mg/dL (3-23); Ca. Corrected For Albumin 9.2 mg/dL (8.4-10.2); Carbon Dioxide 24.8 mmol/L (24-32.6); Chloride 101 mmol/L (97-106); Glucose * 243 mg/dL (70-110); Potassium 5.2 mmol/L (3.4-4.6); Sodium 137 mmol/L (132-142); Total Protein 7.7 gm/dL (6.2-8.2)
[2019-04-07] MEDS ORDERED: ALGIN PO PRN (13:28)
[2019-04-07] MEDS ORDERED: ALUMINUM HYDROX PO PRN (13:28)
[2019-04-07] MEDS ORDERED: ACETAMINOPHEN 500 MG TABLET PO PRN (13:28)
[2019-04-07] MEDS ORDERED: SENNOSIDES/DOCUSATE SODIUM 1 TAB TABLET PO PRN (13:28)
[2019-04-07] MEDS ORDERED: MAG CARB PO PRN (13:28)
--- NOTE | 2019-04-07 13:59 | HP ---
Chief Complaint - Chief Complaint Date of Service: 04/07/19 Time of Service: 09:30 Chief Complaint: weakness, dyspnea, general malaise History of Present Illness: Jessa reports starting to feel badly yesterday. She was starting to feel badly yesterday with weakness and dyspnea on exertion and dyspnea on exertion. She has a history of atrial fibrillation and has been cardioverted in the past. She has not had any chest pain. I was making fpc rounds at the [facility] this morning and upon examination found her heart rate to be about 150 bpm. She was tolerating it fairly well except for being lethargic and weak and her color was off as she was more pale than usual. I sent her to the emergency room here at [facility] where she was evaluated and found to be in atrial flutter with RVR. She was given 25 mg of Cardizem and converted into the 70s and 80s for a while and then it went back up into the 120s and 130s. Her blood pressure also dropped and last checked was 94/70. The plan was to give a second dose of Cardizem but it has been held because of her blood pressure. On exam she does not have any neck vein distention but she does have a positive hepatojugular reflex at about 45 degrees. There is no peripheral edema. I hear no crackles in the lungs. She will require observation admission to try to convert her rhythm or at least to slow it down and allow her blood pressure to improve. Medical History (Updated 04/07/19 @ 12:35 by Patricia Stratton MD) Duodenal bulb ulcer (Acute) Atrial fibrillation (Chronic) Diarrhea (Chronic) Aortic aneurysm Walker as ambulation aid bradioprexopathy Bilateral lower extremity edema Depression Onset Date: ~06/29/14 Diabetes mellitus, type II Difficulty in walking Onset Date: ~05/29/14 Dry skin Hammer toes, bilateral Macular degeneration of both eyes Obstructive lung disease Onset Date: ~11/10/17 Onychomycosis Thinning of skin Toe pain, bilateral Hand pain, left Onset Date: ~04/2013 metacarpal fracture Hx of colonic polyps Onset Date: ~06/30/10 Infection of kidney Sepsis Splenic artery aneurysm Onset Date: ~2008 patient states this was reviewed by her previous pcp dr suarez and was told it was small and did not need any further testing at that time. Surgical History: Surgical History (Updated 03/03/19 @ 12:27 by Fallon Gordon RN) H/O colonoscopy Onset Date: 03/02/19 06/30/10 Tinguely-tubular adenoma x2, scattered diverticular disease. Incomplete prep. Recheck 6mo. 03/02/19 Jonh-serrated adenoma. Diverticulosis. Recheck 3 yrs. H/O cystoscopy Onset Date: 09/20/17 stent removal H/O lithotripsy Onset Date: Unknown History of appendectomy Onset Date: Unknown History of arthroscopic knee surgery Onset Date: Unknown History of bronchoscopy Onset Date: 01/17/18 History of cholecystectomy Onset Date: Unknown History of esophagogastroduodenoscopy (EGD) Onset Date: 03/02/19 01/23/19 Jonh-w/clipping of bleeding ulcer. 03/02/19 Jonh-negative. History of laryngoscopy Onset Date: 01/15/18 using laser, flexible fiberoptic. [facility] Dr David Patel Hx of cardiac cath Onset Date: Unknown S/P ureteral stent placement Onset Date: Unknown Dr. Meraz insertion of subclavian catheter Onset Date: 09/19/17 Tommeraasen-left Family History: Family History (Last Reviewed 04/07/19 @ 12:05 by Alexus Tamayo LPN) Father , MVA age 80 No problems noted. Mother , old age- age 89 No problems noted. Social History: (Last Reviewed 04/07/19 @ 12:05 by Alexus Tamayo LPN) Social History: fpc: Yes Marital status: lives independently: Yes number of children: 5 Service: No Tobacco: Smoking Status: Never smoker Alcohol: alcohol intake: never Substance Use: substance use type: does not use Dietary Habits: caffeine: Yes Review Of Systems (GEN) - Review of Systems Generalized/Overall Review: Present: Weakness, Malaise, Fatigue EENTM: Present: No Symptoms Reported Respiratory: Present: Shortness of Breath. Absent: Cough, Orthopnea, Wheezing Cardiac: Present: Palpitations Abdominal: Present: No Symptoms Reported Genitourinary: Present: No Symptoms Reported Musculoskeletal: Present: No Symptoms Reported Neurological: Present: Weakness Skin: Present: No Symptoms Reported Endocrine: Present: No Symptoms Reported Misc: All systems neg except as marked Immunizations: IMMUNIZATION HX Immunizations Up to Date Yes History of Influenza Vaccine Yes Hx Pneumococcal Vaccination Yes Allergies/Adverse Reactions: Allergies Allergy/AdvReac Type Severity Reaction Status Date / Time morphine Allergy Mild Hives Verified 04/07/19 12:04 ondansetron Allergy Mild Hives Verified 04/07/19 12:04 red dye Allergy Mild Hives Verified 04/07/19 12:04 ciprofloxacin [From Cipro] AdvReac Mild Hives Verified 04/07/19 12:04 codeine AdvReac Mild anxious Verified 04/07/19 12:04 haloperidol [From Haldol] AdvReac Mild Other Verified 04/07/19 12:04 lorazepam [From Ativan] AdvReac Mild Other Verified 04/07/19 12:04 nitrofurantoin AdvReac Mild Hives Verified 04/07/19 12:04 [From Macrobid] Sulfa (Sulfonamide AdvReac Mild Hives Verified 04/07/19 12:04 Antibiotics) [Sulfa(Sulfonamide Antibiotics)] Home Medications: HOME MEDICATIONS aspirin 81 mg tablet,delayed release 81 mg PO DAILY 04/08/18 [Last Taken 03/01/19] atorvastatin 20 mg tablet 20 mg PO HS 04/08/18 [Last Taken 03/01/19] carvedilol 12.5 mg tablet 12.5 mg PO BID #60 tab 04/18/18 [Last Taken 03/01/19] gabapentin 300 mg capsule 300 mg PO TID #90 cap 04/18/18 [Last Taken 03/01/19] Sennosides/Docusate Sodium [Docusate Sodium-Sennosides Tab] 1 ea PO DAILY PRN 05/08/18 [Last Taken 03/01/19] l Gasseri/B Bifidum/B Longum [[facility] Capsule] 1 ea PO DAILY 05/08/18 [Last Taken 03/01/19] insulin detemir (U-100) 100 unit/mL subcutaneous solution 34 unit SUB-Q HS ml 06/22/18 [Last Taken 03/01/19] Cetirizine HCl 10 mg PO HS 12/17/18 [Last Taken 03/01/19] Duloxetine HCl [Cymbalta] 60 mg PO QAM 12/17/18 [Last Taken 03/01/19] Insulin Aspart [Novolog] 10 units SQ TID 12/17/18 [Last Taken 03/01/19] Menthol [Biofreeze] 1 appl TOPICAL QID PRN 12/17/18 [Last Taken 03/01/19] Mag Carb/Aluminum Hydrox/Algin [Gaviscon Liquid] 30 ml PO QID PRN #1 btl 12/19/18 [Last Taken 03/01/19] alprazolam 0.5 mg tablet 0.5 mg PO HS #30 tab 01/03/19 [Last Taken 03/01/19] amLODIPine BESYLATE [Norvasc] 2.5 mg PO DAILY 01/23/19 [Last Taken 03/01/19] Nystatin [Mycostatin Powder] 1 appl TOPICAL BID btl 01/27/19 [Last Taken 03/01/19] Sucralfate [Carafate] 1 gm PO ACHS #14 oral.susp 01/27/19 [Last Taken 03/01/19] Potassium Chloride [K-Dur] 20 meq PO DAILY #30 tab 01/28/19 [Last Taken 03/01/19] Ferrous Sulfate 325 mg PO TID 02/09/19 [Last Taken 03/01/19] Acetaminophen [Tylenol] 500 mg PO Q4H PRN tab 02/10/19 [Last Taken Unknown] famotidine 20 mg tablet 20 mg PO BID 02/15/19 [Last Taken 03/01/19] Lactobacillus Acidophilus [Acidophilus] 2 ea PO DAILY 02/20/19 [Last Taken 03/01/19] guaiFENesin [Mucinex] 1,200 mg PO BID 02/20/19 [Last Taken 03/01/19] hydrocodone 5 mg-acetaminophen 325 mg tablet 1 tab PO Q6H PRN #60 tab 02/27/19 [Last Taken 03/01/19] Sertraline HCl 25 mg PO DAILY 04/07/19 [Last Taken Unknown] Exam - Exam Vital Signs: Vital Signs - Last Taken Temp 36.4 C 04/07/19 11:03 Pulse 146 H 04/07/19 13:02 Resp 29 H 04/07/19 13:02 BP 94/54 04/07/19 12:57 Pulse Ox 94 04/07/19 13:02 Constitutional: Present: Alert, Oriented x3, Cooperative, Well developed, Well nourished, Morbidly obese ENT Exam: Present: normal ENT inspection, hearing grossly normal, pharynx normal, TMs normal Eye Exam: bilateral eye: normal inspection, PERRL, EOMI Neck: Present: non-tender, supple, normal inspection, trachea midline, limited range of motion Back Exam: Present: normal inspection, no CVA tenderness, no vertebral tenderness Breasts: Present: Exam deferred Respiratory: Present: chest non-tender, lungs clear, normal breath sounds, no respiratory distress, no accessory muscle use Cardiovascular/Chest: Present: tachycardia, irregularly irregular. 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6) mmol/L Anion Gap 16.4 H (6.8-13.8) mmol/L BUN 24 H D (3-23) mg/dL Est GFR (Non-Af Amer) 45 L D (60-130) mL/min Random Glucose 243 H (70-110) mg/dL ALT 12 L (19-67) U/L Albumin 3.3 L (3.4-5.0) gm/dl Laboratory Results WBC 9.5 K/mm3 (4.0-10.5) 04/07/19 11:32 RBC 4.20 M/mm3 (4.2-5.4) 04/07/19 11:32 Hgb 11.7 gm/dL (12.5-16.0) L 04/07/19 11:32 Hct 37.0 % (37.0-47.0) 04/07/19 11:32 MCV 88.1 fl (78-100) 04/07/19 11:32 MCH 27.9 pg (27-31) 04/07/19 11:32 MCHC 31.6 g/dl (32-36) L 04/07/19 11:32 RDW 15.9 % (11.5-14.0) H 04/07/19 11:32 Plt Count 276 K/mm3 (150-450) 04/07/19 11:32 MPV 10.2 fl (8-12.5) 04/07/19 11:32 Immature Gran % (Auto) 0.40 % (0.001-0.429) 04/07/19 11:32 Immature Gran # (Auto) 0.04 K/mm3 (0.000-0.0310) H 04/07/19 11:32 72.1 % (42-75.0) 04/07/19 11:32 12.4 % (20-51) L 04/07/19 11:32 12.9 % (0.0-9) H 04/07/19 11:32 2.0 % (0.0-3.0) 04/07/19 11:32 0.2 % (0.0-1.0) 04/07/19 11:32 Nucleated RBC % 0.0 k/mm3 (0-1) 04/07/19 11:32 6.9 K/mm3 (1.3-6.0) H 04/07/19 11:32 1.18 k/mm3 (1.5-3.5) L 04/07/19 11:32 1.2 k/mm3 (0.0-1.0) H 04/07/19 11:32 0.2 k/mm3 (0.0-0.7) 04/07/19 11:32 Absolute Basophils 0.0 k/mm3 (0.0-0.1) 04/07/19 11:32 Sodium 137 mmol/L (132-142) 04/07/19 11:32 139 mmol/L (130-142) 04/07/19 11:32 Potassium 5.2 mmol/L (3.4-4.6) H D 04/07/19 11:32 Chloride 101 mmol/L (97-106) 04/07/19 11:32 Carbon Dioxide 24.8 mmol/L (24-32.6) 04/07/19 11:32 16.4 mmol/L (6.8-13.8) H 04/07/19 11:32 BUN 24 mg/dL (3-23) H D 04/07/19 11:32 1.22 mg/dL (0.4-1.4) 04/07/19 11:32 Est GFR (Non-Af Amer) 45 mL/min (60-130) L D 04/07/19 11:32 19.7 (9.0-21.6) 04/07/19 11:32 243 mg/dL (70-110) H 04/07/19 11:32 Calcium 9.0 mg/dL (7.9-10.9) 04/07/19 11:32 Calcium Adj for Albumin 9.2 mg/dL (8.4-10.2) 04/07/19 11:32 0.4 mg/dL (0.0-1.1) 04/07/19 11:32 AST 12 U/L (0-48) 04/07/19 11:32 ALT 12 U/L (19-67) L 04/07/19 11:32 119 U/L (50-170) 04/07/19 11:32 Less than 0.017 ng/mL (0.00-0.10) 04/07/19 11:32 B-Natriuretic Peptide 377 pg/mL (5-550) 04/07/19 11:32 7.7 gm/dL (6.2-8.2) 04/07/19 11:32 3.3 gm/dl (3.4-5.0) L 04/07/19 11:32 TSH 0.810 uIU/mL (0.358-3.74) 04/07/19 11:32 Assessment/Plan - Narrative Narrative: Jessa is admitted to observation to room 113. Her blood pressure has improved from the emergency room and is now 124/74. She is still having tachycardia and the rate is back up to 140 on telemetry. I will recheck a blood pressure at 2 PM and if the pressure is still good then I will give a second dose of Cardizem and start her on oral Cardizem to try to maintain. I will also give her 20 mg of furosemide as she has some passive liver congestion. Her BNP is normal but it is probably the dilation of the right atrium causing the atrial flutter and RVR. I will recheck morning lab and order an echocardiogram. At this point I do not believe she needs to be on a Cardizem drip and she is hemodynamically stable. Also, she may do better with amiodarone since it is not as likely to lower her blood pressure. 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
[2019-04-07] MEDS ORDERED: FUROSEMIDE 10 MG/ML VIAL IV ONE (14:00)
[2019-04-07] MEDS ORDERED: DILTIAZEM HCL 60 MG TABLET PO STA (14:56)
[2019-04-07] MEDS ORDERED: NORMAL SALINE 500 ML IV ONE (15:21)
[2019-04-07] MEDS ORDERED: AMIODARONE HCL 150 MG in DEXTROSE 5 % IN WATER 100 ML IV ONE ×2 (15:59)
--- NOTE | 2019-04-07 16:18 | PN ---
Progess Note - Interim Date: 04/07/19 Time: 16:07 Narrative: 04/07/19 16:07 The repeat dose of cardizem 25mg again lowered her heart rate but the pressure went down again. And then the HR went back to >130. I have moved her to SCU and am starting the Amiodorone protocol. Her pressure responded nicely to a 500cc bolus of NS.
[2019-04-07] MEDS: AMIODARONE HCL 900 MG in DEXTROSE 5 % IN WATER 500 ML IV SCH ×2 (16:43)
[2019-04-07] MEDS: INSULIN LISPRO 100 UNITS/ML VIAL SC SCH (17:36)
[2019-04-07] MEDS: SUCRALFATE 1 G/10 ML UDC PO SCH ×2 (17:36→20:02)
[2019-04-07] MEDS: HYDROcodone/ACETAMINOPHEN 1 EACH TABLET PO PRN (18:56)
[2019-04-07] MEDS: DILTIAZEM HCL 60 MG TABLET PO SCH (20:02)
[2019-04-07] MEDS: NYSTATIN 15 APPL BTL TP SCH (20:02)
[2019-04-07] MEDS: FAMOTIDINE 20 MG TABLET PO SCH (20:03)
[2019-04-07] MEDS: ALPRAZolam 0.5 MG TABLET PO SCH (20:04)
[2019-04-07] MEDS: INSULIN DETEMIR 100 UNITS/ML VIAL SC SCH (20:07)
[2019-04-08] MEDS: HYDROcodone/ACETAMINOPHEN 1 EACH TABLET PO PRN ×2 (03:00→11:27)
[2019-04-08 05:49] LABS: Hematocrit 38.2 % (37.0-47.0); Hemoglobin 11.6 gm/dL (12.5-16.0); Mean Cell Volume 90.5 fl (78-100); Mean Corpuscular Hemoglobin 27.5 pg (27-31); Mean Corpuscular Hgb Conc 30.4 g/dl (32-36); Mean Platelet Volume 10.5 fl (8-12.5); Neutrophil # 5.2 K/mm3 (1.3-6.0); Neutrophil % 59.9 % (42-75.0); Platelet Count 264 K/mm3 (150-450); Red Blood Count 4.22 M/mm3 (4.2-5.4); Red Cell Distribution Width 15.9 % (11.5-14.0); White Blood Count 8.7 K/mm3 (4.0-10.5)
[2019-04-08 06:03] LABS: Albumin * 3.3 gm/dl (3.4-5.0); Anion Gap 16.7 mmol/L (6.8-13.8); BUN/Creatinine Ratio 21.7 (9.0-21.6); Bilirubin, Total 0.2 mg/dL (0.0-1.1); Ca. Corrected For Albumin 9.3 mg/dL (8.4-10.2); Calcium * 9.1 mg/dL (7.9-10.9); Carbon Dioxide 22.9 mmol/L (24-32.6); Potassium 4.6 mmol/L (3.4-4.6); Total Protein 7.6 gm/dL (6.2-8.2)
[2019-04-08] MEDS: SUCRALFATE 1 G/10 ML UDC PO SCH ×4 (06:26→20:40)
[2019-04-08] MEDS: FAMOTIDINE 20 MG TABLET PO SCH ×2 (08:04→20:36)
[2019-04-08] MEDS: DULoxetine HCL 30 MG CAPSULE.SA PO SCH (08:05)
[2019-04-08] MEDS: DILTIAZEM HCL 60 MG TABLET PO SCH ×2 (08:05→20:38)
[2019-04-08] MEDS: ASPIRIN 81 MG TABLET.DR PO SCH (08:06)
[2019-04-08] MEDS: NYSTATIN 15 APPL BTL TP SCH ×2 (08:06→20:36)
[2019-04-08] MEDS: INSULIN LISPRO 100 UNITS/ML VIAL SC SCH ×3 (08:15→17:00)
[2019-04-08] MEDS ORDERED: SERTRALINE HCL 50 MG TABLET PO SCH (09:00)
[2019-04-08] MEDS: METOPROLOL TARTRATE 1 MG/ML AMPUL IV SCH ×3 (09:17→11:37)
[2019-04-08] MEDS ORDERED: CARVEDILOL 12.5 MG TABLET PO SCH (09:45)
--- NOTE | 2019-04-08 11:55 | PN ---
Subjective - Date and Time Seen Date: 04/08/19 Time: 08:30 Subjective Narrative: She feels well and has no complaints. Denied palpitations, shortness of breath or chest pain. Objective - Review of Systems Generalized/Overall Review: Denies: Chills, Fever Respiratory: Denies: Shortness of Breath Cardiac: Denies: Chest Pain, Palpitations Abdominal: Denies: Abdominal Pain Musculoskeletal Complaints: Denies: Joint Pain Misc: All systems neg except as marked - Vitals Vitals: Last Vital Signs Temp 36.3 C 04/08/19 11:00 Pulse 78 04/08/19 11:00 Resp 20 04/08/19 11:00 BP 92/63 04/08/19 11:00 Pulse Ox 99 04/08/19 11:00 - Abnormal Lab Findings Abnormal Lab Findings: Abnormal Lab Results 04/07/19 04/08/19 04/08/19 Range/Units 11:32 05:52 06:00 Hgb 11.6 L (12.5-16.0) gm/dL MCHC 30.4 L (32-36) g/dl RDW 15.9 H (11.5-14.0) % Immature Gran % (Auto) 0.50 H (0.001-0.429) % Immature Gran # (Auto) 0.04 H (0.000-0.0310) K/mm3 Monocytes % 13.6 H (0.0-9) % Eosinophils % 3.2 H (0.0-3.0) % Monocytes # 1.2 H (0.0-1.0) k/mm3 Potassium 5.2 H D (3.4-4.6) mmol/L Carbon Dioxide 22.9 L (24-32.6) mmol/L Anion Gap 16.4 H 16.7 H (6.8-13.8) mmol/L BUN 24 H D 26 H (3-23) mg/dL Est GFR (Non-Af Amer) 45 L D 46 L (60-130) mL/min BUN/Creatinine Ratio 21.7 H (9.0-21.6) Random Glucose 243 H 170 H D (70-110) mg/dL ALT 12 L 9 L (19-67) U/L Albumin 3.3 L 3.3 L (3.4-5.0) gm/dl - Exam Constitutional: Present: Alert, Cooperative, Well developed, Well nourished, No distress ENT Exam: Present: hearing grossly normal Neck: Present: trachea midline. Absent: lymphadenopathy (R), lymphadenopathy (L) Respiratory: Present: lungs clear, no respiratory distress, no accessory muscle use, No wheezing. Absent: crackles, rhonchi Cardiovascular/Chest: Present: normal peripheral pulses, regular rate, rhythm, no edema, no murmur Abdomen: Present: Normal bowel sounds, soft, nontender Extremity: Present: no pedal edema Skin Exam: Present: normal color, warm/dry Neurologic: Present: alert, normal mood/affect Appearance: Present: appropriate appearance Eye contact: Present: cooperative Thoughts: Present: normal mood /affect Assessment/Plan Plan Narrative: 78-year-old female with past medical history of atrial fibrillation, diabetes mellitus type 2, depression, obstructive lung disease, aortic aneurysm presents from the detention with complaints of rapid heart rate. In the ER she was A. fib with RVR. She was placed on an amiodarone drip on April 07, 2019 with poor response. She continued to be tachycardic into the 140s consistently. I started her on metoprolol tartrate 5 mg IV and she responded very well with her heart rate dropping down into 70s to 90s. I restarted her home medication of carvedilol 12.5 mg twice a day. She appears to be more responsive to beta- blockers than calcium channel blockers. She is currently also on diltiazem 60 mg twice a day. Her blood pressure seems to be stable now and I will continue both medications at this time. - Problems/Diagnosis (1) Atrial fibrillation with RVR Problem: Acute (2) HTN (hypertension) Problem: Chronic Qualifiers: Hypertension type: essential hypertension Qualified Code(s): I10 - Essential (primary) hypertension (3) HLD (hyperlipidemia) Problem: Chronic Qualifiers: Hyperlipidemia type: unspecified Qualified Code(s): E78.5 - Hyperlipidemia, unspecified (4) GERD (gastroesophageal reflux disease) Problem: Chronic
[2019-04-08] MEDS: AMIODARONE HCL 900 MG in DEXTROSE 5 % IN WATER 500 ML IV SCH ×2 (16:47)
[2019-04-08] MEDS: CARVEDILOL 25 MG TABLET PO SCH ×2 (17:43→20:33)
[2019-04-08] MEDS: NORMAL SALINE 500 ML IV ONE ×2 (18:31→18:38)
[2019-04-08] MEDS: GABAPENTIN 300 MG CAPSULE PO SCH (19:01)
[2019-04-08] MEDS: ALPRAZolam 0.5 MG TABLET PO SCH (20:39)
[2019-04-08] MEDS: INSULIN DETEMIR 100 UNITS/ML VIAL SC SCH (20:40)
[2019-04-09] MEDS: HYDROcodone/ACETAMINOPHEN 1 EACH TABLET PO PRN ×2 (00:36→08:06)
[2019-04-09] MEDS: SUCRALFATE 1 G/10 ML UDC PO SCH ×4 (07:45→20:28)
[2019-04-09] MEDS: CARVEDILOL 25 MG TABLET PO SCH ×2 (08:00→20:23)
[2019-04-09] MEDS: FAMOTIDINE 20 MG TABLET PO SCH ×2 (08:00→20:24)
[2019-04-09] MEDS: DULoxetine HCL 30 MG CAPSULE.SA PO SCH (08:04)
[2019-04-09] MEDS: DILTIAZEM HCL 60 MG TABLET PO SCH ×2 (08:04→20:24)
[2019-04-09] MEDS: NYSTATIN 15 APPL BTL TP SCH ×2 (08:05→20:21)
[2019-04-09] MEDS: ASPIRIN 81 MG TABLET.DR PO SCH (08:06)
[2019-04-09] MEDS: INSULIN LISPRO 100 UNITS/ML VIAL SC SCH ×3 (08:07→17:06)
[2019-04-09] MEDS: GABAPENTIN 300 MG CAPSULE PO SCH ×3 (08:15→17:05)
[2019-04-09] MEDS ORDERED: METOPROLOL TARTRATE 1 MG/ML AMPUL IV ONE (09:23)
--- NOTE | 2019-04-09 10:57 | PN ---
Subjective - Date and Time Seen Date: 04/09/19 Time: 10:15 Subjective Narrative: She states she feels tired but denies chest pain, palpitations or shortness of breath. She also has chronic back pain. She did move her bowels this morning. Objective - Review of Systems Generalized/Overall Review: Reports: Fatigue. Denies: Chills, Fever Respiratory: Denies: Shortness of Breath Cardiac: Denies: Chest Pain, Palpitations Abdominal: Denies: Abdominal Pain Musculoskeletal Complaints: Reports: Back Pain Misc: All systems neg except as marked - Vitals Vitals: Last Vital Signs Temp 36.3 C 04/09/19 10:00 Pulse 102 H 04/09/19 10:00 Resp 18 04/09/19 10:00 BP 112/55 04/09/19 10:00 Pulse Ox 96 04/09/19 10:00 - Exam Constitutional: Present: Alert, Cooperative, Well developed, Well nourished, No distress, Elderly ENT Exam: Present: hearing grossly normal, moist mucous membranes Neck: Present: trachea midline. Absent: lymphadenopathy (R), lymphadenopathy (L) Respiratory: Present: lungs clear, no respiratory distress, no accessory muscle use, No wheezing. Absent: crackles, rhonchi Cardiovascular/Chest: Present: normal peripheral pulses, no edema, no murmur, irregularly irregular Abdomen: Present: Normal bowel sounds, soft, nontender, nondistended, obese Extremity: Present: no pedal edema Skin Exam: Present: normal color, warm/dry, no cyanosis Neurologic: Present: no motor/sensory deficits Appearance: Present: appropriate appearance Eye contact: Present: cooperative, good eye contact Thoughts: Present: normal mood /affect Assessment/Plan Plan Narrative: 78-year-old female with past medical history of atrial fibrillation, diabetes m ellitus type 2, depression, obstructive lung disease, aortic aneurysm [facility] with complaints of rapid heart rate. In the ER she was A. fib with RVR. She was placed on an amiodarone drip on April 07, 2019 with poor response. She continued to be tachycardic into the 140s consistently. She received 1 dose of metoprolol tartrate 5 mg IV yesterday with very good response, heart rate dropped to between 70s to 90s. In the afternoon she started to become tachycardic again into the 120s. I increased her home dose of carvedilol from 12.5 mg twice a day to 25 mg twice a day and her heart rate improved. However her blood pressure dropped with systolic blood pressure in the 80s and she required a 500 cc fluid bolus, with good response. She also got another dose of Cardizem 60 mg later that evening and both blood pressure and heart rate were stable. Her heart rate and blood pressure were stable overnight. However, this morning she started to become tachycardic again into the 140s and 150s. She had already received her morning medications. I gave her 1 dose of metoprolol tartrate 5 mg IV and she responded well with heart rate dropping down into the 90s. Blood p ressure was also stable. Will continue her Cardizem 60 mg twice a day and carvedilol 25 mg twice a day. - Problems/Diagnosis (1) Atrial fibrillation with RVR Problem: Acute (2) HTN (hypertension) Problem: Chronic Qualifiers: Hypertension type: essential hypertension Qualified Code(s): I10 - Essential (primary) hypertension (3) HLD (hyperlipidemia) Problem: Chronic Qualifiers: Hyperlipidemia type: unspecified Qualified Code(s): E78.5 - Hyperlipidemia, unspecified (4) GERD (gastroesophageal reflux disease) Problem: Chronic (5) Diabetes mellitus type 2, insulin dependent Problem: Chronic (6) Morbid obesity Problem: Chronic (7) Depression Problem: Chronic
[2019-04-09] MEDS: ENOXAPARIN SODIUM 40 MG/0.4 ML SYRG SC SCH (14:12)
[2019-04-09] MEDS: INSULIN DETEMIR 100 UNITS/ML VIAL SC SCH (20:22)
[2019-04-09] MEDS: ALPRAZolam 0.5 MG TABLET PO SCH (20:28)
[2019-04-10] MEDS: HYDROcodone/ACETAMINOPHEN 1 EACH TABLET PO PRN ×2 (05:52→12:07)
[2019-04-10] MEDS: SUCRALFATE 1 G/10 ML UDC PO SCH ×2 (07:43→11:30)
[2019-04-10] MEDS: FAMOTIDINE 20 MG TABLET PO SCH (09:22)
[2019-04-10] MEDS: DILTIAZEM HCL 60 MG TABLET PO SCH (09:22)
[2019-04-10] MEDS: GABAPENTIN 300 MG CAPSULE PO SCH ×2 (09:23→12:08)
[2019-04-10] MEDS: CARVEDILOL 25 MG TABLET PO SCH (09:23)
[2019-04-10] MEDS: DULoxetine HCL 30 MG CAPSULE.SA PO SCH (09:23)
[2019-04-10] MEDS: NYSTATIN 15 APPL BTL TP SCH (09:24)
[2019-04-10] MEDS: ASPIRIN 81 MG TABLET.DR PO SCH (09:26)
[2019-04-10] MEDS: INSULIN LISPRO 100 UNITS/ML VIAL SC SCH ×2 (09:29→12:03)
--- NOTE | 2019-04-10 12:54 | ECHO ---
This report is available in the EMR
[2019-04-10] MEDS: ENOXAPARIN SODIUM 40 MG/0.4 ML SYRG SC SCH (13:20)
--- NOTE | 2019-04-10 14:32 | DS ---
(1) Atrial fibrillation with RVR Problem: Acute (2) Diabetes mellitus Problem: Chronic Qualifiers: Diabetes mellitus type: type 2 Diabetes mellitus residential insulin use: with watermelon inspector use Diabetes mellitus complication status: without complication Qualified Code(s): E11.9 - Type 2 diabetes mellitus without complications; Z79.4 - senior care (current) use of insulin (3) Coronary artery disease Problem: Chronic Qualifiers: Coronary Disease-Associated Artery/Lesion type: [place] artery [place] vs. transplanted heart: cantwell heart Associated angina: without angina Qualified Code(s): I25.10 - Atherosclerotic heart disease of [place]well coronary artery without angina pectoris (4) Weakness Problem: Acute (5) Hypoxia Problem: Resolved Description of Stay: Jessa Swann is a 78-year-old female resident at the [facility]. I saw her on Wednesday during care home rounds and detected tachycardia to a rate of about 150. I had her sent to the emergency room. She was given metoprolol 25 mg IV and it initially slowed her heart rate down but also dropped her blood pressure. Once the blood pressure had recovered the heart rate went back up again. I gave her a second 25 mg of metoprolol and again the heart rate went down but her blood pressure dropped again as well. I then gave her a 500 cc bolus of normal saline and that seemed to stabilize her blood pressure the rest of her stay. Metoprolol did not slow her heart rate down and keep it down. He takes Coreg but it is not a beta-karla that is a very good negative chronotropic. I started her on amiodarone and gave her a loading dose and placed her on maintenance but it did not slow her heart rate down. We then put her on Cardizem and therapeutic dosing again did not slow her heart rate down. She was cared for by over the weekend. She doubled her Coreg and she did well yesterday. This morning her heart rate went back up between 110 120. And she then dropped to a rate of 80 with atrial flutter. She is feeling better and stronger than on admission. She has had no chest discomfort. She is not in congestive heart failure. The cause of her atrial flutter with RVR is uncertain. This is not a new problem and she has had a cardioversion in the past. Her pet food deboner is Dr. Julián xavier MD in [place]. An appointment has been made to see him at the end of this week for the first of next. Procedures Performed: none Results and Findings: Lab Pending Results 04/07/19 11:32: WBC 9.5, RBC 4.20, Hgb 11.7 L, Hct 37.0, MCV 88.1, MCH 27.9, MCHC 31.6 L, RDW 15.9 H, Plt Count 276, MPV 10.2, Immature Gran % (Auto) 0.40, Immature Gran # (Auto) 0.04 H, Neutrophils % 72.1, Lymphocytes % 12.4 L, Monocytes % 12.9 H, Eosinophils % 2.0, Basophils % 0.2, Nucleated RBC % 0.0, Neutrophils # 6.9 H, Lymphocytes # 1.18 L, Monocytes # 1.2 H, Eosinophils # 0.2, Absolute Basophils 0.0 04/07/19 11:32: Sodium 137, Plasma Sodium 139, Potassium 5.2 H D, Chloride 101, Carbon Dioxide 24.8, Anion Gap 16.4 H, BUN 24 H D, Creatinine 1.22, Est GFR (Non-Af Amer) 45 L D, BUN/Creatinine Ratio 19.7, Random Glucose 243 H, Calcium 9.0, Calcium Adj for Albumin 9.2, Total Bilirubin 0.4, AST 12, ALT 12 L, Alkaline Phosphatase 119, Troponin I Less than 0.017, B-Natriuretic Peptide 377, Total Protein 7.7, Albumin 3.3 L, TSH 0.810 04/07/19 11:32: Magnesium 1.8 04/08/19 05:52: Sodium 139, Plasma Sodium 140, Potassium 4.6, Chloride 104, Carbon Dioxide 22.9 L, Anion Gap 16.7 H, BUN 26 H, Creatinine 1.20, Est GFR (Non-Af Amer) 46 L, BUN/Creatinine Ratio 21.7 H, Random Glucose 170 H D, Calcium 9.1, Calcium Adj for Albumin 9.3, Total Bilirubin 0.2, AST 20, ALT 9 L, Alkaline Phosphatase 115, Total Protein 7.6, Albumin 3.3 L 04/08/19 06:00: WBC 8.7, RBC 4.22, Hgb 11.6 L, Hct 38.2, MCV 90.5, MCH 27.5, MCHC 30.4 L, RDW 15.9 H, Plt Count 264, MPV 10.5, Immature Gran % (Auto) 0.50 H, Immature Gran # (Auto) 0.04 H, Neutrophils % 59.9, Lymphocytes % 22.5, Monocytes % 13.6 H, Eosinophils % 3.2 H, Basophils % 0.3, Nucleated RBC % 0.0, Neutrophils # 5.2, Lymphocytes # 1.96, Monocytes # 1.2 H, Eosinophils # 0.3, Absolute Basophils 0.0 Discharge Location: [facility] Disposition: [facility] Condition: Stable Level of Care: SNF Discharge Activity: Activity as tolerated Discharge Diet: General/regular food, Other - Low caffeine Correction Therapy: Physicial Therapy, Occupation Therapy Referrals: Jere Garduno DO [Primary Care Provider] - Additional Patient Instructions (free text): - Follow up with cardiology To 04/17 at 3:30pm. in [place]. Complete Home Medications List: Complete Home Medication List: aspirin 81 mg tablet,delayed release 81 mg PO DAILY 04/08/18 atorvastatin 20 mg tablet 20 mg PO HS 04/08/18 gabapentin 300 mg capsule 300 mg PO TID #90 cap 04/18/18 Sennosides/Docusate Sodium [Docusate Sodium-Sennosides Tab] 1 ea PO DAILY PRN 05/08/18 l Gasseri/B Bifidum/B Longum [[facility] Capsule] 1 ea PO DAILY 05/08/18 insulin detemir (U-100) 100 unit/mL subcutaneous solution 34 unit SUB-Q HS ml 06/22/18 Cetirizine HCl 10 mg PO HS 12/17/18 Duloxetine HCl [Cymbalta] 60 mg PO QAM 12/17/18 Insulin Aspart [Novolog] 10 units SQ TID 12/17/18 Menthol [Biofreeze] 1 appl TOPICAL QID PRN 12/17/18 Mag Carb/Aluminum Hydrox/Algin [Gaviscon Liquid] 30 ml PO QID PRN #1 btl 12/19/18 alprazolam 0.5 mg tablet 0.5 mg PO HS #30 tab 01/03/19 amLODIPine BESYLATE [Norvasc] 2.5 mg PO DAILY 01/23/19 Nystatin [Mycostatin Powder] 1 appl TOPICAL BID btl 01/27/19 Sucralfate [Carafate] 1 gm PO ACHS #14 oral.susp 01/27/19 Potassium Chloride [K-Dur] 20 meq PO DAILY #30 tab 01/28/19 Ferrous Sulfate 325 mg PO TID 02/09/19 Acetaminophen [Tylenol] 500 mg PO Q4H PRN tab 02/10/19 famotidine 20 mg tablet 20 mg PO BID 02/15/19 Lactobacillus Acidophilus [Acidophilus] 2 ea PO DAILY 02/20/19 guaiFENesin [Mucinex] 1,200 mg PO BID 02/20/19 hydrocodone 5 mg-acetaminophen 325 mg tablet 1 tab PO Q6H PRN #60 tab 02/27/19 Sertraline HCl 25 mg PO DAILY 04/07/19 Carvedilol [Coreg] 25 mg PO BID #60 tab 04/10/19 Diltiazem HCl [Cardizem] 60 mg PO BID #60 tab 04/10/19 Gabapentin [Neurontin] 300 mg PO TID #90 cap 04/10/19
[2019-04-10 16:05] VITALS: BP 118/63
== END 2019-04-10 16:09 | DRG 309 ==
LOC: MS 10:53 → ER 10:53 → MS 13:15 → SCU 16:00 → MS 04-09 11:49
PROVIDERS: ADMIT Family Medicine; ATTEND Family Medicine
DX: E11.9 Type 2 diabetes mellitus without complications; E66.01 Morbid (severe) obesity due to excess calories; I48.2 Chronic atrial fibrillation; I25.10 Atherosclerotic heart disease of native coronary artery without angina pectoris; F32.9 Major depressive disorder, single episode, unspecified; I95.9 Hypotension, unspecified; E78.5 Hyperlipidemia, unspecified; Z68.43 Body mass index [BMI] 50.0-59.9, adult; R09.02 Hypoxemia; K21.9 Gastro-esophageal reflux disease without esophagitis; I11.9 Hypertensive heart disease without heart failure; R53.1 Weakness; Z79.4 Long term (current) use of insulin
CPT/HCPCS: 36415; 71010; 71020; 71045; 71046; 80053; 83519; 83735; 83880; 84443; 84484; 85025; 87081; 93005; 93306; 96374; 96376; 99285

== ENCOUNTER 2019-04-18 11:18 | Observation (INO) ==
[2019-04-18] MEDS ORDERED: NORMAL SALINE 1,000 ML IV ONE (11:53)
--- NOTE | 2019-04-18 11:59 | ERNOTE ---
Medical Problem HPI - General Chief Complaint: General Assessment Time Seen by Provider: 04/18/19 11:35 Source: patient, EMS Exam Limitations: other - Altered mental status - Immun/Allergies/Home Medications Immunizations: IMMUNIZATION HX Immunizations Up to Date Yes History of Influenza Vaccine Yes Hx Pneumococcal Vaccination Yes Allergies/Adverse Reactions: Allergies morphine Allergy (Mild, Verified 04/07/19 17:43) Hives ondansetron Allergy (Mild, Verified 04/07/19 17:43) Hives red dye Allergy (Mild, Verified 04/07/19 17:43) Hives ciprofloxacin [From Cipro] Adverse Reaction (Mild, Verified 04/07/19 17:43) Hives codeine Adverse Reaction (Mild, Verified 04/07/19 17:43) anxious haloperidol [From Haldol] Adverse Reaction (Mild, Verified 04/07/19 17:43) Other increased confusion lorazepam [From Ativan] Adverse Reaction (Mild, Verified 04/07/19 17:43) Other increased confusion nitrofurantoin [From Macrobid] Adverse Reaction (Mild, Verified 04/07/19 17:43) Hives Sulfa (Sulfonamide Antibiotics) [Sulfa(Sulfonamide Antibiotics)] Adverse Reaction (Mild, Verified 04/07/19 17:43) Hives Home Medications: HOME MEDICATIONS aspirin 81 mg tablet,delayed release 81 mg PO DAILY 04/08/18 [Last Taken 03/01/19] atorvastatin 20 mg tablet 20 mg PO HS 04/08/18 [Last Taken 03/01/19] gabapentin 300 mg capsule 300 mg PO TID #90 cap 04/18/18 [Last Taken 03/01/19] Sennosides/Docusate Sodium [Docusate Sodium-Sennosides Tab] 1 ea PO DAILY PRN 05/08/18 [Last Taken 03/01/19] l Gasseri/B Bifidum/B Longum [[facility] Capsule] 1 ea PO DAILY 05/08/18 [Last Taken 03/01/19] insulin detemir (U-100) 100 unit/mL subcutaneous solution 34 unit SUB-Q HS ml 06/22/18 [Last Taken 03/01/19] Cetirizine HCl 10 mg PO HS 12/17/18 [Last Taken 03/01/19] Duloxetine HCl [Cymbalta] 60 mg PO QAM 12/17/18 [Last Taken 03/01/19] Insulin Aspart [Novolog] 10 units SQ TID 12/17/18 [Last Taken 03/01/19] Menthol [Biofreeze] 1 appl TOPICAL QID PRN 12/17/18 [Last Taken 03/01/19] Mag Carb/Aluminum Hydrox/Algin [Gaviscon Liquid] 30 ml PO QID PRN #1 btl 12/19/18 [Last Taken 03/01/19] alprazolam 0.5 mg tablet 0.5 mg PO HS #30 tab 01/03/19 [Last Taken 03/01/19] amLODIPine BESYLATE [Norvasc] 2.5 mg PO DAILY 01/23/19 [Last Taken 03/01/19] Nystatin [Mycostatin Powder] 1 appl TOPICAL BID btl 01/27/19 [Last Taken 03/01/19] Sucralfate [Carafate] 1 gm PO ACHS #14 oral.susp 01/27/19 [Last Taken 03/01/19] Potassium Chloride [K-Dur] 20 meq PO DAILY #30 tab 01/28/19 [Last Taken 03/01/19] Ferrous Sulfate 325 mg PO TID 02/09/19 [Last Taken 03/01/19] Acetaminophen [Tylenol] 500 mg PO Q4H PRN tab 02/10/19 [Last Taken Unknown] famotidine 20 mg tablet 20 mg PO BID 02/15/19 [Last Taken 03/01/19] Lactobacillus Acidophilus [Acidophilus] 2 ea PO DAILY 02/20/19 [Last Taken 03/01/19] guaiFENesin [Mucinex] 1,200 mg PO BID 02/20/19 [Last Taken 03/01/19] Sertraline HCl 25 mg PO DAILY 04/07/19 [Last Taken Unknown] Carvedilol [Coreg] 25 mg PO BID #60 tab 04/10/19 [Last Taken Unknown] Diltiazem HCl [Cardizem] 60 mg PO BID #60 tab 04/10/19 [Last Taken Unknown] Gabapentin [Neurontin] 300 mg PO TID #90 cap 04/10/19 [Last Taken Unknown] hydrocodone 5 mg-acetaminophen 325 mg tablet 2 tab PO Q6H PRN #120 tab 04/11/19 [Last Taken Unknown] - History of Present History Narrative: Patient arrives from the [facility] with altered mental status, hypotension and borderline hypoxia. Patient is irascible, appears confused and is not assisting in her exam. Timing: constant Severity: moderate Review of Systems - Review of Systems Constitutional: Present: See HPI EYE: Present: no symptoms reported ENT: Present: no symptoms reported Respiratory: Present: no symptoms reported Cardiology: Present: palpitations Gastrointestinal/Abdominal: Present: no symptoms reported Genitourinary: Present: no symptoms reported Musculoskeletal: Present: no symptoms reported Skin: Present: no symptoms reported Neurological: Present: See HPI Endocrine: Present: See HPI Hematologic/Lymphatic: Present: no symptoms reported Psych: Present: See HPI All Other Systems: All systems neg except as marked Medical History (Updated 04/18/19 @ 13:[address]intyre DO) Atrial fibrillation with RVR (Acute) Rate 150 today. Diabetes mellitus type 2, insulin dependent (Chronic) Morbid obesity (Chronic) HTN (hypertension) (Chronic) Duodenal bulb ulcer (Acute) Atrial fibrillation (Chronic) Diarrhea (Chronic) Aortic aneurysm Walker as ambulation aid bradioprexopathy Bilateral lower extremity edema Depression Onset Date: ~06/29/14 Diabetes mellitus, type II Difficulty in walking Onset Date: ~05/29/14 Dry skin Hammer toes, bilateral Macular degeneration of both eyes Obstructive lung disease Onset Date: ~11/10/17 Onychomycosis Thinning of skin Toe pain, bilateral Hand pain, left Onset Date: ~04/2013 metacarpal fracture Hx of colonic polyps Onset Date: ~06/30/10 Infection of kidney Sepsis Splenic artery aneurysm Onset Date: ~2008 patient states this was reviewed by her previous pcp dr suarez and was told it was small and did not need any further testing at that time. Surgical History: Surgical History (Updated 04/07/19 @ 13:59 by Jere Garduno DO) H/O colonoscopy Onset Date: 03/02/19 06/30/10 Tinguely-tubular adenoma x2, scattered diverticular disease. Incomplete prep. Recheck 6mo. 03/02/19 Jonh-serrated adenoma. Diverticulosis. Recheck 3 yrs. H/O cystoscopy Onset Date: 09/20/17 stent removal H/O lithotripsy Onset Date: Unknown History of appendectomy Onset Date: Unknown History of arthroscopic knee surgery Onset Date: Unknown History of bronchoscopy Onset Date: 01/17/18 History of cholecystectomy Onset Date: Unknown History of esophagogastroduodenoscopy (EGD) Onset Date: 03/02/19 01/23/19 Jonh-w/clipping of bleeding ulcer. 03/02/19 Jonh-negative. History of laryngoscopy Onset Date: 01/15/18 using laser, flexible fiberoptic. [facility] Dr David Patel Hx of cardiac cath Onset Date: Unknown S/P ureteral stent placement Onset Date: Unknown Dr. Meraz insertion of subclavian catheter Onset Date: 09/19/17 Tommeraasen-left Family History: Family History (Last Reviewed 04/07/19 @ 12:05 by Alexus Tamayo LPN) Father , MVA age 80 No problems noted. Mother , old age- age 89 No problems noted. Social History: (Last Updated 04/18/19 @ 11:54 by Annalisa Campa RN) Social History: shelter: Yes Marital status: lives independently: No lives independently comment: [facility] number of children: 5 caregiver/support person: Yes caregiver/support person comment: Care Center staff caregivers: other Service: No Tobacco: Smoking Status: Smoker, status unknown Alcohol: alcohol intake: never Substance Use: substance use type: does not use Dietary Habits: caffeine: Yes Physical Exam - Physical Exam General Appearance: Present: wd/wn, alert, moderate distress, lethargic, obese Head Exam: Present: normal inspection, no evidence of injury Eye Exam: Normal inspection: bilateral, PERRL: bilateral Ears, Nose, Throat: Present: normal ENT inspection, H, normal pharynx Neck: Present: normal inspection, nontender Respiratory: Present: no respiratory distress, normal breath sounds, no accessory muscle use, chest nontender, lungs clear Cardiovascular/Chest: Present: no murmur, normal peripheral pulses, irregularly irregular Gastrointestinal/Abdominal: Present: normal bowel sounds, nondistended, soft, no organomegaly, tenderness - Generalized Rectal Exam: Present: deferred Pelvic Exam: Present: deferred Back Exam: Present: other - Unable to test Extremity Exam: Present: normal inspection, non-tender, no edema, normal range of motion Neurological Exam: Present: disoriented to person, disoriented to time, disoriented to place, disoriented to situation Skin Exam: Present: normal color, warm/dry Lymphatic Exam: Present: no adenopathy Progress - Results and Orders Patient's Lab Results:: I have reviewed the patient's lab results. - Vital Signs Patient's Vital Signs:: I have reviewed the patient's vital signs. Vital Signs: Vital Signs 04/18/19 11:24 Temperature 36.2 C Pulse Rate 96 Respiratory Rate 16 Blood Pressure 91/60 O2 Sat by Pulse Oximetry 95 - EKG EKG #1 EKG: atrial fibrillation EKG read: Reviewed by me - X-Ray X-Ray #1 X-Ray: chest Interpretation: Reviewed by me - CT/Ultrasound CT/Ultrasound Narrative: CT of the head reviewed by me - Progress/Reassessment Chief Complaint: General Assessment Plan - Plan Plan: Patient will be admitted for correction of her hyperkalemia and further investigation for the new onset of altered mental status. Departure Clinical Impression: Hyperkalemia Altered mental status Qualifiers: Altered mental status type: disorientation Qualified Code(s): R41.0 - Disorientation, unspecified - Departure Disposition: Still a patient Condition: Fair Referrals: Jere Garduno DO [Primary Care Provider] - Critical Care Note - Critical Care Note Total Time (mins): 35 Comments: Patient will be admitted to a monitored bed. She was given the hyperkalemia cocktail and her potassium will be redrawn in approximately 4 hours. I am suspecting further monitoring of her blood pressure medicine will be needed as she showed up with a blood pressure of 88/50.
[2019-04-18 12:45] LABS: Hematocrit 34.4 % (37.0-47.0); Hemoglobin 10.6 gm/dL (12.5-16.0); Mean Cell Volume 90.1 fl (78-100); Mean Corpuscular Hemoglobin 27.7 pg (27-31); Mean Corpuscular Hgb Conc 30.8 g/dl (32-36); Mean Platelet Volume 10.4 fl (8-12.5); Neutrophil # 6.1 K/mm3 (1.3-6.0); Neutrophil % 71.7 % (42-75.0); Platelet Count 304 K/mm3 (150-450); Red Blood Count 3.82 M/mm3 (4.2-5.4); Red Cell Distribution Width 15.9 % (11.5-14.0); White Blood Count 8.5 K/mm3 (4.0-10.5)
[2019-04-18 12:57] LABS: Troponin I Less than 0.017 ng/mL (0.00-0.10)
[2019-04-18 12:59] LABS: ALT 14 U/L (19-67); AST 31 U/L (0-48); Albumin * 3.2 gm/dl (3.4-5.0); Alkaline Phosphatase * 134 U/L (50-170); BNP * 1490 pg/mL (5-550); BUN/Creatinine Ratio 25.4 (9.0-21.6); Bilirubin, Total 0.4 mg/dL (0.0-1.1); Blood Urea Nitrogen 35 mg/dL (3-23); Ca. Corrected For Albumin 8.8 mg/dL (8.4-10.2); Calcium * 8.5 mg/dL (7.9-10.9); Carbon Dioxide 24.5 mmol/L (24-32.6); Chloride 106 mmol/L (97-106); Glucose * 181 mg/dL (70-110); Lipase 71 U/L (73-393); Magnesium 1.9 mg/dL (1.2-2.8); Sodium 140 mmol/L (132-142); Total Protein 7.7 gm/dL (6.2-8.2)
[2019-04-18 13:03] LABS: Potassium 6.5 mmol/L (3.4-4.6)
[2019-04-18] MEDS ORDERED: CALCIUM GLUCONATE 4.65 MEQ/10 ML VIAL IV ONE (13:04)
[2019-04-18] MEDS ORDERED: DEXTROSE 50%-WATER 50 ML SYRG IV ONE (13:04)
[2019-04-18] MEDS ORDERED: INSULIN REGULAR, HUMAN 100 UNITS/ML VIAL IV ONE (13:04)
[2019-04-18] MEDS ORDERED: ALBUTEROL SULFATE 2.5 MG/0.5 ML VIAL.NEB IH ONE (13:04)
[2019-04-18] MEDS ORDERED: SODIUM POLYSTYRENE SULFON/SORB 15 G/60 ML ORAL.SUSP PO ONE (13:05)
[2019-04-18] MEDS ORDERED: SODIUM BICARBONATE 1 MEQ/ML SYRG IV ONE ×2 (13:06→13:30)
[2019-04-18] MEDS ORDERED: SENNOSIDES/DOCUSATE SODIUM 1 TAB TABLET PO PRN (19:00)
[2019-04-18] MEDS ORDERED: ACETAMINOPHEN 500 MG TABLET PO PRN (19:00)
--- NOTE | 2019-04-18 19:43 | HP ---
Chief Complaint - Chief Complaint Date of Service: 04/18/19 Time of Service: 12:50 Chief Complaint: weakness, confusion, hyperkalemia, atrial flutter with rvr. History of Present Illness: Jessa was in the hospital last week with atrial fib RVR that I could not get converted to a safer rate and she was eventually transferred to [place] to Dr. Camarena. Using carvedilol, amiodarone, and dig they got her rate down into the 80s. She was seen in Dr. alvarado office yesterday and he switched her from carvedilol to metoprolol because it is a better negative chronotropic. He increase the Eliquis by 5 mg. He stopped her oral potassium and Lasix as her potassium yesterday was 6.3. On admission today it is 6.7. She is not eligible for dig because of her hyperkalemia. Her blood pressure was in the 80s systolic on arrival and now is up to 107. The metoprolol is not on her medication list but I am not sure her blood pressure will tolerate it anyway. I will try a single dose. I have communicated with Dr. Camarena and I am following his recommenda tions. Probably she will have to be moved to [facility] and started on amiodarone again. But we will see how the metoprolol affects her. Medical History (Updated 04/18/19 @ 13:[address]tyre DO) Atrial fibrillation with RVR (Acute) Rate 150 today. Diabetes mellitus type 2, insulin dependent (Chronic) Morbid obesity (Chronic) HTN (hypertension) (Chronic) Duodenal bulb ulcer (Acute) Atrial fibrillation (Chronic) Diarrhea (Chronic) Aortic aneurysm Walker as ambulation aid bradioprexopathy Bilateral lower extremity edema Depression Onset Date: ~06/29/14 Diabetes mellitus, type II Difficulty in walking Onset Date: ~05/29/14 Dry skin Hammer toes, bilateral Macular degeneration of both eyes Obstructive lung disease Onset Date: ~11/10/17 Onychomycosis Thinning of skin Toe pain, bilateral Hand pain, left Onset Date: ~04/2013 metacarpal fracture Hx of colonic polyps Onset Date: ~06/30/10 Infection of kidney Sepsis Splenic artery aneurysm Onset Date: ~2008 patient states this was reviewed by her previous pcp dr suarez and was told it was small and did not need any further testing at that time. Surgical History: Surgical History (Updated 04/07/19 @ 13:59 by Jere Garduno DO) H/O colonoscopy Onset Date: 03/02/19 06/30/10 Tinguely-tubular adenoma x2, scattered diverticular disease. Incomplete prep. Recheck 6mo. 03/02/19 Jonh-serrated adenoma. Diverticulosis. Recheck 3 yrs. H/O cystoscopy Onset Date: 09/20/17 stent removal H/O lithotripsy Onset Date: Unknown History of appendectomy Onset Date: Unknown History of arthroscopic knee surgery Onset Date: Unknown History of bronchoscopy Onset Date: 01/17/18 History of cholecystectomy Onset Date: Unknown History of esophagogastroduodenoscopy (EGD) Onset Date: 03/02/19 01/23/19 Jonh-w/clipping of bleeding ulcer. 03/02/19 Jonh-negative. History of laryngoscopy Onset Date: 01/15/18 using laser, flexible fiberoptic. [facility] Dr David Patel Hx of cardiac cath Onset Date: Unknown S/P ureteral stent placement Onset Date: Unknown Dr. Meraz insertion of subclavian catheter Onset Date: 09/19/17 Tommeraasen-left Family History: Family History (Last Reviewed 04/07/19 @ 12:05 by Alexus Tamayo LPN) Father , MVA age 80 No problems noted. Mother , old age- age 89 No problems noted. Social History: (Last Reviewed 04/18/19 @ 15:15 by Jessica Victor RN) Social History: skilled nursing: Yes Marital status: lives independently: No lives independently comment: [facility] number of children: 5 caregiver/support person: Yes caregiver/support person comment: Care Center staff caregivers: other Service: No Tobacco: Smoking Status: Unknown if ever smoked Alcohol: alcohol intake: never Substance Use: substance use type: does not use Dietary Habits: caffeine: Yes Review Of Systems (GEN) - Review of Systems Generalized/Overall Review: Present: Weakness, Malaise EENTM: Present: No Symptoms Reported Respiratory: Present: No Symptoms Reported Cardiac: Present: Palpitations Abdominal: Present: No Symptoms Reported Genitourinary: Present: No Symptoms Reported Musculoskeletal: Present: No Symptoms Reported Neurological: Present: Anxiety, Weakness, Other - Mild confusion Skin: Present: No Symptoms Reported Endocrine: Present: No Symptoms Reported Immunizations: IMMUNIZATION HX Immunizations Up to Date Yes History of Influenza Vaccine Yes Hx Pneumococcal Vaccination Yes Allergies/Adverse Reactions: Allergies Allergy/AdvReac Type Severity Reaction Status Date / Time morphine Allergy Mild Hives Verified 04/18/19 15:16 ondansetron Allergy Mild Hives Verified 04/18/19 15:16 red dye Allergy Mild Hives Verified 04/18/19 15:16 ciprofloxacin [From Cipro] AdvReac Mild Hives Verified 04/18/19 15:16 codeine AdvReac Mild anxious Verified 04/18/19 15:16 haloperidol [From Haldol] AdvReac Mild Other Verified 04/18/19 15:16 lorazepam [From Ativan] AdvReac Mild Other Verified 04/18/19 15:16 nitrofurantoin AdvReac Mild Hives Verified 04/18/19 15:16 [From Macrobid] Sulfa (Sulfonamide AdvReac Mild Hives Verified 04/18/19 15:16 Antibiotics) [Sulfa(Sulfonamide Antibiotics)] Home Medications: HOME MEDICATIONS aspirin 81 mg tablet,delayed release 81 mg PO DAILY 04/08/18 [Last Taken 03/01/19] atorvastatin 20 mg tablet 20 mg PO HS 04/08/18 [Last Taken 03/01/19] gabapentin 300 mg capsule 300 mg PO TID #90 cap 04/18/18 [Last Taken 03/01/19] Sennosides/Docusate Sodium [Docusate Sodium-Sennosides Tab] 1 ea PO DAILY PRN 05/08/18 [Last Taken 03/01/19] insulin detemir (U-100) 100 unit/mL subcutaneous solution 34 unit SUB-Q HS ml 06/22/18 [Last Taken 03/01/19] Cetirizine HCl 10 mg PO HS 12/17/18 [Last Taken 03/01/19] Duloxetine HCl [Cymbalta] 60 mg PO QAM 12/17/18 [Last Taken 03/01/19] Insulin Aspart [Novolog] 10 units SQ TID 12/17/18 [Last Taken 03/01/19] Mag Carb/Aluminum Hydrox/Algin [Gaviscon Liquid] 30 ml PO QID PRN #1 btl 12/19/18 [Last Taken 03/01/19] alprazolam 0.5 mg tablet 0.5 mg PO HS #30 tab 01/03/19 [Last Taken 03/01/19] Sucralfate [Carafate] 1 gm PO ACHS #14 oral.susp 01/27/19 [Last Taken 03/01/19] Ferrous Sulfate 325 mg PO TID 02/09/19 [Last Taken 03/01/19] Acetaminophen [Tylenol] 500 mg PO Q4H PRN tab 02/10/19 [Last Taken Unknown] famotidine 20 mg tablet 20 mg PO BID 02/15/19 [Last Taken 03/01/19] Lactobacillus Acidophilus [Acidophilus] 2 ea PO DAILY 02/20/19 [Last Taken 03/01/19] guaiFENesin [Mucinex] 1,200 mg PO BID 02/20/19 [Last Taken 03/01/19] Sertraline HCl 25 mg PO DAILY 04/07/19 [Last Taken Unknown] Diltiazem HCl [Cardizem] 60 mg PO BID #60 tab 04/10/19 [Last Taken Unknown] hydrocodone 5 mg-acetaminophen 325 mg tablet 2 tab PO Q6H PRN #120 tab 04/11/19 [Last Taken Unknown] Apixaban [Eliquis] 2.5 mg PO HS 04/18/19 [Last Taken Unknown] Cefuroxime Axetil [Cefuroxime] 250 mg PO BID 04/18/19 [Last Taken Unknown] Furosemide [Lasix] 40 mg PO 1200 04/18/19 [Last Taken Unknown] Exam - Exam Vital Signs: Vital Signs - Last Taken Temp 36.8 C 04/18/19 19:00 Pulse 82 04/18/19 19:00 Resp 16 04/18/19 19:00 BP 120/64 04/18/19 19:00 Pulse Ox 97 04/18/19 19:00 Constitutional: Present: Alert, Oriented x3, Cooperative, Well developed, Well nourished, Mild distress ENT Exam: Present: normal ENT inspection, hearing grossly normal, pharynx normal, TMs normal Eye Exam: bilateral eye: normal inspection, PERRL, EOMI Neck: Present: non-tender, supple, normal inspection, limited range of motion Back Exam: Present: normal inspection, no CVA tenderness, no vertebral tenderness Breasts: Present: Exam deferred, Nontender Respiratory: Present: chest non-tender, lungs clear, normal breath sounds, no respiratory distress, no accessory muscle use Cardiovascular/Chest: Present: tachycardia, irregularly irregular Peripheral Pulses: carotid (R): 2+, carotid (L): 2+, dorsalis-pedis (R): 2+, dorsalis-pedis (L): 2+, radial (R): 2+, radial (L): 2+ Abdomen: Present: Normal bowel sounds, soft, nontender, nondistended, obese /Rectal: Present: Exam deferred Extremity: Present: normal range of motion, non-tender, normal inspection, no pedal edema, no calf tenderness, normal capillary refill Skin Exam: Present: normal color, warm/dry, no cyanosis Lymphatic: Present: no adenopathy 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 Absent: cooperative Thoughts: Present: normal thought pattern, no apparent hallucination Diagnostic Studies: Abnormal Lab Results 04/18/19 04/18/19 04/18/19 Range/Units 12:33 12:33 12:33 RBC 3.82 L (4.2-5.4) M/mm3 Hgb 10.6 L (12.5-16.0) gm/dL Hct 34.4 L (37.0-47.0) % MCHC 30.8 L (32-36) g/dl RDW 15.9 H (11.5-14.0) % Immature Gran % (Auto) 0.50 H (0.001-0.429) % Immature Gran # (Auto) 0.04 H (0.000-0.0310) K/mm3 Lymphocytes % 13.7 L (20-51) % Monocytes % 10.7 H (0.0-9) % Eosinophils % 3.2 H (0.0-3.0) % Neutrophils # 6.1 H (1.3-6.0) K/mm3 Lymphocytes # 1.16 L (1.5-3.5) k/mm3 pO2 60.8 L (83.0-108.0) mmHg HCO3 20.7 L (21.0-28.0) mmol/L Base Excess -5.1 L (-2.0-3.0) mmol/L ABG pH 7.32 L (7.35-7.45) ABG O2 Sat (Measured) 89.5 L (94.0-98.0) % Potassium 6.5 H D (3.4-4.6) mmol/L Anion Gap 16.0 H (6.8-13.8) mmol/L BUN 35 H D (3-23) mg/dL Est GFR (Non-Af Amer) 39 L (60-130) mL/min BUN/Creatinine Ratio 25.4 H (9.0-21.6) Random Glucose 181 H (70-110) mg/dL ALT 14 L (19-67) U/L B-Natriuretic Peptide 1490 H (5-550) pg/mL Albumin 3.2 L (3.4-5.0) gm/dl Lipase 71 L (73-393) U/L Laboratory Results WBC 8.5 K/mm3 (4.0-10.5) 04/18/19 12:33 RBC 3.82 M/mm3 (4.2-5.4) L 04/18/19 12:33 Hgb 10.6 gm/dL (12.5-16.0) L 04/18/19 12:33 Hct 34.4 % (37.0-47.0) L 04/18/19 12:33 MCV 90.1 fl (78-100) 04/18/19 12:33 MCH 27.7 pg (27-31) 04/18/19 12:33 MCHC 30.8 g/dl (32-36) L 04/18/19 12:33 RDW 15.9 % (11.5-14.0) H 04/18/19 12:33 Plt Count 304 K/mm3 (150-450) 04/18/19 12:33 MPV 10.4 fl (8-12.5) 04/18/19 12:33 Immature Gran % (Auto) 0.50 % (0.001-0.429) H 04/18/19 12:33 Immature Gran # (Auto) 0.04 K/mm3 (0.000-0.0310) H 04/18/19 12:33 71.7 % (42-75.0) 04/18/19 12:33 13.7 % (20-51) L 04/18/19 12:33 10.7 % (0.0-9) H 04/18/19 12:33 3.2 % (0.0-3.0) H 04/18/19 12:33 0.2 % (0.0-1.0) 04/18/19 12:33 Nucleated RBC % 0.0 k/mm3 (0-1) 04/18/19 12:33 6.1 K/mm3 (1.3-6.0) H 04/18/19 12:33 1.16 k/mm3 (1.5-3.5) L 04/18/19 12:33 0.9 k/mm3 (0.0-1.0) 04/18/19 12:33 0.3 k/mm3 (0.0-0.7) 04/18/19 12:33 Absolute Basophils 0.0 k/mm3 (0.0-0.1) 04/18/19 12:33 pCO2 41.0 mmHg (32.0-45.0) 04/18/19 12:33 pO2 60.8 mmHg (83.0-108.0) L 04/18/19 12:33 HCO3 20.7 mmol/L (21.0-28.0) L 04/18/19 12:33 Total CO2 21.9 mmol/L (19.0-24.0) 04/18/19 12:33 Base Excess -5.1 mmol/L (-2.0-3.0) L 04/18/19 12:33 ABG pH 7.32 (7.35-7.45) L 04/18/19 12:33 ABG O2 Sat (Measured) 89.5 % (94.0-98.0) L 04/18/19 12:33 Sodium 140 mmol/L (132-142) 04/18/19 12:33 141 mmol/L (130-142) 04/18/19 12:33 Potassium 6.5 mmol/L (3.4-4.6) H D 04/18/19 12:33 Chloride 106 mmol/L (97-106) 04/18/19 12:33 Carbon Dioxide 24.5 mmol/L (24-32.6) 04/18/19 12:33 16.0 mmol/L (6.8-13.8) H 04/18/19 12:33 BUN 35 mg/dL (3-23) H D 04/18/19 12:33 1.38 mg/dL (0.4-1.4) 04/18/19 12:33 Est GFR (Non-Af Amer) 39 mL/min (60-130) L 04/18/19 12:33 25.4 (9.0-21.6) H 04/18/19 12:33 181 mg/dL (70-110) H 04/18/19 12:33 1.2 mmol/L (0.4-2.0) 04/18/19 12:33 Calcium 8.5 mg/dL (7.9-10.9) 04/18/19 12:33 Calcium Adj for Albumin 8.8 mg/dL (8.4-10.2) 04/18/19 12:33 Magnesium 1.9 mg/dL (1.2-2.8) 04/18/19 12:33 0.4 mg/dL (0.0-1.1) 04/18/19 12:33 AST 31 U/L (0-48) 04/18/19 12:33 ALT 14 U/L (19-67) L 04/18/19 12:33 134 U/L (50-170) 04/18/19 12:33 18.0 mcmol/L (11-35) 04/18/19 12:33 Less than 0.017 ng/mL (0.00-0.10) 04/18/19 12:33 B-Natriuretic Peptide 1490 pg/mL (5-550) H 04/18/19 12:33 7.7 gm/dL (6.2-8.2) 04/18/19 12:33 3.2 gm/dl (3.4-5.0) L 04/18/19 12:33 71 U/L (73-393) L 04/18/19 12:33 Negative (NEGATIVE) 04/18/19 12:33 Assessment/Plan - Narrative Narrative: The goal will be to try to reduce her potassium through the night. I have ordered a potassium done just now and if it still high then I we will start her on Kayexalate. Once her potassium is normalized and if she is still in an RVR pattern then she will probably need a RODOLFO and cardioversion. That had been planned for 4 to 6 weeks from now anyway pending anticoagulation time but that may have to be moved up. Recheck lab tomorrow morning. - Assessment/Plan (1) Hyperkalemia Problem: Acute (2) Atrial fibrillation with RVR Problem: Chronic (3) Diabetes mellitus type 2, insulin dependent Problem: Chronic (4) Altered mental status Problem: Acute Qualifiers: Altered mental status type: disorientation Qualified Code(s): R41.0 - Disorientation, unspecified
[2019-04-18 19:45] LABS: Anion Gap 13.8 mmol/L (6.8-13.8); BUN/Creatinine Ratio 25.5 (9.0-21.6); Calcium * 8.6 mg/dL (7.9-10.9); Carbon Dioxide 26.5 mmol/L (24-32.6); Estimated Creat Clear 30.5; Potassium 5.3 mmol/L (3.4-4.6)
[2019-04-18] MEDS ORDERED: METOPROLOL SUCCINATE 50 MG TABLET.SA PO ONE (19:53)
[2019-04-18] MEDS ORDERED: METOPROLOL TARTRATE 50 MG TABLET PO ONE (20:47)
[2019-04-18] MEDS ORDERED: INSULIN DETEMIR 100 UNITS/ML VIAL SC SCH (21:00)
[2019-04-18] MEDS ORDERED: ALPRAZolam 0.5 MG TABLET PO SCH (21:00)
[2019-04-18] MEDS ORDERED: APIXABAN 2.5 MG TABLET PO SCH ×2 (21:00)
[2019-04-18] MEDS: DILTIAZEM HCL 60 MG TABLET PO SCH (22:06)
[2019-04-18] MEDS: CEFUROXIME AXETIL 250 MG TABLET PO SCH (22:06)
[2019-04-18] MEDS: HYDROcodone/ACETAMINOPHEN 1 EACH TABLET PO PRN (22:06)
[2019-04-18] MEDS: GABAPENTIN 300 MG CAPSULE PO SCH (22:07)
[2019-04-18] MEDS: FAMOTIDINE 20 MG TABLET PO SCH (22:07)
[2019-04-19 03:39] LABS: Urine Bilirubin Negative (NEGATIVE); Urine Blood Negative /ul (NEGATIVE); Urine Ketone Negative (NEGATIVE); Urine Protein Negative (NEGATIVE); Urine Urobilinogen Normal (NORMAL)
[2019-04-19 03:45] LABS: Urine Appearance Clear (CLEAR); Urine Bacteria 2+; Urine Color Yellow; Urine Nitrite Positive (NEGATIVE); Urine RBC None Seen /hpf (0-5)
[2019-04-19] MEDS: HYDROcodone/ACETAMINOPHEN 1 EACH TABLET PO PRN (04:04)
[2019-04-19 05:42] LABS: Hematocrit 34.8 % (37.0-47.0); Hemoglobin 10.5 gm/dL (12.5-16.0); Mean Cell Volume 90.6 fl (78-100); Mean Corpuscular Hemoglobin 27.3 pg (27-31); Mean Corpuscular Hgb Conc 30.2 g/dl (32-36); Neutrophil # 7.3 K/mm3 (1.3-6.0); Platelet Count 298 K/mm3 (150-450); Red Blood Count 3.84 M/mm3 (4.2-5.4); Red Cell Distribution Width 15.9 % (11.5-14.0); White Blood Count 9.9 K/mm3 (4.0-10.5)
[2019-04-19 05:53] LABS: Albumin * 3.2 gm/dl (3.4-5.0); Anion Gap 14.7 mmol/L (6.8-13.8); BUN/Creatinine Ratio 23.2 (9.0-21.6); Bilirubin, Total 0.4 mg/dL (0.0-1.1); Ca. Corrected For Albumin 9.1 mg/dL (8.4-10.2); Calcium * 8.8 mg/dL (7.9-10.9); Carbon Dioxide 26.9 mmol/L (24-32.6); Potassium 4.6 mmol/L (3.4-4.6); Total Protein 7.5 gm/dL (6.2-8.2)
[2019-04-19] MEDS: DULoxetine HCL 30 MG CAPSULE.SA PO SCH ×2 (08:01→10:59)
[2019-04-19] MEDS: ASPIRIN 81 MG TABLET.DR PO SCH ×2 (08:01→10:59)
[2019-04-19] MEDS: FAMOTIDINE 20 MG TABLET PO SCH ×2 (08:01→10:59)
[2019-04-19] MEDS: SERTRALINE HCL 50 MG TABLET PO SCH ×2 (08:01→10:59)
[2019-04-19] MEDS: GABAPENTIN 300 MG CAPSULE PO SCH ×3 (08:02→13:40)
[2019-04-19] MEDS: DILTIAZEM HCL 60 MG TABLET PO SCH (08:02)
[2019-04-19] MEDS: CEFUROXIME AXETIL 250 MG TABLET PO SCH ×2 (08:02→10:59)
[2019-04-19] MEDS: INSULIN LISPRO 100 UNITS/ML VIAL SC SCH ×2 (08:05→13:39)
[2019-04-19] MEDS ORDERED: AMIODARONE HCL 150 MG/100 ML PIGGYBACK IV ONE (08:29)
[2019-04-19] MEDS ORDERED: AMIODARONE HCL 900 MG in DEXTROSE 5 % IN WATER 500 ML IV SCH ×2 (08:33)
[2019-04-19] MEDS ORDERED: INSULIN ASPART 100 UNITS/ML VIAL SC SCH (09:00)
[2019-04-19] MEDS ORDERED: METOPROLOL TARTRATE 50 MG TABLET PO SCH (09:00)
[2019-04-19] MEDS ORDERED: LORazepam 2 MG/ML DISP.SYRIN IV ONE ×2 (09:18→13:34)
--- NOTE | 2019-04-19 10:10 | PN ---
Subjective - Date and Time Seen Date: 04/19/19 Time: 09:20 Subjective Narrative: Jessa Swann has been in atrial flutter with RVR through the night. This morning she is cantankerous and combative and confused. I have moved her to [facility] this morning and started the amiodarone protocol. I gave her a milligram of lorazepam IV hopefully to diffuse some of the combativeness. She does not slow down with the amiodarone and the plan will be to send her to [place] and have a RODOLFO with electrocardioversion done. Spoke with Dr. xavier last evening and this is the plan. Her potassium has corrected down to 4.6 this morning. Objective - Review of Systems Generalized/Overall Review: Reports: Weakness, Malaise EENTM: Reports: No Symptoms Reported Respiratory: Reports: No Symptoms Reported Cardiac: Reports: Palpitations Abdominal: Reports: No Symptoms Reported Genitourinary Symptoms: Reports: No Symptoms Reported Musculoskeletal Complaints: Reports: No Symptoms Reported Neurological: Reports: Other - Confused and combative this morning Skin: Reports: No Symptoms Reported Endocrine: Reports: No Symptoms Reported - Vitals Vitals: Last Vital Signs Temp 36.7 C 04/19/19 06:48 Pulse 152 H 04/19/19 09:00 Resp 14 04/19/19 09:00 BP 125/59 04/19/19 09:00 Pulse Ox 92 L 04/19/19 09:00 - Abnormal Lab Findings Abnormal Lab Findings: Abnormal Lab Results 04/18/19 04/18/19 04/18/19 Range/Units 12:33 12:33 12:33 RBC 3.82 L (4.2-5.4) M/mm3 Hgb 10.6 L (12.5-16.0) gm/dL Hct 34.4 L (37.0-47.0) % MCHC 30.8 L (32-36) g/dl RDW 15.9 H (11.5-14.0) % Immature Gran % (Auto) 0.50 H (0.001-0.429) % Immature Gran # (Auto) 0.04 H (0.000-0.0310) K/mm3 Lymphocytes % 13.7 L (20-51) % Monocytes % 10.7 H (0.0-9) % Eosinophils % 3.2 H (0.0-3.0) % Neutrophils # 6.1 H (1.3-6.0) K/mm3 Lymphocytes # 1.16 L (1.5-3.5) k/mm3 Monocytes # (0.0-1.0) k/mm3 pO2 60.8 L (83.0-108.0) mmHg HCO3 20.7 L (21.0-28.0) mmol/L Base Excess -5.1 L (-2.0-3.0) mmol/L ABG pH 7.32 L (7.35-7.45) ABG O2 Sat (Measured) 89.5 L (94.0-98.0) % Sodium (132-142) mmol/L Plasma Sodium (130-142) mmol/L Potassium 6.5 H D (3.4-4.6) mmol/L Chloride (97-106) mmol/L Anion Gap 16.0 H (6.8-13.8) mmol/L BUN 35 H D (3-23) mg/dL Est GFR (Non-Af Amer) 39 L (60-130) mL/min BUN/Creatinine Ratio 25.4 H (9.0-21.6) Random Glucose 181 H (70-110) mg/dL ALT 14 L (19-67) U/L B-Natriuretic Peptide 1490 H (5-550) pg/mL Albumin 3.2 L (3.4-5.0) gm/dl Lipase 71 L (73-393) U/L Urine Nitrate (NEGATIVE) Ur Leukocyte Esterase (NEGATIVE) /ul Urine WBC (0-5) /hpf Urine Bacteria (NONE) 04/18/19 04/19/19 04/19/19 Range/Units 19:35 03:30 05:37 RBC 3.84 L (4.2-5.4) M/mm3 Hgb 10.5 L (12.5-16.0) gm/dL Hct 34.8 L (37.0-47.0) % MCHC 30.2 L (32-36) g/dl RDW 15.9 H (11.5-14.0) % Immature Gran % (Auto) (0.001-0.429) % Immature Gran # (Auto) 0.04 H (0.000-0.0310) K/mm3 Lymphocytes % 11.1 L (20-51) % Monocytes % 12.2 H (0.0-9) % Eosinophils % (0.0-3.0) % Neutrophils # 7.3 H (1.3-6.0) K/mm3 Lymphocytes # 1.09 L (1.5-3.5) k/mm3 Monocytes # 1.2 H (0.0-1.0) k/mm3 pO2 (83.0-108.0) mmHg HCO3 (21.0-28.0) mmol/L Base Excess (-2.0-3.0) mmol/L ABG pH (7.35-7.45) ABG O2 Sat (Measured) (94.0-98.0) % Sodium (132-142) mmol/L Plasma Sodium 144 H (130-142) mmol/L Potassium 5.3 H (3.4-4.6) mmol/L Chloride 107 H (97-106) mmol/L Anion Gap (6.8-13.8) mmol/L BUN 35 H (3-23) mg/dL Est GFR (Non-Af Amer) 40 L (60-130) mL/min BUN/Creatinine Ratio 25.5 H (9.0-21.6) Random Glucose 216 H (70-110) mg/dL ALT (19-67) U/L B-Natriuretic Peptide (5-550) pg/mL Albumin (3.4-5.0) gm/dl Lipase (73-393) U/L Urine Nitrate Positive H (NEGATIVE) Ur Leukocyte Esterase 75 H (NEGATIVE) /ul Urine WBC 10-25 H (0-5) /hpf Urine Bacteria 2+ H (NONE) 04/19/19 Range/Units 05:37 RBC (4.2-5.4) M/mm3 Hgb (12.5-16.0) gm/dL Hct (37.0-47.0) % MCHC (32-36) g/dl RDW (11.5-14.0) % Immature Gran % (Auto) (0.001-0.429) % Immature Gran # (Auto) (0.000-0.0310) K/mm3 Lymphocytes % (20-51) % Monocytes % (0.0-9) % Eosinophils % (0.0-3.0) % Neutrophils # (1.3-6.0) K/mm3 Lymphocytes # (1.5-3.5) k/mm3 Monocytes # (0.0-1.0) k/mm3 pO2 (83.0-108.0) mmHg HCO3 (21.0-28.0) mmol/L Base Excess (-2.0-3.0) mmol/L ABG pH (7.35-7.45) ABG O2 Sat (Measured) (94.0-98.0) % Sodium 143 H (132-142) mmol/L Plasma Sodium 144 H (130-142) mmol/L Potassium (3.4-4.6) mmol/L Chloride (97-106) mmol/L Anion Gap 14.7 H (6.8-13.8) mmol/L BUN 26 H (3-23) mg/dL Est GFR (Non-Af Amer) 50 L D (60-130) mL/min BUN/Creatinine Ratio 23.2 H (9.0-21.6) Random Glucose 157 H (70-110) mg/dL ALT 15 L (19-67) U/L B-Natriuretic Peptide (5-550) pg/mL Albumin 3.2 L (3.4-5.0) gm/dl Lipase (73-393) U/L Urine Nitrate (NEGATIVE) Ur Leukocyte Esterase (NEGATIVE) /ul Urine WBC (0-5) /hpf Urine Bacteria (NONE) - EKG/Xray Findings EKG: atrial flutter EKG read: Reviewed by me - With RVR - Exam Constitutional: Present: Alert, Well developed, Well nourished, Moderate distress - Emotionally. She is cussing and calling people names and striking out at staff., Elderly. Absent: Oriented x3, Cooperative ENT Exam: Present: normal ENT inspection Neck: Present: non-tender Breasts: Present: Exam deferred Respiratory: Present: chest non-tender, lungs clear, normal breath sounds, no respiratory distress Cardiovascular/Chest: Present: tachycardia, irregularly irregular Abdomen: Present: Normal bowel sounds, soft, tender /Rectal: Present: Exam deferred Extremity: Present: normal range of motion, non-tender, normal inspection, no pedal edema, no calf tenderness, normal capillary refill Skin Exam: Present: normal color, warm/dry, no cyanosis Lymphatic: Present: no adenopathy 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 If this fails then I expect it will fail then she will be transferred to [place] for interventional cardiology to manage. Dr. xavier stated he will be leaving [facility] so it will probably be Dr. Xavier to take care of her. She was moved to [facility] this morning for the amiodarone protocol. - Problems/Diagnosis (1) Hyperkalemia Problem: Acute (2) Atrial fibrillation with RVR Problem: Chronic (3) Diabetes mellitus type 2, insulin dependent Problem: Chronic (4) Altered mental status Problem: Acute Qualifiers: Altered mental status type: disorientation Qualified Code(s): R41.0 - Diso rientation, unspecified
--- NOTE | 2019-04-19 15:28 | DS ---
Transfer Discharge Summary - Diagnosis(s)/Problems (1) Hyperkalemia Problem: Resolved (2) Atrial fibrillation with RVR Problem: Acute (3) Diabetes mellitus type 2, insulin dependent Problem: Chronic (4) Altered mental status Problem: Acute - Course Description of Stay: Jessa Swann is a 78-year-old female who presented to the emergency room in atrial flutter with RVR. She has been seeing Dr. xavier and had seen him day before yesterday and had some medications adjusted. He advanced her Eliquis to 5 mg twice daily, discontinued her amlodipine, discontinued potassium as her potassium was elevated at 6.3. On arrival in ER potassium was 6.7 and she was mildly acidotic. She was treated with glucose, insulin, and bicarb and dropped her potassium to 5.3 within about 2 hours. This morning's potassium is down to 4.6. Today she is combative and not cooperative. She is been lashing out at staff. She is much more confused than usual. I gave her a milligram of lorazepam this morning and it did seem to help some for about 6 hours and then I have given her 2 mg in advance of this transfer. She remains in atrial flutter with RVR rates of 1 40-1 50s. She has been on amlodipine through today and has not yet slowed down. I have contacted [facility] [place] [place] and spoke with Dr. Crump who is agreed to accept her in transfer. He will have invasive cardiology consult. She will go by ground ambulance. Procedures Performed: none - Results and Findings Results and Findings: Laboratory Results - last 24 hr 04/18/19 04/19/19 04/19/19 19:35 03:30 05:37 WBC 9.9 RBC 3.84 L Hgb 10.5 L Hct 34.8 L MCV 90.6 MCH 27.3 MCHC 30.2 L RDW 15.9 H Plt Count 298 MPV 10.0 Immature Gran % (Auto) 0.40 Immature Gran # (Auto) 0.04 H Neutrophils % 74.0 Lymphocytes % 11.1 L Monocytes % 12.2 H Eosinophils % 2.1 Basophils % 0.2 Nucleated RBC % 0.0 Neutrophils # 7.3 H Lymphocytes # 1.09 L Monocytes # 1.2 H Eosinophils # 0.2 Absolute Basophils 0.0 Sodium 142 Plasma Sodium 144 H Potassium 5.3 H Chloride 107 H Carbon Dioxide 26.5 Anion Gap 13.8 BUN 35 H Creatinine 1.37 Est GFR (Non-Af Amer) 40 L BUN/Creatinine Ratio 25.5 H Random Glucose 216 H Calcium 8.6 Calcium Adj for Albumin Total Bilirubin AST ALT Alkaline Phosphatase Total Protein Albumin Urine Color Yellow Urine Appearance Clear Urine pH 6.0 Ur Specific [place] 1.020 Urine Protein Negative Urine Glucose (UA) Negative Urine Ketones Negative Urine Blood Negative Urine Nitrate Positive H Urine Bilirubin Negative Urine Urobilinogen Normal Ur Leukocyte Esterase 75 H Urine RBC None seen Urine WBC 10-25 H Ur Epithelial Cells None seen Urine Bacteria 2+ H Urine Culture Comments Culture to follow 04/19/19 05:37 WBC RBC Hgb Hct MCV MCH MCHC RDW Plt Count MPV Immature Gran % (Auto) Immature Gran # (Auto) Neutrophils % Lymphocytes % Monocytes % Eosinophils % Basophils % Nucleated RBC % Neutrophils # Lymphocytes # Monocytes # Eosinophils # Absolute Basophils Sodium 143 H Plasma Sodium 144 H Potassium 4.6 Chloride 106 Carbon Dioxide 26.9 Anion Gap 14.7 H BUN 26 H Creatinine 1.12 Est GFR (Non-Af Amer) 50 L D BUN/Creatinine Ratio 23.2 H Random Glucose 157 H Calcium 8.8 Calcium Adj for Albumin 9.1 Total Bilirubin 0.4 AST 19 ALT 15 L Alkaline Phosphatase 140 Total Protein 7.5 Albumin 3.2 L Urine Color Urine Appearance Urine pH Ur Specific [place] Urine Protein Urine Glucose (UA) Urine Ketones Urine Blood Urine Nitrate Urine Bilirubin Urine Urobilinogen Ur Leukocyte Esterase Urine RBC Urine WBC Ur Epithelial Cells Urine Bacteria Urine Culture Comments - Medications Medications: Active Medications Hydrocodone Bitart/Acetaminophen ([place] 5-325) 1 each PO Q6H PRN PRN Reason: pain Stop: 05/18/19 19:01 Last Admin: 04/19/19 04:04 Dose: 1 each Documented by: Alprazolam (Xanax) 0.5 mg PO [facility] Stop: 05/18/19 21:01 Last Admin: 04/18/19 22:06 Dose: 0.5 mg Documented by: Cefuroxime Axetil (Ceftin) 250 mg PO BID [facility]; Protocol Stop: 05/18/19 21:01 Last Admin: 04/19/19 10:59 Dose: Not Given Documented by: Diltiazem HCl (Cardizem) 60 mg PO BID [facility] Stop: 05/18/19 21:01 Last Admin: 04/19/19 08:02 Dose: 60 mg Documented by: Duloxetine HCl (Cymbalta) 60 mg PO QAM [facility] Stop: 05/19/19 09:01 Last Admin: 04/19/19 10:59 Dose: Not Given Documented by: Famotidine (Pepcid) 20 mg PO BID [facility] Stop: 05/18/19 21:01 Last Admin: 04/19/19 10:59 Dose: Not Given Documented by: Gabapentin (Neurontin) 300 mg PO TID [facility] Stop: 05/18/19 19:46 Last Admin: 04/19/19 13:40 Dose: Not Given Documented by: Amiodarone HCl 900 mg/ (Dextrose/Water) 518 mls @ 0 mls/hr IV Q24H [facility]; Protocol Stop: 04/20/19 08:33 Last Admin: 04/19/19 09:26 Dose: 0.96 mg/min, 33 mls/hr Documented by: Insulin Detemir (Levemir) 34 units SC [facility] Stop: 05/18/19 21:01 Last Admin: 04/18/19 22:08 Dose: 34 units Documented by: Insulin Human Lispro (Humalog) 10 units SC TIDWM [facility] Stop: 05/19/19 09:01 Last Admin: 04/19/19 13:39 Dose: Not Given Documented by: Metoprolol Tartrate (Lopressor) 50 mg PO BID [facility] Stop: 05/19/19 09:01 Last Admin: 04/19/19 08:02 Dose: 50 mg Documented by: Sertraline HCl (Zoloft) 25 mg PO DAILY [facility] Stop: 05/19/19 09:01 Last Admin: 04/19/19 10:59 Dose: Not Given Documented by: Discontinued Medications Albuterol Sulfate (Albuterol Sulfate 2.5 Mg/0.5ml) 2.5 mg IH ONCE ONE Stop: 04/18/19 13:05 Last Admin: 04/18/19 13:48 Dose: 2.5 mg Documented by: Apixaban (Eliquis) 5 mg PO HS [facility] Stop: 05/18/19 21:01 Last Admin: 04/18/19 22:07 Dose: 5 mg Documented by: Aspirin (Aspirin Enteric Coated) 81 mg PO DAILY [facility] Stop: 05/19/19 09:01 Last Admin: 04/19/19 10:59 Dose: Not Given Documented by: Calcium Gluconate (Calcium Gluconate) 4.65 meq IV ONCE ONE Stop: 04/18/19 13:05 Last Admin: 04/18/19 13:22 Dose: 4.65 meq Documented by: Dextrose/Water (Dextrose 50%/Water Syringe) 50 ml IV ONCE ONE Stop: 04/18/19 13:05 Last Admin: 04/18/19 13:31 Dose: 50 ml Documented by: Sodium Chloride (Sodium Chloride 0.9%) 1,000 mls @ 250 mls/hr IV .Q4H ONE Stop: 04/18/19 15:52 Last Infusion: 04/18/19 15:55 Dose: Infused Documented by: Amiodarone HCl/Dextrose (Nexterone 150 Mg Piggyback) 150 mg in 100 mls @ 600 mls/hr IV ONCE ONE Stop: 04/19/19 08:38 Last Infusion: 04/19/19 09:14 Dose: Infused Documented by: Insulin Human Regular (Humulin R) 6 units IV ONCE ONE Stop: 04/18/19 13:05 Last Admin: 04/18/19 13:29 Dose: 6 units Documented by: Lorazepam (Ativan) 1 mg IV ONCE ONE Stop: 04/19/19 09:19 Last Admin: 04/19/19 09:28 Dose: 1 mg Documented by: Lorazepam (Ativan) 2 mg IV ONCE ONE Stop: 04/19/19 13:35 Last Admin: 04/19/19 13:46 Dose: 2 mg Documented by: Metoprolol Succinate (Toprol Xl) 50 mg PO DAILY ONE Stop: 04/18/19 19:54 Last Admin: 04/18/19 20:49 Dose: Not Given Documented by: Metoprolol Tartrate (Lopressor) 50 mg PO ONCE ONE Stop: 04/18/19 20:48 Last Admin: 04/18/19 22:07 Dose: 50 mg Documented by: Sodium Bicarbonate (Sodium Bicarbonate 8.4% Syringe) 50 meq IV ONCE ONE Stop: 04/18/19 13:07 Last Admin: 04/18/19 13:34 Dose: 50 meq Documented by: Sodium Bicarbonate (Sodium Bicarbonate 8.4% Syringe) 50 meq IV ONCE ONE Stop: 04/18/19 13:31 Last Admin: 04/18/19 13:50 Dose: Not Given Documented by: Sodium Polystyrene Sulfonate (Sodium Polystyrene Sulfonate) 15 g PO ONCE ONE Stop: 04/18/19 13:06 Last Admin: 04/18/19 14:20 Dose: 15 g Documented by: - Disposition Disposition: Short Term Hospital Inpatient Condition: Fair Discharge Date: 04/19/19 Discharge Time: 15:27
[2019-04-19 16:51] VITALS: BP 110/88
[2019-04-19] MEDS ORDERED: APIXABAN 5 MG TABLET PO SCH ×2 (21:00)
== END 2019-04-19 16:45 | disposition short-term general hospital (02) ==
LOC: ER 11:18 → MS 11:18 → SCU 04-19 08:29
PROVIDERS: ADMIT Family Medicine; ATTEND Family Medicine
CPT/HCPCS: 36415; 36600; 70450; 71010; 71045; 80048; 80053; 81001; 82009; 82140; 82803; 83519; 83605; 83690; 83735; 83880; 84484; 85025; 87040; 87077; 87081; 87086; 87186; 93005; 94640; 94664; 99284; G0378

== ENCOUNTER 2019-09-05 15:58 | Observation (INO) ==
[2019-09-05 17:27] LABS: Anion Gap 15.2 mmol/L (6.8-13.8); BUN/Creatinine Ratio 23.1 (9.0-21.6); Ca. Corrected For Albumin 8.9 mg/dL (8.4-10.2); Calcium * 8.4 mg/dL (7.9-10.9); Carbon Dioxide 26.5 mmol/L (24-32.6); Potassium 4.7 mmol/L (3.4-4.6); Total Protein 7.8 gm/dL (6.2-8.2)
[2019-09-05 17:30] LABS: Urine Bilirubin Negative (NEGATIVE); Urine Ketone Negative (NEGATIVE); Urine Nitrite Negative (NEGATIVE); Urine Protein Negative (NEGATIVE); Urine Specific Gravity 1.015 SP.GR. (1.005-1.010); Urine Urobilinogen Normal (NORMAL)
[2019-09-05 17:40] LABS: Urine Appearance Clear (CLEAR); Urine Bacteria TRACE; Urine Blood 5 /ul (NEGATIVE); Urine Color Yellow; Urine RBC 0-5 /hpf (0-5); Urine WBC TRACE /hpf (0-5)
[2019-09-05 17:43] LABS: Hematocrit 24.3 % (37.0-47.0); Mean Cell Volume 89.3 fl (78-100); Mean Corpuscular Hemoglobin 26.8 pg (27-31); Mean Platelet Volume 11.1 fl (8-12.5); Platelet Count 237 K/mm3 (150-450); Red Blood Count 2.72 M/mm3 (4.2-5.4); Red Cell Distribution Width 18.6 % (11.5-14.0); White Blood Count 10.3 K/mm3 (4.0-10.5)
--- NOTE | 2019-09-05 17:44 | ERNOTE ---
Neuro HPI ER Record Date of Service: 09/05/19 Presenting Symptoms: confusion Time Seen by Provider: 09/05/19 16:37 Source: patient, family, RN notes reviewed Exam Limitations: no limitations Immunizations: IMMUNIZATION HX Immunizations Up to Date Yes History of Influenza Vaccine Yes Hx Pneumococcal Vaccination Yes Allergies/Adverse Reactions: Allergies Allergy/AdvReac Type Severity Reaction Status Date / Time morphine Allergy Mild Hives Verified 09/05/19 16:24 ondansetron Allergy Mild Hives Verified 09/05/19 16:24 red dye Allergy Mild Hives Verified 09/05/19 16:24 ciprofloxacin [From Cipro] AdvReac Mild Hives Verified 09/05/19 16:24 codeine AdvReac Mild anxious Verified 09/05/19 16:24 haloperidol [From Haldol] AdvReac Mild Other Verified 09/05/19 16:24 lorazepam [From Ativan] AdvReac Mild Other Verified 09/05/19 16:24 nitrofurantoin AdvReac Mild Hives Verified 09/05/19 16:24 [From Macrobid] Sulfa (Sulfonamide AdvReac Mild Hives Verified 09/05/19 16:24 Antibiotics) [Sulfa(Sulfonamide Antibiotics)] Home Medications: HOME MEDICATIONS atorvastatin 20 mg tablet 20 mg PO HS 04/08/18 [Last Taken 03/01/19] gabapentin 300 mg capsule 300 mg PO TID #90 cap 04/18/18 [Last Taken 03/01/19] insulin detemir U-100 100 unit/mL subcutaneous solution 25 unit SUB-Q HS ml 06/22/18 [Last Taken 03/01/19] Insulin Aspart [Novolog] 8 units SQ TID 12/17/18 [Last Taken 03/01/19] Mag Carb/Aluminum Hydrox/Algin [Gaviscon Liquid] 30 ml PO QID PRN #1 btl 12/19/18 [Last Taken 03/01/19] Acetaminophen [Tylenol] 500 mg PO Q4H PRN tab 02/10/19 [Last Taken Unknown] famotidine 20 mg tablet 20 mg PO BID 02/15/19 [Last Taken 03/01/19] guaiFENesin [Mucinex] 1,200 mg PO BID PRN 02/20/19 [Last Taken 03/01/19] Furosemide [Lasix] 40 mg PO 1200 04/19/19 [Last Taken Unknown] Metoprolol Tartrate [Lopressor] 100 mg PO BID 04/19/19 [Last Taken Unknown] Apixaban [Eliquis] 5 mg PO BID 05/14/19 [Last Taken Unknown] Aspirin [Aspirin Chewable] 81 mg PO DAILY 05/14/19 [Last Taken Unknown] Fluticasone/Vilanterol [Breo Ellipta 100-25 Mcg INH] 1 inh INH DAILY 05/14/19 [Last Taken Unknown] Ipratropium [place] [Ipratropium [place] (Atrovent)] 0.5 mg INHALATION Q4H 05/14/19 [Last Taken Unknown] Cetirizine HCl [Zyrtec] 10 mg PO DAILY 08/30/19 [Last Taken Unknown] Nystatin 100,000 unit .ROUTE BID 08/30/19 [Last Taken Unknown] Polyethylene Glycol 3350 [Miralax] 17 gm PO DAILY 08/30/19 [Last Taken Unknown] Sertraline HCl [Zoloft] 50 mg PO DAILY 08/30/19 [Last Taken Unknown] Zinc Oxide 1 appl TOPICAL PRN 08/30/19 [Last Taken Unknown] guaiFENesin/DEXTROMETHORPHAN [Tussin Dm Cough Syrup] 10 ml PO PRN PRN 08/30/19 [Last Taken Unknown] hydrOXYzine HCL [Atarax] 25 mg PO HS 08/30/19 [Last Taken Unknown] Acetaminophen [Tylenol] 650 mg PO .Q6HR PRN 09/05/19 [Last Taken Unknown] Diltiazem HCl [Cardizem] 180 mg PO DAILY 09/05/19 [Last Taken Unknown] Melatonin 5 mg PO HS 09/05/19 [Last Taken Unknown] Menthol [Biofreeze] 1 appl TOPICAL TID PRN 09/05/19 [Last Taken Unknown] - History of Present Illness Narrative: Jessa is a 78 year old female brought to the ED by ambulance from [facility] for gradually increasing confusion. Her daughter reports that this has happened in the past when the patient has had an infection. She has frequent UTI's and just finished 10 days of antibiotics (Ceftin?) for this. She was seen here for a fall on 08/30. She injured her right knee and lower leg at that time. She is on Eliquis and the extremity has become severely bruised, edematous and painful. She is able to bear weight on the extremity. Her daughter reports that she has developed some warmth and redness on her injured leg as well. Onset: gradual onset - Character of Deficits Baseline Cognition: Present: alert but confused - intermittently Associated Symptoms: Reports: disoriented Prior Treament: Reports: recently seen, similar symptoms before. Denies: currently on antibiotics Review of Systems - Review of Systems Constitutional: Present: recent illness. Absent: fever, chills EYE: Present: no symptoms reported ENT: Present: nasal drainage. Absent: nose congestion, sore throat Respiratory: Absent: shortness of breath, cough Cardiology: Present: edema. Absent: chest pain Gastrointestinal/Abdominal: Present: nausea, diarrhea - chronic. Absent: vomiting, abdominal pain Genitourinary: Absent: dysuria Musculoskeletal: Present: muscle pain, joint pain Skin: Present: change in color. Absent: lesions, lumps Neurological: Absent: headache, weakness Endocrine: Present: no symptoms reported Hematologic/Lymphatic: Present: easy bruising, easy bleeding Psych: Present: no symptoms reported Medical History (Last Reviewed 09/05/19 @ 18:52 by Diana Wyatt NP) Atrial fibrillation with RVR (Chronic) Rate 150 today. Diabetes mellitus type 2, insulin dependent (Chronic) RODRIGUEZ (dyspnea on exertion) (Chronic) Abdominal pain (Acute) She has a history of peptic ulcer disease Edema leg (Acute) Morbid obesity (Chronic) HTN (hypertension) (Chronic) Duodenal bulb ulcer (Acute) Atrial fibrillation (Chronic) Diarrhea (Chronic) Aortic aneurysm Walker as ambulation aid bradioprexopathy Bilateral lower extremity edema Depression Onset Date: ~06/29/14 Diabetes mellitus, type II Difficulty in walking Onset Date: ~05/29/14 Dry skin Hammer toes, bilateral Macular degeneration of both eyes Obstructive lung disease Onset Date: ~11/10/17 Onychomycosis Thinning of skin Toe pain, bilateral Hand pain, left Onset Date: ~04/2013 metacarpal fracture Hx of colonic polyps Onset Date: ~06/30/10 Infection of kidney Sepsis Splenic artery aneurysm Onset Date: ~2008 patient states this was reviewed by her previous pcp dr suarez and was told it was small and did not need any further testing at that time. Surgical History: Surgical History (Last Reviewed 09/05/19 @ 18:52 by Diana Wyatt NP) H/O colonoscopy Onset Date: 03/02/19 06/30/10 Tinguely-tubular adenoma x2, scattered diverticular disease. Incomplete prep. Recheck 6mo. 03/02/19 Jonh-serrated adenoma. Diverticulosis. Recheck 3 yrs. H/O cystoscopy Onset Date: 09/20/17 stent removal H/O lithotripsy Onset Date: Unknown History of appendectomy Onset Date: Unknown History of arthroscopic knee surgery Onset Date: Unknown History of bronchoscopy Onset Date: 01/17/18 History of cholecystectomy Onset Date: Unknown History of esophagogastroduodenoscopy (EGD) Onset Date: 03/02/19 01/23/19 Jonh-w/clipping of bleeding ulcer. 03/02/19 Jonh-negative. History of laryngoscopy Onset Date: 01/15/18 using laser, flexible fiberoptic. [facility] Dr David Patel Hx of cardiac cath Onset Date: Unknown S/P ureteral stent placement Onset Date: Unknown Dr. Meraz insertion of subclavian catheter Onset Date: 09/19/17 Tommeraasen-left Family History: Family History (Last Updated 09/05/19 @ 19:20 by Debbie Monique MD) Father , MVA age 80 No problems noted. Mother , old age- age 89 No problems noted. Other Family history non-contributory Social History: (Last Reviewed 09/05/19 @ 18:52 by Diana Wyatt NP) Social History: long-term: Yes Marital status: lives independently: No [place] independently [place] [facility] [place] caregiver/support person: Yes caregiver/support person comment: Care Center staff caregivers: other Service: No Tobacco: Smoking Status: Unknown if ever smoked Alcohol: alcohol intake: never Substance Use: substance use type: does not use Dietary Habits: caffeine: Yes Physical Exam - Physical Exam General Appearance: Present: alert, no apparent distress, obese - extreme, morbid, sleeping/easy to arouse Head Exam: Present: normal inspection, no evidence of injury Eye Exam: Normal inspection: bilateral Neck: Present: normal inspection, nontender, supple Respiratory: Present: no respiratory distress, no accessory muscle use, lungs clear, decreased breath sounds - bilateral bases d/t large body habitus Cardiovascular/Chest: Present: regular rate, rhythm, no murmur, normal peripheral pulses Peripheral Pulses: N=norm/S=strong/W=weak/B=bound/A=absent: Dorsalis-pedis (R): Normal, Dorsalis-pedis (L): Normal Gastrointestinal/Abdominal: Present: nontender, soft, distended - obese Rectal Exam: Present: normal rectal tone, heme negative stool. Absent: black stool, blood-streaked stool Extremity Exam: Present: decreased range of motion - Right knee, pedal edema, extremity edema - Severe, right leg from knee down . Absent: bony tenderness, joint redness Neurological Exam: Present: normal mood/affect, no motor/sensory deficits, other - intermittently disoriented. Absent: oriented Skin Exam: Present: warm/dry, other - Severe ecchymosis to right leg from mid thigh down, erythema and warmth to lateral calf and to foot Progress - Results and Orders Patient's Lab Results:: I have reviewed the patient's lab results. - Vital Signs Patient's Vital Signs:: I have reviewed the patient's vital signs. Vital Signs: Vital Signs 09/05/19 16:14 09/05/19 17:00 09/05/19 17:30 Temperature 37.1 C Pulse Rate 83 113 H 106 H Respiratory Rate 20 18 18 Blood Pressure 120/76 134/54 135/95 H O2 Sat by Pulse Oximetry 93 96 97 - Progress/Reassessment Chief Complaint: Altered Mental Status Progress:: Unchanged Plan - Plan Plan: Jessa has cellulitis of her injured right leg. This has apparently developed while she was on Ceftin for her UTI. She is also anemic. She has a history of GI bleeding. Her stool was negative for occult blood. This is likely d/t the severe ecchymosis of her right leg. Rocephin IV and a unit of PRBC's were ordered. Blood and urine cultures are pending. Dr. Monique was contacted and will admit the patient to observation status. Departure Clinical Impression: Cellulitis Anemia Qualifiers: Anemia type: unspecified type Qualified Code(s): D64.9 - Anemia, unspecified - Departure Disposition: Still a patient Condition: Stable
[2019-09-05 17:47] LABS: Hemoglobin 7.3 gm/dL (12.5-16.0)
[2019-09-05 17:48] LABS: Total Cells Counted 100
[2019-09-05 18:22] LABS: Eosinophil 1 % (0-3); Lymphocyte 12 % (20-51); Monocyte 16 % (0-9); Neutrophil 71 % (42-75); Neutrophil # 7.3 K/mm3 (1.3-6.0); Platelet Estimate Normal (NORMAL)
[2019-09-05 18:23] LABS: Anisocytosis 1+
[2019-09-05] MEDS ORDERED: cefTRIAXone SODIUM 1,000 MG/100 ML BAG IV ONE (18:32)
[2019-09-05] MEDS ORDERED: guaiFENesin/DEXTROMETHORPHAN SYRUP PO PRN (19:21)
--- NOTE | 2019-09-05 19:21 | HP ---
Chief Complaint - Chief Complaint Date of Service: 09/05/19 Time of Service: 18:49 Chief Complaint: Confusion and lower extremity swelling History of Present Illness: 78-year-old female with a past medical history of atrial fibrillation on Eliquis, depression, insulin-dependent diabetes mellitus type 2, hypertension, macular degeneration of both eyes, obstructive lung disease, splenic artery aneurysm, aortic aneurysm presents from [facility] with complaints of confusion. She has been having recurrent UTIs and just finished 10 days of antibiotics with Ceftin. She will had a fall on August 30, 2019 (6 days ago). She was seen in the emergency department and was told she did not have a fracture. She had fallen on her right leg. She had a CT scan of the lower extremity on September 01, 2019 and no fracture was noted at that time. She did have anterior lateral soft tissue swelling. Today in the emergency department she is found to be anemic with a hemoglobin of 7.3, hematocrit 24.3, trace WBCs on the urine culture, mild tachycardia with heart rate in the low 100s. Guaiac stool is negative. She is being admitted for observation and is getting a dose of ceftriaxone in the emergency department. She does complain of mild shortness of breath. She will receive 1 unit of blood. Medical History (Last Reviewed 09/05/19 @ 18:52 by Diana Wyatt NP) Atrial fibrillation with RVR (Acute) Rate 150 today. Diabetes mellitus type 2, insulin dependent (Chronic) RODRIGUEZ (dyspnea on exertion) (Chronic) Abdominal pain (Acute) She has a history of peptic ulcer disease Edema leg (Chronic) Morbid obesity (Chronic) HTN (hypertension) (Chronic) Duodenal bulb ulcer (Acute) Atrial fibrillation (Chronic) Diarrhea (Chronic) Aortic aneurysm Walker as ambulation aid bradioprexopathy Bilateral lower extremity edema Depression Onset Date: ~06/29/14 Diabetes mellitus, type II Difficulty in walking Onset Date: ~05/29/14 Dry skin Hammer toes, bilateral Macular degeneration of both eyes Obstructive lung disease Onset Date: ~11/10/17 Onychomycosis Thinning of skin Toe pain, bilateral Hand pain, left Onset Date: ~04/2013 metacarpal fracture Hx of colonic polyps Onset Date: ~06/30/10 Infection of kidney Sepsis Splenic artery aneurysm Onset Date: ~2008 patient states this was reviewed by her previous pcp dr suarez and was told it was small and did not need any further testing at that time. Surgical History: Surgical History (Last Reviewed 09/05/19 @ 18:52 by Diana Wyatt NP) H/O colonoscopy Onset Date: 03/02/19 06/30/10 Tinguely-tubular adenoma x2, scattered diverticular disease. Incomplete prep. Recheck 6mo. 03/02/19 Jonh-serrated adenoma. Diverticulosis. Recheck 3 yrs. H/O cystoscopy Onset Date: 09/20/17 stent removal H/O lithotripsy Onset Date: Unknown History of appendectomy Onset Date: Unknown History of arthroscopic knee surgery Onset Date: Unknown History of bronchoscopy Onset Date: 01/17/18 History of cholecystectomy Onset Date: Unknown History of esophagogastroduodenoscopy (EGD) Onset Date: 03/02/19 01/23/19 Jonh-w/clipping of bleeding ulcer. 03/02/19 Jonh-negative. History of laryngoscopy Onset Date: 01/15/18 using laser, flexible fiberoptic. [facility] Dr David Patel Hx of cardiac cath Onset Date: Unknown S/P ureteral stent placement Onset Date: Unknown Dr. Meraz insertion of subclavian catheter Onset Date: 09/19/17 Tommeraasen-left Family History: Family History (Last Updated 09/05/19 @ 19:20 by Debbie Monique MD) Father , MVA age 80 No problems noted. Mother , old age- age 89 No problems noted. Other Family history non-contributory Social History: (Last Reviewed 09/05/19 @ 18:52 by Diana Wyatt NP) Social History: prison: Yes Marital status: lives independently: No lives independently comment: [facility] [place]: 5 caregiver/support person: Yes caregiver/support person comment: Care Center staff caregivers: other Service: No Tobacco: Smoking Status: Unknown if ever smoked Alcohol: alcohol intake: never Substance Use: substance use type: does not use Dietary Habits: caffeine: Yes Review Of Systems (GEN) - Review of Systems Generalized/Overall Review: Absent: Chills, Fever Respiratory: Absent: Shortness of Breath Cardiac: Absent: Chest Pain Abdominal: Absent: Abdominal Pain Musculoskeletal: Present: Other - Right lower extremity pain and swelling Misc: All systems neg except as marked Immunizations: IMMUNIZATION HX Immunizations Up to Date Yes History of Influenza Vaccine Yes Hx Pneumococcal Vaccination Yes Allergies/Adverse Reactions: Allergies Allergy/AdvReac Type Severity Reaction Status Date / Time morphine Allergy Mild Hives Verified 09/05/19 16:24 ondansetron Allergy Mild Hives Verified 09/05/19 16:24 red dye Allergy Mild Hives Verified 09/05/19 16:24 ciprofloxacin [From Cipro] AdvReac Mild Hives Verified 09/05/19 16:24 codeine AdvReac Mild anxious Verified 09/05/19 16:24 haloperidol [From Haldol] AdvReac Mild Other Verified 09/05/19 16:24 lorazepam [From Ativan] AdvReac Mild Other Verified 09/05/19 16:24 nitrofurantoin AdvReac Mild Hives Verified 09/05/19 16:24 [From Macrobid] Sulfa (Sulfonamide AdvReac Mild Hives Verified 09/05/19 16:24 Antibiotics) [Sulfa(Sulfonamide Antibiotics)] Home Medications: HOME MEDICATIONS atorvastatin 20 mg tablet 20 mg PO HS 04/08/18 [Last Taken 03/01/19] gabapentin 300 mg capsule 300 mg PO TID #90 cap 04/18/18 [Last Taken 03/01/19] insulin detemir U-100 100 unit/mL subcutaneous solution 25 unit SUB-Q HS ml 06/22/18 [Last Taken 03/01/19] Insulin Aspart [Novolog] 8 units SQ TID 12/17/18 [Last Taken 03/01/19] Mag Carb/Aluminum Hydrox/Algin [Gaviscon Liquid] 30 ml PO QID PRN #1 btl 12/19/18 [Last Taken 03/01/19] Acetaminophen [Tylenol] 500 mg PO Q4H PRN tab 02/10/19 [Last Taken Unknown] famotidine 20 mg tablet 20 mg PO BID 02/15/19 [Last Taken 03/01/19] guaiFENesin [Mucinex] 1,200 mg PO BID PRN 02/20/19 [Last Taken 03/01/19] Furosemide [Lasix] 40 mg PO 1200 04/19/19 [Last Taken Unknown] Metoprolol Tartrate [Lopressor] 100 mg PO BID 04/19/19 [Last Taken Unknown] Apixaban [Eliquis] 5 mg PO BID 05/14/19 [Last Taken Unknown] Aspirin [Aspirin Chewable] 81 mg PO DAILY 05/14/19 [Last Taken Unknown] Fluticasone/Vilanterol [Breo Ellipta 100-25 Mcg INH] 1 inh INH DAILY 05/14/19 [Last Taken Unknown] Ipratropium [place] [Ipratropium [place] (Atrovent)] 0.5 mg INHALATION Q4H 05/14/19 [Last Taken Unknown] Cetirizine HCl [Zyrtec] 10 mg PO DAILY 08/30/19 [Last Taken Unknown] Nystatin 100,000 unit .ROUTE BID 08/30/19 [Last Taken Unknown] Polyethylene Glycol 3350 [Miralax] 17 gm PO DAILY 08/30/19 [Last Taken Unknown] Sertraline HCl [Zoloft] 50 mg PO DAILY 08/30/19 [Last Taken Unknown] Zinc Oxide 1 appl TOPICAL PRN 08/30/19 [Last Taken Unknown] guaiFENesin/DEXTROMETHORPHAN [Tussin Dm Cough Syrup] 10 ml PO PRN PRN 08/30/19 [Last Taken Unknown] hydrOXYzine HCL [Atarax] 25 mg PO HS 08/30/19 [Last Taken Unknown] Acetaminophen [Tylenol] 650 mg PO .Q6HR PRN 09/05/19 [Last Taken Unknown] Diltiazem HCl [Cardizem] 180 mg PO DAILY 09/05/19 [Last Taken Unknown] Melatonin 5 mg PO HS 09/05/19 [Last Taken Unknown] Menthol [Biofreeze] 1 appl TOPICAL TID PRN 09/05/19 [Last Taken Unknown] Exam - Exam Vital Signs: Vital Signs - Last Taken Temp 37.1 C 09/05/19 16:14 Pulse 101 H 09/05/19 17:45 Resp 19 09/05/19 17:45 BP 145/78 09/05/19 17:45 Pulse Ox 99 09/05/19 17:45 Constitutional: Present: Alert, Cooperative, Well developed, Well nourished, Morbidly obese ENT Exam: Present: hearing grossly normal Eye Exam: bilateral eye: normal inspection, PERRL, EOMI Neck: Present: non-tender, trachea midline. Absent: lymphadenopathy (R), lymphadenopathy (L) Back Exam: Present: normal inspection, no CVA tenderness, no vertebral tenderness Respiratory: Present: lungs clear, no accessory muscle use, No wheezing. Absent: crackles, rhonchi Cardiovascular/Chest: Present: no murmur, irregularly irregular Peripheral Pulses: dorsalis-pedis (R): 1+, dorsalis-pedis (L): 1+ Abdomen: Present: Normal bowel sounds, soft, nontender, obese Extremity: Present: lower extremity edema - 3+ edema of right lower extremity, 1+ edema of the left lower extremity Skin Exam: Present: warm/dry. Absent: normal color - [place] discoloration of the right lower extremity, multiple ecchymotic bruises throughout her right lateral leg and posterior foot Neurologic: Present: alert, normal mood/affect Appearance: Present: appropriate appearance, appropriate insight Eye contact: Present: cooperative Thoughts: Present: normal thought pattern, normal mood /affect Diagnostic Studies: Abnormal Lab Results 09/05/19 09/05/19 09/05/19 Range/Units 16:57 16:57 17:17 RBC 2.72 L (4.2-5.4) M/mm3 Hgb 7.3 L* D (12.5-16.0) gm/dL Hct 24.3 L (37.0-47.0) % MCH 26.8 L (27-31) pg MCHC 30.0 L (32-36) g/dl RDW 18.6 H (11.5-14.0) % Lymphocytes % (Manual) 12 L (20-51) % Monocytes % (Manual) 16 H (0-9) % Neutrophils # (Manual) 7.3 H (1.3-6.0) K/mm3 Lymphocytes # (Manual) 1.2 L (1.5-3.5) k/mm3 Monocytes # (Manual) 1.6 H (0.0-1.0) k/mm3 Potassium 4.7 H (3.4-4.6) mmol/L Anion Gap 15.2 H (6.8-13.8) mmol/L BUN 31 H (3-23) mg/dL Est GFR (Non-Af Amer) 41 L (60-130) mL/min BUN/Creatinine Ratio 23.1 H (9.0-21.6) Random Glucose 128 H (70-110) mg/dL ALT 9 L (19-67) U/L Albumin 3.0 L (3.4-5.0) gm/dl Urine Blood 5 H (NEGATIVE) /ul Urine WBC Trace H (0-5) /hpf Crossmatch 09/05/19 Range/Units 18:10 RBC (4.2-5.4) M/mm3 Hgb (12.5-16.0) gm/dL Hct (37.0-47.0) % MCH (27-31) pg MCHC (32-36) g/dl RDW (11.5-14.0) % Lymphocytes % (Manual) (20-51) % Monocytes % (Manual) (0-9) % Neutrophils # (Manual) (1.3-6.0) K/mm3 Lymphocytes # (Manual) (1.5-3.5) k/mm3 Monocytes # (Manual) (0.0-1.0) k/mm3 Potassium (3.4-4.6) mmol/L Anion Gap (6.8-13.8) mmol/L BUN (3-23) mg/dL Est GFR (Non-Af Amer) (60-130) mL/min BUN/Creatinine Ratio (9.0-21.6) Random Glucose (70-110) mg/dL ALT (19-67) U/L Albumin (3.4-5.0) gm/dl Urine Blood (NEGATIVE) /ul Urine WBC (0-5) /hpf Crossmatch See Detail Laboratory Results WBC 10.3 K/mm3 (4.0-10.5) 09/05/19 16:57 RBC 2.72 M/mm3 (4.2-5.4) L 09/05/19 16:57 Hgb 7.3 gm/dL (12.5-16.0) L* D 09/05/19 16:57 Hct 24.3 % (37.0-47.0) L 09/05/19 16:57 MCV 89.3 fl (78-100) 09/05/19 16:57 MCH 26.8 pg (27-31) L 09/05/19 16:57 MCHC 30.0 g/dl (32-36) L 09/05/19 16:57 RDW 18.6 % (11.5-14.0) H 09/05/19 16:57 Plt Count 237 K/mm3 (150-450) 09/05/19 16:57 MPV 11.1 fl (8-12.5) 09/05/19 16:57 Neutrophils % (Manual) 71 % (42-75) 09/05/19 16:57 Lymphocytes % (Manual) 12 % (20-51) L 09/05/19 16:57 Monocytes % (Manual) 16 % (0-9) H 09/05/19 16:57 Eosinophils % (Manual) 1 % (0-3) 09/05/19 16:57 Neutrophils # (Manual) 7.3 K/mm3 (1.3-6.0) H 09/05/19 16:57 Lymphocytes # (Manual) 1.2 k/mm3 (1.5-3.5) L 09/05/19 16:57 Monocytes # (Manual) 1.6 k/mm3 (0.0-1.0) H 09/05/19 16:57 Eosinophils # (Manual) 0.1 k/mm3 (0.0-0.7) 09/05/19 16:57 Platelet Estimate Normal (NORMAL) 09/05/19 16:57 Anisocytosis 1+ 09/05/19 16:57 Sodium 140 mmol/L (132-142) 09/05/19 16:57 Plasma Sodium 140 mmol/L (130-142) 09/05/19 16:57 Potassium 4.7 mmol/L (3.4-4.6) H 09/05/19 16:57 Chloride 103 mmol/L (97-106) 09/05/19 16:57 Carbon Dioxide 26.5 mmol/L (24-32.6) 09/05/19 16:57 Anion Gap 15.2 mmol/L (6.8-13.8) H 09/05/19 16:57 BUN 31 mg/dL (3-23) H 09/05/19 16:57 Creatinine 1.34 mg/dL (0.4-1.4) 09/05/19 16:57 Est GFR (Non-Af Amer) 41 mL/min (60-130) L 09/05/19 16:57 BUN/Creatinine Ratio 23.1 (9.0-21.6) H 09/05/19 16:57 Random Glucose 128 mg/dL (70-110) H 09/05/19 16:57 Lactic Acid, Venous 1.6 mmol/L (0.4-2.0) 09/05/19 16:57 Calcium 8.4 mg/dL (7.9-10.9) 09/05/19 16:57 Calcium Adj for Albumin 8.9 mg/dL (8.4-10.2) 09/05/19 16:57 Total Bilirubin 1.0 mg/dL (0.0-1.1) 09/05/19 16:57 AST 7 U/L (0-48) 09/05/19 16:57 ALT 9 U/L (19-67) L 09/05/19 16:57 Alkaline Phosphatase 92 U/L (50-170) 09/05/19 16:57 Total Protein 7.8 gm/dL (6.2-8.2) 09/05/19 16:57 Albumin 3.0 gm/dl (3.4-5.0) L 09/05/19 16:57 Urine Color Yellow 09/05/19 17:17 Urine Appearance Clear (CLEAR) 09/05/19 17:17 Urine pH 6.0 pH (5.0-7.0) 09/05/19 17:17 Ur Specific [place] 1.015 SP.GR. (1.005-1.010) 09/05/19 17:17 Urine Protein Negative mg/dL (NEGATIVE) 09/05/19 17:17 Urine Glucose (UA) Negative mg/dL (NEGATIVE) 09/05/19 17:17 Urine Ketones Negative mg/dL (NEGATIVE) 09/05/19 17:17 Urine Blood 5 /ul (NEGATIVE) H 09/05/19 17:17 Urine Nitrate Negative (NEGATIVE) 09/05/19 17:17 Urine Bilirubin Negative mg/dl (NEGATIVE) 09/05/19 17:17 Urine Urobilinogen Normal EU/dl (NORMAL) 09/05/19 17:17 Ur Leukocyte Esterase Negative /ul (NEGATIVE) 09/05/19 17:17 Urine RBC 0-5 /hpf (0-5) 09/05/19 17:17 Urine WBC Trace /hpf (0-5) H 09/05/19 17:17 Ur Epithelial Cells 0-5 /hpf (0-5) 09/05/19 17:17 Urine Bacteria Trace (NONE) 09/05/19 17:17 Urine Culture Comments Culture to follow 09/05/19 17:17 Stool Occult Blood Negative 09/05/19 18:10 Blood Type A Positive 09/05/19 18:10 Antibody Screen Negative 09/05/19 18:10 Crossmatch See Detail 09/05/19 18:10 Assessment/Plan - Narrative Narrative: 78-year-old female with a past medical history of atrial fibrillation on Eliquis, depression, insulin-dependent diabetes mellitus type 2, hypertension, macular degeneration of both eyes, obstructive lung disease, splenic artery aneurysm, aortic aneurysm presents from [facility] with complaints of confusion. She has been having recurrent UTIs and just finished 10 days of antibiotics with Ceftin. She will had a fall on August 30, 2019 (6 days ago). She was seen in the emergency department and was told she did not have a fracture. She had fallen on her right leg. She had a CT scan of the lower extremity on September 01, 2019 and no fracture was noted at that time. She did have anterior lateral soft tissue swelling. Today in the emergency department she is found to be anemic with a hemoglobin of 7.3, hematocrit 24.3, trace WBCs on the urine culture, mild tachycardia with heart rate in the low 100s. Guaiac stool is negative. She is being admitted for observation and is getting a dose of ceftriaxone in the emergency department. She does complain of mild shortness of breath. She will receive 1 unit of blood. Plan #1 she will receive 1 unit of blood tonight, hold Eliquis #2 obtain CBC and CMP in the morning #3 she is receiving a dose of ceftriaxone tonight for questionable UTI and questionable cellulitis. #4 monitor vitals #5 resume home medications for comorbidities - Assessment/Plan (1) Traumatic hematoma of right lower leg Problem: Acute (2) Atrial fibrillation with RVR Problem: Chronic (3) Diabetes mellitus type 2, insulin dependent Problem: Chronic (4) Depression Problem: Chronic (5) Hyperkalemia Problem: Acute (6) Cellulitis Problem: Suspected Qualifiers: Site of cellulitis: extremity Site of cellulitis of extremity: lower extremity Laterality: right Qualified Code(s): L03.115 - Cellulitis of right lower limb (7) Anemia Problem: Acute Qualifiers: Anemia type: unspecified type Qualified Code(s): D64.9 - Anemia, unspecified (8) Edema leg Problem: Acute (9) Frequent falls Problem: Chronic (10) Morbid obesity Problem: Chronic (11) HTN (hypertension) Problem: Chronic Qualifiers: (12) HLD (hyperlipidemia) Problem: Chronic Qualifiers:
[2019-09-05] MEDS ORDERED: ALUMINUM HYDROX PO PRN (20:42)
[2019-09-05] MEDS ORDERED: MAG CARB PO PRN (20:42)
[2019-09-05] MEDS ORDERED: ALGIN PO PRN (20:42)
[2019-09-05] MEDS ORDERED: NON-FORMULARY 1 DOSE DOSE (Menthol [Biofreeze] 1 APPL) topical PRN (20:42)
[2019-09-05] MEDS ORDERED: METOPROLOL TARTRATE 50 MG TABLET PO SCH (21:00)
[2019-09-05] MEDS ORDERED: INSULIN DETEMIR 100 UNITS/ML VIAL SC SCH (21:00)
[2019-09-05] MEDS ORDERED: ROSUVASTATIN CALCIUM 10 MG TABLET PO SCH (21:00)
[2019-09-05] MEDS ORDERED: hydrOXYzine HCL 25 MG TABLET PO SCH (21:00)
[2019-09-05] MEDS: APIXABAN 5 MG TABLET PO SCH (23:03)
[2019-09-05] MEDS: GABAPENTIN 300 MG CAPSULE PO SCH (23:03)
[2019-09-05] MEDS: MELATONIN 3,000 MCG TABLET PO SCH (23:03)
[2019-09-05] MEDS: FAMOTIDINE 20 MG TABLET PO SCH (23:04)
[2019-09-05] MEDS: IPRATROPIUM BROMIDE 0.5 MG/2.5 ML VIAL.NEB IH SCH (23:25)
[2019-09-05] MEDS ORDERED: INSULIN GLARGINE,HUM.REC.ANLOG 100 UNITS/ML VIAL SC ONE (23:44)
[2019-09-05] MEDS: ACETAMINOPHEN 500 MG TABLET PO PRN (23:46)
[2019-09-06] MEDS: IPRATROPIUM BROMIDE 0.5 MG/2.5 ML VIAL.NEB IH SCH ×4 (02:55→14:59)
[2019-09-06] MEDS: ACETAMINOPHEN 500 MG TABLET PO PRN ×2 (04:37→09:47)
[2019-09-06 06:43] LABS: Hematocrit 24.8 % (37.0-47.0); Mean Cell Volume 88.9 fl (78-100); Mean Corpuscular Hemoglobin 27.2 pg (27-31); Mean Corpuscular Hgb Conc 30.6 g/dl (32-36); Mean Platelet Volume 10.7 fl (8-12.5); Neutrophil # 6.5 K/mm3 (1.3-6.0); Neutrophil % 70.5 % (42-75.0); Platelet Count 227 K/mm3 (150-450); Red Blood Count 2.79 M/mm3 (4.2-5.4); Red Cell Distribution Width 18.1 % (11.5-14.0); White Blood Count 9.2 K/mm3 (4.0-10.5)
[2019-09-06 06:53] LABS: Albumin * 2.7 gm/dl (3.4-5.0); Anion Gap 14.6 mmol/L (6.8-13.8); BUN/Creatinine Ratio 23.4 (9.0-21.6); Carbon Dioxide 25.9 mmol/L (24-32.6); Potassium 4.5 mmol/L (3.4-4.6); Total Protein 7.2 gm/dL (6.2-8.2)
[2019-09-06 07:05] LABS: Hemoglobin 7.6 gm/dL (12.5-16.0)
[2019-09-06 07:10] LABS: Ca. Corrected For Albumin 8.6 mg/dL (8.4-10.2); Calcium * 7.9 mg/dL (7.9-10.9)
[2019-09-06] MEDS ORDERED: LORATADINE 10 MG TABLET PO SCH (09:00)
[2019-09-06] MEDS ORDERED: DILTIAZEM HCL 60 MG TABLET PO SCH (09:00)
[2019-09-06] MEDS ORDERED: FLUTICASONE PROPION/SALMETEROL 14 PUFF DISK.W.DEV IH SCH (09:00)
[2019-09-06] MEDS ORDERED: SERTRALINE HCL 50 MG TABLET PO SCH (09:00)
[2019-09-06] MEDS ORDERED: POLYETHYLENE GLYCOL 3350 17 GM PACKET PO SCH (09:00)
[2019-09-06] MEDS ORDERED: METOPROLOL TARTRATE 100 MG TABLET PO SCH (09:00)
[2019-09-06] MEDS ORDERED: DILTIAZEM HCL 180 MG CAP.SR.24H PO SCH ×2 (09:00→13:30)
[2019-09-06] MEDS ORDERED: NYSTATIN 15 APPL BTL TP SCH (09:45)
[2019-09-06] MEDS: GABAPENTIN 300 MG CAPSULE PO SCH ×2 (09:50→12:52)
[2019-09-06] MEDS: FAMOTIDINE 20 MG TABLET PO SCH (09:50)
[2019-09-06] MEDS: INSULIN LISPRO 100 UNITS/ML VIAL SC SCH ×2 (09:55→12:52)
[2019-09-06] MEDS: APIXABAN 5 MG TABLET PO SCH (11:08)
[2019-09-06] MEDS ORDERED: FUROSEMIDE 40 MG TABLET PO SCH (12:00)
[2019-09-06 15:59] LABS: Hematocrit 29.6 % (37.0-47.0); Hemoglobin 9.2 gm/dL (12.5-16.0)
--- NOTE | 2019-09-06 16:53 | DS ---
Date of Discharge:: 09/06/19 Hospital Course: Jessa Swann is a 78-year-old female admitted through ER with painful swollen leg. She has fallen several times at the longterm. She is status post total hip arthroplasty and has fallen several times at home and was subsequently admitted to the [facility] by her daughter. She has fallen several times there and had x-rays of her knee and had a CT scan of the knee because of increasing swelling. She was on Eliquis because of atrial fibrillation and being postop. The Eliquis was stopped on admission and I have held it because of active bleeding in her thigh and calf areas. She has a lot of ecchymosis and edema and is very tender to palpation. There is ecchymosis all the way to the toes. There is no evidence in my opinion for cellulitis. She requires quite a lot of support to stand and transfer but is able to do so with assistance. There is ecchymosis clear up into the groin area as well. Her hemoglobin on admission was 7.2 g and after 1 unit of blood transfused through the night was at 7.6 g this morning. I gave her another unit of blood today and the hemoglobin is now up to 9.3 g. She will receive her usual home medicines on discharge. I am holding the Eliquis until I know the bleeding has stopped. H&H will be done tomorrow and Wednesday morning and a CBC in 1 week. I will decide Wednesday morning whether to restart the Eliquis at that time or not. She is in atrial fibrillation. Heart rate is about 110 at my exam. Her diltiazem was restarted today. I will have them monitor that closely at the longterm. Procedures Performed: none Results and Findings: Pending Mircobiology Results 09/05/19 17:17 Urine,Catheterized Urine Culture - Preliminary No Growth Lab Pending Results 09/05/19 16:57: WBC 10.3, RBC 2.72 L, Hgb 7.3 L* D, Hct 24.3 L, MCV 89.3, MCH 26.8 L, MCHC 30.0 L, RDW 18.6 H, Plt Count 237, MPV 11.1, Neutrophils % (Manual) 71, Lymphocytes % (Manual) 12 L, Monocytes % (Manual) 16 H, Eosinophils % (Manual) 1, Neutrophils # (Manual) 7.3 H, Lymphocytes # (Manual) 1.2 L, Monocytes # (Manual) 1.6 H, Eosinophils # (Manual) 0.1, Platelet Estimate Normal, Anisocytosis 1+ 09/05/19 16:57: Sodium 140, Plasma Sodium 140, Potassium 4.7 H, Chloride 103, Carbon Dioxide 26.5, Anion Gap 15.2 H, BUN 31 H, Creatinine 1.34, Est GFR (Non- Af Amer) 41 L, BUN/Creatinine Ratio 23.1 H, Random Glucose 128 H, Calcium 8.4, Calcium Adj for Albumin 8.9, Total Bilirubin 1.0, AST 7, ALT 9 L, Alkaline Phosphatase 92, Total Protein 7.8, Albumin 3.0 L 09/05/19 16:57: Lactic Acid, Venous 1.6 09/05/19 17:17: Urine Color Yellow, Urine Appearance Clear, Urine pH 6.0, Ur Specific [place] 1.015, Urine Protein Negative, Urine Glucose (UA) Negative, Urine Ketones Negative, Urine Blood 5 H, Urine Nitrate Negative, Urine Bilirubin Negative, Urine Urobilinogen Normal, Ur Leukocyte Esterase Negative, Urine RBC 0-5, Urine WBC Trace H, Ur Epithelial Cells 0-5, Urine Bacteria Trace, Urine Culture Comments Culture to follow 09/05/19 18:10: Stool Occult Blood Negative 09/05/19 18:10: Blood Type A Positive, Antibody Screen Negative, Crossmatch See Detail 09/06/19 06:36: WBC 9.2, RBC 2.79 L, Hgb 7.6 L*, Hct 24.8 L, MCV 88.9, MCH 27.2, MCHC 30.6 L, RDW 18.1 H, Plt Count 227, MPV 10.7, Immature Gran % (Auto) 0.80 H, Immature Gran # (Auto) 0.07 H, Neutrophils % 70.5, Lymphocytes % 11.8 L, Monocytes % 15.9 H, Eosinophils % 0.8, Basophils % 0.2, Nucleated RBC % 0.0, Neutrophils # 6.5 H, Lymphocytes # 1.08 L, Monocytes # 1.5 H, Eosinophils # 0.1, Absolute Basophils 0.0 09/06/19 06:36: Sodium 139, Plasma Sodium 142, Potassium 4.5, Chloride 103, Carbon Dioxide 25.9, Anion Gap 14.6 H, BUN 30 H, Creatinine 1.28, Est GFR (Non- Af Amer) 43 L, BUN/Creatinine Ratio 23.4 H, Random Glucose 258 H D, Calcium 7.9, Calcium Adj for Albumin 8.6, Total Bilirubin 1.0, AST 7, ALT 8 L, Alkaline Phosphatase 86, Total Protein 7.2, Albumin 2.7 L Discharge Location: [facility] Disposition: Intermediate Care Facility ICF Condition: Stable Face to Face Encounter completed per CMS Guidelines: No Level of Care: ICF Discharge Activity: Activity as tolerated, Weight bearing Discharge Diet: Consistent carbs Referrals: Jere Garduno DO [Primary Care Provider] - Additional Patient Instructions (free text): Pt is from [facility], please fax discharge information to them and call report. Check Hb, Hct Tomorrow and Wednesday morning Then check a cbc in 1 week. Complete Home Medications List: Complete Home Medication List: atorvastatin 20 mg tablet 20 mg PO HS 04/08/18 gabapentin 300 mg capsule 300 mg PO TID #90 cap 04/18/18 insulin detemir U-100 100 unit/mL subcutaneous solution 25 unit SUB-Q HS ml 06/22/18 Insulin Aspart [Novolog] 8 units SQ TID 12/17/18 Mag Carb/Aluminum Hydrox/Algin [Gaviscon Liquid] 30 ml PO QID PRN #1 btl 12/19/18 famotidine 20 mg tablet 20 mg PO BID 02/15/19 guaiFENesin [Mucinex] 1,200 mg PO BID PRN 02/20/19 Furosemide [Lasix] 40 mg PO 1200 04/19/19 Metoprolol Tartrate [Lopressor] 100 mg PO BID 04/19/19 Apixaban [Eliquis] 5 mg PO BID 05/14/19 Aspirin [Aspirin Chewable] 81 mg PO DAILY 05/14/19 Fluticasone/Vilanterol [Breo Ellipta 100-25 Mcg INH] 1 inh INH DAILY 05/14/19 Ipratropium [place] [Atrovent] 0.5 mg INHALATION Q4H PRN 05/14/19 Cetirizine HCl [Zyrtec] 10 mg PO DAILY 08/30/19 Nystatin 100,000 unit TP BID 08/30/19 Polyethylene Glycol 3350 [Miralax] 17 gm PO DAILY PRN 08/30/19 Sertraline HCl [Zoloft] 50 mg PO DAILY 08/30/19 Zinc Oxide 1 appl TOPICAL QID PRN 08/30/19 guaiFENesin/DEXTROMETHORPHAN [Tussin Dm Cough Syrup] 10 ml PO Q4H PRN 08/30/19 hydrOXYzine HCL [Atarax] 25 mg PO HS 08/30/19 Acetaminophen [Tylenol] 650 mg PO Q8H PRN 09/05/19 Melatonin 5 mg PO HS 09/05/19 Menthol [Biofreeze] 1 appl TOPICAL TID PRN 09/05/19 Acetaminophen [Tylenol] 500 mg PO Q4H PRN tab 09/06/19 Diltiazem HCl [Cardizem Cd] 180 mg PO DAILY cap.sr.24h 09/06/19 Diltiazem HCl [Diltiazem 24Hr ER] 180 mg PO DAILY 09/06/19 Insulin Glargine,Hum.rec.anlog [Lantus] 25 units SC HS vial 09/06/19 Nystatin [Mycostatin Powder] 1 appl TOPICAL BID #1 btl 09/06/19
[2019-09-06 18:08] VITALS: BP 139/75
[2019-09-06] MEDS ORDERED: ROSUVASTATIN CALCIUM 20 MG TABLET PO SCH (21:00)
[2019-09-06] MEDS ORDERED: INSULIN GLARGINE,HUM.REC.ANLOG 100 UNITS/ML VIAL SC SCH (21:00)
[2019-09-06] MEDS ORDERED: INSULIN GLARGINE,HUM.REC.ANLOG 100 UNITS/ML VIAL SC ONE (23:37)
== END 2019-09-06 17:00 ==
LOC: MS 15:58 → ER 15:58 → MS 21:47
PROVIDERS: ADMIT Internal Medicine; ATTEND Family Medicine
DX: D64.9 Anemia, unspecified; R60.0 Localized edema; Z79.01 Long term (current) use of anticoagulants; Y93.9 Activity, unspecified; I48.91 Unspecified atrial fibrillation; Z91.81 History of falling; Y92.9 Unspecified place or not applicable; R41.82 Altered mental status, unspecified; S80.11XA Contusion of right lower leg, initial encounter; W19.XXXA Unspecified fall, initial encounter
CPT/HCPCS: 36415; 36430; 80053; 81001; 82272; 83605; 85014; 85018; 85025; 86850; 87040; 87081; 87086; 94640; 94664; 96365; 96372; 99285; G0378; P9016

== ENCOUNTER 2019-11-24 15:57 | Inpatient (IN) ==
[2019-11-24 17:11] LABS: Hematocrit 35.2 % (37.0-47.0); Hemoglobin 10.3 gm/dL (12.5-16.0); Mean Cell Volume 92.1 fl (78-100); Mean Corpuscular Hgb Conc 29.3 g/dl (32-36); Mean Platelet Volume 10.2 fl (8-12.5); Neutrophil # 11.6 K/mm3 (1.3-6.0); Neutrophil % 85.8 % (42-75.0); Platelet Count 255 K/mm3 (150-450); Red Blood Count 3.82 M/mm3 (4.2-5.4); Red Cell Distribution Width 18.4 % (11.5-14.0); White Blood Count 13.5 K/mm3 (4.0-10.5)
[2019-11-24 17:24] LABS: Albumin * 3.4 gm/dl (3.4-5.0); Anion Gap 15.3 mmol/L (6.8-13.8); Bilirubin, Total 0.5 mg/dL (0.0-1.1); Ca. Corrected For Albumin 8.9 mg/dL (8.4-10.2); Calcium * 8.7 mg/dL (7.9-10.9); Carbon Dioxide 25.8 mmol/L (24-32.6); Potassium 5.1 mmol/L (3.4-4.6); Total Protein 7.9 gm/dL (6.2-8.2)
[2019-11-24] MEDS ORDERED: ACETAMINOPHEN 500 MG TABLET PO ONE (17:34)
[2019-11-24 17:39] LABS: Urine Bilirubin Negative (NEGATIVE); Urine Ketone Negative (NEGATIVE); Urine Nitrite Negative (NEGATIVE); Urine Protein Negative (NEGATIVE); Urine Specific Gravity 1.015 SP.GR. (1.005-1.010); Urine Urobilinogen Normal (NORMAL); Urine pH 5.5 pH (5.0-7.0)
[2019-11-24] MEDS ORDERED: NORMAL SALINE 1,000 ML IV ONE (17:50)
[2019-11-24] MEDS ORDERED: LORazepam 2 MG/ML DISP.SYRIN IV ONE (17:50)
[2019-11-24 17:51] LABS: Urine Blood 5 /ul (NEGATIVE)
[2019-11-24] MEDS ORDERED: LORazepam 2 MG/ML DISP.SYRIN ONE (17:51)
[2019-11-24 17:52] LABS: Urine Appearance Slightly Cloudy (CLEAR); Urine Bacteria 2+; Urine Color Pale Yellow; Urine RBC 0-5 /hpf (0-5); Urine WBC 0-5 /hpf (0-5)
[2019-11-24] MEDS ORDERED: cefTRIAXone SODIUM 1,000 MG/100 ML BAG IV ONE (18:12)
[2019-11-24] MEDS ORDERED: ACETAMINOPHEN 1,000 MG/100 ML BTL IV ONE (18:24)
--- NOTE | 2019-11-24 18:36 | ERNOTE ---
ER Female HPI Date of Service: 11/24/19 Stated Complaint: poss septic Presenting Symptoms: other - mental status changes Time Seen by Provider: 11/24/19 16:12 Source: family Exam Limitations: dementia Immunizations: IMMUNIZATION HX Immunizations Up to Date Yes History of Influenza Vaccine Yes Hx Pneumococcal Vaccination Yes Allergies/Adverse Reactions: Allergies morphine Allergy (Mild, Verified 11/24/19 16:10) Hives ondansetron Allergy (Mild, Verified 11/24/19 16:10) Hives red dye Allergy (Mild, Verified 11/24/19 16:10) Hives levofloxacin [From Levaquin] Allergy (Unknown, Verified 11/24/19 16:10) ciprofloxacin [From Cipro] Adverse Reaction (Mild, Verified 11/24/19 16:10) Hives codeine Adverse Reaction (Mild, Verified 11/24/19 16:10) anxious haloperidol [From Haldol] Adverse Reaction (Mild, Verified 11/24/19 16:10) Other increased confusion lorazepam [From Ativan] Adverse Reaction (Mild, Verified 11/24/19 16:10) Other increased confusion nitrofurantoin [From Macrobid] Adverse Reaction (Mild, Verified 11/24/19 16:10) Hives Sulfa (Sulfonamide Antibiotics) [Sulfa(Sulfonamide Antibiotics)] Adverse Reaction (Mild, Verified 11/24/19 16:10) Hives Home Medications: HOME MEDICATIONS atorvastatin 20 mg tablet 20 mg PO HS 04/08/18 [Last Taken 11/21/19] gabapentin 300 mg capsule 300 mg PO TID #90 cap 04/18/18 [Last Taken 03/01/19] insulin detemir U-100 100 unit/mL subcutaneous solution 25 unit SUB-Q HS ml 06/22/18 [Last Taken 03/01/19] Insulin Aspart [Novolog] 8 units SQ TID 12/17/18 [Last Taken 03/01/19] famotidine 20 mg tablet 20 mg PO BID 02/15/19 [Last Taken 03/01/19] guaiFENesin [Mucinex] 1,200 mg PO BID PRN 02/20/19 [Last Taken 03/01/19] Furosemide [Lasix] 40 mg PO 1200 04/19/19 [Last Taken Unknown] Metoprolol Tartrate [Lopressor] 100 mg PO BID 04/19/19 [Last Taken Unknown] Apixaban [Eliquis] 5 mg PO BID 05/14/19 [Last Taken 1 Day Ago ~09/05/19] Aspirin [Aspirin Chewable] 81 mg PO DAILY 05/14/19 [Last Taken Unknown] Ipratropium [place] [Atrovent] 0.5 mg INHALATION Q4H PRN 05/14/19 [Last Taken Unknown] Cetirizine HCl [Zyrtec] 10 mg PO DAILY 08/30/19 [Last Taken Unknown] Nystatin 100,000 unit TOPICAL BID 08/30/19 [Last Taken Unknown] Polyethylene Glycol 3350 [Miralax] 17 gm PO DAILY PRN 08/30/19 [Last Taken Unknown] Sertraline HCl [Zoloft] 50 mg PO DAILY 08/30/19 [Last Taken Unknown] Zinc Oxide 1 appl TOPICAL QID PRN 08/30/19 [Last Taken Unknown] guaiFENesin/DEXTROMETHORPHAN [Tussin Dm Cough Syrup] 10 ml PO Q4H PRN 08/30/19 [Last Taken Unknown] hydrOXYzine HCL [Atarax] 25 mg PO HS 08/30/19 [Last Taken 11/21/19] Acetaminophen [Tylenol] 650 mg PO Q8H PRN 09/05/19 [Last Taken Unknown] Melatonin 5 mg PO HS 09/05/19 [Last Taken Unknown] Menthol [Biofreeze] 1 appl TOPICAL TID PRN 09/05/19 [Last Taken Unknown] Acetaminophen [Tylenol] 500 mg PO Q4H PRN tab 09/06/19 [Last Taken Unknown] Diltiazem HCl [Cardizem Cd] 180 mg PO DAILY cap.sr.24h 09/06/19 [Last Taken Unknown] Arginine/Ascorbate Sod/Sarah AC [Arginaid Powder] 1 packet PO DAILY 11/22/19 [Last Taken Unknown] Gaviscon Liquid 30 ml PO DAILY 11/22/19 [Last Taken Unknown] - History of Present Illness Narrative: Patient presents to the ED with daughter from [facility]. She throughout the day has become increasingly agitated and confused. This happens whenever she gets an infection. She gets restless, confused and becomes just like this. Has fever here. Usually urine infection will do this. Patient will respond to some questions but not in a way that helps with the history. She will occasionally thrash around and moan. Timing: Present: constant Quality: Present: severe Onset Location: Present: other - unknown Radiation: Present: none Activities at Onset: Present: none Prior Abdominal Problems: Present: similar symptoms Modifying Factors - (Improves): Present: other - nothing Modifying Factors - (Worsens): Present: other - nothing Associated Symptoms: Present: other - unknown Prior Treatment: Present: other - seen in wound care 2 days ago.. Absent: recently hospitalized Review of Systems - Narrative Narrative: unable to obtain d/t dementia and delerium Medical History (Last Reviewed 11/24/19 @ 18:[address] MD) Atrial fibrillation with RVR (Chronic) Rate 150 today. Diabetes mellitus type 2, insulin dependent (Chronic) Wound of right lower extremity (Acute) Eczematous dermatitis (Acute) Muscle tear (Acute) Of the right thigh RODRIGUEZ (dyspnea on exertion) (Chronic) Abdominal pain (Acute) She has a history of peptic ulcer disease Edema leg (Acute) Morbid obesity (Chronic) Generalized weakness (Chronic) HTN (hypertension) (Chronic) Duodenal bulb ulcer (Acute) Atrial fibrillation (Chronic) Diarrhea (Chronic) Aortic aneurysm Walker as ambulation aid bradioprexopathy Bilateral lower extremity edema Depression Onset Date: ~06/29/14 Diabetes mellitus, type II Difficulty in walking Onset Date: ~05/29/14 Dry skin Hammer toes, bilateral Macular degeneration of both eyes Obstructive lung disease Onset Date: ~11/10/17 Onychomycosis Thinning of skin Toe pain, bilateral Hand pain, left Onset Date: ~04/2013 metacarpal fracture Hx of colonic polyps Onset Date: ~06/30/10 Infection of kidney Sepsis Splenic artery aneurysm Onset Date: ~2008 patient states this was reviewed by her previous pcp dr suarez and was told it was small and did not need any further testing at that time. Surgical History: Surgical History (Last Reviewed 11/24/19 @ 18:[address] MD) H/O colonoscopy Onset Date: 03/02/19 06/30/10 Tinguely-tubular adenoma x2, scattered diverticular disease. Incomplete prep. Recheck 6mo. 03/02/19 Jonh-serrated adenoma. Diverticulosis. Recheck 3 yrs. H/O cystoscopy Onset Date: 09/20/17 stent removal H/O lithotripsy Onset Date: Unknown History of appendectomy Onset Date: Unknown History of arthroscopic knee surgery Onset Date: Unknown History of bronchoscopy Onset Date: 01/17/18 History of cholecystectomy Onset Date: Unknown History of esophagogastroduodenoscopy (EGD) Onset Date: 03/02/19 01/23/19 Jonh-w/clipping of bleeding ulcer. 03/02/19 Jonh-negative. History of laryngoscopy Onset Date: 01/15/18 using laser, flexible fiberoptic. [facility] Dr David Patel Hx of cardiac cath Onset Date: Unknown S/P ureteral stent placement Onset Date: Unknown Dr. Meraz insertion of subclavian catheter Onset Date: 09/19/17 Tommeraasen-left Family History: Family History (Last Reviewed 11/24/19 @ 18:[address] MD) Father , MVA age 80 No problems noted. Mother , old age- age 89 No problems noted. Other Family history non-contributory Social History: (Last Reviewed 11/24/19 @ 18:[address] MD) Social History: [facility]: Yes Marital status: lives independently: No lives independently comment: [facility] number of children: 5 caregiver/support person: Yes caregiver/support person comment: Care Center staff caregivers: other Service: No Tobacco: Smoking Status: Never smoker Alcohol: alcohol intake: never Substance Use: substance use type: does not use Dietary Habits: caffeine: Yes Physical Exam - Physical Exam General Appearance: Present: alert, other - thrashes about at times, moans off an on. Head Exam: Present: normal inspection, no evidence of injury Eye Exam: Normal inspection: bilateral, PERRL: bilateral Ears, Nose, Throat: Absent: pharyngeal erythema, dry mucous membranes Neck: Present: normal inspection Respiratory: Present: no respiratory distress, normal breath sounds, lungs clear, other - no wheezing heard Cardiovascular/Chest: Present: regular rate, rhythm, normal peripheral pulses Gastrointestinal/Abdominal: Present: normal bowel sounds, nontender, soft, other - Exam unreliable but there is no localizing tendenress appreciated. Back Exam: Present: other - no clear CVA tenderness Extremity Exam: Present: other - right leg with known wound and chronic clear drainage. This does not appear acutely infected and no clear cellulitis Neurological Exam: Present: alert, other - difficult exam, no clear acute focal motor or sensory deficits Skin Exam: Present: normal color, warm/dry Progress - Results and Orders Patient's Lab Results:: I have reviewed the patient's lab results. - Vital Signs Patient's Vital Signs:: I have reviewed the patient's vital signs. Vital Signs: Vital Signs 11/24/19 16:06 11/24/19 17:29 Temperature 37.4 C 38.4 C H Pulse Rate 89 Respiratory Rate 17 Blood Pressure 133/93 H O2 Sat by Pulse Oximetry 96 - Progress/Reassessment Chief Complaint: Genitourinary Problem Progress Note-Subjective: 11/24/19 18:32 Patient given IV Tylenol for fever and IV Rocephin. Blood cultures obtained. I tried to obtain CT abd/pelvis but she was unable to hold still enough. Her daughter states that anything she gets to calm her down makes her much worse and she would prefer that CT was not done. She would prefer to have her in the hospital with IV antibiotics as this always works for her and this is exactly like she gets when she has an infection. Daughter understands that without the additional testing we may be missing something that could even be life threatening and understands these risks. Given this I spoke with Dr Bains who is agreeable to admission. 11/24/19 18:32 Departure Clinical Impression: Acute delirium, Fever - Departure Disposition: Still a patient Condition: Fair Referrals: Jere Garduno DO [Primary Care Provider] -
[2019-11-24] MEDS ORDERED: ZINC OXIDE 30 APPL TUBE TP PRN (20:25)
[2019-11-24] MEDS ORDERED: POLYETHYLENE GLYCOL 3350 17 GM PACKET PO PRN (20:25)
[2019-11-24] MEDS ORDERED: IPRATROPIUM BROMIDE 0.5 MG/2.5 ML VIAL.NEB IH PRN (20:25)
[2019-11-24] MEDS ORDERED: APIXABAN 5 MG TABLET PO ONE (21:32)
[2019-11-24] MEDS ORDERED: INSULIN DETEMIR 100 UNITS/ML VIAL SC ONE (21:33)
[2019-11-24] MEDS ORDERED: METOPROLOL TARTRATE 100 MG TABLET ONE (21:34)
[2019-11-24] MEDS: hydrOXYzine HCL 25 MG TABLET PO SCH (21:43)
[2019-11-24] MEDS: APIXABAN 5 MG TABLET PO SCH (21:43)
[2019-11-24] MEDS: INSULIN DETEMIR 100 UNITS/ML VIAL SC SCH (21:43)
[2019-11-24] MEDS: ROSUVASTATIN CALCIUM 10 MG TABLET PO SCH (21:47)
[2019-11-24] MEDS: METOPROLOL TARTRATE 50 MG TABLET PO SCH (21:47)
[2019-11-24] MEDS: ACETAMINOPHEN 500 MG TABLET PO PRN (23:31)
[2019-11-25] MEDS: ACETAMINOPHEN 500 MG TABLET PO PRN ×4 (04:07→20:14)
--- NOTE | 2019-11-25 07:23 | HP ---
Chief Complaint - Chief Complaint Date of Service: 11/25/19 Time of Service: 07:22 Chief Complaint: confusion History of Present Illness: Patient with PMHx of afib, pulm hypertension, diabetes, morbid obesity, generalized weakness, hypertension, and is a resident of a nursing facility in [place]. HIstory obtained via chart review, as she was unable to answer many questions. She was brought to the ED for confusion. Her daughter reports she acts similarly whenever she gets an infection. She was seen in our wound clinic on the day prior to admission for draining wounds of her right lower leg. In the ED, WBC was slightly elevated at 13.5, lactate normal at 1.7, urine positive for 2+ bacteria but negative for leukocyte esterase or nitrates. Negative influenza. Urine culture was not obtained yesterday. She was febrile, up to 39.1. She was started on Rocephin. CT abdomen/pelvis was attempted, but she could not lay still for the exam. Her daughter states she reacts very negatively to any sedatives, and asks that they are avoided. She also asks that Jessa not be given fluids, because she developed fluid overload easily. She was admitted on the evening of 11/23, and initially evaluated for this H&P on the morning of 11/24. She wakens for exam, but does not give specific answers to questions. She does state that she feels better than yesterday. However, later in the morning, she is crying out, alternating between prayer words and mild curse words, and does not answer questions. Her right lower leg was examined, and there was no active drainage. Medical History (Last Reviewed 11/24/19 @ 19:50 by Katalina Funes RN) Atrial fibrillation with RVR (Chronic) Rate 150 today. Diabetes mellitus type 2, insulin dependent (Chronic) Wound of right lower extremity (Acute) Eczematous dermatitis (Acute) Muscle tear (Acute) Of the right thigh RODRIGUEZ (dyspnea on exertion) (Chronic) Abdominal pain (Acute) She has a history of peptic ulcer disease Edema leg (Acute) Morbid obesity (Chronic) Generalized weakness (Chronic) HTN (hypertension) (Chronic) Duodenal bulb ulcer (Acute) Atrial fibrillation (Chronic) Diarrhea (Chronic) Aortic aneurysm Walker as ambulation aid bradioprexopathy Bilateral lower extremity edema Depression Onset Date: ~06/29/14 Diabetes mellitus, type II Difficulty in walking Onset Date: ~05/29/14 Dry skin Hammer toes, bilateral Macular degeneration of both eyes Obstructive lung disease Onset Date: ~11/10/17 Onychomycosis Thinning of skin Toe pain, bilateral Hand pain, left Onset Date: ~04/2013 metacarpal fracture Hx of colonic polyps Onset Date: ~06/30/10 Infection of kidney Sepsis Splenic artery aneurysm Onset Date: ~2008 patient states this was reviewed by her previous pcp dr suarez and was told it was small and did not need any further testing at that time. Surgical History: Surgical History (Last Reviewed 11/24/19 @ 19:50 by Katalina Funes, RN) H/O colonoscopy Onset Date: 03/02/19 06/30/10 Tinguely-tubular adenoma x2, scattered diverticular disease. Incomplete prep. Recheck 6mo. 03/02/19 Jonh-serrated adenoma. Diverticulosis. Recheck 3 yrs. H/O cystoscopy Onset Date: 09/20/17 stent removal H/O lithotripsy Onset Date: Unknown History of appendectomy Onset Date: Unknown History of arthroscopic knee surgery Onset Date: Unknown History of bronchoscopy Onset Date: 01/17/18 History of cholecystectomy Onset Date: Unknown History of esophagogastroduodenoscopy (EGD) Onset Date: 03/02/19 01/23/19 Jonh-w/clipping of bleeding ulcer. 03/02/19 Jonh-negative. History of laryngoscopy Onset Date: 01/15/18 using laser, flexible fiberoptic. [facility] Dr David Patel Hx of cardiac cath Onset Date: Unknown S/P ureteral stent placement Onset Date: Unknown Dr. Meraz insertion of subclavian catheter Onset Date: 09/19/17 Tommeraasen-left Family History: Family History (Last Reviewed 11/24/19 @ 19:50 by Katalina Funes, MUNDO) Father , MVA age 80 No problems noted. Mother , old age- age 89 No problems noted. Other Family history non-contributory Social History: (Last Reviewed 11/24/19 @ 19:50 by Katalina Funes, RN) Social History: mcc: Yes Marital status: lives independently: No lives independently comment: [facility] [place] of children: 5 caregiver/support person: Yes caregiver/support person comment: Care Center staff caregivers: other Service: No Tobacco: Smoking Status: Never smoker Alcohol: alcohol intake: never Substance Use: substance use type: does not use Dietary Habits: caffeine: Yes Review Of Systems (GEN) - Review of Systems Generalized/Overall Review: Present: No Symptoms Reported - unable to contribute Immunizations: IMMUNIZATION HX Immunizations Up to Date Yes History of Influenza Vaccine Yes Hx Pneumococcal Vaccination Yes Allergies/Adverse Reactions: Allergies Allergy/AdvReac Type Severity Reaction Status Date / Time morphine Allergy Mild Hives Verified 11/24/19 16:10 ondansetron Allergy Mild Hives Verified 11/24/19 16:10 red dye Allergy Mild Hives Verified 11/24/19 16:10 levofloxacin [From Levaquin] Allergy Unknown Verified 11/24/19 16:10 ciprofloxacin [From Cipro] AdvReac Mild Hives Verified 11/24/19 16:10 codeine AdvReac Mild anxious Verified 11/24/19 16:10 haloperidol [From Haldol] AdvReac Mild Other Verified 11/24/19 16:10 lorazepam [From Ativan] AdvReac Mild Other Verified 11/24/19 16:10 nitrofurantoin AdvReac Mild Hives Verified 11/24/19 16:10 [From Macrobid] Sulfa (Sulfonamide AdvReac Mild Hives Verified 11/24/19 16:10 Antibiotics) [Sulfa(Sulfonamide Antibiotics)] Home Medications: HOME MEDICATIONS atorvastatin 20 mg tablet 20 mg PO HS 04/08/18 [Last Taken 11/21/19] gabapentin 300 mg capsule 300 mg PO TID #90 cap 04/18/18 [Last Taken 03/01/19] insulin detemir U-100 100 unit/mL subcutaneous solution 25 unit SUB-Q HS ml 06/22/18 [Last Taken 03/01/19] Insulin Aspart [Novolog] 8 units SQ TID 12/17/18 [Last Taken 03/01/19] famotidine 20 mg tablet 20 mg PO BID 02/15/19 [Last Taken 03/01/19] guaiFENesin [Mucinex] 1,200 mg PO BID PRN 02/20/19 [Last Taken 03/01/19] Furosemide [Lasix] 40 mg PO 1200 04/19/19 [Last Taken Unknown] Metoprolol Tartrate [Lopressor] 100 mg PO BID 04/19/19 [Last Taken Unknown] Apixaban [Eliquis] 5 mg PO BID 05/14/19 [Last Taken 1 Day Ago ~09/05/19] Aspirin [Aspirin Chewable] 81 mg PO DAILY 05/14/19 [Last Taken Unknown] Ipratropium [place] [Atrovent] 0.5 mg INHALATION Q4H PRN 05/14/19 [Last Taken Unknown] Cetirizine HCl [Zyrtec] 10 mg PO DAILY 08/30/19 [Last Taken Unknown] Nystatin 100,000 unit TOPICAL BID 08/30/19 [Last Taken Unknown] Polyethylene Glycol 3350 [Miralax] 17 gm PO DAILY PRN 08/30/19 [Last Taken Unknown] Sertraline HCl [Zoloft] 50 mg PO DAILY 08/30/19 [Last Taken Unknown] Zinc Oxide 1 appl TOPICAL QID PRN 08/30/19 [Last Taken Unknown] guaiFENesin/DEXTROMETHORPHAN [Tussin Dm Cough Syrup] 10 ml PO Q4H PRN 08/30/19 [Last Taken Unknown] hydrOXYzine HCL [Atarax] 25 mg PO HS 08/30/19 [Last Taken 11/21/19] Acetaminophen [Tylenol] 650 mg PO Q8H PRN 09/05/19 [Last Taken Unknown] Melatonin 5 mg PO HS 09/05/19 [Last Taken Unknown] Menthol [Biofreeze] 1 appl TOPICAL TID PRN 09/05/19 [Last Taken Unknown] Acetaminophen [Tylenol] 500 mg PO Q4H PRN tab 09/06/19 [Last Taken Unknown] Diltiazem HCl [Cardizem Cd] 180 mg PO DAILY cap.sr.24h 09/06/19 [Last Taken Unknown] Arginine/Ascorbate Sod/Sarah AC [Arginaid Powder] 1 packet PO DAILY 11/22/19 [Last Taken Unknown] Gaviscon Liquid 30 ml PO DAILY 11/22/19 [Last Taken Unknown] Exam - Exam Vital Signs: Vital Signs - Last Taken Temp 37.6 C 11/25/19 04:00 Pulse 86 11/25/19 04:00 Resp 20 11/25/19 04:00 BP 109/62 11/25/19 04:00 Pulse Ox 95 11/25/19 04:00 Constitutional: Present: Elderly, Morbidly obese Respiratory: Present: normal breath sounds, no respiratory distress, other - distant lung sounds due to body habitus Cardiovascular/Chest: Present: regular rate, rhythm Abdomen: Present: obese Extremity: Absent: lower extremity edema Skin Exam: Present: other - purplish discoloration, which appears to be old bruising, of proximal lateral leg Neurologic: Present: other - agitated Eye contact: Present: uncooperative Diagnostic Studies: Abnormal Lab Results 11/24/19 11/24/19 11/24/19 Range/Units 17:09 17:09 17:29 WBC 13.5 H (4.0-10.5) K/mm3 RBC 3.82 L (4.2-5.4) M/mm3 Hgb 10.3 L (12.5-16.0) gm/dL Hct 35.2 L (37.0-47.0) % MCHC 29.3 L (32-36) g/dl RDW 18.4 H (11.5-14.0) % Immature Gran # (Auto) 0.04 H (0.000-0.0310) K/mm3 Neutrophils % 85.8 H (42-75.0) % Lymphocytes % 4.4 L (20-51) % Neutrophils # 11.6 H (1.3-6.0) K/mm3 Lymphocytes # 0.59 L (1.5-3.5) k/mm3 Monocytes # 1.2 H (0.0-1.0) k/mm3 Potassium 5.1 H (3.4-4.6) mmol/L Anion Gap 15.3 H (6.8-13.8) mmol/L BUN 32 H (3-23) mg/dL Est GFR (Non-Af Amer) 43 L (60-130) mL/min BUN/Creatinine Ratio 25.0 H (9.0-21.6) Random Glucose 112 H (70-110) mg/dL ALT 10 L (19-67) U/L Urine Blood 5 H (NEGATIVE) /ul Ur Epithelial Cells 5-10 H (0-5) /hpf Urine Bacteria 2+ H (NONE) Laboratory Results WBC 13.5 K/mm3 (4.0-10.5) H 11/24/19 17:09 RBC 3.82 M/mm3 (4.2-5.4) L 11/24/19 17:09 Hgb 10.3 gm/dL (12.5-16.0) L 11/24/19 17:09 Hct 35.2 % (37.0-47.0) L 11/24/19 17:09 MCV 92.1 fl (78-100) 11/24/19 17:09 MCH 27.0 pg (27-31) 11/24/19 17:09 MCHC 29.3 g/dl (32-36) L 11/24/19 17:09 RDW 18.4 % (11.5-14.0) H 11/24/19 17:09 Plt Count 255 K/mm3 (150-450) 11/24/19 17:09 MPV 10.2 fl (8-12.5) 11/24/19 17:09 Immature Gran % (Auto) 0.30 % (0.001-0.429) 11/24/19 17:09 Immature Gran # (Auto) 0.04 K/mm3 (0.000-0.0310) H 11/24/19 17:09 Neutrophils % 85.8 % (42-75.0) H 11/24/19 17:09 Lymphocytes % 4.4 % (20-51) L 11/24/19 17:09 Monocytes % 8.7 % (0.0-9) 11/24/19 17:09 Eosinophils % 0.7 % (0.0-3.0) 11/24/19 17:09 Basophils % 0.1 % (0.0-1.0) 11/24/19 17:09 Nucleated RBC % 0.0 k/mm3 (0-1) 11/24/19 17:09 Neutrophils # 11.6 K/mm3 (1.3-6.0) H 11/24/19 17:09 Lymphocytes # 0.59 k/mm3 (1.5-3.5) L 11/24/19 17:09 Monocytes # 1.2 k/mm3 (0.0-1.0) H 11/24/19 17:09 Eosinophils # 0.1 k/mm3 (0.0-0.7) 11/24/19 17:09 Absolute Basophils 0.0 k/mm3 (0.0-0.1) 11/24/19 17:09 Sodium 141 mmol/L (132-142) 11/24/19 17:09 Plasma Sodium 141 mmol/L (130-142) 11/24/19 17:09 Potassium 5.1 mmol/L (3.4-4.6) H 11/24/19 17:09 Chloride 105 mmol/L (97-106) 11/24/19 17:09 Carbon Dioxide 25.8 mmol/L (24-32.6) 11/24/19 17:09 Anion Gap 15.3 mmol/L (6.8-13.8) H 11/24/19 17:09 BUN 32 mg/dL (3-23) H 11/24/19 17:09 Creatinine 1.28 mg/dL (0.4-1.4) 11/24/19 17:09 Est GFR (Non-Af Amer) 43 mL/min (60-130) L 11/24/19 17:09 BUN/Creatinine Ratio 25.0 (9.0-21.6) H 11/24/19 17:09 Random Glucose 112 mg/dL (70-110) H 11/24/19 17:09 Lactic Acid, Venous 1.7 mmol/L (0.4-2.0) 11/24/19 17:09 Calcium 8.7 mg/dL (7.9-10.9) 11/24/19 17:09 Calcium Adj for Albumin 8.9 mg/dL (8.4-10.2) 11/24/19 17:09 Total Bilirubin 0.5 mg/dL (0.0-1.1) 11/24/19 17:09 AST 10 U/L (0-48) 11/24/19 17:09 ALT 10 U/L (19-67) L 11/24/19 17:09 Alkaline Phosphatase 90 U/L (50-170) 11/24/19 17:09 Total Protein 7.9 gm/dL (6.2-8.2) 11/24/19 17:09 Albumin 3.4 gm/dl (3.4-5.0) 11/24/19 17:09 Urine Color Pale yellow 11/24/19 17:29 Urine Appearance Slightly cloudy (CLEAR) 11/24/19 17:29 Urine pH 5.5 pH (5.0-7.0) 11/24/19 17:29 Ur Specific [place] 1.015 SP.GR. (1.005-1.010) 11/24/19 17:29 Urine Protein Negative mg/dL (NEGATIVE) 11/24/19 17:29 Urine Glucose (UA) Negative mg/dL (NEGATIVE) 11/24/19 17:29 Urine Ketones Negative mg/dL (NEGATIVE) 11/24/19 17:29 Urine Blood 5 /ul (NEGATIVE) H 11/24/19 17:29 Urine Nitrate Negative (NEGATIVE) 11/24/19 17: Urine Bilirubin Negative mg/dl (NEGATIVE) 11/24/19 17:29 Urine Urobilinogen Normal EU/dl (NORMAL) 11/24/19 17:29 Ur Leukocyte Esterase Negative /ul (NEGATIVE) 11/24/19 17: Urine RBC 0-5 /hpf (0-5) 11/24/19 17: Urine WBC 0-5 /hpf (0-5) 11/24/19 17:29 Ur Epithelial Cells 5-10 /hpf (0-5) H 11/24/19 17:29 Urine Bacteria 2+ (NONE) H 11/24/19 17:29 Urine Culture Comments No culture indicated 11/24/19 17:29 Influenza Type A Ag Negative (NEGATIVE) 11/24/19 18:40 Influenza Type B Ag Negative (NEGATIVE) 11/24/19 18:40 Assessment/Plan - Assessment/Plan (1) Altered mental status Assessment: Ddx includes infection, hypoxia, hypoglycemia, medication side effect, dementia. She was febrile yesterday evening, which seems to be improving with rocephin and tylenol. the source of infection is not yet known. Unfortunately, urine culture was not obtained yesterday because UA was negative for leukocyte esterase and nitrates, however there was 2+ bacteria. Urine culture would be of diagnostic benefit, and one has been ordered today, however she already received abx, and it may not show a result. Her daughter is worried about an infection in her leg, however there is not drainage or ulcer on my exam. She could not tolerate a CT scan, and per the ED note, her daughter is aware that makes diagnosis more difficult, and we could be missing something. Pulse ox has been greater than 90%, so i do not believe hypoxia is the source of her delirium. Blood sugar has been in the 100's, so hypoglycemia is also ruled out. She is unable to tell me her meds, but her PCP saw her at the [place] 11/09, and stated "no medication change." Medication side effect less likely. She was appropriately conversational earlier this morning, then confused and combative later. Her daughter reports any sedative medications worsen her condition, so will avoid them. Will need to know her baseline, and can return to the NH when she has been afebrile for 24 hours, and mentation is baseline. Problem: Acute Qualifiers: Altered mental status type: disorientation Qualified Code(s): R41.0 - Disorientation, unspecified (2) UTI (urinary tract infection) Assessment: Urine culture pending, although it will be obtained after abx were started. She had 2+ bacteria in her UA, which can indicate infection. Continue Rocephin, which was started last night. Problem: Suspected Qualifiers: Urinary tract infection type: acute cystitis (3) Pulmonary hypertension Problem: Chronic (4) Morbid obesity Assessment: Her morbid obesity and immobility will make it difficult for her to overcome any acute health issues. 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 Problem: Chronic (5) Hematoma Assessment: she has has area of old appearing bruising of her right leg/ lateral-distal knee. No active drainage, however she was uncooperative for the exam to let me closely exam her posterior leg. Please see Wound clinic note from 11/21 for recommendations. Problem: Chronic (6) Musculoskeletal pain Assessment: Daughter is concerned about her having an infection in her right lower leg as it was recently weeping. I did not see any open areas or active drainage this morning. The Chux pad underneath her is also dry. She went to the wound center the day prior to admission, and it was recommended to put Judy and Mepilex over areas that may open. Problem: Chronic
[2019-11-25 07:43] LABS: Hematocrit 32.2 % (37.0-47.0); Hemoglobin 9.4 gm/dL (12.5-16.0); Mean Corpuscular Hemoglobin 26.9 pg (27-31); Mean Corpuscular Hgb Conc 29.2 g/dl (32-36); Mean Platelet Volume 9.9 fl (8-12.5); Neutrophil # 11.6 K/mm3 (1.3-6.0); Neutrophil % 83.1 % (42-75.0); Platelet Count 200 K/mm3 (150-450); Red Cell Distribution Width 18.5 % (11.5-14.0)
[2019-11-25 07:55] LABS: Albumin * 2.9 gm/dl (3.4-5.0); Anion Gap 11.5 mmol/L (6.8-13.8); BUN/Creatinine Ratio 22.9 (9.0-21.6); Bilirubin, Total 0.7 mg/dL (0.0-1.1); Ca. Corrected For Albumin 9.2 mg/dL (8.4-10.2); Calcium * 8.6 mg/dL (7.9-10.9); Potassium 4.5 mmol/L (3.4-4.6); Total Protein 7.2 gm/dL (6.2-8.2)
[2019-11-25] MEDS: DILTIAZEM HCL 180 MG CAP.SR.24H PO SCH (09:00)
[2019-11-25] MEDS ORDERED: INSULIN ASPART 100 UNITS/ML VIAL SC SCH (09:00)
[2019-11-25] MEDS ORDERED: INSULIN LISPRO 100 UNITS/ML VIAL SC SCH (09:00)
[2019-11-25] MEDS: ASPIRIN 81 MG TAB.CHEW PO SCH (09:00)
[2019-11-25] MEDS: INSULIN LISPRO 100 UNITS/ML VIAL SC SCH ×3 (09:01→17:35)
[2019-11-25] MEDS: APIXABAN 5 MG TABLET PO SCH ×2 (09:01→20:14)
[2019-11-25] MEDS: SERTRALINE HCL 50 MG TABLET PO SCH (09:02)
[2019-11-25] MEDS: METOPROLOL TARTRATE 50 MG TABLET PO SCH ×2 (09:02→20:55)
[2019-11-25] MEDS: GABAPENTIN 300 MG CAPSULE PO SCH ×3 (09:02→17:35)
[2019-11-25] MEDS: VITE AC PO SCH (10:13)
[2019-11-25] MEDS: ASCORBATE SOD PO SCH (10:13)
[2019-11-25] MEDS: ARGININE PO SCH (10:13)
[2019-11-25] MEDS: FUROSEMIDE 40 MG TABLET PO SCH (11:54)
[2019-11-25] MEDS ORDERED: FUROSEMIDE 20 MG TABLET PO SCH (12:00)
[2019-11-25] MEDS: ROSUVASTATIN CALCIUM 10 MG TABLET PO SCH (20:14)
[2019-11-25] MEDS: hydrOXYzine HCL 25 MG TABLET PO SCH (20:14)
[2019-11-25] MEDS: INSULIN DETEMIR 100 UNITS/ML VIAL SC SCH (20:20)
[2019-11-26] MEDS: ASCORBATE SOD PO SCH (08:20)
[2019-11-26] MEDS: ARGININE PO SCH (08:20)
[2019-11-26] MEDS: VITE AC PO SCH (08:20)
[2019-11-26] MEDS: METOPROLOL TARTRATE 50 MG TABLET PO SCH ×2 (08:21→21:02)
[2019-11-26] MEDS: DILTIAZEM HCL 180 MG CAP.SR.24H PO SCH (08:21)
[2019-11-26] MEDS: APIXABAN 5 MG TABLET PO SCH ×2 (08:21→21:03)
[2019-11-26] MEDS: ASPIRIN 81 MG TAB.CHEW PO SCH (08:21)
[2019-11-26] MEDS: GABAPENTIN 300 MG CAPSULE PO SCH ×3 (08:21→18:10)
[2019-11-26] MEDS: INSULIN LISPRO 100 UNITS/ML VIAL SC SCH ×3 (08:22→18:10)
[2019-11-26] MEDS: SERTRALINE HCL 50 MG TABLET PO SCH (08:22)
[2019-11-26] MEDS: FUROSEMIDE 40 MG TABLET PO SCH (11:17)
--- NOTE | 2019-11-26 11:47 | PN ---
Subjective - Date and Time Seen Date: 11/26/19 Time: 09:50 Subjective Narrative: Nursing reports she is much more calm this morning. She appears to be alert and oriented. She denies new concerns and reports feeling okay. Objective - Review of Systems Generalized/Overall Review: Denies: Fever Respiratory: Denies: Cough, Shortness of Breath Cardiac: Denies: Chest Pain Abdominal: Denies: Vomiting Genitourinary Symptoms: Reports: No Symptoms Reported Musculoskeletal Complaints: Reports: Back Pain Skin: Reports: Other - skin lesion of right lateral lower knee - Vitals Vitals: Last Vital Signs Temp 37.0 C 11/26/19 08:00 Pulse 119 H 11/26/19 11:17 Resp 18 11/26/19 08:00 BP 116/75 11/26/19 11:17 Pulse Ox 93 11/26/19 08:00 - Exam Constitutional: Present: Alert, No distress, Elderly, Morbidly obese Respiratory: Present: lungs clear, normal breath sounds, no respiratory distress, other - distant lung sounds secondary to body habitus Abdomen: Present: soft, nontender Extremity: Absent: lower extremity edema Skin Exam: Present: other - 1 mm bleeding lesion of right lateral lower knee, no ulcer Eye contact: Present: cooperative Assessment/Plan - Problems/Diagnosis (1) Altered mental status Problem: Resolved Qualifiers: Altered mental status type: disorientation Qualified Code(s): R41.0 - Disorientation, unspecified Narrative: She is much more calm this morning, and reports feeling fine. On admission, her daughter reported altered mentation whenever she has an infection. She was started on Rocephin for a UTI. 1 of 2 blood cultures is growing gram-negative bacilli, but since it is only one, I suspect contaminant. Likely discharge back to [facility] tomorrow. (2) UTI (urinary tract infection) Problem: Suspected Qualifiers: Urinary tract infection type: acute cystitis Narrative: Initial urinalysis was negative for leukocyte esterase and nitrates, but had 2+ bacteria. Urine culture was not started until after she had received antibi otics. Her urine culture thus far is negative. She has improved with the addition of Rocephin, so we will continue. (3) Wound of skin Problem: Acute Narrative: Her daughter was worried about a weeping skin wound. She does not currently have an ulcer. She has a very small 1 mm lesion where it appears the overlying skin was possibly excoriated. She went to the wound clinic the day prior to admission, and it was recommended to keep Judy and Mepilex over this area. Please see wound clinic note from 11/22/2019. (4) Pulmonary hypertension Problem: Chronic (5) Morbid obesity Problem: Chronic (6) Hematoma Problem: Chronic (7) Musculoskeletal pain Problem: Chronic
[2019-11-26] MEDS: ROSUVASTATIN CALCIUM 10 MG TABLET PO SCH (21:02)
[2019-11-26] MEDS: INSULIN DETEMIR 100 UNITS/ML VIAL SC SCH (21:02)
[2019-11-26] MEDS: hydrOXYzine HCL 25 MG TABLET PO SCH (21:03)
[2019-11-27 06:38] LABS: Hemoglobin 9.5 gm/dL (12.5-16.0); Mean Cell Volume 96.3 fl (78-100); Mean Corpuscular Hemoglobin 26.9 pg (27-31); Mean Corpuscular Hgb Conc 27.9 g/dl (32-36); Mean Platelet Volume 11.1 fl (8-12.5); Neutrophil # 6.7 K/mm3 (1.3-6.0); Neutrophil % 73.7 % (42-75.0); Platelet Count 198 K/mm3 (150-450); Red Blood Count 3.53 M/mm3 (4.2-5.4); Red Cell Distribution Width 18.2 % (11.5-14.0)
[2019-11-27 06:54] LABS: Albumin * 2.6 gm/dl (3.4-5.0); Anion Gap 15.9 mmol/L (6.8-13.8); BUN/Creatinine Ratio 22.7 (9.0-21.6); Bilirubin, Total 0.4 mg/dL (0.0-1.1); Ca. Corrected For Albumin 8.9 mg/dL (8.4-10.2); Calcium * 8.1 mg/dL (7.9-10.9); Carbon Dioxide 20.8 mmol/L (24-32.6); Potassium 4.7 mmol/L (3.4-4.6); Total Protein 7.2 gm/dL (6.2-8.2)
[2019-11-27] MEDS: APIXABAN 5 MG TABLET PO SCH (09:17)
[2019-11-27] MEDS: GABAPENTIN 300 MG CAPSULE PO SCH ×2 (09:17→13:21)
[2019-11-27] MEDS: ASPIRIN 81 MG TAB.CHEW PO SCH (09:17)
[2019-11-27] MEDS: METOPROLOL TARTRATE 50 MG TABLET PO SCH (09:18)
[2019-11-27] MEDS: SERTRALINE HCL 50 MG TABLET PO SCH (09:18)
[2019-11-27] MEDS: DILTIAZEM HCL 180 MG CAP.SR.24H PO SCH (09:18)
[2019-11-27] MEDS: ASCORBATE SOD PO SCH (09:19)
[2019-11-27] MEDS: VITE AC PO SCH (09:19)
[2019-11-27] MEDS: ARGININE PO SCH (09:19)
[2019-11-27] MEDS: INSULIN LISPRO 100 UNITS/ML VIAL SC SCH ×2 (09:20→13:21)
--- NOTE | 2019-11-27 09:40 | DS ---
(1) Altered mental status Problem: Resolved Qualifiers: Altered mental status type: disorientation Qualified Code(s): R41.0 - Disorientation, unspecified (2) UTI (urinary tract infection) Problem: Suspected Qualifiers: Urinary tract infection type: acute cystitis (3) Wound of skin Problem: Chronic (4) Pulmonary hypertension Problem: Chronic (5) Morbid obesity Problem: Chronic (6) Hematoma Problem: Chronic (7) Musculoskeletal pain Problem: Chronic Date of Discharge:: 11/27/19 Hospital Course: Patient with PMHx of afib, pulm hypertension, diabetes, morbid obesity, generalized weakness, hypertension, and is a resident of a nursing facility in [place]. History obtained via chart review, as she was unable to answer many questions. She was brought to the ED for confusion. Her daughter reports she acts similarly whenever she gets an infection. She was seen in our wound clinic on the day prior to admission for draining wounds of her right lower leg. In the ED, WBC was slightly elevated at 13.5, lactate normal at 1.7, urine positive for 2+ bacteria but negative for leukocyte esterase or nitrates. Negative influenza. Urine culture was not obtained yesterday. She was febrile, up to 39.1. She was started on Rocephin. CT abdomen/pelvis was attempted, but she could not lay still for the exam. Her daughter states she reacts very negative ly to any sedatives, and asks that they are avoided. She also asks that Jessa not be given fluids, because she developed fluid overload easily. She was admitted on the evening of 11/23, and initially evaluated for this H&P on the morning of 11/24. She wakens for exam, but does not give specific answers to questions. She does state that she feels better than yesterday. However, later in the morning, she is crying out, alternating between prayer words and mild curse words, and does not answer questions. Her right lower leg was examined, and there was no active drainage. She has a very small 1-2 mm skin wound of her right lateral distal knee, which was covered with a dressing per wound clinic recommendations from 11/22/19. She improved with the Rocephin administration, and her mentation returned to baseline. Urine culture was not obtained in the ED, and was obtained after abx had been started, and was negative. Will continue a short course of cefdinir after DC, to complete a 5 day course. Procedures Performed: none Results and Findings: Pending Mircobiology Results 11/24/19 18:50 Blood Blood Culture - Preliminary NO GROWTH AFTER 48 HOURS 11/24/19 17:10 Blood Blood Culture - Preliminary Ruling Out Pathogen Lab Pending Results 11/24/19 17:09: WBC 13.5 H, RBC 3.82 L, Hgb 10.3 L, Hct 35.2 L, MCV 92.1, MCH 27.0, MCHC 29.3 L, RDW 18.4 H, Plt Count 255, MPV 10.2, Immature Gran % (Auto) 0.30, Immature Gran # (Auto) 0.04 H, Neutrophils % 85.8 H, Lymphocytes % 4.4 L, Monocytes % 8.7, Eosinophils % 0.7, Basophils % 0.1, Nucleated RBC % 0.0, Neutrophils # 11.6 H, Lymphocytes # 0.59 L, Monocytes # 1.2 H, Eosinophils # 0.1, Absolute Basophils 0.0 11/24/19 17:09: Sodium 141, Plasma Sodium 141, Potassium 5.1 H, Chloride 105, Carbon Dioxide 25.8, Anion Gap 15.3 H, BUN 32 H, Creatinine 1.28, Est GFR (Non- Af Amer) 43 L, BUN/Creatinine Ratio 25.0 H, Random Glucose 112 H, Calcium 8.7, Calcium Adj for Albumin 8.9, Total Bilirubin 0.5, AST 10, ALT 10 L, Alkaline Phosphatase 90, Total Protein 7.9, Albumin 3.4 11/24/19 17:09: Lactic Acid, Venous 1.7 11/24/19 17:29: Urine Color Pale yellow, Urine Appearance Slightly cloudy, Urine pH 5.5, Ur Specific [place] 1.015, Urine Protein Negative, Urine Glucose (UA) Negative, Urine Ketones Negative, Urine Blood 5 H, Urine Nitrate Negative, Urine Bilirubin Negative, Urine Urobilinogen Normal, Ur Leukocyte Esterase Negative, Urine RBC 0-5, Urine WBC 0-5, Ur Epithelial Cells 5-10 H, Urine Bacteria 2+ H, Urine Culture Comments No culture indicated 11/24/19 18:40: Influenza Type A Ag Negative, Influenza Type B Ag Negative 11/25/19 07:35: WBC 14.0 H, RBC 3.50 L, Hgb 9.4 L, Hct 32.2 L, MCV 92.0, MCH 26.9 L, MCHC 29.2 L, RDW 18.5 H, Plt Count 200, MPV 9.9, Immature Gran % (Auto) 0.60 H, Immature Gran # (Auto) 0.08 H, Neutrophils % 83.1 H, Lymphocytes % 5.5 L, Monocytes % 10.6 H, Eosinophils % 0.1, Basophils % 0.1, Nucleated RBC % 0.0, Neutrophils # 11.6 H, Lymphocytes # 0.77 L, Monocytes # 1.5 H, Eosinophils # 0.0, Absolute Basophils 0.0 11/25/19 07:35: Sodium 141, Plasma Sodium 142, Potassium 4.5, Chloride 105, Car bon Dioxide 29.0, Anion Gap 11.5, BUN 30 H, Creatinine 1.31, Est GFR (Non-Af Amer) 42 L, BUN/Creatinine Ratio 22.9 H, Random Glucose 150 H D, Calcium 8.6, Calcium Adj for Albumin 9.2, Total Bilirubin 0.7, AST 8, ALT 7 L, Alkaline Phosphatase 77, Total Protein 7.2, Albumin 2.9 L 11/27/19 06:35: WBC 9.0 D, RBC 3.53 L, Hgb 9.5 L, Hct 34.0 L, MCV 96.3, MCH 26.9 L, MCHC 27.9 L, RDW 18.2 H, Plt Count 198, MPV 11.1, Immature Gran % (Auto) 0.40, Immature Gran # (Auto) 0.04 H, Neutrophils % 73.7, Lymphocytes % 10.5 L, Monocytes % 13.6 H, Eosinophils % 1.6, Basophils % 0.2, Nucleated RBC % 0.0, Neutrophils # 6.7 H, Lymphocytes # 0.95 L, Monocytes # 1.2 H, Eosinophils # 0.1, Absolute Basophils 0.0 11/27/19 06:35: Sodium 135, Plasma Sodium 137, Potassium 4.7 H, Chloride 103, Carbon Dioxide 20.8 L, Anion Gap 15.9 H, BUN 25 H, Creatinine 1.10, Est GFR (Non-Af Amer) 51 L D, BUN/Creatinine Ratio 22.7 H, Random Glucose 208 H D, Calcium 8.1, Calcium Adj for Albumin 8.9, Total Bilirubin 0.4, AST 12, ALT 8 L, Alkaline Phosphatase 76, Total Protein 7.2, Albumin 2.6 L Discharge Location: [facility] Disposition: Intermediate Care Facility ICF Condition: Fair Discharge Activity: Activity as tolerated Discharge Diet: Resume usual diet Referrals: Jere Garduno DO [Primary Care Provider] - Two Weeks Additional Patient Instructions (free text): Please fax discharge orders and summary to [facility] at discharge. Prescriptions (Any new or edited meds): Cefdinir 300 mg PO BID #4 cap Transmission Status: Pending to [facility] Complete Home Medications List: Complete Home Medication List: atorvastatin 20 mg tablet 20 mg PO HS 04/08/18 gabapentin 300 mg capsule 300 mg PO TID #90 cap 04/18/18 insulin detemir U-100 100 unit/mL subcutaneous solution 25 unit SUB-Q HS ml 06/22/18 Insulin Aspart [Novolog] 8 units SQ TID 12/17/18 famotidine 20 mg tablet 20 mg PO BID 02/15/19 guaiFENesin [Mucinex] 1,200 mg PO BID PRN 02/20/19 Furosemide [Lasix] 40 mg PO 1200 04/19/19 Metoprolol Tartrate [Lopressor] 100 mg PO BID 04/19/19 Apixaban [Eliquis] 5 mg PO BID 05/14/19 Aspirin [Aspirin Chewable] 81 mg PO DAILY 05/14/19 Ipratropium [place] [Atrovent] 0.5 mg INHALATION Q4H PRN 05/14/19 Cetirizine HCl [Zyrtec] 10 mg PO DAILY 08/30/19 Nystatin 100,000 unit TOPICAL BID 08/30/19 Polyethylene Glycol 3350 [Miralax] 17 gm PO DAILY PRN 08/30/19 Sertraline HCl [Zoloft] 50 mg PO DAILY 08/30/19 Zinc Oxide 1 appl TOPICAL QID PRN 08/30/19 guaiFENesin/DEXTROMETHORPHAN [Tussin Dm Cough Syrup] 10 ml PO Q4H PRN 08/30/19 hydrOXYzine HCL [Atarax] 25 mg PO HS 08/30/19 Acetaminophen [Tylenol] 650 mg PO Q8H PRN 12/17/19 Melatonin 5 mg PO HS 09/05/19 Menthol [Biofreeze] 1 appl TOPICAL TID PRN 09/05/19 Acetaminophen [Tylenol] 500 mg PO Q4H PRN tab 09/06/19 Diltiazem HCl [Cardizem Cd] 180 mg PO DAILY cap.sr.24h 09/06/19 Arginine/Ascorbate Sod/Sarah AC [Arginaid Powder] 1 packet PO DAILY 11/22/19 Gaviscon Liquid 30 ml PO DAILY 11/22/19 Cefdinir 300 mg PO BID #4 cap 11/27/19
[2019-11-27] MEDS: FUROSEMIDE 40 MG TABLET PO SCH (13:21)
[2019-11-27 15:04] VITALS: BP 118/61
== END 2019-11-27 13:50 | DRG 872 ==
LOC: ER 15:57 → MS 15:57 → OBSVTOIN 18:22 → MS 18:34 → INTOOBSV 11-26 09:23 → UNDODISOB 11-27 13:50
PROVIDERS: ADMIT Family Medicine; ATTEND Family Medicine
CPT/HCPCS: 36415; 80053; 81001; 83605; 85025; 87040; 87070; 87081; 87086; 87400; 87449; 96365; 96366; 96367; 99285; G0378; J0131

== ENCOUNTER 2021-02-28 12:06 | Inpatient (IN) ==
[2021-02-28 12:29] LABS: Hematocrit 45.7 % (37.0-47.0); Hemoglobin 13.5 gm/dL (12.5-16.0); Mean Cell Volume 97.6 fl (78-100); Mean Corpuscular Hemoglobin 28.8 pg (27-31); Mean Corpuscular Hgb Conc 29.5 g/dl (32-36); Mean Platelet Volume 10.5 fl (8-12.5); Neutrophil % 74.6 % (42-75.0); Platelet Count 269 K/mm3 (150-450); Red Blood Count 4.68 M/mm3 (4.2-5.4); Red Cell Distribution Width 16.5 % (11.5-14.0); White Blood Count 6.7 K/mm3 (4.0-10.5)
[2021-02-28 12:36] LABS: Urine Bilirubin 1 mg/dl (NEGATIVE); Urine Blood Negative /ul (NEGATIVE); Urine Ketone Negative (NEGATIVE); Urine Nitrite Negative (NEGATIVE); Urine Protein 15 mg/dL (NEGATIVE); Urine Specific Gravity >=1.030 SP.GR. (1.005-1.010); Urine Urobilinogen Normal (NORMAL)
[2021-02-28 12:50] LABS: Urine Appearance Slightly Cloudy (CLEAR); Urine Color Yellow; Urine WBC >50 /hpf (0-5)
[2021-02-28 12:51] LABS: Urine Bacteria 4+; Urine RBC None Seen /hpf (0-5)
[2021-02-28 12:54] LABS: ALT 20 U/L (19-67); AST 25 U/L (0-48); Albumin * 3.6 gm/dl (3.4-5.0); Alkaline Phosphatase * 126 U/L (50-170); Anion Gap 14.5 mmol/L (6.8-13.8); BUN/Creatinine Ratio 11.9 (9.0-21.6); Bilirubin, Total 0.4 mg/dL (0.0-1.1); Blood Urea Nitrogen 23 mg/dL (3-23); Ca. Corrected For Albumin 9.1 mg/dL (8.4-10.2); Calcium * 9.1 mg/dL (7.9-10.9); Carbon Dioxide 30.3 mmol/L (24-32.6); Chloride 107 mmol/L (97-106); Glucose * 200 mg/dL (70-110); Potassium 4.8 mmol/L (3.4-4.6); Sodium 147 mmol/L (132-142); Total Protein 8.7 gm/dL (6.2-8.2); Troponin I Less than 0.017 ng/mL (0.00-0.10)
[2021-02-28] MEDS ORDERED: NORMAL SALINE 1,000 ML IV ONE ×2 (13:10→13:53)
[2021-02-28] MEDS ORDERED: cefTRIAXone SODIUM 1,000 MG/100 ML BAG IV ONE (13:11)
[2021-02-28] MEDS ORDERED: PIPERACILLIN SODIUM/TAZOBACTAM 3.375 GM in DEXTROSE 5 % IN WATER 100 ML IV ONE ×2 (13:30)
--- NOTE | 2021-02-28 14:09 | ERNOTE ---
Medical Problem HPI - Narrative Date of Service: 02/28/21 - General Chief Complaint: General Assessment Time Seen by Provider: 02/28/21 12:11 Source: patient, family, EMS Exam Limitations: clinical condition - Immun/Allergies/Home Medications Immunizations: IMMUNIZATION HX Immunizations Up to Date Yes History of Influenza Vaccine Yes Hx Pneumococcal Vaccination Yes Allergies/Adverse Reactions: Allergies morphine Allergy (Mild, Verified 01/02/21 15:02) Hives ondansetron Allergy (Mild, Verified 01/02/21 15:02) Hives red dye Allergy (Mild, Verified 01/02/21 15:02) Hives levofloxacin [From Levaquin] Allergy (Unknown, Verified 01/02/21 15:02) ciprofloxacin [From Cipro] Adverse Reaction (Mild, Verified 01/02/21 15:02) Hives codeine Adverse Reaction (Mild, Verified 01/02/21 15:02) anxious haloperidol [From Haldol] Adverse Reaction (Mild, Verified 01/02/21 15:02) Other increased confusion lorazepam [From Ativan] Adverse Reaction (Mild, Verified 01/02/21 15:02) Other increased confusion nitrofurantoin [From Macrobid] Adverse Reaction (Mild, Verified 01/02/21 15:02) Hives Sulfa (Sulfonamide Antibiotics) [Sulfa(Sulfonamide Antibiotics)] Adverse Reaction (Mild, Verified 01/02/21 15:02) Hives Home Medications: HOME MEDICATIONS atorvastatin 20 mg tablet 20 mg PO HS 04/08/18 [Last Taken 11/21/19] famotidine 20 mg tablet 20 mg PO BID 02/15/19 [Last Taken 03/01/19] guaiFENesin [Mucinex] 1,200 mg PO BID PRN 02/20/19 [Last Taken 03/01/19] Furosemide [Lasix] 40 mg PO 1200 04/19/19 [Last Taken Unknown] Metoprolol Tartrate [Lopressor] 100 mg PO BID 04/19/19 [Last Taken Unknown] Aspirin [Aspirin Chewable] 81 mg PO DAILY 05/14/19 [Last Taken Unknown] Ipratropium [place] [Atrovent] 0.5 mg IH Q4H PRN 05/14/19 [Last Taken Unknown] Cetirizine HCl [Zyrtec] 10 mg PO DAILY 08/30/19 [Last Taken Unknown] Polyethylene Glycol 3350 [Miralax] 17 gm PO DAILY PRN 08/30/19 [Last Taken Unknown] guaiFENesin/DEXTROMETHORPHAN [Tussin Dm Cough Syrup] 10 ml PO Q4H PRN 08/30/19 [Last Taken Unknown] hydrOXYzine HCL [Atarax] 25 mg PO HS 08/30/19 [Last Taken 11/21/19] Acetaminophen [Tylenol] 650 mg PO Q8H PRN 09/05/19 [Last Taken Unknown] Melatonin 5 mg PO HS 09/05/19 [Last Taken Unknown] Acetaminophen [Tylenol] 500 mg PO Q4H PRN tab 09/06/19 [Last Taken Unknown] Diltiazem HCl [Cardizem Cd] 180 mg PO DAILY cap.sr.24h 09/06/19 [Last Taken Unknown] Gaviscon Liquid 30 ml PO DAILY 11/22/19 [Last Taken Unknown] diclofenac sodium 3 % topical gel 1 applic TP BID #100 g 01/02/21 [Last Taken Unknown] gabapentin 600 mg tablet 600 mg PO TID 01/02/21 [Last Taken Unknown] glucagon (human recombinant) 1 mg/mL solution for injection 1 mg SUBCUT Q20M PRN 01/02/21 [Last Taken Unknown] insulin aspart U-100 100 unit/mL subcutaneous solution 12 unit SUBCUT TID ml 01/02/21 [Last Taken Unknown] insulin detemir U-100 100 unit/mL subcutaneous solution 30 unit SUBCUT HS ml 01/02/21 [Last Taken Unknown] loperamide 2 mg capsule 2 mg PO Q6H PRN 01/02/21 [Last Taken Unknown] multivitamin 1 tab PO DAILY 01/02/21 [Last Taken Unknown] sertraline 50 mg tablet 25 mg PO DAILY tab 01/02/21 [Last Taken Unknown] lidocaine 4 % topical patch 1 patch TP DAILY PRN #15 ea 01/27/21 [Last Taken Unknown] - History of Present History Narrative: Patient presents to the ED via EMS for confusion and apparently low blood pressure. She was seen here over the weekend. She has been treated for C. Diff and has had frequent UTIs. She denies any pain a this time. Daughter is here and relates frequent UTIs for the last 2 months. Unknown how her oral intake has been but it seems like she had quite a bit of diarrhea with the C. Diff. Apparently she had confusion and low BP at the SD today that prompted EMS being called. She knows she is at the hospital but daughter states she is confused like when she gets a UTI. No fever has been noted. The patient has no complaints. Timing: getting worse Severity: moderate Modifying Factors - (Improves): Present: other - nothing Modifying Factors - (Worsens): Present: other - nothing Review of Systems - Narrative Narrative: ROS unobtainable in entirety due to patient condition/confusion - Review of Systems Respiratory: Absent: shortness of breath Cardiology: Absent: chest pain Gastrointestinal/Abdominal: Absent: abdominal pain Medical History (Last Reviewed 02/28/21 @ 13:[address] Liriano MD) Hx of colonic polyps (Resolved) Onset Date: ~06/30/10 Depression (Chronic) Onset Date: ~06/29/14 Difficulty in walking (Chronic) Onset Date: ~05/29/14 Hand pain, left (Resolved) Onset Date: ~04/2013 metacarpal fracture Infection of kidney (Resolved) Obstructive lung disease (Chronic) Onset Date: ~11/10/17 Splenic artery aneurysm (Resolved) Onset Date: ~2008 patient states this was reviewed by her previous pcp dr suarez and was told it was small and did not need any further testing at that time. Sepsis (Resolved) bradioprexopathy (Acute) Macular degeneration of both eyes (Chronic) Onychomycosis (Chronic) Toe pain, bilateral (Chronic) Hammer toes, bilateral (Chronic) Dry skin (Chronic) Thinning of skin (Chronic) Bilateral lower extremity edema (Chronic) Walker as ambulation aid (Acute) Aortic aneurysm (Acute) COVID-19 vaccine series completed (Acute) 09/16/20 & 10/08/20 @ [facility] Atrial fibrillation with RVR (Chronic) Rate 150 today. GERD (gastroesophageal reflux disease) (Chronic) Depression (Chronic) Hyperkalemia (Acute) Altered mental status (Resolved) Cellulitis (Suspected) Anemia (Acute) Traumatic hematoma of right lower leg (Acute) Cellulitis (Acute) Wound of right lower extremity (Acute) Acute delirium (Acute) Fever (Acute) Hematoma (Chronic) Wound of skin (Chronic) COVID-19 (Acute) At [facility] Leg sore (Acute) She states the legs are itching and she has been scratching. She has several areas that are scabbed over and none appear to be infected. I will add some triamcinolone Eczematous dermatitis (Acute) Muscle tear (Acute) Of the right thigh RODRIGUEZ (dyspnea on exertion) (Chronic) Abdominal pain (Acute) She has a history of peptic ulcer disease Edema leg (Acute) Hypoxia (Resolved) Frequent falls (Chronic) Coronary artery disease (Chronic) [place] syndrome (Chronic) Weakness (Acute) Osteoarthritis (Chronic) Agitation (Acute) Macular degeneration (Chronic) Pulmonary hypertension (Chronic) Nocturnal hypoxemia (Chronic) UTI (urinary tract infection) (Suspected) Morbid obesity (Chronic) Restless legs syndrome (RLS) (Chronic) Intertrigo (Acute) Right upper quadrant abdominal pain (Acute) Leukocytosis (Acute) Discharge planning issues (Acute) Pyelonephritis (Acute) Rib pain on right side (Acute) Low back pain (Chronic) Coccydynia (Acute) Fracture of coccyx (Acute) Ribs, multiple fractures (Acute) Orthostatic hypotension (Resolved) Nausea (Acute) Falls frequently (Chronic) Ambulatory dysfunction (Acute) Generalized weakness (Chronic) Left shoulder strain (Acute) HTN (hypertension) (Chronic) HLD (hyperlipidemia) (Chronic) Lactic acidosis (Acute) Toe pain, right (Chronic) Diabetic neuropathy (Chronic) Renal calculus (Acute) Nephrolithiasis (Acute) UTI (urinary tract infection) (Acute) HTN (hypertension) (Chronic) Chronic respiratory failure (Chronic) Acute urticaria (Acute) Aspiration pneumonia (Acute) Hypotension (Acute) Sepsis (Ruled-out) Confusion (Resolved) Yeast dermatitis (Acute) Confusion (Acute) GI bleeding (Suspected) Melena (Acute) Acute post-hemorrhagic anemia (Acute) Symptomatic anemia (Acute) Clostridium difficile colitis (Chronic) CHF (congestive heart failure) (Acute) Fall (Acute) Head injury (Acute) Musculoskeletal pain (Chronic) Closed head injury (Acute) Duodenal bulb ulcer (Acute) Atrial fibrillation (Chronic) Diarrhea (Chronic) Diabetes mellitus, type II Surgical History: Surgical History (Last Reviewed 02/28/21 @ 13:[address] Liriano MD) History of appendectomy (Resolved) Onset Date: Unknown History of bronchoscopy (Resolved) Onset Date: 01/17/18 Hx of cardiac cath (Resolved) Onset Date: Unknown History of cholecystectomy (Resolved) Onset Date: Unknown H/O colonoscopy (Resolved) Onset Date: 03/02/19 06/30/10 Tinguely-tubular adenoma x2, scattered diverticular disease. Incomplete prep. Recheck 6mo. 03/02/19 Jonh-serrated adenoma. Diverticulosis. Recheck 3 yrs. H/O cystoscopy (Resolved) Onset Date: 09/20/17 stent removal insertion of subclavian catheter (Resolved) Onset Date: 09/19/17 Tommeraasen-left History of arthroscopic knee surgery (Resolved) Onset Date: Unknown History of laryngoscopy (Resolved) Onset Date: 01/15/18 using laser, flexible fiberoptic. [facility] Dr David Patel H/O lithotripsy (Resolved) Onset Date: Unknown S/P ureteral stent placement (Resolved) Onset Date: Unknown Dr. Meraz History of esophagogastroduodenoscopy (EGD) (Resolved) Onset Date: 03/02/19 01/23/19 Jonh-w/clipping of bleeding ulcer. 03/02/19 Jonh-negative. Family History: Family History (Last Reviewed 02/28/21 @ 13:[address] Liriano MD) Father , MVA age 80 No problems noted. Mother , old age- age 89 No problems noted. Other Family history non-contributory Social History: (Last Reviewed 02/28/21 @ 13:[address] Liriano MD) Social History: correction: Yes Marital status: lives independently: No lives independently comment: [facility] number of children: 5 caregiver/support person: Yes caregiver/support person comment: Care Center staff caregivers: other Service: No Tobacco: Smoking Status: Never smoker Alcohol: alcohol intake: never Substance Use: substance use type: does not use Dietary Habits: caffeine: Yes Physical Exam - Physical Exam General Appearance: Present: other - alert, seems somewhat confused but knows she is at the hospital. No acute distress Head Exam: Present: normal inspection, no evidence of injury Eye Exam: Normal inspection: bilateral, PERRL: bilateral Ears, Nose, Throat: Present: dry mucous membranes. Absent: nasal congestion, pharyngeal erythema Neck: Present: normal inspection Respiratory: Present: no respiratory distress, normal breath sounds, lungs clear Cardiovascular/Chest: Present: regular rate, rhythm, normal peripheral pulses Gastrointestinal/Abdominal: Present: normal bowel sounds, nontender, soft Back Exam: Present: other - deferred d/t patient condition Extremity Exam: Present: other - no cellulitis noted, no concerning findings for DVT Neurological Exam: Present: alert, other - generalized weakness noted. NO evidence of acute unilateral focal motor or sensory deficits Skin Exam: Present: normal color, warm/dry, other - no cellulitis noted Progress - Results and Orders Patient's Lab Results:: I have reviewed the patient's lab results. - Vital Signs Patient's Vital Signs:: I have reviewed the patient's vital signs. Vital Signs: Vital Signs 02/28/21 12:07 02/28/21 12:41 02/28/21 13:11 Temperature 36.4 C Pulse Rate 75 72 83 Respiratory Rate 15 15 17 Blood Pressure 116/59 109/88 120/64 O2 Sat by Pulse Oximetry 94 94 93 - EKG EKG #1 EKG read: Interp. by me EKG Comments: A fib rate 70. Non-specific ST/T wave changes, no STEMI noted - X-Ray X-Ray #1 X-Ray: chest Interpretation: Interp. by me X-ray Comments: I personally reviewed CXR images as well as official radiology report - Progress/Reassessment Chief Complaint: General Assessment Progress Note-Subjective: 02/28/21 14:05 Patient given IV fluids. Has new UTI (I reviewed last culture from and will start with dose of Zosyn). Has worsening kidney function, clinical and lab based dehydration with worsening Cr and elevated spec gravity on UA. Worsening hypernatremia. Clinically dry also. Family preferred hospitalization which I think is very reasonable at this point. I spoke with Dr Montemayor and discussed case and labs, he is agreeable to admission. Departure Clinical Impression: Dehydration, UTI (urinary tract infection), Confusion, Hypernatremia, Elevated serum creatinine - Departure Disposition: Still a patient Condition: Fair Referrals: Lilia Yap ARNP [Primary Care Provider] -
--- NOTE | 2021-02-28 16:36 | HP ---
Chief Complaint - Chief Complaint Date of Service: 02/28/21 Time of Service: 16:36 Chief Complaint: low blood pressure and confusion History of Present Illness: Jessa Swann is an 80-year-old white female, resident of [facility], with past medical history significant for C. difficile diarrhea, atrial fibrillation, diabetes mellitus type 2, anemia, coronary artery disease, hypertension, hyperlipidemia, who was admitted on 02/28/2021 because of low blood pressure and confusion. As per daughter the patient was in the emergency room last Wednesday because of the same problem and the gave her fluids for dehydration and she perked up and was sent home. Today the nurses noted that she was hypotensive and confused and so she was brought back to the emergency room. As per daughter she always gets this when she has a recurrence of her urinary tract infection. In the emergency room her white blood cell count was normal, her sodium was 149 with a chloride of 107 potassium of 4.8 creatinine of 1.93 with a GFR of 27, random blood sugar of 200, liver function test within normal limits, and her urinalysis showed urinary tract infection. Her last urine culture and sensitivity was in 2020 which showed that she was growing Klebsiella pneumonia and Pseudomonas aeruginosa. She was started on IV Zosyn by the emergency room today. 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 The patient is awake alert oriented x1 and is mostly grunting. History of present illness mostly is coming from her daughter. Medical History (Last Reviewed 02/28/21 @ 16:27 by Caroline Borja RN) Hx of colonic polyps (Resolved) Onset Date: ~06/30/10 Depression (Chronic) Onset Date: ~06/29/14 Difficulty in walking (Chronic) Onset Date: ~05/29/14 Hand pain, left (Resolved) Onset Date: ~04/2013 metacarpal fracture Infection of kidney (Resolved) Obstructive lung disease (Chronic) Onset Date: ~11/10/17 Splenic artery aneurysm (Resolved) Onset Date: ~2008 patient states this was reviewed by her previous pcp dr suarez and was told it was small and did not need any further testing at that time. Sepsis (Resolved) bradioprexopathy (Acute) Macular degeneration of both eyes (Chronic) Onychomycosis (Chronic) Toe pain, bilateral (Chronic) Hammer toes, bilateral (Chronic) Dry skin (Chronic) Thinning of skin (Chronic) Bilateral lower extremity edema (Chronic) Walker as ambulation aid (Acute) Aortic aneurysm (Acute) COVID-19 vaccine series completed (Acute) 09/16/20 & 10/08/20 @ [facility] Atrial fibrillation with RVR (Chronic) Rate 150 today. GERD (gastroesophageal reflux disease) (Chronic) Depression (Chronic) Hyperkalemia (Acute) Altered mental status (Acute) Cellulitis (Suspected) Anemia (Acute) Traumatic hematoma of right lower leg (Acute) Cellulitis (Acute) Wound of right lower extremity (Acute) Acute delirium (Acute) Fever (Acute) Hematoma (Chronic) Wound of skin (Chronic) COVID-19 (Acute) At [facility] Leg sore (Acute) She states the legs are itching and she has been scratching. She has several areas that are scabbed over and none appear to be infected. I will add some triamcinolone Eczematous dermatitis (Acute) Muscle tear (Acute) Of the right thigh RODRIGUEZ (dyspnea on exertion) (Chronic) Abdominal pain (Acute) She has a history of peptic ulcer disease Edema leg (Acute) Hypoxia (Resolved) Frequent falls (Chronic) Coronary artery disease (Chronic) [place] syndrome (Chronic) Weakness (Acute) Osteoarthritis (Chronic) Agitation (Acute) Macular degeneration (Chronic) Pulmonary hypertension (Chronic) Nocturnal hypoxemia (Chronic) UTI (urinary tract infection) (Acute) Morbid obesity (Chronic) Restless legs syndrome (RLS) (Chronic) Intertrigo (Acute) Right upper quadrant abdominal pain (Acute) Leukocytosis (Acute) Discharge planning issues (Acute) Pyelonephritis (Acute) Rib pain on right side (Acute) Low back pain (Chronic) Coccydynia (Acute) Fracture of coccyx (Acute) Ribs, multiple fractures (Acute) Orthostatic hypotension (Resolved) Nausea (Acute) Falls frequently (Chronic) Ambulatory dysfunction (Acute) Generalized weakness (Chronic) Left shoulder strain (Acute) HTN (hypertension) (Chronic) HLD (hyperlipidemia) (Chronic) Lactic acidosis (Acute) Toe pain, right (Chronic) Diabetic neuropathy (Chronic) Renal calculus (Acute) Nephrolithiasis (Acute) UTI (urinary tract infection) (Acute) HTN (hypertension) (Chronic) Chronic respiratory failure (Chronic) Acute urticaria (Acute) Aspiration pneumonia (Acute) Hypotension (Acute) Sepsis (Ruled-out) Confusion (Resolved) Yeast dermatitis (Acute) Confusion (Acute) GI bleeding (Suspected) Melena (Acute) Acute post-hemorrhagic anemia (Acute) Symptomatic anemia (Acute) Clostridium difficile colitis (Chronic) CHF (congestive heart failure) (Acute) Fall (Acute) Head injury (Acute) Musculoskeletal pain (Chronic) Closed head injury (Acute) Duodenal bulb ulcer (Acute) Atrial fibrillation (Chronic) Diarrhea (Chronic) Diabetes mellitus, type II Surgical History: Surgical History (Last Reviewed 02/28/21 @ 16:27 by Caroline Borja RN) History of appendectomy (Resolved) Onset Date: Unknown History of bronchoscopy (Resolved) Onset Date: 01/17/18 Hx of cardiac cath (Resolved) Onset Date: Unknown History of cholecystectomy (Resolved) Onset Date: Unknown H/O colonoscopy (Resolved) Onset Date: 03/02/19 06/30/10 Tinguely-tubular adenoma x2, scattered diverticular disease. Incomplete prep. Recheck 6mo. 03/02/19 Jonh-serrated adenoma. Diverticulosis. Recheck 3 yrs. H/O cystoscopy (Resolved) Onset Date: 09/20/17 stent removal insertion of subclavian catheter (Resolved) Onset Date: 09/19/17 Tommeraasen-left History of arthroscopic knee surgery (Resolved) Onset Date: Unknown History of laryngoscopy (Resolved) Onset Date: 01/15/18 using laser, flexible fiberoptic. [facility] [place] Dr David Patel H/O lithotripsy (Resolved) Onset Date: Unknown S/P ureteral stent placement (Resolved) Onset Date: Unknown Dr. Meraz History of esophagogastroduodenoscopy (EGD) (Resolved) Onset Date: 03/02/19 01/23/19 Jonh-w/clipping of bleeding ulcer. 03/02/19 Jonh-negative. Family History: Family History (Last Reviewed 02/28/21 @ 16:27 by Caroline Borja RN) Father , MVA age 80 No problems noted. Mother , old age- age 89 No problems noted. Other Family history non-contributory Social History: (Last Reviewed 02/28/21 @ 16:27 by Caroline Borja RN) Social History: senior living: Yes Marital status: lives independently: No lives independently comment: [facility] number of children: 5 caregiver/support person: Yes caregiver/support person comment: Care Center staff caregivers: other Service: No Tobacco: Smoking Status: Never smoker Alcohol: alcohol intake: never Substance Use: substance use type: does not use Dietary Habits: caffeine: Yes Review Of Systems (GEN) - Review of Systems Generalized/Overall Review: Present: Fever Additional Comments: Review of system is unobtainable due to patient's altered mental status Immunizations: IMMUNIZATION HX Immunizations Up to Date Yes History of Influenza Vaccine Yes Hx Pneumococcal Vaccination Yes Allergies/Adverse Reactions: Allergies Allergy/AdvReac Type Severity Reaction Status Date / Time morphine Allergy Mild Hives Verified 02/28/21 17:36 ondansetron Allergy Mild Hives Verified 02/28/21 17:36 red dye Allergy Mild Hives Verified 02/28/21 17:36 allopurinol Allergy Unknown Verified 02/28/21 17:36 levofloxacin [From Levaquin] Allergy Unknown Verified 02/28/21 17:36 ciprofloxacin [From Cipro] AdvReac Mild Hives Verified 02/28/21 17:36 codeine AdvReac Mild anxious Verified 02/28/21 17:36 haloperidol [From Haldol] AdvReac Mild Other Verified 02/28/21 17:36 lorazepam [From Ativan] AdvReac Mild Other Verified 02/28/21 17:36 nitrofurantoin AdvReac Mild Hives Verified 02/28/21 17:36 [From Macrobid] Sulfa (Sulfonamide AdvReac Mild Hives Verified 02/28/21 17:36 Antibiotics) [Sulfa(Sulfonamide Antibiotics)] Home Medications: HOME MEDICATIONS atorvastatin 20 mg tablet 20 mg PO HS 04/08/18 [Last Taken 11/21/19] famotidine 20 mg tablet 20 mg PO BID 02/15/19 [Last Taken 03/01/19] guaiFENesin [Mucinex] 1,200 mg PO BID PRN 02/20/19 [Last Taken 03/01/19] Furosemide [Lasix] 40 mg PO 1200 04/19/19 [Last Taken Unknown] Metoprolol Tartrate [Lopressor] 100 mg PO BID 04/19/19 [Last Taken Unknown] Aspirin [Aspirin Chewable] 81 mg PO DAILY 05/14/19 [Last Taken Unknown] Ipratropium [place] [Atrovent] 0.5 mg IH Q4H PRN 05/14/19 [Last Taken Unknown] Cetirizine HCl [Zyrtec] 10 mg PO DAILY 08/30/19 [Last Taken Unknown] Polyethylene Glycol 3350 [Miralax] 17 gm PO DAILY PRN 08/30/19 [Last Taken Unknown] guaiFENesin/DEXTROMETHORPHAN [Tussin Dm Cough Syrup] 10 ml PO Q4H PRN 08/30/19 [Last Taken Unknown] hydrOXYzine HCL [Atarax] 25 mg PO HS 08/30/19 [Last Taken 11/21/19] Acetaminophen [Tylenol] 650 mg PO Q8H PRN 09/05/19 [Last Taken Unknown] Melatonin 5 mg PO HS 09/05/19 [Last Taken Unknown] Acetaminophen [Tylenol] 500 mg PO Q4H PRN tab 09/06/19 [Last Taken Unknown] Diltiazem HCl [Cardizem Cd] 180 mg PO DAILY cap.sr.24h 09/06/19 [Last Taken Unknown] Gaviscon Liquid 30 ml PO DAILY 11/22/19 [Last Taken Unknown] diclofenac sodium 3 % topical gel 1 applic TP BID #100 g 01/02/21 [Last Taken Unknown] gabapentin 600 mg tablet 600 mg PO TID 01/02/21 [Last Taken Unknown] glucagon (human recombinant) 1 mg/mL solution for injection 1 mg SUBCUT Q20M PRN 01/02/21 [Last Taken Unknown] insulin aspart U-100 100 unit/mL subcutaneous solution 12 unit SUBCUT TID ml 01/02/21 [Last Taken Unknown] insulin detemir U-100 100 unit/mL subcutaneous solution 30 unit SUBCUT HS ml 01/02/21 [Last Taken Unknown] loperamide 2 mg capsule 2 mg PO Q6H PRN 01/02/21 [Last Taken Unknown] multivitamin 1 tab PO DAILY 01/02/21 [Last Taken Unknown] sertraline 50 mg tablet 25 mg PO DAILY tab 01/02/21 [Last Taken Unknown] lidocaine 4 % topical patch 1 patch TP DAILY PRN #15 ea 01/27/21 [Last Taken Unknown] L.acidoph,Paracasei, B.lactis [Probiotic] 1 ea PO DAILY 02/28/21 [Last Taken Unknown] Nystatin [Mycostatin Powder] 15 gm TP DAILY 02/28/21 [Last Taken Unknown] Exam - Exam Vital Signs: Vital Signs - Last Taken Temp 36.4 C 02/28/21 15:54 Pulse 99 02/28/21 15:54 Resp 19 02/28/21 15:54 BP 110/91 H 02/28/21 15:54 Pulse Ox 94 02/28/21 15:54 Constitutional: Present: Alert - Awake alert oriented x1, Elderly ENT Exam: Present: hearing grossly normal Eye Exam: bilateral eye: normal inspection, PERRL, EOMI Neck: Present: supple. Absent: lymphadenopathy (R), lymphadenopathy (L) Respiratory: Present: decreased breath sounds, No rales, No wheezing Cardiovascular/Chest: Present: no JVD, no murmur, irregularly irregular Abdomen: Present: Normal bowel sounds, soft, obese, tender - Suprapubic area Extremity: Present: no calf tenderness. Absent: lower extremity edema Diagnostic Studies: Abnormal Lab Results 02/28/21 02/28/21 02/28/21 Range/Units 12:24 12:24 12:31 MCHC 29.5 L (32-36) g/dl RDW 16.5 H (11.5-14.0) % Immature Gran % (Auto) 0.60 H (0.001-0.429) % Immature Gran # (Auto) 0.04 H (0.000-0.0310) K/mm3 Lymphocytes % 10.8 L (20-51) % Monocytes % 11.0 H (0.0-9) % Lymphocytes # 0.73 L (1.5-3.5) k/mm3 Sodium 147 H (132-142) mmol/L Plasma Sodium 149 H (130-142) mmol/L Potassium 4.8 H (3.4-4.6) mmol/L Chloride 107 H (97-106) mmol/L Anion Gap 14.5 H (6.8-13.8) mmol/L Creatinine 1.93 H D (0.4-1.4) mg/dL Est GFR (Non-Af Amer) 27 L D (60-130) mL/min Random Glucose 200 H (70-110) mg/dL Total Protein 8.7 H (6.2-8.2) gm/dL Urine Protein 15 H (NEGATIVE) mg/dL Urine Bilirubin 1 H (NEGATIVE) mg/dl Ur Leukocyte Esterase 75 H (NEGATIVE) /ul Urine WBC >50 H (0-5) /hpf Urine Bacteria 4+ H (NONE) Laboratory Results WBC 6.7 K/mm3 (4.0-10.5) 02/28/21 12:24 RBC 4.68 M/mm3 (4.2-5.4) 02/28/21 12:24 Hgb 13.5 gm/dL (12.5-16.0) 02/28/21 12:24 Hct 45.7 % (37.0-47.0) 02/28/21 12:24 MCV 97.6 fl (78-100) 02/28/21 12:24 MCH 28.8 pg (27-31) 02/28/21 12:24 MCHC 29.5 g/dl (32-36) L 02/28/21 12:24 RDW 16.5 % (11.5-14.0) H 02/28/21 12:24 Plt Count 269 K/mm3 (150-450) 02/28/21 12:24 MPV 10.5 fl (8-12.5) 02/28/21 12:24 Immature Gran % (Auto) 0.60 % (0.001-0.429) H 02/28/21 12:24 Immature Gran # (Auto) 0.04 K/mm3 (0.000-0.0310) H 02/28/21 12:24 Neutrophils % 74.6 % (42-75.0) 02/28/21 12:24 Lymphocytes % 10.8 % (20-51) L 02/28/21 12:24 Monocytes % 11.0 % (0.0-9) H 02/28/21 12:24 Eosinophils % 2.7 % (0.0-3.0) 02/28/21 12:24 Basophils % 0.3 % (0.0-1.0) 02/28/21 12:24 Nucleated RBC % 0.0 k/mm3 (0-1) 02/28/21 12:24 Neutrophils # 5.0 K/mm3 (1.3-6.0) 02/28/21 12:24 Lymphocytes # 0.73 k/mm3 (1.5-3.5) L 02/28/21 12:24 Monocytes # 0.7 k/mm3 (0.0-1.0) 02/28/21 12:24 Eosinophils # 0.2 k/mm3 (0.0-0.7) 02/28/21 12:24 Absolute Basophils 0.0 k/mm3 (0.0-0.1) 02/28/21 12:24 Sodium 147 mmol/L (132-142) H 02/28/21 12:24 Plasma Sodium 149 mmol/L (130-142) H 02/28/21 12:24 Potassium 4.8 mmol/L (3.4-4.6) H 02/28/21 12:24 Chloride 107 mmol/L (97-106) H 02/28/21 12:24 Carbon Dioxide 30.3 mmol/L (24-32.6) 02/28/21 12:24 Anion Gap 14.5 mmol/L (6.8-13.8) H 02/28/21 12:24 BUN 23 mg/dL (3-23) 02/28/21 12:24 Creatinine 1.93 mg/dL (0.4-1.4) H D 02/28/21 12:24 Est GFR (Non-Af Amer) 27 mL/min (60-130) L D 02/28/21 12:24 BUN/Creatinine Ratio 11.9 (9.0-21.6) 02/28/21 12:24 Random Glucose 200 mg/dL (70-110) H 02/28/21 12:24 Lactic Acid, Venous 1.6 mmol/L (0.4-2.0) 02/28/21 15:37 Calcium 9.1 mg/dL (7.9-10.9) 02/28/21 12:24 Calcium Adj for Albumin 9.1 mg/dL (8.4-10.2) 02/28/21 12:24 Total Bilirubin 0.4 mg/dL (0.0-1.1) 02/28/21 12:24 AST 25 U/L (0-48) 02/28/21 12:24 ALT 20 U/L (19-67) 02/28/21 12:24 Alkaline Phosphatase 126 U/L (50-170) 02/28/21 12:24 Troponin I Less than 0.017 ng/mL (0.00-0.10) 02/28/21 12:24 Total Protein 8.7 gm/dL (6.2-8.2) H 02/28/21 12:24 Albumin 3.6 gm/dl (3.4-5.0) 02/28/21 12:24 Urine Color Yellow 02/28/21 12:31 Urine Appearance Slightly cloudy (CLEAR) 02/28/21 12:31 Urine pH 6.0 pH (5.0-7.0) 02/28/21 12:31 Ur Specific [place] >=1.030 SP.GR. (1.005-1.010) 02/28/21 12:31 Urine Protein 15 mg/dL (NEGATIVE) H 02/28/21 12:31 Urine Glucose (UA) Negative mg/dL (NEGATIVE) 02/28/21 12:31 Urine Ketones Negative mg/dL (NEGATIVE) 02/28/21 12:31 Urine Blood Negative /ul (NEGATIVE) 02/28/21 12:31 Urine Nitrate Negative (NEGATIVE) 02/28/21 12:31 Urine Bilirubin 1 mg/dl (NEGATIVE) H 02/28/21 12:31 Urine Urobilinogen Normal EU/dl (NORMAL) 02/28/21 12:31 Ur Leukocyte Esterase 75 /ul (NEGATIVE) H 02/28/21 12:31 Urine RBC None seen /hpf (0-5) 02/28/21 12:31 Urine WBC >50 /hpf (0-5) H 02/28/21 12:31 Ur Epithelial Cells 0-5 /hpf (0-5) 02/28/21 12:31 Urine Bacteria 4+ (NONE) H 02/28/21 12:31 Urine Culture Comments Culture to follow 02/28/21 12:31 SARS-CoV-2 (PCR) Not detected (NotDetected) 02/28/21 14:05 Assessment/Plan - Narrative Narrative: Jessa Swann was admitted for confusion and low blood pressure. In the emergency room, her blood pressure ranged anywhere from 109-120/59-91, respiratory rate of 15-19, pulse of 72-99, temperature of 36.4C, 94% oxygen saturation on room air. Her white blood cell count, lactic acid were normal however her creatinine, sodium, chloride, were elevated and her urinalysis showed urinary tract infection. She has prerenal acute kidney injury from dehyd ration leading to hypernatremia. Jessa did not meet sepsis 3 criteria even if she had UTI with altered mental status as her respiratory rate was not more than 20 and her blood pressure was not less than 100. We will continue her with IV fluids and IV antibiotics. Await culture and sensitivity. We will repeat stool for C. difficile. - Assessment/Plan (1) Dehydration Assessment: Recent C. difficile diarrhea Problem: Acute (2) Acute kidney injury Problem: Acute (3) Hypernatremia Assessment: Due to dehydration Problem: Acute (4) Altered mental status Assessment: Due to acute metabolic/toxic encephalopathyUTI and hyponatremia Problem: Acute Qualifiers: Altered mental status type: transient alteration of awareness Qualified Code(s): R40.4 - Transient alteration of awareness (5) UTI (urinary tract infection) Problem: Acute Qualifiers: Urinary tract infection type: acute cystitis (6) Morbid obesity Problem: Chronic (7) HTN (hypertension) Problem: Chronic Qualifiers: (8) HLD (hyperlipidemia) Problem: Chronic Qualifiers: (9) Atrial fibrillation Problem: Chronic Qualifiers: Atrial fibrillation type: paroxysmal Qualified Code(s): I48.0 - Paroxysmal atrial fibrillation
[2021-02-28] MEDS ORDERED: GLUCAGON,HUMAN RECOMBINANT 1 MG VIAL IM PRN (17:38)
[2021-02-28] MEDS ORDERED: POLYETHYLENE GLYCOL 3350 17 GM PACKET PO PRN (17:38)
[2021-02-28] MEDS ORDERED: IPRATROPIUM BROMIDE 0.5 MG/2.5 ML VIAL.NEB IH PRN (17:38)
[2021-02-28] MEDS: ENOXAPARIN SODIUM 40 MG/0.4 ML SYRG SC SCH (17:52)
[2021-02-28] MEDS: 0.5 NORMAL SALINE 1,000 ML IV PRN (19:05)
[2021-02-28] MEDS: PIPERACILLIN SODIUM/TAZOBACTAM 3.375 GM in DEXTROSE 5 % IN WATER 100 ML IV SCH ×2 (21:19)
[2021-02-28] MEDS: MELATONIN 3,000 MCG TABLET PO SCH (21:20)
[2021-02-28] MEDS: FAMOTIDINE 20 MG TABLET PO SCH (21:20)
[2021-02-28] MEDS: SACCHAROMYCES BOULARDII 250 MG CAPSULE PO SCH (21:20)
[2021-02-28] MEDS: METOPROLOL TARTRATE 25 MG TABLET PO SCH (21:21)
[2021-03-01] MEDS: 0.5 NORMAL SALINE 1,000 ML IV PRN ×3 (03:09→21:59)
[2021-03-01] MEDS: PIPERACILLIN SODIUM/TAZOBACTAM 3.375 GM in DEXTROSE 5 % IN WATER 100 ML IV SCH ×6 (04:31→20:47)
[2021-03-01 06:56] LABS: Hematocrit 36.1 % (37.0-47.0); Hemoglobin 10.7 gm/dL (12.5-16.0); Mean Cell Volume 97.3 fl (78-100); Mean Corpuscular Hemoglobin 28.8 pg (27-31); Mean Corpuscular Hgb Conc 29.6 g/dl (32-36); Mean Platelet Volume 10.8 fl (8-12.5); Platelet Count 220 K/mm3 (150-450); Red Blood Count 3.71 M/mm3 (4.2-5.4); Red Cell Distribution Width 16.6 % (11.5-14.0); White Blood Count 12.1 K/mm3 (4.0-10.5)
[2021-03-01 07:04] LABS: Total Cells Counted 100
[2021-03-01 07:05] LABS: Anion Gap 14.9 mmol/L (6.8-13.8); BUN/Creatinine Ratio 13.2 (9.0-21.6); Estimated Creat Clear 21.3; Potassium 3.9 mmol/L (3.4-4.6)
[2021-03-01 08:39] LABS: Band 1 % (0-2.0); Lymphocyte 8 % (20-51); Monocyte 14 % (0-9); Neutrophil 77 % (42-75); Neutrophil # 9.3 K/mm3 (1.3-6.0); Platelet Estimate Normal (NORMAL); RBC Morphology Normal (NORMAL)
[2021-03-01] MEDS: METOPROLOL TARTRATE 25 MG TABLET PO SCH ×2 (08:55→20:50)
[2021-03-01] MEDS: SERTRALINE HCL 50 MG TABLET PO SCH (08:56)
[2021-03-01] MEDS: FAMOTIDINE 20 MG TABLET PO SCH ×2 (08:56→20:50)
[2021-03-01] MEDS: SACCHAROMYCES BOULARDII 250 MG CAPSULE PO SCH ×2 (08:56→20:49)
[2021-03-01] MEDS: GABAPENTIN 600 MG TABLET PO SCH ×4 (08:56→17:14)
[2021-03-01] MEDS: ACETAMINOPHEN 500 MG TABLET PO PRN ×2 (09:04→16:13)
[2021-03-01] MEDS ORDERED: NORMAL SALINE 500 ML IV ONE (09:18)
--- NOTE | 2021-03-01 09:26 | PN ---
Subjective - Date and Time Seen Date: 03/01/21 Time: 09:25 Subjective Narrative: still confused. AAO x 1. WBC elevated. Will transfer patient to acute status. Objective - Review of Systems Misc: All systems neg except as marked - Review of system is unreliable due to patient's mental status. - Vitals Vitals: Last Vital Signs Temp 36.4 C 03/01/21 08:00 Pulse 84 03/01/21 08:55 Resp 18 03/01/21 08:00 BP 119/50 03/01/21 09:15 Pulse Ox 95 03/01/21 08:00 - Abnormal Lab Findings Abnormal Lab Findings: Abnormal Lab Results 02/28/21 02/28/21 02/28/21 Range/Units 12:24 12:24 12:31 WBC (4.0-10.5) K/mm3 RBC (4.2-5.4) M/mm3 Hgb (12.5-16.0) gm/dL Hct (37.0-47.0) % MCHC 29.5 L (32-36) g/dl RDW 16.5 H (11.5-14.0) % Immature Gran % (Auto) 0.60 H (0.001-0.429) % Immature Gran # (Auto) 0.04 H (0.000-0.0310) K/mm3 Neutrophils % (Manual) (42-75) % Lymphocytes % 10.8 L (20-51) % Lymphocytes % (Manual) (20-51) % Monocytes % 11.0 H (0.0-9) % Monocytes % (Manual) (0-9) % Neutrophils # (Manual) (1.3-6.0) K/mm3 Lymphocytes # 0.73 L (1.5-3.5) k/mm3 Lymphocytes # (Manual) (1.5-3.5) k/mm3 Monocytes # (Manual) (0.0-1.0) k/mm3 Sodium 147 H (132-142) mmol/L Plasma Sodium 149 H (130-142) mmol/L Potassium 4.8 H (3.4-4.6) mmol/L Chloride 107 H (97-106) mmol/L Anion Gap 14.5 H (6.8-13.8) mmol/L BUN (3-23) mg/dL Creatinine 1.93 H D (0.4-1.4) mg/dL Est GFR (Non-Af Amer) 27 L D (60-130) mL/min Random Glucose 200 H (70-110) mg/dL Total Protein 8.7 H (6.2-8.2) gm/dL Urine Protein 15 H (NEGATIVE) mg/dL Urine Bilirubin 1 H (NEGATIVE) mg/dl Ur Leukocyte Esterase 75 H (NEGATIVE) /ul Urine WBC >50 H (0-5) /hpf Urine Bacteria 4+ H (NONE) 03/01/21 03/01/21 Range/Units 06:30 06:30 WBC 12.1 H D (4.0-10.5) K/mm3 RBC 3.71 L (4.2-5.4) M/mm3 Hgb 10.7 L (12.5-16.0) gm/dL Hct 36.1 L (37.0-47.0) % MCHC 29.6 L (32-36) g/dl RDW 16.6 H (11.5-14.0) % Immature Gran % (Auto) (0.001-0.429) % Immature Gran # (Auto) (0.000-0.0310) K/mm3 Neutrophils % (Manual) 77 H (42-75) % Lymphocytes % (20-51) % Lymphocytes % (Manual) 8 L (20-51) % Monocytes % (0.0-9) % Monocytes % (Manual) 14 H (0-9) % Neutrophils # (Manual) 9.3 H (1.3-6.0) K/mm3 Lymphocytes # (1.5-3.5) k/mm3 Lymphocytes # (Manual) 1.0 L (1.5-3.5) k/mm3 Monocytes # (Manual) 1.7 H (0.0-1.0) k/mm3 Sodium 146 H (132-142) mmol/L Plasma Sodium 147 H (130-142) mmol/L Potassium (3.4-4.6) mmol/L Chloride 108 H (97-106) mmol/L Anion Gap 14.9 H (6.8-13.8) mmol/L BUN 25 H (3-23) mg/dL Creatinine 1.89 H (0.4-1.4) mg/dL Est GFR (Non-Af Amer) 27 L (60-130) mL/min Random Glucose 151 H (70-110) mg/dL Total Protein (6.2-8.2) gm/dL Urine Protein (NEGATIVE) mg/dL Urine Bilirubin (NEGATIVE) mg/dl Ur Leukocyte Esterase (NEGATIVE) /ul Urine WBC (0-5) /hpf Urine Bacteria (NONE) - Exam Constitutional: Present: Alert - Awake alert oriented x1, Cooperative, Elderly, Obese ENT Exam: Present: hearing grossly normal Neck: Present: supple. Absent: lymphadenopathy (R), lymphadenopathy (L) Respiratory: Present: decreased breath sounds, No rales, No wheezing Cardiovascular/Chest: Present: regular rate, rhythm, no JVD, no murmur Abdomen: Present: Normal bowel sounds, soft, nontender, obese Extremity: Present: no calf tenderness, pedal edema Assessment/Plan Plan Narrative: Jessa was admitted for confusion likely secondary to acute metabolic/toxic encephalopathy from hypernatremia and urinary tract infection. She is still confused and will transfer patient to acute status. Her white blood cell count now is elevated. We will continue on her IV Zosyn and await culture and sensitivity. Her creatinine improved a little and will continue with her IV fluids. We will get physical therapy evaluation on Wednesday when she is back to her baseline mentation. - Problems/Diagnosis (1) Dehydration Problem: Acute (2) Acute kidney injury Problem: Acute (3) Hypernatremia Problem: Acute (4) Altered mental status Problem: Acute Qualifiers: Altered mental status type: transient alteration of awareness Qualified Code(s): R40.4 - Transient alteration of awareness (5) UTI (urinary tract infection) Problem: Acute Qualifiers: Urinary tract infection type: acute cystitis (6) Morbid obesity Problem: Chronic (7) HTN (hypertension) Problem: Chronic Qualifiers: (8) HLD (hyperlipidemia) Problem: Chronic Qualifiers: (9) Atrial fibrillation Problem: Chronic Qualifiers: Atrial fibrillation type: paroxysmal Qualified Code(s): I48.0 - Paroxysmal atrial fibrillation
[2021-03-01] MEDS: ENOXAPARIN SODIUM 40 MG/0.4 ML SYRG SC SCH (16:14)
[2021-03-01] MEDS: MELATONIN 3,000 MCG TABLET PO SCH (20:50)
[2021-03-02] MEDS: ACETAMINOPHEN 500 MG TABLET PO PRN ×2 (02:26→15:06)
[2021-03-02] MEDS: PIPERACILLIN SODIUM/TAZOBACTAM 3.375 GM in DEXTROSE 5 % IN WATER 100 ML IV SCH ×2 (04:13)
[2021-03-02] MEDS: traMADol HCL 50 MG TABLET PO PRN ×2 (05:21→20:53)
[2021-03-02] MEDS: 0.5 NORMAL SALINE 1,000 ML IV PRN ×3 (06:32→22:46)
[2021-03-02] MEDS: GABAPENTIN 600 MG TABLET PO SCH ×3 (08:24→17:36)
[2021-03-02] MEDS: SACCHAROMYCES BOULARDII 250 MG CAPSULE PO SCH ×2 (08:25→20:54)
[2021-03-02] MEDS: METOPROLOL TARTRATE 25 MG TABLET PO SCH ×2 (08:25→20:54)
[2021-03-02] MEDS: SERTRALINE HCL 50 MG TABLET PO SCH (08:26)
[2021-03-02] MEDS: FAMOTIDINE 20 MG TABLET PO SCH ×2 (08:26→20:47)
--- NOTE | 2021-03-02 09:39 | PN ---
Subjective - Date and Time Seen Date: 03/02/21 Time: 09:37 Subjective Narrative: AAO x 2. UCS shows klebsiella pneumonia. she is allergic to cipro/levaquin. d/c zosyn. Objective - Review of Systems Generalized/Overall Review: Reports: Weakness. Denies: Chills, Fever EENTM: Denies: Blurred Vision Respiratory: Denies: Cough, Shortness of Breath, Orthopnea Cardiac: Denies: Chest Pain, Edema, Palpitations Abdominal: Denies: Nausea, Vomiting, Abdominal Pain Genitourinary Symptoms: Denies: Urgency, Frequency Musculoskeletal Complaints: Denies: Joint Pain Neurological: Denies: Headache Skin: Denies: Lesions, Rash Misc: All systems neg except as marked - Vitals Vitals: Last Vital Signs Temp 36.5 C 03/02/21 06:00 Pulse 109 H 03/02/21 08:25 Resp 20 03/02/21 06:00 BP 136/65 03/02/21 08:25 Pulse Ox 93 03/02/21 06:00 - Exam Constitutional: Present: Alert - Awake alert oriented x2, Elderly ENT Exam: Present: hearing grossly normal Neck: Absent: supple, lymphadenopathy (R), lymphadenopathy (L) Respiratory: Present: decreased breath sounds, No rales, No wheezing Cardiovascular/Chest: Present: regular rate, rhythm, no JVD, no murmur Abdomen: Present: Normal bowel sounds, soft, nontender, obese Extremity: Present: no calf tenderness, pedal edema Assessment/Plan Plan Narrative: Jessa's mental status is improving. Her urine culture and sensitivity was growing Klebsiella pneumonia and we will start her on IV Rocephin per sensitivity. If she is back to her baseline tomorrow she will probably be discharged on oral antibiotics. We will check her blood work tomorrow. - Problems/Diagnosis (1) Dehydration Problem: Acute (2) Acute kidney injury Problem: Acute (3) Hypernatremia Problem: Acute (4) Altered mental status Problem: Acute Qualifiers: Altered mental status type: transient alteration of awareness Qualified Code(s): R40.4 - Transient alteration of awareness (5) UTI (urinary tract infection) Problem: Acute Qualifiers: Urinary tract infection type: acute cystitis (6) Morbid obesity Problem: Chronic (7) HTN (hypertension) Problem: Chronic Qualifiers: (8) HLD (hyperlipidemia) Problem: Chronic Qualifiers: (9) Atrial fibrillation Problem: Chronic Qualifiers: Atrial fibrillation type: paroxysmal Qualified Code(s): I48.0 - Paroxysmal atrial fibrillation
[2021-03-02] MEDS: ENOXAPARIN SODIUM 40 MG/0.4 ML SYRG SC SCH (15:04)
[2021-03-02] MEDS: MELATONIN 3,000 MCG TABLET PO SCH (20:47)
[2021-03-03] MEDS: 0.5 NORMAL SALINE 1,000 ML IV PRN (06:48)
[2021-03-03 06:54] LABS: Anion Gap 15.2 mmol/L (6.8-13.8); BUN/Creatinine Ratio 6.9 (9.0-21.6); Calcium * 8.3 mg/dL (7.9-10.9); Carbon Dioxide 24.8 mmol/L (24-32.6); Estimated Creat Clear 39.9
[2021-03-03] MEDS: GABAPENTIN 600 MG TABLET PO SCH ×3 (09:12→17:14)
[2021-03-03] MEDS: SERTRALINE HCL 50 MG TABLET PO SCH (09:12)
[2021-03-03] MEDS: FAMOTIDINE 20 MG TABLET PO SCH ×2 (09:12→22:07)
[2021-03-03] MEDS: SACCHAROMYCES BOULARDII 250 MG CAPSULE PO SCH ×2 (09:12→22:08)
[2021-03-03] MEDS: METOPROLOL TARTRATE 25 MG TABLET PO SCH ×2 (09:12→22:07)
--- NOTE | 2021-03-03 09:23 | DS ---
(1) Dehydration Problem: Resolved (2) Acute kidney injury Problem: Resolved (3) Hypernatremia Problem: Resolved (4) Altered mental status Problem: Resolved Qualifiers: Altered mental status type: transient alteration of awareness Qualified Code(s): R40.4 - Transient alteration of awareness (5) UTI (urinary tract infection) Problem: Resolved Qualifiers: Urinary tract infection type: acute cystitis (6) Morbid obesity Problem: Chronic (7) HTN (hypertension) Problem: Chronic Qualifiers: (8) HLD (hyperlipidemia) Problem: Chronic Qualifiers: (9) Atrial fibrillation Problem: Chronic Qualifiers: Atrial fibrillation type: paroxysmal Qualified Code(s): I48.0 - Paroxysmal atrial fibrillation Date of Discharge:: 03/03/21 Hospital Course: Jessa Swann is an 80-year-old white female, resident of [facility], with past medical history significant for C. difficile diarrhea, atrial fibrillation, diabetes mellitus type 2, anemia, coronary artery disease, hypertension, hyperlipidemia, who was admitted on 02/28/2021 because of low blood pressure and confusion. As per daughter the patient was in the emergency room last Wednesday because of the same problem and the gave her fluids for dehydration and she perked up and was sent home. Today the nurses noted that she was hypotensive and confused and so she was brought back to the emergency room. As per daughter she always gets this when she has a recurrence of her urinary tract infection. In the emergency room her white blood cell count was normal, her sodium was 149 with a chloride of 107 potassium of 4.8 creatinine of 1.93 with a GFR of 27, random blood sugar of 200, liver function test within normal limits, and her urinalysis showed urinary tract infection. Her last urine culture and sensitivity was in 2020 which showed that she was growing Klebsiella pneumonia and Pseudomonas aeruginosa. She was started on IV Zosyn by the emergency room today. 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 History of present illness mostly is coming from her daughter. The patient was started on IV Zosyn and was changed to IV Rocephin when cultures came out showing Klebsiella pneumoniae. Her white blood cell count is back to normal. Her hypernatremia and acute kidney injury has significantly improved and patient is now no longer confused and adamantly wants to go home. We will continue her on Omnicef 300 mg p.o. twice daily for 5 more days. Procedures Performed: none Results and Findings: Pending Mircobiology Results 02/28/21 14:30 Blood Blood Culture - Preliminary NO GROWTH AFTER 48 HOURS 02/28/21 12:24 Blood Blood Culture - Preliminary NO GROWTH AFTER 48 HOURS Lab Pending Results 02/28/21 12:24: WBC 6.7, RBC 4.68, Hgb 13.5, Hct 45.7, MCV 97.6, MCH 28.8, MCHC 29.5 L, RDW 16.5 H, Plt Count 269, MPV 10.5, Immature Gran % (Auto) 0.60 H, Immature Gran # (Auto) 0.04 H, Neutrophils % 74.6, Lymphocytes % 10.8 L, Monocytes % 11.0 H, Eosinophils % 2.7, Basophils % 0.3, Nucleated RBC % 0.0, Neutrophils # 5.0, Lymphocytes # 0.73 L, Monocytes # 0.7, Eosinophils # 0.2, Absolute Basophils 0.0 02/28/21 12:24: Sodium 147 H, Plasma Sodium 149 H, Potassium 4.8 H, Chloride 107 H, Carbon Dioxide 30.3, Anion Gap 14.5 H, BUN 23, Creatinine 1.93 H D, Est GFR (Non-Af Amer) 27 L D, BUN/Creatinine Ratio 11.9, Random Glucose 200 H, Calcium 9.1, Calcium Adj for Albumin 9.1, Total Bilirubin 0.4, AST 25, ALT 20, Alkaline Phosphatase 126, Troponin I Less than 0.017, Total Protein 8.7 H, Albumin 3.6 02/28/21 12:31: Urine Color Yellow, Urine Appearance Slightly cloudy, Urine pH 6.0, Ur Specific [place] >=1.030, Urine Protein 15 H, Urine Glucose (UA) Negative, Urine Ketones Negative, Urine Blood Negative, Urine Nitrate Negative, Urine Bilirubin 1 H, Urine Urobilinogen Normal, Ur Leukocyte Esterase 75 H, Urine RBC None seen, Urine WBC >50 H, Ur Epithelial Cells 0-5, Urine Bacteria 4+ H, Urine Culture Comments Culture to follow 02/28/21 14:05: SARS-CoV-2 (PCR) Not detected 02/28/21 15:37: Lactic Acid, Venous 1.6 03/01/21 06:30: WBC 12.1 H D, RBC 3.71 L, Hgb 10.7 L, Hct 36.1 L, MCV 97.3, MCH 28.8, MCHC 29.6 L, RDW 16.6 H, Plt Count 220, MPV 10.8, Neutrophils % (Manual) 77 H, Band Neuts % (Manual) 1, Lymphocytes % (Manual) 8 L, Monocytes % (Manual) 14 H, Neutrophils # (Manual) 9.3 H, Lymphocytes # (Manual) 1.0 L, Monocytes # (Manual) 1.7 H, Platelet Estimate Normal, RBC Morphology Normal 03/01/21 06:30: Sodium 146 H, Plasma Sodium 147 H, Potassium 3.9, Chloride 108 H, Carbon Dioxide 27.0, Anion Gap 14.9 H, BUN 25 H, Creatinine 1.89 H, Est GFR (Non-Af Amer) 27 L, BUN/Creatinine Ratio 13.2, Random Glucose 151 H, Calcium 8.0 03/02/21 17:40: Stl C.difficile Tox A&B Negative 03/03/21 06:30: Sodium 143 H, Plasma Sodium 144 H, Potassium 4.0, Chloride 107 H, Carbon Dioxide 24.8, Anion Gap 15.2 H, BUN 7 D, Creatinine 1.01, Est GFR (Non-Af Amer) 56 L D, BUN/Creatinine Ratio 6.9 L, Random Glucose 145 H, Calcium 8.3 [address]charge Location: [facility] Disposition: Intermediate Care Facility ICF Condition: Stable Discharge Activity: Activity as tolerated Discharge Diet: Consistent carbs, Low salt Referrals: Lilia Yap ARNP [Primary Care Provider] - Additional Patient Instructions (free text): Telehealth visit with Dr Morgan . Prescriptions (Any new or edited meds): Furosemide [Lasix] 20 mg PO DAILY #20 tab Transmission Status: Pending to [facility] Cefdinir [Omnicef] 300 mg PO Q12H #10 cap Transmission Status: Pending to [facility] Complete Home Medications List: Complete Home Medication List: atorvastatin 20 mg tablet 20 mg PO HS 04/08/18 famotidine 20 mg tablet 20 mg PO BID 02/15/19 guaiFENesin [Mucinex] 1,200 mg PO BID PRN 02/20/19 Metoprolol Tartrate [Lopressor] 100 mg PO BID 04/19/19 Aspirin [Aspirin Chewable] 81 mg PO DAILY 05/14/19 Ipratropium [place] [Atrovent] 0.5 mg IH Q4H PRN 05/14/19 Cetirizine HCl [Zyrtec] 10 mg PO DAILY 08/30/19 Polyethylene Glycol 3350 [Miralax] 17 gm PO DAILY PRN 08/30/19 guaiFENesin/DEXTROMETHORPHAN [Tussin Dm Cough Syrup] 10 ml PO Q4H PRN 08/30/19 hydrOXYzine HCL [Atarax] 25 mg PO HS 08/30/19 Acetaminophen [Tylenol] 650 mg PO Q8H PRN 09/05/19 Melatonin 5 mg PO HS 09/05/19 Acetaminophen [Tylenol] 500 mg PO Q4H PRN tab 09/06/19 Diltiazem HCl [Cardizem Cd] 180 mg PO DAILY cap.sr.24h 09/06/19 Gaviscon Liquid 30 ml PO DAILY 11/22/19 diclofenac sodium 3 % topical gel 1 applic TP BID #100 g 01/02/21 gabapentin 600 mg tablet 600 mg PO TID 01/02/21 glucagon (human recombinant) 1 mg/mL solution for injection 1 mg SUBCUT Q20M PRN 01/02/21 insulin aspart U-100 100 unit/mL subcutaneous solution 12 unit SUBCUT TID ml 01/02/21 insulin detemir U-100 100 unit/mL subcutaneous solution 30 unit SUBCUT HS ml 01/02/21 loperamide 2 mg capsule 2 mg PO Q6H PRN 01/02/21 multivitamin 1 tab PO DAILY 01/02/21 sertraline 50 mg tablet 25 mg PO DAILY tab 01/02/21 lidocaine 4 % topical patch 1 patch TP DAILY PRN #15 ea 01/27/21 L.acidoph,Paracasei, B.lactis [Probiotic] 1 ea PO DAILY 02/28/21 Nystatin [Mycostatin Powder] 15 gm TP DAILY 02/28/21 Cefdinir [Omnicef] 300 mg PO Q12H #10 cap 03/03/21 Furosemide [Lasix] 20 mg PO DAILY #20 tab 03/03/21 Forms: Patient Portal Registration
[2021-03-03 10:08] LABS: Hematocrit 37.4 % (37.0-47.0); Mean Cell Volume 97.7 fl (78-100); Mean Corpuscular Hemoglobin 28.7 pg (27-31); Mean Corpuscular Hgb Conc 29.4 g/dl (32-36); Mean Platelet Volume 10.9 fl (8-12.5); Neutrophil # 4.6 K/mm3 (1.3-6.0); Neutrophil % 70.4 % (42-75.0); Platelet Count 228 K/mm3 (150-450); Red Blood Count 3.83 M/mm3 (4.2-5.4); Red Cell Distribution Width 16.3 % (11.5-14.0); White Blood Count 6.5 K/mm3 (4.0-10.5)
[2021-03-03] MEDS: ENOXAPARIN SODIUM 40 MG/0.4 ML SYRG SC SCH (16:58)
[2021-03-03] MEDS: MELATONIN 3,000 MCG TABLET PO SCH (22:07)
[2021-03-03] MEDS: traMADol HCL 50 MG TABLET PO PRN (22:08)
[2021-03-04] MEDS: SACCHAROMYCES BOULARDII 250 MG CAPSULE PO SCH (09:10)
[2021-03-04] MEDS: GABAPENTIN 600 MG TABLET PO SCH ×2 (09:10→15:01)
[2021-03-04] MEDS: METOPROLOL TARTRATE 25 MG TABLET PO SCH (09:10)
[2021-03-04] MEDS: FAMOTIDINE 20 MG TABLET PO SCH (09:10)
[2021-03-04] MEDS: SERTRALINE HCL 50 MG TABLET PO SCH (09:10)
[2021-03-04] MEDS: ACETAMINOPHEN 500 MG TABLET PO PRN (09:10)
--- NOTE | 2021-03-04 09:43 | DS ---
(1) Dehydration Problem: Resolved (2) Acute kidney injury Problem: Resolved (3) Hypernatremia Problem: Resolved (4) Altered mental status Problem: Resolved Qualifiers: Altered mental status type: transient alteration of awareness Qualified Code(s): R40.4 - Transient alteration of awareness (5) UTI (urinary tract infection) Problem: Resolved Qualifiers: Urinary tract infection type: acute cystitis (6) Morbid obesity Problem: Chronic (7) HTN (hypertension) Problem: Chronic Qualifiers: (8) HLD (hyperlipidemia) Problem: Chronic Qualifiers: (9) Atrial fibrillation Problem: Chronic Qualifiers: Atrial fibrillation type: paroxysmal Qualified Code(s): I48.0 - Paroxysmal atrial fibrillation (10) Morbid obesity with BMI of 50.0-59.9, adult Problem: Acute Date of Discharge:: 03/04/21 Hospital Course: Jessa Swann is an 80-year-old white female, resident of [facility], with past medical history significant for C. difficile diarrhea, atrial fibrillation, diabetes mellitus type 2, anemia, coronary artery disease, hypertension, hyperlipidemia, who was admitted on 02/28/2021 because of low blood pressure and confusion. As per daughter the patient was in the emergency room last Wednesday because of the same problem and the gave her fluids for dehydration and she perked up and was sent home. Today the nurses noted that she was hypotensive and confused and so she was brought back to the emergency room. As per daughter she always gets this when she has a recurrence of her urinary tract infection. In the emergency room her white blood cell count was normal, her sodium was 149 with a chloride of 107 potassium of 4.8 creatinine of 1.93 with a GFR of 27, random blood sugar of 200, liver function test within normal limits, and her urinalysis showed urinary tract infection. Her last urine culture and sensitivity was in 2020 which showed that she was growing Klebsiella pneumonia and Pseudomonas aeruginosa. She was started on IV Zosyn by the emergency room today. 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 History of present illness mostly is coming from her daughter. The patient was started on IV Zosyn and was changed to IV Rocephin when cultures came out showing Klebsiella pneumoniae. Her white blood cell count is back to normal. Her hypernatremia and acute kidney injury has significantly improved and patient is now no longer confused and adamantly wants to go home. We will continue her on Omnicef 300 mg p.o. twice daily for 5 more days. She was not able to go the CT yesterday due to transportation problems. Procedures Performed: none Results and Findings: Pending Mircobiology Results 02/28/21 14:30 Blood Blood Culture - Preliminary NO GROWTH AFTER 48 HOURS 02/28/21 12:24 Blood Blood Culture - Preliminary NO GROWTH AFTER 48 HOURS Lab Pending Results 02/28/21 12:24: WBC 6.7, RBC 4.68, Hgb 13.5, Hct 45.7, MCV 97.6, MCH 28.8, MCHC 29.5 L, RDW 16.5 H, Plt Count 269, MPV 10.5, Immature Gran % (Auto) 0.60 H, Immature Gran # (Auto) 0.04 H, Neutrophils % 74.6, Lymphocytes % 10.8 L, Monocytes % 11.0 H, Eosinophils % 2.7, Basophils % 0.3, Nucleated RBC % 0.0, Neutrophils # 5.0, Lymphocytes # 0.73 L, Monocytes # 0.7, Eosinophils # 0.2, Absolute Basophils 0.0 02/28/21 12:24: Sodium 147 H, Plasma Sodium 149 H, Potassium 4.8 H, Chloride 107 H, Carbon Dioxide 30.3, Anion Gap 14.5 H, BUN 23, Creatinine 1.93 H D, Est GFR (Non-Af Amer) 27 L D, BUN/Creatinine Ratio 11.9, Random Glucose 200 H, Calcium 9.1, Calcium Adj for Albumin 9.1, Total Bilirubin 0.4, AST 25, ALT 20, Alkaline Phosphatase 126, Troponin I Less than 0.017, Total Protein 8.7 H, Albumin 3.6 02/28/21 12:31: Urine Color Yellow, Urine Appearance Slightly cloudy, Urine pH 6.0, Ur Specific [place] >=1.030, Urine Protein 15 H, Urine Glucose (UA) Negative, Urine Ketones Negative, Urine Blood Negative, Urine Nitrate Negative, Urine Bilirubin 1 H, Urine Urobilinogen Normal, Ur Leukocyte Esterase 75 H, Urine RBC None seen, Urine WBC >50 H, Ur Epithelial Cells 0-5, Urine Bacteria 4+ H, Urine Culture Comments Culture to follow 02/28/21 14:05: SARS-CoV-2 (PCR) Not detected 02/28/21 15:37: Lactic Acid, Venous 1.6 03/01/21 06:30: WBC 12.1 H D, RBC 3.71 L, Hgb 10.7 L, Hct 36.1 L, MCV 97.3, MCH 28.8, MCHC 29.6 L, RDW 16.6 H, Plt Count 220, MPV 10.8, Neutrophils % (Manual) 77 H, Band Neuts % (Manual) 1, Lymphocytes % (Manual) 8 L, Monocytes % (Manual) 14 H, Neutrophils # (Manual) 9.3 H, Lymphocytes # (Manual) 1.0 L, Monocytes # (Manual) 1.7 H, Platelet Estimate Normal, RBC Morphology Normal 03/01/21 06:30: Sodium 146 H, Plasma Sodium 147 H, Potassium 3.9, Chloride 108 H, Carbon Dioxide 27.0, Anion Gap 14.9 H, BUN 25 H, Creatinine 1.89 H, Est GFR (Non-Af Amer) 27 L, BUN/Creatinine Ratio 13.2, Random Glucose 151 H, Calcium 8.0 03/02/21 17:40: Stl C.difficile Tox A&B Negative 03/03/21 06:30: Sodium 143 H, Plasma Sodium 144 H, Potassium 4.0, Chloride 107 H, Carbon Dioxide 24.8, Anion Gap 15.2 H, BUN 7 D, Creatinine 1.01, Est GFR (Non-Af Amer) 56 L D, BUN/Creatinine Ratio 6.9 L, Random Glucose 145 H, Calcium 8.3 03/03/21 06:30: WBC 6.5 D, RBC 3.83 L, Hgb 11.0 L, Hct 37.4, MCV 97.7, MCH 28.7, MCHC 29.4 L, RDW 16.3 H, Plt Count 228, MPV 10.9, Immature Gran % (Auto) 0.50 H, Immature Gran # (Auto) 0.03, Neutrophils % 70.4, Lymphocytes % 9.9 L, Monocytes % 14.0 H, Eosinophils % 4.9 H, Basophils % 0.3, Nucleated RBC % 0.0, Neutrophils # 4.6, Lymphocytes # 0.64 L, Monocytes # 0.9, Eosinophils # 0.3, Absolute Basophils 0.0 Discharge Location: [facility] Disposition: Intermediate Care Facility ICF Condition: Stable Discharge Activity: Activity as tolerated Discharge Diet: Consistent carbs, Low salt Referrals: Lilia Yap ARNP [Primary Care Provider] - Additional Patient Instructions (free text): Telehealth follow up visit with Dr Morgan WednesdayMarch 17 at 2:00 p.m. Prescriptions (Any new or edited meds): Furosemide [Lasix] 20 mg PO DAILY #20 tab Transmission Status: Received by [facility] Cefdinir [Omnicef] 300 mg PO Q12H #10 cap Transmission Status: Received by [facility] Complete Home Medications List: Complete Home Medication List: atorvastatin 20 mg tablet 20 mg PO HS 04/08/18 famotidine 20 mg tablet 20 mg PO BID 02/15/19 guaiFENesin [Mucinex] 1,200 mg PO BID PRN 02/20/19 Metoprolol Tartrate [Lopressor] 100 mg PO BID 04/19/19 Aspirin [Aspirin Chewable] 81 mg PO DAILY 05/14/19 Ipratropium [place] [Atrovent] 0.5 mg IH Q4H PRN 05/14/19 Cetirizine HCl [Zyrtec] 10 mg PO DAILY 08/30/19 Polyethylene Glycol 3350 [Miralax] 17 gm PO DAILY PRN 08/30/19 guaiFENesin/DEXTROMETHORPHAN [Tussin Dm Cough Syrup] 10 ml PO Q4H PRN 08/30/19 hydrOXYzine HCL [Atarax] 25 mg PO HS 08/30/19 Acetaminophen [Tylenol] 650 mg PO Q8H PRN 09/05/19 Melatonin 5 mg PO HS 09/05/19 Acetaminophen [Tylenol] 500 mg PO Q4H PRN tab 09/06/19 Diltiazem HCl [Cardizem Cd] 180 mg PO DAILY cap.sr.24h 09/06/19 Gaviscon Liquid 30 ml PO DAILY 11/22/19 diclofenac sodium 3 % topical gel 1 applic TP BID #100 g 01/02/21 gabapentin 600 mg tablet 600 mg PO TID 01/02/21 glucagon (human recombinant) 1 mg/mL solution for injection 1 mg SUBCUT Q20M PRN 01/02/21 insulin aspart U-100 100 unit/mL subcutaneous solution 12 unit SUBCUT TID ml 01/02/21 insulin detemir U-100 100 unit/mL subcutaneous solution 30 unit SUBCUT HS ml 01/02/21 loperamide 2 mg capsule 2 mg PO Q6H PRN 01/02/21 multivitamin 1 tab PO DAILY 01/02/21 sertraline 50 mg tablet 25 mg PO DAILY tab 01/02/21 lidocaine 4 % topical patch 1 patch TP DAILY PRN #15 ea 01/27/21 L.acidoph,Paracasei, B.lactis [Probiotic] 1 ea PO DAILY 02/28/21 Nystatin [Mycostatin Powder] 15 gm TP DAILY 02/28/21 Cefdinir [Omnicef] 300 mg PO Q12H #10 cap 03/03/21 Furosemide [Lasix] 20 mg PO DAILY #20 tab 03/03/21 Forms: Patient Portal Registration
[2021-03-04] MEDS ORDERED: hydrOXYzine HCL 25 MG TABLET PO ONE (10:46)
[2021-03-04 15:03] VITALS: BP 148/86
== END 2021-03-04 12:50 | DRG 689 ==
LOC: MS 12:06 → ER 12:06 → MS 15:54
PROVIDERS: ADMIT Internal Medicine; ATTEND Internal Medicine
DX: I48.0 Paroxysmal atrial fibrillation; E86.0 Dehydration; N30.00 Acute cystitis without hematuria; E11.9 Type 2 diabetes mellitus without complications; E66.01 Morbid (severe) obesity due to excess calories; I10 Essential (primary) hypertension; G92 Toxic encephalopathy; B96.1 Klebsiella pneumoniae [K. pneumoniae] as the cause of diseases classified elsewhere; I25.10 Atherosclerotic heart disease of native coronary artery without angina pectoris; E87.0 Hyperosmolality and hypernatremia; D64.9 Anemia, unspecified; E78.5 Hyperlipidemia, unspecified; Z68.43 Body mass index [BMI] 50.0-59.9, adult; N17.9 Acute kidney failure, unspecified